=== PATIENT | male | born 1935 | race Caucasian/White ===

== ENCOUNTER 2018-03-15 16:53 | Outpatient (REF) | payer OTHER, SELFPAY ==
[2018-03-15 19:25] LABS: HCT 32.9 % (40.0-50.0); HGB 11.1 g/dL (13.5-17.5); Mean Corp. HGB Concentration 33.7 g/dL (32.0-36.0); Mean Corpuscular Hemoglobin 35.4 pg (27.0-33.0); Mean Corpuscular Volume 104.8 fL (80-95); Mean Platelet Volume 9.3 fL (8.0-11.0); Platelet Count 135 x1000/uL (130-400); RBC 3.14 m/cumm (4.50-6.00); RBC Distribution Width 14.8 % (11.8-14.1)
[2018-03-15 19:34] LABS: Anion Gap 7.3 mmol/L (3-11); BUN 27 mg/dL (7-18); CO2 28.7 mmol/L (21.0-32.0); CREATININE 1.35 mg/dL (0.70-1.30); Calcium 8.8 mg/dL (8.5-10.1); Chloride 108 mmol/L (98-107); Estimated GFR 50.72 (mL/min/1.73m2); Glucose 187 mg/dL (70-100); Potassium 4.7 mmol/L (3.5-5.1); Sodium 144 mmol/L (136-145)
[2018-03-15 20:10] LABS: White Blood Cell Count 1.13 k/cumm (4.4-10.8)
[2018-03-18 10:07] LABS: Absolute Lymphocyte Count 0.34 k/cumm (1.2-3.4); Absolute Monocyte Count 0.07 k/cumm (0.11-0.7); Absolute Neutrophil Count 0.68 k/cumm (1.2-6.7)
[2018-03-18 10:08] LABS: Absolute Eosinophil Count 0.05 k/cumm (0.0-0.7); Diff Comment Manual Differential; Microcytosis 1+
== END 2018-03-15 17:13 ==
LOC: NCHCN 16:53
PROVIDERS: PCP Family Medicine; Visit Provider Family Medicine
DX: D46.9 Myelodysplastic syndrome, unspecified (principal); N18.4 Chronic kidney disease, stage 4 (severe); E11.9 Type 2 diabetes mellitus without complications; D72.819 Decreased white blood cell count, unspecified; D64.9 Anemia, unspecified
CPT/HCPCS: 80048; 85027; 85007

== ENCOUNTER 2018-05-22 13:00 | Outpatient (CLI) | payer OTHER, SELFPAY ==
--- NOTE | 2018-05-22 14:00 | DI.RAD_ITS ---
SYMPTOMS/DIAGNOSIS: PRODUCTIVE COUGH, ? PNEUMONIA, CRACKLES LT BASE PA AND LATERAL CHEST: The heart is at the upper limits of normal in size. Note is again made of apparent aortic dilatation and tortuosity unchanged from 07/21/17 radiograph. There are calcific right hilar nodes and peripheral intraparenchymal calcifications on the right consistent with healed granulomatous disease. The lungs are otherwise generally clear except for a new focal area of patchy consolidation in the left lung base consistent with acute pneumonia. CONCLUSION: Suspect acute left basilar pneumonia. Appropriate follow up studies requested.
== END 2018-05-22 13:20 ==
PROVIDERS: PCP Family Medicine; Visit Provider Nurse Practitioner Family
DX: R05 Cough (principal); J18.9 Pneumonia, unspecified organism; R09.89 Other specified symptoms and signs involving the circulatory and respiratory systems
CPT/HCPCS: 71046

== ENCOUNTER 2018-07-28 00:20 | Emergency (ER) | payer OTHER, SELFPAY ==
[2018-07-28 00:38] VITALS: BP 146/80; PULSE 66; RESP 16; TEMP 36.6; O2SAT 94
--- NOTE | 2018-07-28 00:43 | W.ED.GENAD ---
Discharge Plan Disposition Patient Disposition: HOME Condition: Good Discharge Details Chief Complaint: RespSymp Clinical Impression: URI (upper respiratory infection) Primary Care Provider: Sandra Park V ED Provider: Hal Oro [place] Meds and New Rx's Prescriptions: Continued glipizide 10 MG tablet 10 mg PO DAILY RF: 0 simvastatin 40 MG tablet 20 mg PO HS RF: 0 pantoprazole 40 MG tablet,delayed release (DR/EC) 40 mg PO DIRECTED RF: 0 losartan 100 MG tablet 100 mg PO DAILY RF: 0 metoprolol tartrate 50 MG tablet 50 mg PO BID 90 Days Qty: 180 RF: 1 Eliquis 2.5 MG tablet 2.5 mg PO BID 90 Days Qty: 180 RF: 3 Januvia 50 MG tablet 50 mg PO DAILY 90 Days Qty: 90 RF: 3 pioglitazone [Actos] 45 MG tablet 45 mg PO DAILY RF: 0 Tresiba FlexTouch U-100 100 UNIT/ML insulin pen 10 unit SQ HS RF: 0 Discharge Instructions Instructions: Upper Respiratory Infection (ED) Additional Instructions: Your EKG looks fine. Your chest x-ray shows no evidence of pneumonia. Your troponin after having discomfort all afternoon and evening is negative. Suspect this is all related to viral URI. Rest and stay hydrated. Follow-up with primary care next week if not doing better. Return to ED if worsening pain, increasing difficulty breathing, mental status changes, Referrals: Sandra Park MD [Primary Care Provider] - Medical Decision Making Patient appears well. He is afebrile here. Saturations mid 90s. Lungs are clear. I think this is simply URI. He has had discomfort all afternoon and evening. Will get EKG and troponin x1. Will obtain chest x-ray. EKG is normal. Troponin is normal. Chest x-ray is negative for infiltrate. No change from previous with prominent aortic knob. I feel the patient is safe for discharge. There is no evidence of pneumonia. His chest discomfort does not appear to be cardiac related. Treat for URI with symptomatic management. Follow-up with primary care next week if not doing better. Return to emergency department for high fever, increasing difficulty breathing, new or worsening chest pain, other concerns. Lab Data Lab results reviewed: Yes I reviewed the patient's lab results. ECG Data Attestation: I personally reviewed and interpreted this ECG (s) as follows: Interpretation: Normal sinus rhythm. Normal intervals and axis. No ST changes noted. HPI General Mode of arrival: ambulatory. Date/Time Provider Initiated Documentation: 07/28/18 00:43. Limitations to Documentation: no limitations. Information obtained by: patient. HPI Narrative: Patient presents to ED for evaluation of cough and chest discomfort. Patient reports developing some congestion and cough over the last 1-2 days. He had no fever that he is aware of. He started to develop some chest discomfort this afternoon. Cough seems to be worse. He is not having difficulty breathing. He denies having chest pain. He has no back pain. He is concerned that he might have a recurrent pneumonia as he had this in the fall. He wanted to come in to be checked to be sure. Related Data Home Medications Medication Instructions Recorded Confirmed glipizide 10 mg PO DAILY 11/10/15 07/28/18 losartan 100 mg PO DAILY 11/10/15 07/28/18 pantoprazole 40 mg PO DIRECTED 11/10/15 07/28/18 simvastatin 20 mg PO HS 11/10/15 07/28/18 Eliquis 2.5 mg PO BID 90 Days #180 tab 07/22/17 07/28/18 Januvia 50 mg PO DAILY 90 Days #90 tablet 07/22/17 07/28/18 metoprolol tartrate 50 mg PO BID 90 Days #180 tab 07/22/17 07/28/18 Tresiba FlexTouch U-100 10 unit SQ HS 12/11/17 07/28/18 pioglitazone [Actos] 45 mg PO DAILY 12/11/17 07/28/18 Previous Rx's Medication Instructions Recorded Eliquis 2.5 mg PO BID 90 Days #180 tab 07/22/17 Januvia 50 mg PO DAILY 90 Days #90 tablet 07/22/17 metoprolol tartrate 50 mg PO BID 90 Days #180 tab 07/22/17 Allergies Allergy/AdvReac Type Severity Reaction Status Date / Time Sulfa (Sulfonamide Allergy Mild Unverified 07/28/18 01:24 Antibiotics) aspirin AdvReac Intermediate Bloody Unverified 07/28/18 01:24 nose, bruising metformin [From Glucophage] AdvReac Intermediate Unverified 07/28/18 01:24 General Stated Complaint: RespSymp NICHOL: 3 Review of Systems Constitutional Denies chills, Denies fatigue, Denies fever(s), Denies headache(s), Denies lethargy, Denies malaise, Denies poor appetite and Denies weakness ENT Denies otalgia, Denies facial pain, Denies headache(s), Reports nasal congestion, Denies neck pain and Denies sore throat Cardiovascular Reports chest pain (discomfort), Denies diaphoresis, Denies syncope, Denies edema, Denies palpitations and Reports dyspnea Respiratory Denies chest congestion, Reports cough and Reports dyspnea Gastrointestinal Denies abdominal pain, Denies nausea and Denies vomiting Musculoskeletal Denies back pain, Denies myalgias, Denies neck pain and Denies numbness Integumentary/Breasts Denies rash Neurologic Denies confusion, Denies syncope, Denies headache(s), Denies numbness and Denies weakness Psychiatric Denies confusion Endocrine Denies fatigue and Denies palpitations [facility] Medical History Atrial fibrillation (Chronic) CKD (chronic kidney disease) (Chronic) Diabetes mellitus (Chronic) GERD (gastroesophageal reflux disease) (Chronic) HTN (hypertension) (Chronic) Hypercholesterolemia (Chronic) Surgical History S/P hernia repair (Inactive) Social History Smoking/Tobacco Use Status: Never Exam Const General: cooperative, comfortable and no acute distress Orientation: alert and oriented x3 HENMT Head: normocephalic and atraumatic Ears: TM's normal bilaterally General nose exam: nasal discharge clear Face and sinus: normal facial exam Mouth: oropharynx normal and moist mucous membranes Throat: posterior oropharynx normal Neck Neck: normal visual inspection, trachea midline and supple Resp Effort & Inspection: normal respiratory effort Auscultation: clear to auscultation bilaterally Cardio Rate: regular rate Rhythm: regular rhythm Heart Sounds: S1 normal and S2 normal GI Palpation: soft, not firm and nontender Skin General skin exam: no rashes or lesions noted Neuro General: alert, oriented x3, moves all extremities, no focal motor deficits and CN's II-XI intact bilaterally Extrem General: no clubbing, cyanosis or edema Course Vital Signs Temperature 97.9 F 07/28/18 00:38 Pulse 66 07/28/18 00:38 Respiratory Rate 16 07/28/18 00:38 Blood Pressure 146/80 H 07/28/18 00:38 Pulse Oximetry 94 L 07/28/18 00:38 Temperature 97.9 F 07/28/18 00:38 Temperature Source Temporal Artery Scan 07/28/18 00:38 Pulse 66 07/28/18 00:38 Respiratory Rate 16 07/28/18 00:38 Blood Pressure 146/80 H 07/28/18 00:38 Blood Pressure Position Sitting 07/28/18 00:38 Pulse Oximetry 94 L 07/28/18 00:38 Oxygen Delivery Method Room Air 07/28/18 00:38 Oxygen Flow Rate 0 07/28/18 00:38 Pain Level 0 07/28/18 00:38
--- NOTE | 2018-07-28 00:54 | DI.RAD_ITS ---
SYMPTOM/DIAGNOSIS: COUGH, CHEST DISCOMFORT PA AND LATERAL CHEST: Comparison is made with 05/22/18. The heart is mildly enlarged. The aorta is quite tortuous. Calcified granulomas are again noted. No superimposed infiltrate, effusion or pulmonary edema is seen. There is no evidence of pneumothorax. IMPRESSION: No acute abnormality.
[2018-07-28 02:08] LABS: Troponin I < 0.02 ng/mL (0.00-0.06)
--- NOTE | 2018-07-28 03:14 | DI.VRAD_ITS ---
EXAM: XR Chest, 2 Views EXAM DATE/TIME: 07/28/2018 12:56 AM CLINICAL HISTORY: 83 years old, male; Signs and symptoms; Cough and other: Chest discomfort; Patient HX: Cough, chest discomfort TECHNIQUE: XR of the chest, 2 views. COMPARISON: CR XR CHEST 2V PA LATERAL 05/22/2018 2:28 PM FINDINGS: Lungs: No consolidation. Pleural space: Unremarkable. No pleural effusion. No pneumothorax. Heart/Mediastinum: Calcified granulomata, both indira. Vasculature: Aorta is moderately tortuous. Bones/joints: No acute bony findings. IMPRESSION: 1. No acute findings. 2. No change from the previous study. Dictated and Authenticated by: Yogesh Zhang MD. Ordering:JESSICA Hong MD
== END 2018-07-28 03:46 | disposition home or self-care (01) ==
PROVIDERS: Emergency Provider Emergency Medicine; PCP Family Medicine
DX: J06.9 Acute upper respiratory infection, unspecified (principal); I12.9 Hypertensive chronic kidney disease with stage 1 through stage 4 chronic kidney disease, or unspecified chronic kidney disease; N18.9 Chronic kidney disease, unspecified
CPT/HCPCS: 93005; 99285; 71046; 84484; 93010

== ENCOUNTER 2019-05-09 11:46 | Outpatient (REF) | payer OTHER, SELFPAY ==
[2019-05-09 19:34] LABS: Absolute Eosinophil Count 0.04 k/cumm (0.0-0.7); Absolute Monocyte Count 0.09 k/cumm (0.11-0.7); Absolute Neutrophil Count 1.01 k/cumm (1.2-6.7); Eosinophils % 2.6; HCT 26.1 % (40.0-50.0); HGB 7.9 g/dL (13.5-17.5); Mean Corp. HGB Concentration 30.3 g/dL (32.0-36.0); Mean Corpuscular Hemoglobin 30.3 pg (27.0-33.0); Monocytes % 5.8; Neutrophils % 65.6; Platelet Count 165 x1000/uL (130-400); RBC 2.61 m/cumm (4.50-6.00); RBC Distribution Width 16.1 % (11.8-14.1)
[2019-05-09 20:05] LABS: White Blood Cell Count 1.54 k/cumm (4.4-10.8)
[2019-05-09 20:12] LABS: ALT 24 U/L (16-63); AST 18 U/L (15-37); Albumin 3.4 g/dL (3.4-5.0); Alkaline Phosphatase 113 U/L (46-116); Anion Gap 8.1 mmol/L (3-11); BUN 30 mg/dL (7-18); Bilirubin, Total 0.4 mg/dL (0.2-1.0); CO2 26.9 mmol/L (21.0-32.0); CREATININE 1.55 mg/dL (0.70-1.30); Calcium 8.7 mg/dL (8.5-10.1); Chloride 106 mmol/L (98-107); Estimated GFR 43.14 (mL/min/1.73m2); Glucose 154 mg/dL (70-100); Sodium 141 mmol/L (136-145); TSH (W/Ref FT4) 0.94 uIU/mL (0.36-3.74); Total Protein 6.9 g/dL (6.4-8.2); Vitamin B12 549 pg/mL (193-986)
[2019-05-09 20:16] LABS: Diff Comment Diff Reviewed; Macrocytosis 1+
[2019-05-09 20:35] LABS: NT-proBNP 498 pg/mL
== END 2019-05-09 12:06 ==
LOC: NCHCN 11:46
PROVIDERS: PCP Family Medicine; Visit Provider Family Medicine
DX: E11.9 Type 2 diabetes mellitus without complications (principal); R60.0 Localized edema; D46.9 Myelodysplastic syndrome, unspecified; I48.91 Unspecified atrial fibrillation
CPT/HCPCS: 80053; 82607; 83880; 84443; 85025

== ENCOUNTER 2019-05-12 11:32 | Outpatient (REF) | payer OTHER, SELFPAY ==
[2019-05-12 21:54] LABS: HGB 7.5 g/dL (13.5-17.5)
== END 2019-05-12 11:52 ==
LOC: NCHCN 11:32
PROVIDERS: PCP Family Medicine; Visit Provider Family Medicine
DX: D64.9 Anemia, unspecified (principal)
CPT/HCPCS: 85018

== ENCOUNTER 2019-05-15 01:53 | Outpatient (RCR) | payer OTHER, SELFPAY ==
[2019-05-15] VITALS (14 sets, daily range): BP systolic 132–178; BP diastolic 64–85; PULSE 49–65; RESP 18–19; TEMP 36.6–36.8; O2SAT 95–100
[2019-05-15] MEDS: Acetaminophen 325 MG TAB 650 MG PO (09:05)
[2019-05-15] MEDS: diphenhydrAMINE 25 MG CAP PO (09:05)
[2019-05-15] MEDS: Normal Saline Flush 10 ML SYR IVP (09:34)
[2019-05-15] MEDS: Furosemide 20 MG/2 ML VIAL 10 MG IV (11:31)
== END 2019-05-31 23:59 | disposition home or self-care (01) ==
LOC: INF 01:53
PROVIDERS: PCP Family Medicine; Visit Provider Family Medicine
DX: D63.8 Anemia in other chronic diseases classified elsewhere (principal); D46.9 Myelodysplastic syndrome, unspecified
CPT/HCPCS: 36415; 36430; 86850; 86900; 86901; 86920; J1941; P9016

== ENCOUNTER 2019-07-10 08:48 | Outpatient (CLI) | payer OTHER, SELFPAY ==
[2019-07-10 09:16] LABS: Abs Immature Grans 0.01 k/cumm (0.0-0.09); Absolute Eosinophil Count 0.05 k/cumm (0.0-0.7); Absolute Lymphocyte Count 0.52 k/cumm (1.2-3.4); Absolute Monocyte Count 0.11 k/cumm (0.11-0.7); Absolute Neutrophil Count 0.74 k/cumm (1.2-6.7); Eosinophils % 3.5; HCT 31.6 % (40.0-50.0); HGB 9.7 g/dL (13.5-17.5); Immature Grans % 0.7 %; Lymphocytes % 36.4; Mean Corp. HGB Concentration 30.7 g/dL (32.0-36.0); Mean Corpuscular Hemoglobin 30.2 pg (27.0-33.0); Mean Corpuscular Volume 98.4 fL (80-95); Monocytes % 7.7; Neutrophils % 51.7; Platelet Count 142 x1000/uL (130-400); RBC 3.21 m/cumm (4.50-6.00); RBC Distribution Width 18.6 % (11.8-14.1)
[2019-07-10 09:27] LABS: ALT 16 U/L (16-63); AST 15 U/L (15-37); Albumin 3.1 g/dL (3.4-5.0); Alkaline Phosphatase 128 U/L (46-116); Anion Gap 6.4 mmol/L (3-11); BUN 26 mg/dL (7-18); Bilirubin, Total 0.3 mg/dL (0.2-1.0); CO2 28.6 mmol/L (21.0-32.0); CREATININE 1.34 mg/dL (0.70-1.30); Calcium 8.6 mg/dL (8.5-10.1); Chloride 109 mmol/L (98-107); Estimated GFR 51.03 (mL/min/1.73m2); Glucose 163 mg/dL (74-106); Potassium 4.7 mmol/L (3.5-5.1); Sodium 144 mmol/L (136-145); Total Protein 6.9 g/dL (6.4-8.2)
[2019-07-10 09:50] LABS: White Blood Cell Count 1.43 k/cumm (4.4-10.8)
[2019-07-10 09:51] LABS: Diff Comment Agrees w/ Instrument
[2019-07-10 09:52] LABS: Anisocytosis 2+; Polychromasia Present
[2019-07-10 09:53] LABS: Poikilocytes 1+
[2019-07-10 10:10] LABS: Iron 61 ug/dL (65-175); Total Iron Binding Capacity 342 ug/dL (250-450); Transferrin Sat 18 % (20-55)
[2019-07-10 10:23] LABS: Ferritin 28 ng/mL (26-388)
== END 2019-07-10 09:08 ==
PROVIDERS: PCP Family Medicine; Visit Provider Internal Medicine Hematology & Oncology
DX: D46.9 Myelodysplastic syndrome, unspecified (principal); D50.9 Iron deficiency anemia, unspecified
CPT/HCPCS: 36415; 80053; 82728; 83540; 83550; 85025

== ENCOUNTER 2019-07-17 08:24 | Outpatient (CLI) | payer OTHER, SELFPAY ==
[2019-07-17 08:54] LABS: Absolute Basophil Count 0.01 k/cumm (0.0-0.2); Absolute Eosinophil Count 0.06 k/cumm (0.0-0.7); Absolute Lymphocyte Count 0.55 k/cumm (1.2-3.4); Absolute Monocyte Count 0.11 k/cumm (0.11-0.7); Absolute Neutrophil Count 0.79 k/cumm (1.2-6.7); Basophils % 0.7; Eosinophils % 3.9; HCT 31.3 % (40.0-50.0); HGB 9.6 g/dL (13.5-17.5); Lymphocytes % 36.2; Mean Corp. HGB Concentration 30.7 g/dL (32.0-36.0); Mean Corpuscular Hemoglobin 30.7 pg (27.0-33.0); Mean Platelet Volume 9.2 fL (8.0-11.0); Monocytes % 7.2; Platelet Count 114 x1000/uL (130-400); RBC 3.13 m/cumm (4.50-6.00); RBC Distribution Width 19.5 % (11.8-14.1)
[2019-07-17 09:19] LABS: Anisocytosis 2+; Diff Comment Diff Reviewed; Hypochromasia 1+; Macrocytosis 2+; Ovalocytes 2+; Polychromasia Present
[2019-07-17 09:22] LABS: ALT 18 U/L (16-63); AST 14 U/L (15-37); Alkaline Phosphatase 127 U/L (46-116); BUN 20 mg/dL (7-18); Bilirubin, Total 0.4 mg/dL (0.2-1.0); Calcium 8.5 mg/dL (8.5-10.1); Chloride 106 mmol/L (98-107); Estimated GFR 48.52 (mL/min/1.73m2); Ferritin 102 ng/mL (26-388); Glucose 183 mg/dL (74-106); Potassium 4.7 mmol/L (3.5-5.1); Sodium 141 mmol/L (136-145); Total Protein 6.6 g/dL (6.4-8.2)
[2019-07-17 09:24] LABS: White Blood Cell Count 1.52 k/cumm (4.4-10.8)
[2019-07-17 09:45] LABS: Iron 54 ug/dL (65-175); Total Iron Binding Capacity 325 ug/dL (250-450); Transferrin Sat 17 % (20-55)
== END 2019-07-17 08:44 ==
PROVIDERS: PCP Family Medicine; Visit Provider Internal Medicine Hematology & Oncology
DX: D50.9 Iron deficiency anemia, unspecified (principal); D46.9 Myelodysplastic syndrome, unspecified
CPT/HCPCS: 36415; 80053; 86850; 86900; 86901; 82728; 83540; 83550; 85025

== ENCOUNTER 2019-07-24 10:23 | Outpatient (CLI) | payer OTHER, SELFPAY ==
[2019-07-24 11:26] LABS: ALT 18 U/L (16-63); AST 16 U/L (15-37); Albumin 3.1 g/dL (3.4-5.0); Alkaline Phosphatase 127 U/L (46-116); BUN 20 mg/dL (7-18); Bilirubin, Total 0.5 mg/dL (0.2-1.0); CREATININE 1.35 mg/dL (0.70-1.30); Chloride 109 mmol/L (98-107); Ferritin 128 ng/mL (26-388); Glucose 121 mg/dL (74-106); Iron 52 ug/dL (65-175); Potassium 4.7 mmol/L (3.5-5.1); Sodium 144 mmol/L (136-145); Total Iron Binding Capacity 301 ug/dL (250-450); Total Protein 6.5 g/dL (6.4-8.2); Transferrin Sat 17 % (20-55)
[2019-07-24 11:28] LABS: Abs Immature Grans 0.01 k/cumm (0.0-0.09); HCT 31.5 % (40.0-50.0); HGB 9.6 g/dL (13.5-17.5); Mean Corp. HGB Concentration 30.5 g/dL (32.0-36.0); Mean Corpuscular Hemoglobin 31.3 pg (27.0-33.0); Mean Corpuscular Volume 102.6 fL (80-95); Mean Platelet Volume 9.8 fL (8.0-11.0); Platelet Count 139 x1000/uL (130-400); RBC 3.07 m/cumm (4.50-6.00); RBC Distribution Width 20.7 % (11.8-14.1)
[2019-07-24 12:24] LABS: White Blood Cell Count 1.18 k/cumm (4.4-10.8)
[2019-07-24 12:25] LABS: Absolute Lymphocyte Count 0.54 k/cumm (1.2-3.4); Absolute Monocyte Count 0.07 k/cumm (0.11-0.7); Absolute Neutrophil Count 0.57 k/cumm (1.2-6.7)
[2019-07-24 12:26] LABS: Anisocytosis 2+; Diff Comment Manual Differential; Hypochromasia 1+; Polychromasia Present
== END 2019-07-24 10:43 ==
PROVIDERS: PCP Family Medicine; Visit Provider Internal Medicine Hematology & Oncology
DX: D46.9 Myelodysplastic syndrome, unspecified (principal); D50.9 Iron deficiency anemia, unspecified
CPT/HCPCS: 36415; 80053; 82728; 83540; 83550; 85025

== ENCOUNTER 2019-07-31 10:08 | Outpatient (CLI) | payer OTHER, SELFPAY ==
[2019-07-31 10:47] LABS: Absolute Eosinophil Count 0.05 k/cumm (0.0-0.7); Absolute Lymphocyte Count 0.51 k/cumm (1.2-3.4); Absolute Monocyte Count 0.09 k/cumm (0.11-0.7); Absolute Neutrophil Count 0.65 k/cumm (1.2-6.7); Eosinophils % 3.8; HCT 34.2 % (40.0-50.0); HGB 10.5 g/dL (13.5-17.5); Lymphocytes % 39.2; Mean Corp. HGB Concentration 30.7 g/dL (32.0-36.0); Mean Corpuscular Hemoglobin 31.3 pg (27.0-33.0); Mean Corpuscular Volume 101.8 fL (80-95); Mean Platelet Volume 9.1 fL (8.0-11.0); Monocytes % 6.9; Neutrophils % 50.1; RBC 3.36 m/cumm (4.50-6.00); RBC Distribution Width 20.6 % (11.8-14.1)
[2019-07-31 11:11] LABS: ALT 19 U/L (16-63); AST 17 U/L (15-37); Albumin 3.2 g/dL (3.4-5.0); Alkaline Phosphatase 132 U/L (46-116); Anion Gap 4.6 mmol/L (3-11); BUN 22 mg/dL (7-18); Bilirubin, Total 0.5 mg/dL (0.2-1.0); CO2 30.4 mmol/L (21.0-32.0); CREATININE 1.36 mg/dL (0.70-1.30); Calcium 8.6 mg/dL (8.5-10.1); Chloride 108 mmol/L (98-107); Estimated GFR 50.17 (mL/min/1.73m2); Ferritin 144 ng/mL (26-388); Glucose 125 mg/dL (74-106); Potassium 4.3 mmol/L (3.5-5.1); Sodium 143 mmol/L (136-145); Total Protein 6.9 g/dL (6.4-8.2)
[2019-07-31 11:14] LABS: Anisocytosis 3+; Diff Comment Diff Reviewed; Platelet Count 143 x1000/uL (130-400)
[2019-07-31 11:15] LABS: Hypochromasia 1+; Poikilocytes 2+; Polychromasia Present
[2019-07-31 12:19] LABS: Iron 60 ug/dL (65-175); Total Iron Binding Capacity 300 ug/dL (250-450); Transferrin Sat 20 % (20-55)
== END 2019-07-31 10:28 ==
PROVIDERS: PCP Family Medicine; Visit Provider Internal Medicine Hematology & Oncology
DX: D46.9 Myelodysplastic syndrome, unspecified (principal); D50.9 Iron deficiency anemia, unspecified
CPT/HCPCS: 36415; 80053; 82728; 83540; 83550; 85025

== ENCOUNTER 2019-08-07 09:26 | Outpatient (CLI) | payer OTHER, SELFPAY ==
[2019-08-07 10:28] LABS: Abs Immature Grans 0.01 k/cumm (0.0-0.09); Absolute Eosinophil Count 0.04 k/cumm (0.0-0.7); Absolute Lymphocyte Count 0.59 k/cumm (1.2-3.4); Absolute Monocyte Count 0.09 k/cumm (0.11-0.7); Absolute Neutrophil Count 0.87 k/cumm (1.2-6.7); Eosinophils % 2.5; HCT 35.1 % (40.0-50.0); HGB 10.8 g/dL (13.5-17.5); Immature Grans % 0.6 %; Lymphocytes % 36.9; Mean Corp. HGB Concentration 30.8 g/dL (32.0-36.0); Mean Corpuscular Hemoglobin 31.8 pg (27.0-33.0); Mean Corpuscular Volume 103.2 fL (80-95); Mean Platelet Volume 9.6 fL (8.0-11.0); Monocytes % 5.6; Neutrophils % 54.4; Platelet Count 146 x1000/uL (130-400); RBC Distribution Width 20.2 % (11.8-14.1)
[2019-08-07 10:47] LABS: Anisocytosis 2+; Diff Comment Diff Reviewed
[2019-08-07 10:48] LABS: Ovalocytes 2+; Polychromasia Present
== END 2019-08-07 09:46 ==
PROVIDERS: PCP Family Medicine; Visit Provider Internal Medicine Hematology & Oncology
DX: D46.9 Myelodysplastic syndrome, unspecified (principal)
CPT/HCPCS: 36415; 85025

== ENCOUNTER 2019-08-14 09:14 | Outpatient (CLI) | payer OTHER, SELFPAY ==
[2019-08-14 09:36] LABS: Absolute Basophil Count 0.01 k/cumm (0.0-0.2); Absolute Eosinophil Count 0.04 k/cumm (0.0-0.7); Absolute Lymphocyte Count 0.39 k/cumm (1.2-3.4); Absolute Monocyte Count 0.07 k/cumm (0.11-0.7); Basophils % 0.8; Eosinophils % 3.3; HCT 33.6 % (40.0-50.0); HGB 10.2 g/dL (13.5-17.5); Lymphocytes % 32.2; Mean Corp. HGB Concentration 30.4 g/dL (32.0-36.0); Mean Corpuscular Hemoglobin 31.5 pg (27.0-33.0); Mean Corpuscular Volume 103.7 fL (80-95); Mean Platelet Volume 8.8 fL (8.0-11.0); Monocytes % 5.8; Neutrophils % 57.9; RBC 3.24 m/cumm (4.50-6.00); RBC Distribution Width 19.7 % (11.8-14.1)
[2019-08-14 10:09] LABS: White Blood Cell Count 1.21 k/cumm (4.4-10.8)
[2019-08-14 10:10] LABS: Anisocytosis 2+; Basophilic Stippling Present; Diff Comment Diff Reviewed; Ovalocytes 2+; Poikilocytes 2+; Polychromasia Present
[2019-08-14 10:11] LABS: Platelet Count 129 x1000/uL (130-400)
[2019-08-14 10:28] LABS: Hemoglobin A1C 7.4 % (3.8-5.6)
[2019-08-14 10:32] LABS: Iron 40 ug/dL (65-175); Total Iron Binding Capacity 304 ug/dL (250-450); Transferrin Sat 13 % (20-55)
[2019-08-14 10:35] LABS: ALT 17 U/L (16-63); AST 14 U/L (15-37); Albumin 3.1 g/dL (3.4-5.0); Alkaline Phosphatase 124 U/L (46-116); Anion Gap 7.8 mmol/L (3-11); BUN 27 mg/dL (7-18); Bilirubin, Total 0.5 mg/dL (0.2-1.0); CO2 27.2 mmol/L (21.0-32.0); CREATININE 1.31 mg/dL (0.70-1.30); Calcium 8.5 mg/dL (8.5-10.1); Chloride 108 mmol/L (98-107); Estimated GFR 52.39 (mL/min/1.73m2); Ferritin 54 ng/mL (26-388); Glucose 208 mg/dL (74-106); Potassium 4.7 mmol/L (3.5-5.1); Sodium 143 mmol/L (136-145); Total Protein 6.3 g/dL (6.4-8.2)
== END 2019-08-14 09:34 ==
PROVIDERS: PCP Family Medicine; Visit Provider Internal Medicine Hematology & Oncology
DX: D50.9 Iron deficiency anemia, unspecified (principal); D46.9 Myelodysplastic syndrome, unspecified; E11.9 Type 2 diabetes mellitus without complications
CPT/HCPCS: 36415; 80053; 82728; 83036; 83540; 83550; 85025

== ENCOUNTER 2019-08-21 08:29 | Outpatient (CLI) | payer OTHER, SELFPAY ==
[2019-08-21 08:50] LABS: Abs Immature Grans 0.01 k/cumm (0.0-0.09); Absolute Eosinophil Count 0.06 k/cumm (0.0-0.7); Absolute Lymphocyte Count 0.55 k/cumm (1.2-3.4); Absolute Monocyte Count 0.11 k/cumm (0.11-0.7); Absolute Neutrophil Count 0.73 k/cumm (1.2-6.7); Eosinophils % 4.1; HGB 9.9 g/dL (13.5-17.5); Immature Grans % 0.7 %; Lymphocytes % 37.7; Mean Corpuscular Hemoglobin 31.3 pg (27.0-33.0); Mean Corpuscular Volume 104.4 fL (80-95); Mean Platelet Volume 9.5 fL (8.0-11.0); Monocytes % 7.5; Platelet Count 136 x1000/uL (130-400); RBC 3.16 m/cumm (4.50-6.00); RBC Distribution Width 18.9 % (11.8-14.1)
[2019-08-21 09:28] LABS: White Blood Cell Count 1.46 k/cumm (4.4-10.8)
[2019-08-21 09:29] LABS: Anisocytosis 1+; Diff Comment Agrees w/ Instrument; Hypochromasia 1+; Macrocytosis 1+; Polychromasia Present
[2019-08-21 09:30] LABS: Poikilocytes 1+
== END 2019-08-21 08:49 ==
PROVIDERS: PCP Family Medicine; Visit Provider Internal Medicine Hematology & Oncology
DX: D46.9 Myelodysplastic syndrome, unspecified (principal)
CPT/HCPCS: 36415; 85025

== ENCOUNTER 2019-08-28 09:12 | Outpatient (CLI) | payer OTHER, SELFPAY ==
[2019-08-28 09:43] LABS: Absolute Eosinophil Count 0.06 k/cumm (0.0-0.7); Absolute Monocyte Count 0.15 k/cumm (0.11-0.7); Absolute Neutrophil Count 0.86 k/cumm (1.2-6.7); Eosinophils % 3.6; HCT 33.8 % (40.0-50.0); HGB 10.3 g/dL (13.5-17.5); Lymphocytes % 35.9; Mean Corp. HGB Concentration 30.5 g/dL (32.0-36.0); Mean Corpuscular Hemoglobin 31.1 pg (27.0-33.0); Mean Corpuscular Volume 102.1 fL (80-95); Mean Platelet Volume 9.5 fL (8.0-11.0); Neutrophils % 51.5; Platelet Count 149 x1000/uL (130-400); RBC 3.31 m/cumm (4.50-6.00); RBC Distribution Width 17.8 % (11.8-14.1)
[2019-08-28 10:42] LABS: Anisocytosis 1+; Diff Comment Agrees w/ Instrument; White Blood Cell Count 1.67 k/cumm (4.4-10.8)
[2019-08-28 10:43] LABS: Poikilocytes 1+
== END 2019-08-28 09:32 ==
PROVIDERS: PCP Family Medicine; Visit Provider Internal Medicine Hematology & Oncology
DX: D46.9 Myelodysplastic syndrome, unspecified (principal)
CPT/HCPCS: 36415; 85025

== ENCOUNTER 2019-09-04 02:56 | Outpatient (CLI) | payer OTHER, SELFPAY ==
[2019-09-04 08:26] LABS: Absolute Eosinophil Count 0.05 k/cumm (0.0-0.7); Absolute Lymphocyte Count 0.58 k/cumm (1.2-3.4); Absolute Monocyte Count 0.11 k/cumm (0.11-0.7); Eosinophils % 2.7; HCT 34.1 % (40.0-50.0); HGB 10.5 g/dL (13.5-17.5); Lymphocytes % 31.5; Mean Corp. HGB Concentration 30.8 g/dL (32.0-36.0); Mean Corpuscular Hemoglobin 31.3 pg (27.0-33.0); Mean Corpuscular Volume 101.8 fL (80-95); Mean Platelet Volume 9.1 fL (8.0-11.0); Neutrophils % 59.8; Platelet Count 168 x1000/uL (130-400); RBC 3.35 m/cumm (4.50-6.00); RBC Distribution Width 17.5 % (11.8-14.1)
[2019-09-04 09:28] LABS: White Blood Cell Count 1.84 k/cumm (4.4-10.8)
[2019-09-04 11:28] LABS: Anisocytosis 2+; Diff Comment Diff Reviewed
[2019-09-04 11:30] LABS: Poikilocytes 1+; Polychromasia Present
== END 2019-09-04 03:16 ==
PROVIDERS: PCP Family Medicine; Visit Provider Internal Medicine Hematology & Oncology
DX: D46.9 Myelodysplastic syndrome, unspecified (principal)
CPT/HCPCS: 36415; 85025

== ENCOUNTER 2019-09-10 17:56 | Outpatient (REF) | payer OTHER, SELFPAY ==
[2019-09-10 20:19] LABS: Absolute Basophil Count 0.01 k/cumm (0.0-0.2); Absolute Eosinophil Count 0.04 k/cumm (0.0-0.7); Absolute Monocyte Count 0.19 k/cumm (0.11-0.7); Absolute Neutrophil Count 1.48 k/cumm (1.2-6.7); Basophils % 0.5; Eosinophils % 1.8; HCT 33.7 % (40.0-50.0); HGB 10.7 g/dL (13.5-17.5); Lymphocytes % 22.5; Mean Corp. HGB Concentration 31.8 g/dL (32.0-36.0); Mean Corpuscular Hemoglobin 31.7 pg (27.0-33.0); Mean Corpuscular Volume 99.7 fL (80-95); Mean Platelet Volume 10.3 fL (8.0-11.0); Monocytes % 8.6; Neutrophils % 66.6; Platelet Count 150 x1000/uL (130-400); RBC 3.38 m/cumm (4.50-6.00); RBC Distribution Width 16.8 % (11.8-14.1); White Blood Cell Count 2.22 k/cumm (4.4-10.8)
[2019-09-10 20:37] LABS: Anion Gap 6.5 mmol/L (3-11); BUN 23 mg/dL (7-18); CO2 28.5 mmol/L (21.0-32.0); CREATININE 1.56 mg/dL (0.70-1.30); Calcium 8.5 mg/dL (8.5-10.1); Chloride 107 mmol/L (98-107); Estimated GFR 42.82 (mL/min/1.73m2); Glucose 148 mg/dL (74-106); Potassium 4.9 mmol/L (3.5-5.1); Sodium 142 mmol/L (136-145)
== END 2019-09-10 18:16 ==
LOC: NCHCN 17:56
PROVIDERS: PCP Family Medicine; Visit Provider Physician Assistant Medical
DX: R50.9 Fever, unspecified (principal)
CPT/HCPCS: 80048; 85025

== ENCOUNTER 2019-09-11 09:05 | Outpatient (CLI) | payer OTHER, SELFPAY ==
--- NOTE | 2019-09-11 08:40 | DI.RAD_ITS ---
EXAM: XR CHEST 2V PA LATERAL CLINICAL HISTORY: FEVER, COUGH, R50.9, R05 TECHNIQUE: 2D digital imaging was performed. COMPARISON: No exams were available for comparison FINDINGS: The heart is enlarged. The aorta is tortuous, unchanged. There is now an infiltrate seen in the lef t lower lobe, above the diaphragm. The right lung appears clear. No effusions or pulmonary edema is seen. IMPRESSION: Left lower lobe pneumonia. DATA REPOSITORY: RADIATION DOSE DELIVERED:
== END 2019-09-11 09:25 ==
PROVIDERS: PCP Family Medicine; Visit Provider Physician Assistant Medical
DX: R05 Cough (principal); R50.9 Fever, unspecified; J18.9 Pneumonia, unspecified organism
CPT/HCPCS: 71046

== ENCOUNTER 2019-09-25 02:33 | Outpatient (CLI) | payer OTHER, SELFPAY ==
[2019-09-25 12:17] LABS: HCT 31.5 % (40.0-50.0); HGB 9.6 g/dL (13.5-17.5); Mean Corp. HGB Concentration 30.5 g/dL (32.0-36.0); Mean Corpuscular Hemoglobin 30.5 pg (27.0-33.0); Mean Platelet Volume 10.1 fL (8.0-11.0); Platelet Count 204 x1000/uL (130-400); RBC 3.15 m/cumm (4.50-6.00)
[2019-09-25 12:29] LABS: White Blood Cell Count 1.91 k/cumm (4.4-10.8)
[2019-09-25 12:30] LABS: Absolute Neutrophil Count 1.05 k/cumm (1.2-6.7)
[2019-09-25 12:31] LABS: Absolute Eosinophil Count 0.04 k/cumm (0.0-0.7); Absolute Lymphocyte Count 0.71 k/cumm (1.2-3.4); Absolute Monocyte Count 0.11 k/cumm (0.11-0.7); Anisocytosis 2+; Diff Comment Manual Differential; Polychromasia Present
[2019-09-25 12:32] LABS: Poikilocytes 1+
== END 2019-09-25 02:53 ==
PROVIDERS: PCP Family Medicine; Visit Provider Internal Medicine Hematology & Oncology
DX: D46.9 Myelodysplastic syndrome, unspecified (principal)
CPT/HCPCS: 36415; 85025

== ENCOUNTER 2019-10-23 01:30 | Outpatient (CLI) | payer OTHER, SELFPAY ==
[2019-10-23 08:36] LABS: Absolute Eosinophil Count 0.08 k/cumm (0.0-0.7); Absolute Lymphocyte Count 0.68 k/cumm (1.2-3.4); Absolute Monocyte Count 0.13 k/cumm (0.11-0.7); Absolute Neutrophil Count 0.89 k/cumm (1.2-6.7); Eosinophils % 4.5; HCT 26.4 % (40.0-50.0); HGB 7.6 g/dL (13.5-17.5); Lymphocytes % 38.2; Mean Corp. HGB Concentration 28.8 g/dL (32.0-36.0); Mean Platelet Volume 9.2 fL (8.0-11.0); Monocytes % 7.3; Platelet Count 172 x1000/uL (130-400); RBC 2.81 m/cumm (4.50-6.00); RBC Distribution Width 15.9 % (11.8-14.1)
[2019-10-23 08:57] LABS: White Blood Cell Count 1.78 k/cumm (4.4-10.8)
[2019-10-23 08:58] LABS: Diff Comment Agrees w/ Instrument; Hypochromasia 1+; Poikilocytes 1+
== END 2019-10-23 01:50 ==
PROVIDERS: PCP Family Medicine; Visit Provider Internal Medicine Hematology & Oncology
DX: D46.9 Myelodysplastic syndrome, unspecified (principal)
CPT/HCPCS: 36415; 85025

== ENCOUNTER 2019-11-04 13:17 | Outpatient (CLI) | payer OTHER, SELFPAY | END 2019-11-04 13:37 | PROVIDERS: PCP Family Medicine; Visit Provider Family Medicine | DX: D64.9 Anemia, unspecified (principal); D46.9 Myelodysplastic syndrome, unspecified | CPT/HCPCS: 36415; 80053; 86850; 86900; 86901; 86920; 82728; 85025 ==

== ENCOUNTER 2019-11-05 01:54 | Outpatient (RCR) | payer OTHER, SELFPAY ==
[2019-11-04 13:57] LABS: Absolute Monocyte Count 0.07 k/cumm (0.11-0.7); HCT 22.7 % (40.0-50.0); Mean Corp. HGB Concentration 28.6 g/dL (32.0-36.0); Mean Corpuscular Volume 90.8 fL (80-95); Mean Platelet Volume 9.1 fL (8.0-11.0); Platelet Count 131 x1000/uL (130-400); RBC Distribution Width 16.4 % (11.8-14.1)
[2019-11-04 14:02] LABS: White Blood Cell Count 1.18 k/cumm (4.4-10.8)
[2019-11-04 14:03] LABS: HGB 6.5 g/dL (13.5-17.5)
[2019-11-04 14:15] LABS: ALT 19 U/L (16-63); AST 12 U/L (15-37); Alkaline Phosphatase 98 U/L (46-116); Anion Gap 6.6 mmol/L (3-11); BUN 29 mg/dL (7-18); Bilirubin, Total 0.5 mg/dL (0.2-1.0); CO2 27.4 mmol/L (21.0-32.0); CREATININE 1.56 mg/dL (0.70-1.30); Calcium 8.2 mg/dL (8.5-10.1); Chloride 106 mmol/L (98-107); Estimated GFR 42.82 (mL/min/1.73m2); Ferritin 10 ng/mL (26-388); Glucose 177 mg/dL (74-106); Potassium 5.1 mmol/L (3.5-5.1); Sodium 140 mmol/L (136-145); Total Protein 6.5 g/dL (6.4-8.2)
[2019-11-04 14:19] LABS: Absolute Neutrophil Count 0.67 k/cumm (1.2-6.7)
[2019-11-04 14:20] LABS: Absolute Eosinophil Count 0.05 k/cumm (0.0-0.7); Absolute Lymphocyte Count 0.39 k/cumm (1.2-3.4); Diff Comment Manual Differential
[2019-11-04 14:21] LABS: Hypochromasia 2+; Polychromasia Present
[2019-11-04 14:22] LABS: Poikilocytes 2+
[2019-11-05] VITALS (14 sets, daily range): BP systolic 121–162; BP diastolic 56–83; PULSE 59–73; RESP 18–19; TEMP 36–36.6; O2SAT 96–99
[2019-11-05] MEDS: Acetaminophen 325 MG TAB (09:41)
[2019-11-05] MEDS: diphenhydrAMINE 25 MG CAP (09:42)
[2019-11-05] MEDS: Normal Saline Flush 10 ML SYR IVP (13:45)
== END 2019-11-30 23:59 | disposition home or self-care (01) ==
LOC: INF 01:54
PROVIDERS: PCP Family Medicine; Visit Provider Family Medicine
DX: D46.9 Myelodysplastic syndrome, unspecified (principal); D63.8 Anemia in other chronic diseases classified elsewhere
CPT/HCPCS: 36415; 36430; 80053; 86850; 86900; 86901; 86920; 82728; 85025; P9016

== ENCOUNTER 2019-11-06 02:53 | Outpatient (CLI) | payer OTHER, SELFPAY ==
[2019-11-06 08:38] LABS: Absolute Eosinophil Count 0.03 k/cumm (0.0-0.7); Absolute Lymphocyte Count 0.44 k/cumm (1.2-3.4); Absolute Monocyte Count 0.06 k/cumm (0.11-0.7); Absolute Neutrophil Count 0.71 k/cumm (1.2-6.7); Eosinophils % 2.4; HCT 26.3 % (40.0-50.0); HGB 7.8 g/dL (13.5-17.5); Lymphocytes % 35.5; Mean Corp. HGB Concentration 29.7 g/dL (32.0-36.0); Mean Corpuscular Hemoglobin 26.1 pg (27.0-33.0); Mean Platelet Volume 8.9 fL (8.0-11.0); Monocytes % 4.8; Neutrophils % 57.3; RBC 2.99 m/cumm (4.50-6.00); RBC Distribution Width 17.1 % (11.8-14.1)
[2019-11-06 08:51] LABS: Anisocytosis 2+; Diff Comment Diff Reviewed; Hypochromasia 2+; Platelet Count 112 x1000/uL (130-400); Polychromasia Present; White Blood Cell Count 1.24 k/cumm (4.4-10.8)
[2019-11-06 08:52] LABS: Poikilocytes 1+
[2019-11-06 09:02] LABS: ALT 18 U/L (16-63); AST 14 U/L (15-37); Alkaline Phosphatase 91 U/L (46-116); Anion Gap 5.2 mmol/L (3-11); BUN 29 mg/dL (7-18); Bilirubin, Total 0.5 mg/dL (0.2-1.0); CO2 26.8 mmol/L (21.0-32.0); CREATININE 1.65 mg/dL (0.70-1.30); Calcium 8.1 mg/dL (8.5-10.1); Chloride 106 mmol/L (98-107); Estimated GFR 40.14 (mL/min/1.73m2); Ferritin 15 ng/mL (26-388); Glucose 203 mg/dL (74-106); Potassium 4.8 mmol/L (3.5-5.1); Sodium 138 mmol/L (136-145); Total Protein 6.5 g/dL (6.4-8.2)
== END 2019-11-06 03:13 ==
PROVIDERS: PCP Family Medicine; Visit Provider Internal Medicine Hematology & Oncology
DX: D50.9 Iron deficiency anemia, unspecified (principal); D46.9 Myelodysplastic syndrome, unspecified
CPT/HCPCS: 36415; 80053; 82728; 85025

== ENCOUNTER 2019-11-07 14:04 | Outpatient (REF) | payer OTHER, SELFPAY ==
[2019-11-15 12:55] LABS: Fecal Immunochemical Test Positive (Negative)
== END 2019-11-07 14:24 ==
LOC: LBN 14:04
PROVIDERS: PCP Family Medicine; Visit Provider Internal Medicine Hematology & Oncology
DX: D50.9 Iron deficiency anemia, unspecified (principal)
CPT/HCPCS: 82274

== ENCOUNTER 2019-11-09 14:06 | Outpatient (REF) | payer OTHER, SELFPAY ==
[2019-11-15 12:55] LABS: Fecal Immunochemical Test Positive (Negative)
== END 2019-11-09 14:26 ==
LOC: LBN 14:06
PROVIDERS: PCP Family Medicine; Visit Provider Internal Medicine Hematology & Oncology
DX: D50.9 Iron deficiency anemia, unspecified (principal)
CPT/HCPCS: 82274

== ENCOUNTER 2019-11-11 14:07 | Outpatient (REF) | payer OTHER, SELFPAY ==
[2019-11-15 12:55] LABS: Fecal Immunochemical Test Positive (Negative)
== END 2019-11-11 14:27 ==
LOC: LBN 14:07
PROVIDERS: PCP Family Medicine; Visit Provider Internal Medicine Hematology & Oncology
DX: D50.9 Iron deficiency anemia, unspecified (principal)
CPT/HCPCS: 82274

== ENCOUNTER 2019-11-13 01:54 | Outpatient (CLI) | payer OTHER, SELFPAY ==
[2019-11-13 08:42] LABS: Absolute Basophil Count 0.01 k/cumm (0.0-0.2); Absolute Eosinophil Count 0.03 k/cumm (0.0-0.7); Absolute Lymphocyte Count 0.47 k/cumm (1.2-3.4); Absolute Monocyte Count 0.08 k/cumm (0.11-0.7); Basophils % 0.8; Eosinophils % 2.3; HCT 28.3 % (40.0-50.0); HGB 8.1 g/dL (13.5-17.5); Lymphocytes % 36.4; Mean Corp. HGB Concentration 28.6 g/dL (32.0-36.0); Mean Corpuscular Hemoglobin 26.3 pg (27.0-33.0); Mean Corpuscular Volume 91.9 fL (80-95); Mean Platelet Volume 8.8 fL (8.0-11.0); Monocytes % 6.2; Neutrophils % 54.3; Platelet Count 148 x1000/uL (130-400); RBC 3.08 m/cumm (4.50-6.00); RBC Distribution Width 19.3 % (11.8-14.1)
[2019-11-13 09:01] LABS: White Blood Cell Count 1.29 k/cumm (4.4-10.8)
[2019-11-13 09:02] LABS: Anisocytosis 2+; Diff Comment Diff Reviewed; Poikilocytes 1+; Polychromasia Present
[2019-11-13 09:05] LABS: Ferritin 92 ng/mL (26-388)
== END 2019-11-13 02:14 ==
PROVIDERS: PCP Family Medicine; Visit Provider Internal Medicine Hematology & Oncology
DX: D50.9 Iron deficiency anemia, unspecified (principal)
CPT/HCPCS: 36415; 86900; 86901; 82728; 85025

== ENCOUNTER 2019-11-20 04:14 | Outpatient (CLI) | payer OTHER, SELFPAY ==
[2019-11-20 08:14] LABS: Absolute Eosinophil Count 0.05 k/cumm (0.0-0.7); Absolute Lymphocyte Count 0.47 k/cumm (1.2-3.4); Absolute Neutrophil Count 0.82 k/cumm (1.2-6.7); Eosinophils % 3.5; HCT 28.2 % (40.0-50.0); HGB 7.9 g/dL (13.5-17.5); Lymphocytes % 32.6; Mean Corpuscular Hemoglobin 26.5 pg (27.0-33.0); Mean Corpuscular Volume 94.6 fL (80-95); Mean Platelet Volume 9.4 fL (8.0-11.0); Monocytes % 6.9; Platelet Count 209 x1000/uL (130-400); RBC 2.98 m/cumm (4.50-6.00)
[2019-11-20 08:44] LABS: White Blood Cell Count 1.44 k/cumm (4.4-10.8)
[2019-11-20 08:47] LABS: Anisocytosis 2+; Diff Comment Agrees w/ Instrument; Hypochromasia 1+; Macrocytosis 1+; Microcytosis 1+
[2019-11-20 08:48] LABS: Poikilocytes 1+; Polychromasia Present
== END 2019-11-20 04:34 ==
PROVIDERS: PCP Family Medicine; Visit Provider Internal Medicine Hematology & Oncology
DX: D46.9 Myelodysplastic syndrome, unspecified (principal)
CPT/HCPCS: 36415; 85025

== ENCOUNTER 2019-11-27 03:35 | Outpatient (CLI) | payer OTHER, SELFPAY ==
[2019-11-27 09:04] LABS: Abs Immature Grans 0.01 k/cumm (0.0-0.09); Absolute Basophil Count 0.01 k/cumm (0.0-0.2); Absolute Eosinophil Count 0.03 k/cumm (0.0-0.7); Absolute Lymphocyte Count 0.43 k/cumm (1.2-3.4); Absolute Monocyte Count 0.08 k/cumm (0.11-0.7); Absolute Neutrophil Count 0.67 k/cumm (1.2-6.7); Basophils % 0.8; Eosinophils % 2.4; HCT 27.2 % (40.0-50.0); HGB 7.9 g/dL (13.5-17.5); Immature Grans % 0.8 %; Mean Corpuscular Hemoglobin 28.1 pg (27.0-33.0); Mean Corpuscular Volume 96.8 fL (80-95); Mean Platelet Volume 9.5 fL (8.0-11.0); Monocytes % 6.5; Neutrophils % 54.5; Platelet Count 159 x1000/uL (130-400); RBC 2.81 m/cumm (4.50-6.00); RBC Distribution Width 23.3 % (11.8-14.1)
[2019-11-27 09:37] LABS: White Blood Cell Count 1.23 k/cumm (4.4-10.8)
[2019-11-27 09:38] LABS: Anisocytosis 1+; Diff Comment Agrees w/ Instrument; Macrocytosis 1+; Microcytosis 1+; Poikilocytes 1+; Polychromasia Present
[2019-11-27 09:48] LABS: Ferritin 105 ng/mL (26-388)
== END 2019-11-27 03:55 ==
PROVIDERS: PCP Family Medicine; Visit Provider Internal Medicine Hematology & Oncology
DX: D50.9 Iron deficiency anemia, unspecified (principal)
CPT/HCPCS: 36415; 86900; 86901; 82728; 85025

== ENCOUNTER 2019-12-04 03:17 | Outpatient (CLI) | payer OTHER, SELFPAY ==
[2019-12-04 09:32] LABS: Absolute Eosinophil Count 0.02 k/cumm (0.0-0.7); Absolute Lymphocyte Count 0.46 k/cumm (1.2-3.4); Absolute Monocyte Count 0.07 k/cumm (0.11-0.7); Absolute Neutrophil Count 0.74 k/cumm (1.2-6.7); Eosinophils % 1.6; HCT 27.6 % (40.0-50.0); HGB 8.1 g/dL (13.5-17.5); Lymphocytes % 35.7; Mean Corp. HGB Concentration 29.3 g/dL (32.0-36.0); Mean Corpuscular Hemoglobin 28.6 pg (27.0-33.0); Mean Corpuscular Volume 97.5 fL (80-95); Mean Platelet Volume 9.6 fL (8.0-11.0); Monocytes % 5.4; Neutrophils % 57.3; Platelet Count 126 x1000/uL (130-400); RBC 2.83 m/cumm (4.50-6.00); RBC Distribution Width 23.5 % (11.8-14.1)
[2019-12-04 09:57] LABS: Diff Comment Agrees w/ Instrument; White Blood Cell Count 1.29 k/cumm (4.4-10.8)
[2019-12-04 09:58] LABS: Anisocytosis 3+; Poikilocytes 2+; Polychromasia Present
== END 2019-12-04 03:37 ==
PROVIDERS: PCP Family Medicine; Visit Provider Internal Medicine Hematology & Oncology
DX: D50.9 Iron deficiency anemia, unspecified (principal)
CPT/HCPCS: 36415; 86900; 86901; 85025

== ENCOUNTER → 2019-12-11 02:15 | Outpatient (CLI) | payer OTHER, SELFPAY ==
[2019-12-11 09:31] LABS: Absolute Eosinophil Count 0.04 k/cumm (0.0-0.7); Absolute Lymphocyte Count 0.49 k/cumm (1.2-3.4); Absolute Monocyte Count 0.11 k/cumm (0.11-0.7); Absolute Neutrophil Count 0.81 k/cumm (1.2-6.7); Eosinophils % 2.8; HCT 28.1 % (40.0-50.0); HGB 8.1 g/dL (13.5-17.5); Lymphocytes % 33.8; Mean Corp. HGB Concentration 28.8 g/dL (32.0-36.0); Mean Corpuscular Hemoglobin 27.8 pg (27.0-33.0); Mean Corpuscular Volume 96.6 fL (80-95); Mean Platelet Volume 9.3 fL (8.0-11.0); Monocytes % 7.6; Neutrophils % 55.8; Platelet Count 153 x1000/uL (130-400); RBC 2.91 m/cumm (4.50-6.00); RBC Distribution Width 23.3 % (11.8-14.1)
[2019-12-11 09:35] LABS: White Blood Cell Count 1.45 k/cumm (4.4-10.8)
[2019-12-11 09:46] LABS: Anisocytosis 3+; Diff Comment Agrees w/ Instrument; Hypochromasia 1+
[2019-12-11 09:47] LABS: Poikilocytes 1+; Polychromasia Present
[2019-12-11 10:05] LABS: Ferritin 43 ng/mL (26-388)
== END ==
PROVIDERS: PCP Family Medicine; Visit Provider Internal Medicine Hematology & Oncology
DX: D50.9 Iron deficiency anemia, unspecified (principal)
CPT/HCPCS: 36415; 86900; 86901; 82728; 85025

== ENCOUNTER 2019-12-18 04:18 | Outpatient (CLI) | payer OTHER, SELFPAY ==
[2019-12-18 09:25] LABS: Absolute Eosinophil Count 0.02 k/cumm (0.0-0.7); Absolute Lymphocyte Count 0.43 k/cumm (1.2-3.4); Absolute Monocyte Count 0.07 k/cumm (0.11-0.7); Absolute Neutrophil Count 0.84 k/cumm (1.2-6.7); Eosinophils % 1.5; HCT 26.2 % (40.0-50.0); HGB 7.6 g/dL (13.5-17.5); Lymphocytes % 31.6; Mean Corpuscular Hemoglobin 27.8 pg (27.0-33.0); Mean Platelet Volume 9.4 fL (8.0-11.0); Monocytes % 5.1; Neutrophils % 61.8; Platelet Count 130 x1000/uL (130-400); RBC 2.73 m/cumm (4.50-6.00); RBC Distribution Width 21.8 % (11.8-14.1)
[2019-12-18 09:59] LABS: White Blood Cell Count 1.36 k/cumm (4.4-10.8)
[2019-12-18 10:00] LABS: Anisocytosis 2+; Diff Comment Agrees w/ Instrument
[2019-12-18 10:01] LABS: Hypochromasia 1+; Poikilocytes 2+
[2019-12-18 10:34] LABS: Ferritin 26 ng/mL (26-388)
== END 2019-12-18 04:38 ==
PROVIDERS: PCP Family Medicine; Visit Provider Internal Medicine Hematology & Oncology
DX: D46.9 Myelodysplastic syndrome, unspecified (principal); D50.9 Iron deficiency anemia, unspecified
CPT/HCPCS: 36415; 86900; 86901; 82728; 85025

== ENCOUNTER 2019-12-25 02:47 | Outpatient (CLI) | payer OTHER, SELFPAY ==
[2019-12-25 09:18] LABS: HCT 25.9 % (40.0-50.0); HGB 7.5 g/dL (13.5-17.5); Mean Corpuscular Hemoglobin 27.4 pg (27.0-33.0); Mean Corpuscular Volume 94.5 fL (80-95); Mean Platelet Volume 9.9 fL (8.0-11.0); Platelet Count 158 x1000/uL (130-400); RBC 2.74 m/cumm (4.50-6.00); RBC Distribution Width 20.9 % (11.8-14.1)
[2019-12-25 09:42] LABS: White Blood Cell Count 1.38 k/cumm (4.4-10.8)
[2019-12-25 09:43] LABS: Absolute Eosinophil Count 0.03 k/cumm (0.0-0.7); Absolute Lymphocyte Count 0.41 k/cumm (1.2-3.4); Absolute Monocyte Count 0.08 k/cumm (0.11-0.7); Absolute Neutrophil Count 0.86 k/cumm (1.2-6.7); Diff Comment Manual Differential; Ferritin 18 ng/mL (26-388)
[2019-12-25 09:44] LABS: Anisocytosis 2+; Polychromasia Present
[2019-12-25 09:45] LABS: Poikilocytes 2+
== END 2019-12-25 03:07 ==
PROVIDERS: PCP Family Medicine; Visit Provider Internal Medicine Hematology & Oncology
DX: D46.9 Myelodysplastic syndrome, unspecified (principal); D50.9 Iron deficiency anemia, unspecified
CPT/HCPCS: 36415; 86850; 86900; 86901; 82728; 85025

== ENCOUNTER 2020-01-01 02:01 | Outpatient (CLI) | payer OTHER, SELFPAY ==
[2020-01-01 08:30] LABS: Absolute Eosinophil Count 0.01 k/cumm (0.0-0.7); Absolute Lymphocyte Count 0.68 k/cumm (1.2-3.4); Absolute Monocyte Count 0.26 k/cumm (0.11-0.7); Absolute Neutrophil Count 1.96 k/cumm (1.2-6.7); Eosinophils % 0.3; HCT 24.6 % (40.0-50.0); HGB 7.2 g/dL (13.5-17.5); Lymphocytes % 23.4; Mean Corp. HGB Concentration 29.3 g/dL (32.0-36.0); Mean Corpuscular Volume 95.7 fL (80-95); Monocytes % 8.9; Neutrophils % 67.4; Platelet Count 137 x1000/uL (130-400); RBC 2.57 m/cumm (4.50-6.00); RBC Distribution Width 21.8 % (11.8-14.1); White Blood Cell Count 2.91 k/cumm (4.4-10.8)
[2020-01-01 08:49] LABS: Anisocytosis 2+; Diff Comment RBC Morph Reviewed; Hypochromasia 1+; Poikilocytes 1+; Polychromasia Present
[2020-01-01 08:51] LABS: ALT 18 U/L (16-63); AST 16 U/L (15-37); Albumin 3.1 g/dL (3.4-5.0); Alkaline Phosphatase 97 U/L (46-116); Anion Gap 7.9 mmol/L (3-11); BUN 38 mg/dL (7-18); Bilirubin, Total 0.7 mg/dL (0.2-1.0); CO2 26.1 mmol/L (21.0-32.0); Calcium 8.7 mg/dL (8.5-10.1); Chloride 105 mmol/L (98-107); Glucose 165 mg/dL (74-106); Sodium 139 mmol/L (136-145); TSH (W/Ref FT4) 0.33 uIU/mL (0.36-3.74); Total Protein 6.7 g/dL (6.4-8.2)
[2020-01-01 08:54] LABS: Ferritin 113 ng/mL (26-388)
== END 2020-01-01 02:21 ==
PROVIDERS: PCP Family Medicine; Visit Provider Internal Medicine Hematology & Oncology
DX: D46.9 Myelodysplastic syndrome, unspecified (principal); R25.1 Tremor, unspecified; D50.9 Iron deficiency anemia, unspecified
CPT/HCPCS: 36415; 80053; 86850; 86900; 86901; 82728; 83735; 84439; 84443; 85025

== ENCOUNTER 2020-01-08 01:18 | Outpatient (CLI) | payer OTHER, SELFPAY ==
[2020-01-08 10:18] LABS: Absolute Eosinophil Count 0.02 k/cumm (0.0-0.7); Absolute Monocyte Count 0.07 k/cumm (0.11-0.7); Absolute Neutrophil Count 0.61 k/cumm (1.2-6.7); Eosinophils % 1.8; HCT 25.7 % (40.0-50.0); Lymphocytes % 36.4; Mean Corp. HGB Concentration 29.2 g/dL (32.0-36.0); Mean Corpuscular Hemoglobin 28.4 pg (27.0-33.0); Mean Corpuscular Volume 97.3 fL (80-95); Mean Platelet Volume 9.4 fL (8.0-11.0); Monocytes % 6.4; Neutrophils % 55.4; Platelet Count 201 x1000/uL (130-400); RBC 2.64 m/cumm (4.50-6.00); RBC Distribution Width 22.4 % (11.8-14.1)
[2020-01-08 10:24] LABS: HGB 7.5 g/dL (13.5-17.5)
[2020-01-08 10:42] LABS: Anisocytosis 2+; Diff Comment Agrees w/ Instrument; Hypochromasia 1+; Polychromasia Present
[2020-01-08 10:43] LABS: Poikilocytes 2+
[2020-01-08 10:56] LABS: Ferritin 139 ng/mL (26-388)
[2020-01-08 11:54] LABS: ALT 16 U/L (16-63); AST 13 U/L (15-37); Albumin 3.1 g/dL (3.4-5.0); Alkaline Phosphatase 106 U/L (46-116); Anion Gap 9.6 mmol/L (3-11); BUN 32 mg/dL (7-18); Bilirubin, Total 0.3 mg/dL (0.2-1.0); CO2 24.4 mmol/L (21.0-32.0); CREATININE 1.79 mg/dL (0.70-1.30); Calcium 8.5 mg/dL (8.5-10.1); Chloride 107 mmol/L (98-107); Estimated GFR 36.54 (mL/min/1.73m2); Glucose 215 mg/dL (74-106); Magnesium 2.1 mg/dL (1.8-2.4); Potassium 5.3 mmol/L (3.5-5.1); Sodium 141 mmol/L (136-145); TSH (W/Ref FT4) 0.47 uIU/mL (0.36-3.74); Total Protein 6.5 g/dL (6.4-8.2)
== END 2020-01-08 01:38 ==
PROVIDERS: PCP Family Medicine; Visit Provider Internal Medicine Hematology & Oncology
DX: D46.9 Myelodysplastic syndrome, unspecified (principal); R25.1 Tremor, unspecified; I10 Essential (primary) hypertension; E11.9 Type 2 diabetes mellitus without complications; D50.9 Iron deficiency anemia, unspecified
CPT/HCPCS: 36415; 80053; 86850; 86900; 86901; 82728; 83735; 84443; 85025

== ENCOUNTER 2020-01-09 02:40 | Outpatient (CLI) | payer OTHER, SELFPAY ==
--- NOTE | 2020-01-09 10:20 | DI.CT_ITS ---
EXAM: CT ABDOMEN PELVIS WO CLINICAL HISTORY: RLQ PAIN, R10.31. TECHNIQUE: Imaging Protocol: Axial computed tomography images with coronal and sagittal reformatted images were created and reviewed. Oral: Yes COMPARISON: CT,NM MPI RESTING AND STRESS from 10/13/2013 CR XR CHEST 2V PA LATERAL from 09/11/2019 FINDINGS: ABDOMEN: Lung Bases: Four-chamber cardiac enlargement. Right lower lobe calcifications. Liver: Normal density. No measurable mass. Gallbladder and biliary tract: No radiodense calculus or dilation. Pancreas: Normal density, no abnormal calcifications or inflammatory process. Spleen: Normal. Kidneys: Normal size, contour and axis. No radiodense stones or obstructive uropathy. No masses seen. Multiple bilateral renal cysts. Adrenal glands: No masses seen. Lymph nodes: Within normal limits. Abdominal Aorta and iliac arteries: Calcification throughout. Mild distal dilatation of the aorta to 3.2 cm.. PELVIS: Bladder: Symmetric distention, no gross wall thickening. Bowel: Small hiatal hernia. Moderate quantity of stool. Mild sigmoid diverticulosis. Inflammatory changes at the cecum. The appendix is not visualized. No obstruction or bowel wall thickening. Peritoneal cavity: No ascites, or focal collection Reproductive organs: Within normal limits. Bones: Degenerative changes. Soft tissues: Bilateral fatty containing inguinal hernias, left greater than right. The right hernia contains some fluid. IMPRESSION: Inflammation around the base of the cecum. The appendix is not visualized. The findings could repr esent focal colitis or possibly diverticulitis. Fatty containing inguinal hernias, left greater than right.. RADIATION DOSE DELIVERED: 999.65mGy.cm Total DLP DATA REPOSITORY: All CT scans at this facility are submitted to the National Radiology Data Registry (NRDR) Dose Index Registry (DIR) with the [employer] (ACR). RADIATION OPTIMIZATION: All CT scans at this facility use at least one of these dose optimization te chniques: automated exposure control; mA and/or kV adjustment per patient size (includes targeted exa ms where dose is matched to clinical indication); or iterative reconstruction.
== END 2020-01-09 03:00 ==
PROVIDERS: PCP Family Medicine; Visit Provider Physician Assistant Medical
DX: R10.31 Right lower quadrant pain (principal); I51.7 Cardiomegaly; R91.8 Other nonspecific abnormal finding of lung field; N28.1 Cyst of kidney, acquired; K57.31 Diverticulosis of large intestine without perforation or abscess with bleeding; K40.20 Bilateral inguinal hernia, without obstruction or gangrene, not specified as recurrent
CPT/HCPCS: 74176

== ENCOUNTER 2020-01-15 02:40 | Outpatient (CLI) | payer OTHER, SELFPAY ==
[2020-01-15 09:04] LABS: Absolute Eosinophil Count 0.03 k/cumm (0.0-0.7); Absolute Lymphocyte Count 0.44 k/cumm (1.2-3.4); Absolute Monocyte Count 0.11 k/cumm (0.11-0.7); Absolute Neutrophil Count 0.81 k/cumm (1.2-6.7); Eosinophils % 2.2; HCT 27.9 % (40.0-50.0); HGB 8.1 g/dL (13.5-17.5); Lymphocytes % 31.7; Mean Corpuscular Hemoglobin 28.6 pg (27.0-33.0); Mean Corpuscular Volume 98.6 fL (80-95); Mean Platelet Volume 9.4 fL (8.0-11.0); Monocytes % 7.9; Neutrophils % 58.2; Platelet Count 186 x1000/uL (130-400); RBC 2.83 m/cumm (4.50-6.00); RBC Distribution Width 22.4 % (11.8-14.1)
[2020-01-15 09:22] LABS: Diff Comment Agrees w/ Instrument; White Blood Cell Count 1.39 k/cumm (4.4-10.8)
[2020-01-15 09:23] LABS: Anisocytosis 2+; Hypochromasia 1+; Polychromasia Present
[2020-01-15 09:24] LABS: Poikilocytes 2+
[2020-01-15 09:33] LABS: Ferritin 151 ng/mL (26-388)
== END 2020-01-15 03:00 ==
PROVIDERS: PCP Family Medicine; Visit Provider Internal Medicine Hematology & Oncology
DX: D46.9 Myelodysplastic syndrome, unspecified (principal); D50.9 Iron deficiency anemia, unspecified
CPT/HCPCS: 36415; 86900; 86901; 82728; 85025

== ENCOUNTER 2020-01-22 01:41 | Outpatient (CLI) | payer OTHER, SELFPAY ==
[2020-01-22 08:49] LABS: Abs Immature Grans 0.01 k/cumm (0.0-0.09); Absolute Eosinophil Count 0.03 k/cumm (0.0-0.7); Absolute Lymphocyte Count 0.37 k/cumm (1.2-3.4); Absolute Monocyte Count 0.08 k/cumm (0.11-0.7); Absolute Neutrophil Count 0.64 k/cumm (1.2-6.7); Eosinophils % 2.7; HCT 28.9 % (40.0-50.0); HGB 8.4 g/dL (13.5-17.5); Immature Grans % 0.9 %; Lymphocytes % 32.7; Mean Corp. HGB Concentration 29.1 g/dL (32.0-36.0); Mean Corpuscular Hemoglobin 29.2 pg (27.0-33.0); Mean Corpuscular Volume 100.3 fL (80-95); Mean Platelet Volume 9.4 fL (8.0-11.0); Monocytes % 7.1; Neutrophils % 56.6; Platelet Count 147 x1000/uL (130-400); RBC 2.88 m/cumm (4.50-6.00); RBC Distribution Width 22.3 % (11.8-14.1)
[2020-01-22 09:12] LABS: White Blood Cell Count 1.13 k/cumm (4.4-10.8)
[2020-01-22 09:13] LABS: Anisocytosis 2+; Diff Comment Agrees w/ Instrument; Hypochromasia 1+; Macrocytosis 1+; Microcytosis 1+; Polychromasia Present
[2020-01-22 09:14] LABS: Poikilocytes 1+
[2020-01-22 09:16] LABS: Ferritin 85 ng/mL (26-388)
== END 2020-01-22 02:01 ==
PROVIDERS: PCP Family Medicine; Visit Provider Internal Medicine Hematology & Oncology
DX: D50.9 Iron deficiency anemia, unspecified (principal)
CPT/HCPCS: 36415; 86900; 86901; 82728; 85025

== ENCOUNTER 2020-01-29 02:14 | Outpatient (CLI) | payer OTHER, SELFPAY ==
[2020-01-29 08:12] LABS: Abs Immature Grans 0.01 10^3/uL (0.0-0.06); HCT 30.2 % (40.0-50.0); HGB 8.9 g/dL (13.5-17.5); MCH 29.6 pg (27.0-33.0); MCHC 29.5 % (32.0-36.0); MCV 100.3 fL (80-95); Platelet Count 121 10^3/uL (130-400); RBC 3.01 10^6/uL (4.36-5.78); RDW 21.4 % (11.8-14.1); RDW-SD 79.3 fL
[2020-01-29 08:40] LABS: WBC 1.52 10^3/uL (4.4-10.8)
[2020-01-29 08:42] LABS: Absolute Basophil Count 0.03 10^3/uL (0.0-0.2); Absolute Eosinophil Count 0.08 10^3/uL (0.0-0.7); Absolute Lymphocyte Count 0.36 10^3/uL (1.2-3.4); Absolute Monocyte Count 0.06 10^3/uL (0.1-0.8); Absolute Neutrophil Count 0.99 10^3/uL (1.2-6.7); Atypical Lymphocytes % 1; Bands % 1; Diff Comment Manual Differential; Ferritin 60 ng/mL (26-388); Nucleated RBC 1 %
[2020-01-29 08:43] LABS: Anisocytosis 2+; Hypochromasia 1+; Macrocytosis 1+; Microcytosis 1+; Poikilocytes 1+
== END 2020-01-29 02:34 ==
PROVIDERS: PCP Family Medicine; Visit Provider Internal Medicine Hematology & Oncology
DX: D46.9 Myelodysplastic syndrome, unspecified (principal); D50.9 Iron deficiency anemia, unspecified
CPT/HCPCS: 36415; 86900; 86901; 82728; 85025

== ENCOUNTER 2020-02-05 01:44 | Outpatient (CLI) | payer OTHER, SELFPAY ==
[2020-02-05 08:44] LABS: Abs Immature Grans 0.01 10^3/uL (0.0-0.06); Absolute Eosinophil Count 0.04 10^3/uL (0.0-0.7); Absolute Lymphocyte Count 0.35 10^3/uL (1.2-3.4); Absolute Neutrophil Count 1.07 10^3/uL (1.2-6.7); Eosinophils % 2.5; HGB 9.7 g/dL (13.5-17.5); Immature Grans % 0.6; Lymphocytes % 22.3; MCH 29.3 pg (27.0-33.0); MCHC 29.4 % (32.0-36.0); MCV 99.7 fL (80-95); MPV 9.8 fL (8.0-11.0); Monocytes % 6.4; Neutrophils % 68.2; Nucleated RBC 0 %; Platelet Count 132 10^3/uL (130-400); RBC 3.31 10^6/uL (4.36-5.78); RDW 20.4 % (11.8-14.1); RDW-SD 75.7 fL
[2020-02-05 09:04] LABS: WBC 1.57 10^3/uL (4.4-10.8)
[2020-02-05 09:05] LABS: Anisocytosis 2+; Diff Comment Diff Reviewed; Poikilocytes 1+; Polychromasia Present
[2020-02-05 09:42] LABS: Ferritin 47 ng/mL (26-388)
== END 2020-02-05 02:04 ==
PROVIDERS: PCP Family Medicine; Visit Provider Internal Medicine Hematology & Oncology
DX: D50.9 Iron deficiency anemia, unspecified (principal); D46.9 Myelodysplastic syndrome, unspecified
CPT/HCPCS: 36415; 86900; 86901; 82728; 85025

== ENCOUNTER 2020-02-12 03:02 | Outpatient (CLI) | payer OTHER, SELFPAY ==
[2020-02-12 08:34] LABS: Abs Immature Grans 0.01 10^3/uL (0.0-0.06); HCT 32.5 % (40.0-50.0); HGB 9.6 g/dL (13.5-17.5); MCH 30.1 pg (27.0-33.0); MCHC 29.5 % (32.0-36.0); MCV 101.9 fL (80-95); MPV 10.2 fL (8.0-11.0); Nucleated RBC 0 %; Platelet Count 136 10^3/uL (130-400); RBC 3.19 10^6/uL (4.36-5.78); RDW 20.1 % (11.8-14.1); RDW-SD 75.1 fL
[2020-02-12 09:01] LABS: Ferritin 113 ng/mL (26-388)
[2020-02-12 09:49] LABS: WBC 1.63 10^3/uL (4.4-10.8)
[2020-02-12 09:50] LABS: Absolute Eosinophil Count 0.02 10^3/uL (0.0-0.7); Absolute Lymphocyte Count 0.82 10^3/uL (1.2-3.4); Absolute Monocyte Count 0.07 10^3/uL (0.1-0.8); Absolute Neutrophil Count 0.73 10^3/uL (1.2-6.7); Anisocytosis 1+; Atypical Lymphocytes % 5; Bands % 1; Diff Comment Manual Differential; Macrocytosis 1+; Microcytosis 1+
== END 2020-02-12 03:22 ==
PROVIDERS: PCP Family Medicine; Visit Provider Internal Medicine Hematology & Oncology
DX: D50.9 Iron deficiency anemia, unspecified (principal)
CPT/HCPCS: 36415; 82728; 85025

== ENCOUNTER 2020-02-19 01:36 | Outpatient (CLI) | payer OTHER, SELFPAY ==
[2020-02-19 08:45] LABS: Abs Immature Grans 0.01 10^3/uL (0.0-0.06); Absolute Basophil Count 0.01 10^3/uL (0.0-0.2); Absolute Eosinophil Count 0.05 10^3/uL (0.0-0.7); Absolute Monocyte Count 0.08 10^3/uL (0.1-0.8); Absolute Neutrophil Count 0.79 10^3/uL (1.2-6.7); Basophils % 0.7; Eosinophils % 3.7; HCT 31.8 % (40.0-50.0); HGB 9.4 g/dL (13.5-17.5); Immature Grans % 0.7; Lymphocytes % 29.9; MCH 29.9 pg (27.0-33.0); MCHC 29.6 % (32.0-36.0); MCV 101.3 fL (80-95); MPV 9.9 fL (8.0-11.0); Nucleated RBC 0 %; RBC 3.14 10^6/uL (4.36-5.78); RDW 19.5 % (11.8-14.1); RDW-SD 72.4 fL
[2020-02-19 09:08] LABS: Anisocytosis 2+; Diff Comment Agrees w/ Instrument; Macrocytosis 1+
[2020-02-19 09:09] LABS: Platelet Count 103 10^3/uL (130-400)
[2020-02-19 09:11] LABS: Ferritin 182 ng/mL (26-388)
[2020-02-19 09:14] LABS: WBC 1.34 10^3/uL (4.4-10.8)
== END 2020-02-19 01:56 ==
PROVIDERS: PCP Family Medicine; Visit Provider Internal Medicine Hematology & Oncology
DX: D50.9 Iron deficiency anemia, unspecified (principal)
CPT/HCPCS: 36415; 82728; 85025

== ENCOUNTER 2020-02-26 08:31 | Outpatient (CLI) | payer OTHER, SELFPAY ==
[2020-02-26 08:55] LABS: Abs Immature Grans 0.01 10^3/uL (0.0-0.06); Absolute Eosinophil Count 0.03 10^3/uL (0.0-0.7); Absolute Lymphocyte Count 0.47 10^3/uL (1.2-3.4); Absolute Monocyte Count 0.09 10^3/uL (0.1-0.8); Absolute Neutrophil Count 1.16 10^3/uL (1.2-6.7); Eosinophils % 1.7; HCT 32.3 % (40.0-50.0); HGB 9.8 g/dL (13.5-17.5); Immature Grans % 0.6; Lymphocytes % 26.7; MCH 30.5 pg (27.0-33.0); MCHC 30.3 % (32.0-36.0); MCV 100.6 fL (80-95); MPV 9.6 fL (8.0-11.0); Monocytes % 5.1; Neutrophils % 65.9; Nucleated RBC 0 %; Platelet Count 130 10^3/uL (130-400); RBC 3.21 10^6/uL (4.36-5.78); RDW 20.2 % (11.8-14.1); RDW-SD 73.7 fL
[2020-02-26 09:26] LABS: Ferritin 174 ng/mL (26-388)
[2020-02-26 09:34] LABS: WBC 1.76 10^3/uL (4.4-10.8)
[2020-02-26 09:35] LABS: Anisocytosis 1+; Diff Comment Agrees w/ Instrument; Poikilocytes 1+
== END 2020-02-26 08:51 ==
PROVIDERS: PCP Family Medicine; Visit Provider Internal Medicine Hematology & Oncology
DX: D50.9 Iron deficiency anemia, unspecified (principal)
CPT/HCPCS: 36415; 86900; 86901; 82728; 85025

== ENCOUNTER 2020-03-04 03:28 | Outpatient (CLI) | payer OTHER, SELFPAY ==
[2020-03-04 08:47] LABS: Abs Immature Grans 0.01 10^3/uL (0.0-0.06); Absolute Basophil Count 0.01 10^3/uL (0.0-0.2); Absolute Eosinophil Count 0.04 10^3/uL (0.0-0.7); Absolute Lymphocyte Count 0.44 10^3/uL (1.2-3.4); Absolute Monocyte Count 0.11 10^3/uL (0.1-0.8); Absolute Neutrophil Count 0.81 10^3/uL (1.2-6.7); Basophils % 0.7; Eosinophils % 2.8; HCT 34.5 % (40.0-50.0); HGB 10.3 g/dL (13.5-17.5); Immature Grans % 0.7; MCH 30.9 pg (27.0-33.0); MCHC 29.9 % (32.0-36.0); MCV 103.6 fL (80-95); MPV 9.7 fL (8.0-11.0); Monocytes % 7.7; Neutrophils % 57.1; Nucleated RBC 0 %; Platelet Count 134 10^3/uL (130-400); RBC 3.33 10^6/uL (4.36-5.78)
[2020-03-04 09:22] LABS: Ferritin 106 ng/mL (26-388)
[2020-03-04 09:27] LABS: Anisocytosis 2+; Diff Comment Diff Reviewed; Hypochromasia 1+; Macrocytosis 1+; WBC 1.42 10^3/uL (4.4-10.8)
[2020-03-04 09:28] LABS: Microcytosis 1+; Ovalocytes 2+; Poikilocytes 2+
== END 2020-03-04 03:48 ==
PROVIDERS: PCP Family Medicine; Visit Provider Internal Medicine Hematology & Oncology
DX: D50.9 Iron deficiency anemia, unspecified (principal)
CPT/HCPCS: 36415; 82728; 85025

== ENCOUNTER 2020-03-11 02:54 | Outpatient (CLI) | payer OTHER, SELFPAY ==
[2020-03-11 09:00] LABS: Absolute Basophil Count 0.01 10^3/uL (0.0-0.2); Absolute Eosinophil Count 0.04 10^3/uL (0.0-0.7); HCT 32.2 % (40.0-50.0); MCH 31.3 pg (27.0-33.0); MCHC 31.1 % (32.0-36.0); MCV 100.9 fL (80-95); MPV 9.8 fL (8.0-11.0); Nucleated RBC 0 %; Platelet Count 122 10^3/uL (130-400); RBC 3.19 10^6/uL (4.36-5.78); RDW 19.9 % (11.8-14.1); RDW-SD 73.1 fL
[2020-03-11 09:23] LABS: Ferritin 82 ng/mL (26-388)
[2020-03-11 09:31] LABS: WBC 1.35 10^3/uL (4.4-10.8)
[2020-03-11 09:34] LABS: Absolute Lymphocyte Count 0.32 10^3/uL (1.2-3.4); Absolute Monocyte Count 0.14 10^3/uL (0.1-0.8); Absolute Neutrophil Count 0.84 10^3/uL (1.2-6.7); Bands % 5; Diff Comment Manual Differential
[2020-03-11 09:35] LABS: Anisocytosis 1+; Ovalocytes 2+; Poikilocytes 2+; Polychromasia Present
== END 2020-03-11 03:14 ==
PROVIDERS: PCP Family Medicine; Visit Provider Internal Medicine Hematology & Oncology
DX: D50.9 Iron deficiency anemia, unspecified (principal)
CPT/HCPCS: 36415; 86900; 86901; 82728; 85025

== ENCOUNTER 2020-03-18 04:17 | Outpatient (CLI) | payer OTHER, SELFPAY ==
[2020-03-18 08:49] LABS: Abs Immature Grans 0.01 10^3/uL (0.0-0.06); Absolute Eosinophil Count 0.04 10^3/uL (0.0-0.7); Absolute Lymphocyte Count 0.52 10^3/uL (1.2-3.4); Absolute Monocyte Count 0.13 10^3/uL (0.1-0.8); Absolute Neutrophil Count 0.81 10^3/uL (1.2-6.7); Eosinophils % 2.6; HCT 35.3 % (40.0-50.0); HGB 10.7 g/dL (13.5-17.5); Immature Grans % 0.7; Lymphocytes % 34.4; MCH 31.5 pg (27.0-33.0); MCHC 30.3 % (32.0-36.0); MCV 103.8 fL (80-95); MPV 10.1 fL (8.0-11.0); Monocytes % 8.6; Neutrophils % 53.7; Nucleated RBC 0 %; Platelet Count 131 10^3/uL (130-400); RDW 19.8 % (11.8-14.1); RDW-SD 76.1 fL
[2020-03-18 09:12] LABS: Anisocytosis 2+; Diff Comment Agrees w/ Instrument; Macrocytosis 2+
[2020-03-18 09:14] LABS: Ferritin 61 ng/mL (26-388)
[2020-03-18 09:19] LABS: WBC 1.51 10^3/uL (4.4-10.8)
== END 2020-03-18 04:37 ==
PROVIDERS: PCP Family Medicine; Visit Provider Internal Medicine Hematology & Oncology
DX: D50.9 Iron deficiency anemia, unspecified (principal)
CPT/HCPCS: 36415; 86900; 86901; 82728; 85025

== ENCOUNTER 2020-03-22 00:32 | Outpatient (CLI) | payer OTHER, SELFPAY ==
--- NOTE | 2020-03-22 10:42 | DI.RAD_ITS ---
EXAM: XR TIB/FIB LT CLINICAL HISTORY: LT LEG PAIN, M79.605. TECHNIQUE: 2D digital imaging was performed COMPARISON: No exams were available for comparison FINDINGS: BONES: No acute fracture is present. No bony destructive lesion is seen. Visualized portion of knee a nd ankle joints are unremarkable. SOFT TISSUE: Vascular calcifications in the soft tissues. IMPRESSION: Unremarkable radiographs of the left tibia and fibula. DATA REPOSITORY: RADIATION DOSE DELIVERED:
== END 2020-03-22 00:52 ==
PROVIDERS: PCP Family Medicine; Visit Provider Physician Assistant Medical
DX: M79.605 Pain in left leg (principal)
CPT/HCPCS: 73590

== ENCOUNTER 2020-03-25 04:42 | Outpatient (CLI) | payer OTHER, SELFPAY ==
[2020-03-25 09:12] LABS: Abs Immature Grans 0.01 10^3/uL (0.0-0.06); Absolute Basophil Count 0.01 10^3/uL (0.0-0.2); Absolute Eosinophil Count 0.04 10^3/uL (0.0-0.7); Absolute Lymphocyte Count 0.47 10^3/uL (1.2-3.4); Absolute Neutrophil Count 0.62 10^3/uL (1.2-6.7); Basophils % 0.8; Eosinophils % 3.2; HCT 34.8 % (40.0-50.0); HGB 10.7 g/dL (13.5-17.5); Immature Grans % 0.8; Lymphocytes % 37.6; MCH 31.9 pg (27.0-33.0); MCHC 30.7 % (32.0-36.0); MCV 103.9 fL (80-95); MPV 10.2 fL (8.0-11.0); Neutrophils % 49.6; Nucleated RBC 0 %; Platelet Count 122 10^3/uL (130-400); RBC 3.35 10^6/uL (4.36-5.78); RDW 19.4 % (11.8-14.1); RDW-SD 74.4 fL
[2020-03-25 09:30] LABS: WBC 1.25 10^3/uL (4.4-10.8)
[2020-03-25 09:31] LABS: Anisocytosis 2+; Diff Comment RBC Morph Reviewed; Hypochromasia 1+; Macrocytosis 2+; Microcytosis 1+; Polychromasia Present
[2020-03-25 09:32] LABS: Poikilocytes 2+
[2020-03-25 10:12] LABS: ESR 29 mm/hr (1-20)
[2020-03-25 11:13] LABS: Anion Gap 4.4 mmol/L (3-11); BUN 29 mg/dL (7-18); C-Reactive Protein 0.49 mg/dL (0.0-0.3); CO2 29.6 mmol/L (21.0-32.0); CREATININE 1.61 mg/dL (0.70-1.30); Calcium 8.7 mg/dL (8.5-10.1); Chloride 106 mmol/L (98-107); Estimated GFR 41.19 (mL/min/1.73m2); Glucose 272 mg/dL (74-106); Potassium 5.1 mmol/L (3.5-5.1); Sodium 140 mmol/L (136-145)
[2020-03-25 11:22] LABS: Ferritin 56 ng/mL (26-388)
== END 2020-03-25 05:02 ==
PROVIDERS: Internal Medicine Hematology & Oncology; PCP Family Medicine; Visit Provider Family Medicine
DX: R60.9 Edema, unspecified (principal); M79.605 Pain in left leg; D50.9 Iron deficiency anemia, unspecified
CPT/HCPCS: 36415; 80048; 85652; 82728; 85025; 86140

== ENCOUNTER 2020-03-25 17:48 | Outpatient (REF) | payer OTHER, SELFPAY ==
--- NOTE | 2020-03-25 15:45 | SKI_PTH ---
PATIENT: Chaim Lester LOC: [facility] U#:[id number] AGE/SX: 85/M ROOM: RE03/25/[address]: Snadra Park V : 1935 BED: DIS: 03/25/2020 SPEC #: [id number] RECD: 03/25/20 18:31 STATUS: JOSÉ MIGUEL RELio #: [id number] BRIAN: 03/25/20 15:[address]: Sandra Park V DEPT: Surgical Specimen RECD BY: Nohemi Hopson Tissues: 1 - SKIN BIOPSY(SHAVE/PUNCH) Procedures: SKIN LEVEL 4 Comments: [id number]
== END 2020-03-25 18:08 ==
LOC: NCHCN 17:48
PROVIDERS: PCP Family Medicine; Visit Provider Family Medicine
DX: C44.612 Basal cell carcinoma of skin of right upper limb, including shoulder (principal); L82.1 Other seborrheic keratosis
CPT/HCPCS: 88305

== ENCOUNTER 2020-04-01 05:04 | Outpatient (CLI) | payer OTHER, SELFPAY ==
[2020-04-01 08:54] LABS: Abs Immature Grans 0.01 10^3/uL (0.0-0.06); Absolute Basophil Count 0.01 10^3/uL (0.0-0.2); Absolute Eosinophil Count 0.08 10^3/uL (0.0-0.7); Absolute Lymphocyte Count 0.54 10^3/uL (1.2-3.4); Absolute Monocyte Count 0.14 10^3/uL (0.1-0.8); Absolute Neutrophil Count 0.78 10^3/uL (1.2-6.7); Basophils % 0.6; Eosinophils % 5.1; HCT 35.2 % (40.0-50.0); HGB 10.9 g/dL (13.5-17.5); Immature Grans % 0.6; Lymphocytes % 34.6; MCH 31.6 pg (27.0-33.0); MPV 10.3 fL (8.0-11.0); Neutrophils % 50.1; Nucleated RBC 0 %; Platelet Count 117 10^3/uL (130-400); RBC 3.45 10^6/uL (4.36-5.78); RDW 18.8 % (11.8-14.1); RDW-SD 71.5 fL
[2020-04-01 09:14] LABS: Ferritin 52 ng/mL (26-388)
[2020-04-01 09:29] LABS: WBC 1.56 10^3/uL (4.4-10.8)
[2020-04-01 09:30] LABS: Anisocytosis 1+; Diff Comment Diff Reviewed; Macrocytosis 1+; Polychromasia Present
[2020-04-01 09:31] LABS: Poikilocytes 1+
== END 2020-04-01 05:24 ==
PROVIDERS: PCP Family Medicine; Visit Provider Internal Medicine Hematology & Oncology
DX: D50.9 Iron deficiency anemia, unspecified (principal)
CPT/HCPCS: 36415; 82728; 85025

== ENCOUNTER 2020-04-15 02:41 | Outpatient (CLI) | payer OTHER, SELFPAY ==
[2020-04-15 09:18] LABS: HGB 10.5 g/dL (13.5-17.5); MCH 32.3 pg (27.0-33.0); MCHC 30.9 % (32.0-36.0); MCV 104.6 fL (80-95); MPV 10.3 fL (8.0-11.0); Nucleated RBC 0 %; RBC 3.25 10^6/uL (4.36-5.78); RDW 17.8 % (11.8-14.1); RDW-SD 68.4 fL
[2020-04-15 09:29] LABS: Ferritin 53 ng/mL (26-388)
[2020-04-15 09:41] LABS: Absolute Basophil Count 0.02 10^3/uL (0.0-0.2); Absolute Eosinophil Count 0.03 10^3/uL (0.0-0.7); Absolute Lymphocyte Count 0.53 10^3/uL (1.2-3.4); Absolute Monocyte Count 0.08 10^3/uL (0.1-0.8); Bands % 1; Diff Comment Manual Differential; WBC 1.52 10^3/uL (4.4-10.8)
[2020-04-15 09:42] LABS: Anisocytosis 2+; Macrocytosis 2+; Microcytosis 2+; Platelet Count 132 10^3/uL (130-400); Poikilocytes 1+
[2020-04-15 09:43] LABS: Absolute Neutrophil Count 0.85 10^3/uL (1.2-6.7)
== END 2020-04-15 03:01 ==
PROVIDERS: PCP Family Medicine; Visit Provider Internal Medicine Hematology & Oncology
DX: D50.9 Iron deficiency anemia, unspecified (principal)
CPT/HCPCS: 36415; 82728; 85025

== ENCOUNTER 2020-04-22 04:07 | Outpatient (CLI) | payer OTHER, SELFPAY ==
[2020-04-22 08:43] LABS: Abs Immature Grans 0.01 10^3/uL (0.0-0.06); Absolute Eosinophil Count 0.03 10^3/uL (0.0-0.7); Absolute Lymphocyte Count 0.54 10^3/uL (1.2-3.4); Absolute Monocyte Count 0.11 10^3/uL (0.1-0.8); Absolute Neutrophil Count 0.67 10^3/uL (1.2-6.7); Eosinophils % 2.2; HCT 35.6 % (40.0-50.0); Immature Grans % 0.7; Lymphocytes % 39.7; MCHC 30.9 % (32.0-36.0); MCV 103.5 fL (80-95); Monocytes % 8.1; Neutrophils % 49.3; Nucleated RBC 0 %; Platelet Count 156 10^3/uL (130-400); RBC 3.44 10^6/uL (4.36-5.78); RDW 17.6 % (11.8-14.1); RDW-SD 66.4 fL
[2020-04-22 09:04] LABS: WBC 1.36 10^3/uL (4.4-10.8)
[2020-04-22 09:05] LABS: Anisocytosis 2+; Diff Comment Diff Reviewed; Macrocytosis 1+; Microcytosis 1+; Poikilocytes 1+; Polychromasia Present
[2020-04-22 09:14] LABS: Ferritin 36 ng/mL (26-388)
== END 2020-04-22 04:27 ==
PROVIDERS: PCP Family Medicine; Visit Provider Internal Medicine Hematology & Oncology
DX: D50.9 Iron deficiency anemia, unspecified (principal)
CPT/HCPCS: 36415; 82728; 85025

== ENCOUNTER 2020-04-29 08:32 | Outpatient (CLI) | payer OTHER, SELFPAY ==
[2020-04-29 08:42] LABS: Abs Immature Grans 0.01 10^3/uL (0.0-0.06); HCT 34.9 % (40.0-50.0); HGB 11.2 g/dL (13.5-17.5); MCH 32.6 pg (27.0-33.0); MCHC 32.1 % (32.0-36.0); MCV 101.5 fL (80-95); MPV 9.6 fL (8.0-11.0); Nucleated RBC 0 %; RBC 3.44 10^6/uL (4.36-5.78); RDW-SD 63.1 fL
[2020-04-29 09:09] LABS: Ferritin 44 ng/mL (26-388)
[2020-04-29 09:17] LABS: WBC 1.58 10^3/uL (4.4-10.8)
[2020-04-29 09:18] LABS: Absolute Neutrophil Count 1.03 10^3/uL (1.2-6.7); Bands % 5; Platelet Count 133 10^3/uL (130-400)
[2020-04-29 09:19] LABS: Absolute Eosinophil Count 0.05 10^3/uL (0.0-0.7); Absolute Lymphocyte Count 0.43 10^3/uL (1.2-3.4); Absolute Monocyte Count 0.08 10^3/uL (0.1-0.8); Anisocytosis 1+; Diff Comment Manual Differential; Polychromasia Present
[2020-04-29 09:20] LABS: Poikilocytes 1+
== END 2020-04-29 08:52 ==
PROVIDERS: PCP Family Medicine; Visit Provider Internal Medicine Hematology & Oncology
DX: D50.9 Iron deficiency anemia, unspecified (principal)
CPT/HCPCS: 36415; 82728; 85025

== ENCOUNTER 2020-05-06 00:50 | Outpatient (CLI) | payer OTHER, SELFPAY ==
[2020-05-06 07:53] LABS: Abs Immature Grans 0.02 10^3/uL (0.0-0.06); Absolute Basophil Count 0.01 10^3/uL (0.0-0.2); Absolute Eosinophil Count 0.05 10^3/uL (0.0-0.7); Absolute Lymphocyte Count 0.56 10^3/uL (1.2-3.4); Absolute Monocyte Count 0.12 10^3/uL (0.1-0.8); Absolute Neutrophil Count 0.77 10^3/uL (1.2-6.7); Basophils % 0.7; Eosinophils % 3.3; HCT 34.2 % (40.0-50.0); HGB 10.8 g/dL (13.5-17.5); Immature Grans % 1.3; Lymphocytes % 36.6; MCH 32.5 pg (27.0-33.0); MCHC 31.6 % (32.0-36.0); MPV 9.6 fL (8.0-11.0); Monocytes % 7.8; Neutrophils % 50.3; Nucleated RBC 0 %; Platelet Count 102 10^3/uL (130-400); RBC 3.32 10^6/uL (4.36-5.78); RDW 16.8 % (11.8-14.1); RDW-SD 63.2 fL
[2020-05-06 08:07] LABS: WBC 1.53 10^3/uL (4.4-10.8)
[2020-05-06 08:08] LABS: Anisocytosis 1+; Diff Comment Diff Reviewed; Macrocytosis 2+; Poikilocytes 2+; Polychromasia Present
[2020-05-06 08:27] LABS: Ferritin 194 ng/mL (26-388)
== END 2020-05-06 01:10 ==
PROVIDERS: PCP Family Medicine; Visit Provider Internal Medicine Hematology & Oncology
DX: D50.9 Iron deficiency anemia, unspecified (principal)
CPT/HCPCS: 36415; 82728; 85025

== ENCOUNTER 2020-05-13 01:54 | Outpatient (RCR) | payer OTHER, SELFPAY ==
[2020-05-13] MEDS: Normal Saline Flush 10 ML SYR IVP (10:05)
[2020-05-13 10:27] LABS: Abs Immature Grans 0.01 10^3/uL (0.0-0.06); Absolute Basophil Count 0.01 10^3/uL (0.0-0.2); Absolute Eosinophil Count 0.04 10^3/uL (0.0-0.7); Absolute Lymphocyte Count 0.62 10^3/uL (1.2-3.4); Absolute Monocyte Count 0.09 10^3/uL (0.1-0.8); Basophils % 0.6; Eosinophils % 2.5; HCT 33.9 % (40.0-50.0); HGB 10.7 g/dL (13.5-17.5); Immature Grans % 0.6; MCH 32.8 pg (27.0-33.0); MCHC 31.6 % (32.0-36.0); MPV 10.6 fL (8.0-11.0); Monocytes % 5.7; Neutrophils % 51.6; Nucleated RBC 0 %; Platelet Count 124 10^3/uL (130-400); RBC 3.26 10^6/uL (4.36-5.78); RDW 17.8 % (11.8-14.1); RDW-SD 66.1 fL
[2020-05-13 10:46] LABS: WBC 1.59 10^3/uL (4.4-10.8)
[2020-05-13 10:47] LABS: Absolute Neutrophil Count 0.82 10^3/uL (1.2-6.7); Diff Comment Diff Reviewed
[2020-05-13 10:48] LABS: Anisocytosis 2+; Macrocytosis 2+; Ovalocytes 2+; Polychromasia Present
[2020-05-13 10:50] LABS: Ferritin 198 ng/mL (26-388)
== END 2020-05-31 23:59 | disposition home or self-care (01) ==
LOC: INF 01:54
PROVIDERS: PCP Family Medicine; Visit Provider Internal Medicine Hematology & Oncology
DX: D50.9 Iron deficiency anemia, unspecified (principal)
CPT/HCPCS: 36415; 82728; 85025

== ENCOUNTER 2020-05-20 02:27 | Outpatient (CLI) | payer OTHER, SELFPAY ==
[2020-05-20 12:15] LABS: Abs Immature Grans 0.01 10^3/uL (0.0-0.06); Absolute Eosinophil Count 0.03 10^3/uL (0.0-0.7); Absolute Lymphocyte Count 0.88 10^3/uL (1.2-3.4); Eosinophils % 1.8; HGB 11.7 g/dL (13.5-17.5); Immature Grans % 0.6; Lymphocytes % 52.4; MCH 32.9 pg (27.0-33.0); MCHC 31.6 % (32.0-36.0); MCV 103.9 fL (80-95); MPV 9.7 fL (8.0-11.0); Neutrophils % 39.2; Nucleated RBC 0 %; Platelet Count 115 10^3/uL (130-400); RBC 3.56 10^6/uL (4.36-5.78); RDW 18.1 % (11.8-14.1)
[2020-05-20 12:33] LABS: WBC 1.68 10^3/uL (4.4-10.8)
[2020-05-20 12:34] LABS: Absolute Neutrophil Count 0.66 10^3/uL (1.2-6.7); Anisocytosis 2+; Diff Comment Agrees w/ Instrument; Polychromasia Present
[2020-05-20 12:35] LABS: Poikilocytes 2+
[2020-05-20 12:45] LABS: Ferritin 118 ng/mL (26-388)
== END 2020-05-20 02:47 ==
PROVIDERS: PCP Family Medicine; Visit Provider Internal Medicine Hematology & Oncology
DX: D50.9 Iron deficiency anemia, unspecified (principal)
CPT/HCPCS: 36415; 82728; 85025

== ENCOUNTER 2020-05-28 12:04 | Outpatient (CLI) | payer OTHER, SELFPAY ==
[2020-05-28 12:20] LABS: Absolute Basophil Count 0.01 10^3/uL (0.0-0.2); Absolute Eosinophil Count 0.02 10^3/uL (0.0-0.7); Absolute Lymphocyte Count 0.62 10^3/uL (1.2-3.4); Absolute Monocyte Count 0.08 10^3/uL (0.1-0.8); Absolute Neutrophil Count 0.51 10^3/uL (1.2-6.7); Basophils % 0.8; Eosinophils % 1.6; HCT 35.7 % (40.0-50.0); HGB 11.5 g/dL (13.5-17.5); MCH 33.4 pg (27.0-33.0); MCHC 32.2 % (32.0-36.0); MCV 103.8 fL (80-95); MPV 9.3 fL (8.0-11.0); Monocytes % 6.5; Neutrophils % 41.1; Nucleated RBC 0 %; Platelet Count 116 10^3/uL (130-400); RBC 3.44 10^6/uL (4.36-5.78); RDW 16.8 % (11.8-14.1); RDW-SD 64.8 fL
[2020-05-28 12:39] LABS: Ferritin 157 ng/mL (26-388)
[2020-05-28 12:50] LABS: Anisocytosis 1+; Diff Comment Diff Reviewed; WBC 1.24 10^3/uL (4.4-10.8)
[2020-05-28 12:51] LABS: Macrocytosis 1+; Poikilocytes 1+
== END 2020-05-28 12:24 ==
PROVIDERS: PCP Family Medicine; Visit Provider Internal Medicine Hematology & Oncology
DX: D50.9 Iron deficiency anemia, unspecified (principal)
CPT/HCPCS: 36415; 86900; 86901; 82728; 85025

== ENCOUNTER 2020-06-03 03:12 | Outpatient (CLI) | payer OTHER, SELFPAY ==
[2020-06-03 12:22] LABS: Abs Immature Grans 0.01 10^3/uL (0.0-0.06); Absolute Eosinophil Count 0.02 10^3/uL (0.0-0.7); Absolute Lymphocyte Count 0.62 10^3/uL (1.2-3.4); Absolute Monocyte Count 0.08 10^3/uL (0.1-0.8); Absolute Neutrophil Count 0.68 10^3/uL (1.2-6.7); Eosinophils % 1.4; HCT 35.4 % (40.0-50.0); HGB 11.5 g/dL (13.5-17.5); Immature Grans % 0.7; MCH 33.4 pg (27.0-33.0); MCHC 32.5 % (32.0-36.0); MCV 102.9 fL (80-95); MPV 9.8 fL (8.0-11.0); Monocytes % 5.7; Neutrophils % 48.2; Nucleated RBC 0 %; Platelet Count 118 10^3/uL (130-400); RBC 3.44 10^6/uL (4.36-5.78); RDW 16.3 % (11.8-14.1); RDW-SD 62.2 fL
[2020-06-03 12:46] LABS: WBC 1.41 10^3/uL (4.4-10.8)
[2020-06-03 12:47] LABS: Anisocytosis 1+; Diff Comment Diff Reviewed; Macrocytosis 1+; Poikilocytes 1+
[2020-06-03 12:51] LABS: Ferritin 141 ng/mL (26-388)
== END 2020-06-03 03:32 ==
PROVIDERS: PCP Family Medicine; Visit Provider Internal Medicine Hematology & Oncology
DX: D50.9 Iron deficiency anemia, unspecified (principal)
CPT/HCPCS: 36415; 82728; 85025

== ENCOUNTER 2020-06-17 01:46 | Outpatient (CLI) | payer OTHER, SELFPAY ==
[2020-06-17 13:45] LABS: Abs Immature Grans 0.02 10^3/uL (0.0-0.06); Absolute Eosinophil Count 0.03 10^3/uL (0.0-0.7); Absolute Lymphocyte Count 0.63 10^3/uL (1.2-3.4); HCT 34.3 % (40.0-50.0); HGB 11.5 g/dL (13.5-17.5); Immature Grans % 1.3; Lymphocytes % 41.4; MCH 33.6 pg (27.0-33.0); MCHC 33.5 % (32.0-36.0); MCV 100.3 fL (80-95); MPV 10.3 fL (8.0-11.0); Monocytes % 6.6; Neutrophils % 48.7; Nucleated RBC 0 %; RBC 3.42 10^6/uL (4.36-5.78); RDW 15.6 % (11.8-14.1); RDW-SD 58.3 fL
[2020-06-17 14:07] LABS: Ferritin 189 ng/mL (26-388)
[2020-06-17 14:09] LABS: Absolute Neutrophil Count 0.74 10^3/uL (1.2-6.7); Platelet Count 113 10^3/uL (130-400); WBC 1.52 10^3/uL (4.4-10.8)
[2020-06-17 14:10] LABS: Anisocytosis 1+; Diff Comment Agrees w/ Instrument; Macrocytosis 1+
== END 2020-06-17 02:06 ==
PROVIDERS: PCP Family Medicine; Visit Provider Internal Medicine Hematology & Oncology
DX: D50.9 Iron deficiency anemia, unspecified (principal)
CPT/HCPCS: 36415; 82728; 85025

== ENCOUNTER 2020-07-01 13:35 | Outpatient (CLI) | payer OTHER, SELFPAY ==
[2020-07-01 13:54] LABS: Abs Immature Grans 0.01 10^3/uL (0.0-0.06); Absolute Eosinophil Count 0.03 10^3/uL (0.0-0.7); Absolute Lymphocyte Count 0.67 10^3/uL (1.2-3.4); Absolute Monocyte Count 0.11 10^3/uL (0.1-0.8); Eosinophils % 1.8; HCT 33.2 % (40.0-50.0); HGB 10.9 g/dL (13.5-17.5); Immature Grans % 0.6; Lymphocytes % 40.1; MCH 33.5 pg (27.0-33.0); MCHC 32.8 % (32.0-36.0); MCV 102.2 fL (80-95); MPV 10.1 fL (8.0-11.0); Monocytes % 6.6; Neutrophils % 50.9; Nucleated RBC 0 %; Platelet Count 137 10^3/uL (130-400); RBC 3.25 10^6/uL (4.36-5.78); RDW 15.7 % (11.8-14.1)
[2020-07-01 14:12] LABS: Diff Comment Agrees w/ Instrument
[2020-07-01 14:13] LABS: Macrocytosis 2+; Polychromasia Present
[2020-07-01 14:14] LABS: Ferritin 222 ng/mL (26-388); WBC 1.67 10^3/uL (4.4-10.8)
[2020-07-01 14:15] LABS: Absolute Neutrophil Count 0.85 10^3/uL (1.2-6.7)
== END 2020-07-01 13:55 ==
PROVIDERS: PCP Family Medicine; Visit Provider Internal Medicine Hematology & Oncology
DX: D50.9 Iron deficiency anemia, unspecified (principal)
CPT/HCPCS: 36415; 82728; 85025

== ENCOUNTER 2020-07-15 14:02 | Outpatient (CLI) | payer OTHER, SELFPAY ==
[2020-07-15 14:25] LABS: Abs Immature Grans 0.01 10^3/uL (0.0-0.06); Absolute Basophil Count 0.01 10^3/uL (0.0-0.2); Absolute Eosinophil Count 0.03 10^3/uL (0.0-0.7); Absolute Lymphocyte Count 0.76 10^3/uL (1.2-3.4); Absolute Monocyte Count 0.07 10^3/uL (0.1-0.8); Absolute Neutrophil Count 0.62 10^3/uL (1.2-6.7); Basophils % 0.7; HCT 33.6 % (40.0-50.0); HGB 11.2 g/dL (13.5-17.5); Immature Grans % 0.7; Lymphocytes % 50.7; MCH 34.5 pg (27.0-33.0); MCHC 33.3 % (32.0-36.0); MCV 103.4 fL (80-95); MPV 10.4 fL (8.0-11.0); Monocytes % 4.7; Neutrophils % 41.2; Nucleated RBC 0 %; Platelet Count 112 10^3/uL (130-400); RBC 3.25 10^6/uL (4.36-5.78); RDW 16.3 % (11.8-14.1); RDW-SD 62.1 fL
[2020-07-15 14:48] LABS: ALT 22 U/L (16-63); AST 15 U/L (15-37); Albumin 3.2 g/dL (3.4-5.0); Alkaline Phosphatase 107 U/L (46-116); Anion Gap 8.2 mmol/L (3-11); BUN 27 mg/dL (7-18); Bilirubin, Total 0.6 mg/dL (0.2-1.0); CO2 26.8 mmol/L (21.0-32.0); Calcium 8.1 mg/dL (8.5-10.1); Chloride 104 mmol/L (98-107); Estimated GFR 36.21 (mL/min/1.73m2); Ferritin 178 ng/mL (26-388); Glucose 340 mg/dL (74-106); Potassium 4.4 mmol/L (3.5-5.1); Sodium 139 mmol/L (136-145); Total Protein 6.9 g/dL (6.4-8.2)
[2020-07-15 15:01] LABS: Anisocytosis 1+; Diff Comment Diff Reviewed; Macrocytosis 1+; Polychromasia Present
[2020-07-15 15:02] LABS: Poikilocytes 1+
== END 2020-07-15 14:22 ==
PROVIDERS: PCP Family Medicine; Visit Provider Internal Medicine Hematology & Oncology
DX: D50.9 Iron deficiency anemia, unspecified (principal); N18.9 Chronic kidney disease, unspecified; D63.1 Anemia in chronic kidney disease; D46.9 Myelodysplastic syndrome, unspecified; C18.2 Malignant neoplasm of ascending colon
CPT/HCPCS: 36415; 80053; 82728; 85025

== ENCOUNTER 2020-07-29 03:08 | Outpatient (CLI) | payer OTHER, SELFPAY ==
[2020-07-29 12:31] LABS: Abs Immature Grans 0.01 10^3/uL (0.0-0.06); HCT 32.2 % (40.0-50.0); HGB 10.7 g/dL (13.5-17.5); MCH 34.3 pg (27.0-33.0); MCHC 33.2 % (32.0-36.0); MCV 103.2 fL (80-95); MPV 9.7 fL (8.0-11.0); Nucleated RBC 0 %; Platelet Count 138 10^3/uL (130-400); RBC 3.12 10^6/uL (4.36-5.78); RDW 16.3 % (11.8-14.1); RDW-SD 62.4 fL
[2020-07-29 12:48] LABS: Bands % 2; WBC 1.91 10^3/uL (4.4-10.8)
[2020-07-29 12:49] LABS: Absolute Eosinophil Count 0.04 10^3/uL (0.0-0.7); Absolute Lymphocyte Count 0.82 10^3/uL (1.2-3.4); Absolute Monocyte Count 0.17 10^3/uL (0.1-0.8); Absolute Neutrophil Count 0.88 10^3/uL (1.2-6.7); Anisocytosis 1+; Atypical Lymphocytes % 7; Diff Comment Manual Differential
[2020-07-29 12:50] LABS: Poikilocytes 1+
[2020-07-29 12:57] LABS: ALT 21 U/L (16-63); AST 16 U/L (15-37); Albumin 3.5 g/dL (3.4-5.0); Alkaline Phosphatase 103 U/L (46-116); Anion Gap 4.3 mmol/L (3-11); BUN 38 mg/dL (7-18); Bilirubin, Total 0.7 mg/dL (0.2-1.0); CO2 27.7 mmol/L (21.0-32.0); Calcium 8.8 mg/dL (8.5-10.1); Chloride 106 mmol/L (98-107); Estimated GFR 32.07 (mL/min/1.73m2); Ferritin 192 ng/mL (26-388); Glucose 164 mg/dL (74-106); Sodium 138 mmol/L (136-145); Total Protein 7.2 g/dL (6.4-8.2)
== END 2020-07-29 03:28 ==
PROVIDERS: PCP Family Medicine; Visit Provider Internal Medicine Hematology & Oncology
DX: D50.9 Iron deficiency anemia, unspecified (principal); N18.9 Chronic kidney disease, unspecified; D63.1 Anemia in chronic kidney disease; D46.9 Myelodysplastic syndrome, unspecified; C18.2 Malignant neoplasm of ascending colon
CPT/HCPCS: 36415; 80053; 82728; 85025

== ENCOUNTER 2020-08-12 02:56 | Outpatient (CLI) | payer OTHER, SELFPAY ==
[2020-08-12 12:26] LABS: Abs Immature Grans 0.01 10^3/uL (0.0-0.06); HCT 34.1 % (40.0-50.0); HGB 11.1 g/dL (13.5-17.5); MCH 34.3 pg (27.0-33.0); MCHC 32.6 % (32.0-36.0); MCV 105.2 fL (80-95); MPV 9.3 fL (8.0-11.0); Nucleated RBC 0 %; Platelet Count 121 10^3/uL (130-400); RBC 3.24 10^6/uL (4.36-5.78); RDW 16.6 % (11.8-14.1); RDW-SD 65.1 fL
[2020-08-12 12:45] LABS: Absolute Basophil Count 0.02 10^3/uL (0.0-0.2); Absolute Eosinophil Count 0.02 10^3/uL (0.0-0.7); Absolute Lymphocyte Count 0.53 10^3/uL (1.2-3.4); Absolute Monocyte Count 0.17 10^3/uL (0.1-0.8); Absolute Neutrophil Count 0.97 10^3/uL (1.2-6.7); Atypical Lymphocytes % 2; Bands % 2
[2020-08-12 12:46] LABS: Diff Comment Manual Differential; Macrocytosis 2+
[2020-08-12 12:49] LABS: ALT 23 U/L (16-63); AST 15 U/L (15-37); Albumin 3.4 g/dL (3.4-5.0); Alkaline Phosphatase 107 U/L (46-116); BUN 41 mg/dL (7-18); Bilirubin, Total 0.7 mg/dL (0.2-1.0); CREATININE 1.9 mg/dL (0.70-1.30); Calcium 8.6 mg/dL (8.5-10.1); Chloride 106 mmol/L (98-107); Estimated GFR 34.02 (mL/min/1.73m2); Ferritin 181 ng/mL (26-388); Glucose 231 mg/dL (74-106); Potassium 5.2 mmol/L (3.5-5.1); Sodium 140 mmol/L (136-145); Total Protein 7.3 g/dL (6.4-8.2)
== END 2020-08-12 02:57 | disposition home or self-care (01) ==
LOC: LBO 02:56
PROVIDERS: PCP Family Medicine; Visit Provider Internal Medicine Hematology & Oncology
DX: D50.9 Iron deficiency anemia, unspecified (principal); N18.9 Chronic kidney disease, unspecified; D63.1 Anemia in chronic kidney disease; D46.9 Myelodysplastic syndrome, unspecified; C18.2 Malignant neoplasm of ascending colon
CPT/HCPCS: 36415; 80053; 82728; 85025

== ENCOUNTER 2020-08-26 12:33 | Outpatient (CLI) | payer OTHER, SELFPAY ==
[2020-08-26 13:06] LABS: Abs Immature Grans 0.01 10^3/uL (0.0-0.06); HCT 30.8 % (40.0-50.0); HGB 10.2 g/dL (13.5-17.5); MCH 34.6 pg (27.0-33.0); MCHC 33.1 % (32.0-36.0); MCV 104.4 fL (80-95); MPV 9.6 fL (8.0-11.0); Nucleated RBC 0 %; RBC 2.95 10^6/uL (4.36-5.78); RDW 15.7 % (11.8-14.1); RDW-SD 59.7 fL
[2020-08-26 13:18] LABS: ALT 18 U/L (16-63); AST 14 U/L (15-37); Albumin 3.1 g/dL (3.4-5.0); Alkaline Phosphatase 104 U/L (46-116); Anion Gap 7.2 mmol/L (3-11); BUN 32 mg/dL (7-18); Bilirubin, Total 0.6 mg/dL (0.2-1.0); CO2 24.8 mmol/L (21.0-32.0); CREATININE 1.6 mg/dL (0.70-1.30); Calcium 8.4 mg/dL (8.5-10.1); Chloride 108 mmol/L (98-107); Estimated GFR 41.49 (mL/min/1.73m2); Glucose 191 mg/dL (74-106); Potassium 4.7 mmol/L (3.5-5.1); Sodium 140 mmol/L (136-145)
[2020-08-26 13:31] LABS: Absolute Neutrophil Count 0.67 10^3/uL (1.2-6.7); Bands % 3; Platelet Count 116 10^3/uL (130-400)
[2020-08-26 13:32] LABS: Absolute Eosinophil Count 0.04 10^3/uL (0.0-0.7); Absolute Lymphocyte Count 0.48 10^3/uL (1.2-3.4); Absolute Monocyte Count 0.13 10^3/uL (0.1-0.8); Atypical Lymphocytes % 2; Diff Comment Manual Differential
[2020-08-26 13:33] LABS: RBC Morphology Normal
[2020-08-26 13:36] LABS: WBC 1.32 10^3/uL (4.4-10.8)
[2020-08-26 22:03] LABS: CEA 1.3 ng/mL (See Note)
== END 2020-08-26 12:34 | disposition home or self-care (01) ==
PROVIDERS: PCP Family Medicine; Visit Provider Internal Medicine Hematology & Oncology
DX: D50.9 Iron deficiency anemia, unspecified (principal); N18.9 Chronic kidney disease, unspecified; D63.1 Anemia in chronic kidney disease; D46.9 Myelodysplastic syndrome, unspecified; C18.2 Malignant neoplasm of ascending colon
CPT/HCPCS: 36415; 80053; 82378; 85025

== ENCOUNTER 2020-09-14 01:43 | Outpatient (CLI) | payer OTHER, SELFPAY ==
--- NOTE | 2020-09-14 08:00 | DI.CT_ITS ---
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 Oral contrast was also administered. COMPARISON: CT CT ABDOMEN PELVIS WO from 01/09/2020 FINDINGS: Lungs are clear except for a calcified right basilar nodule.. No pleural effusion. No pleural based mass. No mediastinal or hilar adenopathy. No axillary or supraclavicular adenopathy. Tracheobronchial naseem e appears intact. No evidence of pulmonary embolic disease. Unremarkable appearance of thoracic aorta and major branch vessels. The liver appears normal with no significant focal hepatic lesion identified. Spleen is unremarkable in appearance except for some small calcified granulomas.. Pancreas appears intact. Adrenals appear normal. There are multiple bilateral renal cysts. No evidence of hydronephrosis or nephrolithiasis. Abdominal aorta and major visceral branches appear intact. No focal bowel pathology. Appendix is nonvisualized.. No evidence of diverticulitis. No abdominal or pelvic adenopathy. No significant abdominal wall hernia. Tiny fat containing left inguinal hernia noted. No focal bony lesion identified on scanning of the chest, abdomen, and pelvis. IMPRESSION: Negative CT of the chest, abdomen, and pelvis with biphasic hepatic imaging. RADIATION DOSE DELIVERED: 1,957.94mGy.cm Total DLP 1,957.94mGy.cm Total DLP
[2020-09-14] MEDS: Breeza Beverage 473 ML BTL PO ×2 (08:30→08:31)
[2020-09-14] MEDS: Omnipaque 350 MG/ML 50 ML BTL IJ (08:31)
[2020-09-14 08:51] LABS: Abs Immature Grans 0.01 10^3/uL (0.0-0.06); Absolute Basophil Count 0.01 10^3/uL (0.0-0.2); Absolute Eosinophil Count 0.02 10^3/uL (0.0-0.7); Absolute Lymphocyte Count 0.67 10^3/uL (1.2-3.4); Absolute Monocyte Count 0.07 10^3/uL (0.1-0.8); Basophils % 0.9; Eosinophils % 1.7; HCT 29.9 % (40.0-50.0); HGB 9.8 g/dL (13.5-17.5); Immature Grans % 0.9; Lymphocytes % 57.8; MCH 34.9 pg (27.0-33.0); MCHC 32.8 % (32.0-36.0); MCV 106.4 fL (80-95); MPV 9.6 fL (8.0-11.0); Neutrophils % 32.7; Nucleated RBC 0 %; Platelet Count 126 10^3/uL (130-400); RBC 2.81 10^6/uL (4.36-5.78); RDW 15.9 % (11.8-14.1); RDW-SD 62.3 fL
[2020-09-14 09:10] LABS: ALT 21 U/L (16-63); AST 17 U/L (15-37); Albumin 3.2 g/dL (3.4-5.0); Alkaline Phosphatase 104 U/L (46-116); Anion Gap 7.1 mmol/L (3-11); BUN 30 mg/dL (7-18); Bilirubin, Total 0.7 mg/dL (0.2-1.0); CO2 27.9 mmol/L (21.0-32.0); CREATININE 1.7 mg/dL (0.70-1.30); Calcium 8.3 mg/dL (8.5-10.1); Chloride 107 mmol/L (98-107); Estimated GFR 38.68 (mL/min/1.73m2); Glucose 108 mg/dL (74-106); Potassium 4.2 mmol/L (3.5-5.1); Sodium 142 mmol/L (136-145)
[2020-09-14 09:10] LABS: Absolute Neutrophil Count 0.38 10^3/uL (1.2-6.7); WBC 1.16 10^3/uL (4.4-10.8)
[2020-09-14 09:11] LABS: Anisocytosis 1+; Diff Comment Agrees w/ Instrument; Macrocytosis 2+; Polychromasia Present
[2020-09-14] MEDS: Omnipaque 350 MG/ML 100 ML BTL IJ (09:44)
[2020-09-14] MEDS: Normal Saline - Diluent 50 ML VIAL IV (09:45)
[2020-09-14 19:58] LABS: CEA 0.8 ng/mL (See Note)
== END 2020-09-14 02:03 ==
PROVIDERS: PCP Family Medicine; Visit Provider Internal Medicine Hematology & Oncology
DX: C18.2 Malignant neoplasm of ascending colon (principal)
CPT/HCPCS: 74177; 80053; 71260; 82378; 85025; J3490; Q9967

== ENCOUNTER 2020-09-23 11:46 | Outpatient (CLI) | payer OTHER, SELFPAY ==
[2020-09-23 12:03] LABS: Abs Immature Grans 0.01 10^3/uL (0.0-0.06); Absolute Basophil Count 0.01 10^3/uL (0.0-0.2); Absolute Eosinophil Count 0.03 10^3/uL (0.0-0.7); Absolute Monocyte Count 0.09 10^3/uL (0.1-0.8); Absolute Neutrophil Count 0.71 10^3/uL (1.2-6.7); Basophils % 0.6; Eosinophils % 1.9; HCT 31.5 % (40.0-50.0); HGB 10.3 g/dL (13.5-17.5); Immature Grans % 0.6; Lymphocytes % 45.2; MCHC 32.7 % (32.0-36.0); MCV 107.1 fL (80-95); MPV 9.6 fL (8.0-11.0); Monocytes % 5.8; Neutrophils % 45.9; Nucleated RBC 0 %; Platelet Count 124 10^3/uL (130-400); RBC 2.94 10^6/uL (4.36-5.78); RDW 16.1 % (11.8-14.1); RDW-SD 63.2 fL
[2020-09-23 12:31] LABS: WBC 1.55 10^3/uL (4.4-10.8)
[2020-09-23 12:32] LABS: Diff Comment Agrees w/ Instrument; Macrocytosis 2+
[2020-09-23 12:39] LABS: ALT 23 U/L (16-63); AST 18 U/L (15-37); Albumin 3.2 g/dL (3.4-5.0); Alkaline Phosphatase 96 U/L (46-116); Anion Gap 7.2 mmol/L (3-11); BUN 33 mg/dL (7-18); Bilirubin, Total 0.6 mg/dL (0.2-1.0); CO2 26.8 mmol/L (21.0-32.0); CREATININE 1.8 mg/dL (0.70-1.30); Calcium 8.3 mg/dL (8.5-10.1); Chloride 109 mmol/L (98-107); Estimated GFR 36.21 (mL/min/1.73m2); Ferritin 180 ng/mL (26-388); Glucose 199 mg/dL (74-106); Potassium 4.9 mmol/L (3.5-5.1); Sodium 143 mmol/L (136-145); Total Protein 7.2 g/dL (6.4-8.2)
[2020-09-23 21:52] LABS: CEA 0.9 ng/mL (See Note)
== END 2020-09-23 11:47 | disposition home or self-care (01) ==
PROVIDERS: PCP Family Medicine; Visit Provider Internal Medicine Hematology & Oncology
DX: D50.9 Iron deficiency anemia, unspecified (principal); C18.2 Malignant neoplasm of ascending colon; N18.9 Chronic kidney disease, unspecified; D63.1 Anemia in chronic kidney disease; D46.9 Myelodysplastic syndrome, unspecified
CPT/HCPCS: 36415; 80053; 82378; 82728; 85025

== ENCOUNTER 2020-10-25 04:17 | Outpatient (CLI) | payer OTHER, SELFPAY ==
[2020-10-25 09:18] LABS: Absolute Basophil Count 0.01 10^3/uL (0.0-0.2); Absolute Eosinophil Count 0.03 10^3/uL (0.0-0.7); Absolute Lymphocyte Count 0.73 10^3/uL (1.2-3.4); Absolute Monocyte Count 0.13 10^3/uL (0.1-0.8); Absolute Neutrophil Count 0.82 10^3/uL (1.2-6.7); Basophils % 0.6; Eosinophils % 1.7; Lymphocytes % 42.4; MCH 34.6 pg (27.0-33.0); MCHC 32.4 % (32.0-36.0); MCV 106.9 fL (80-95); MPV 9.7 fL (8.0-11.0); Monocytes % 7.6; Neutrophils % 47.7; Nucleated RBC 0 %; Platelet Count 114 10^3/uL (130-400); RBC 3.18 10^6/uL (4.36-5.78); RDW 14.9 % (11.8-14.1)
[2020-10-25 09:51] LABS: WBC 1.72 10^3/uL (4.4-10.8)
[2020-10-25 09:52] LABS: ALT 25 U/L (16-63); AST 15 U/L (15-37); Albumin 3.6 g/dL (3.4-5.0); Alkaline Phosphatase 106 U/L (46-116); Anion Gap 6.2 mmol/L (3-11); BUN 49 mg/dL (7-18); Bilirubin, Total 0.8 mg/dL (0.2-1.0); CO2 26.8 mmol/L (21.0-32.0); CREATININE 2.1 mg/dL (0.70-1.30); Calcium 8.7 mg/dL (8.5-10.1); Chloride 111 mmol/L (98-107); Diff Comment Diff Reviewed; Estimated GFR 30.31 (mL/min/1.73m2); Ferritin 196 ng/mL (26-388); Glucose 179 mg/dL (74-106); Macrocytosis 2+; Poikilocytes 1+; Potassium 5.1 mmol/L (3.5-5.1); Sodium 144 mmol/L (136-145); Total Protein 7.5 g/dL (6.4-8.2)
== END 2020-10-25 04:18 | disposition home or self-care (01) ==
LOC: LBO 04:17
PROVIDERS: PCP Family Medicine; Visit Provider Internal Medicine Hematology & Oncology
DX: D50.9 Iron deficiency anemia, unspecified (principal); N18.9 Chronic kidney disease, unspecified; D63.1 Anemia in chronic kidney disease; D46.9 Myelodysplastic syndrome, unspecified; C18.2 Malignant neoplasm of ascending colon
CPT/HCPCS: 36415; 80053; 82728; 85025

== ENCOUNTER 2020-12-02 03:28 | Outpatient (CLI) | payer OTHER, SELFPAY ==
[2020-12-02 07:45] LABS: Ferritin 205 ng/mL (26-388)
[2020-12-02 08:38] LABS: Abs Immature Grans 0.01 10^3/uL (0.0-0.06); Absolute Basophil Count 0.01 10^3/uL (0.0-0.2); Absolute Eosinophil Count 0.02 10^3/uL (0.0-0.7); Absolute Lymphocyte Count 0.53 10^3/uL (1.2-3.4); Absolute Monocyte Count 0.11 10^3/uL (0.1-0.8); Absolute Neutrophil Count 0.68 10^3/uL (1.2-6.7); Basophils % 0.7; Eosinophils % 1.5; HCT 28.8 % (40.0-50.0); HGB 9.8 g/dL (13.5-17.5); Immature Grans % 0.7; MCH 35.9 pg (27.0-33.0); MCV 105.5 fL (80-95); MPV 10.1 fL (8.0-11.0); Monocytes % 8.1; Nucleated RBC 0 %; Platelet Count 115 10^3/uL (130-400); RBC 2.73 10^6/uL (4.36-5.78); RDW 16.1 % (11.8-14.1); RDW-SD 61.1 fL
[2020-12-02 08:46] LABS: WBC 1.36 10^3/uL (4.4-10.8)
[2020-12-02 09:05] LABS: Anisocytosis 2+; Diff Comment Agrees w/ Instrument
[2020-12-02 09:06] LABS: Macrocytosis 1+
== END 2020-12-02 03:29 | disposition home or self-care (01) ==
LOC: LBO 03:28
PROVIDERS: PCP Family Medicine; Visit Provider Internal Medicine Hematology & Oncology
DX: D50.9 Iron deficiency anemia, unspecified (principal); N18.9 Chronic kidney disease, unspecified; D63.1 Anemia in chronic kidney disease
CPT/HCPCS: 36415; 82728; 85025

== ENCOUNTER 2020-12-30 13:49 | Outpatient (CLI) | payer OTHER, SELFPAY ==
[2020-12-30 12:31] LABS: Abs Immature Grans 0.01 10^3/uL (0.0-0.06); HCT 30.7 % (40.0-50.0); HGB 9.9 g/dL (13.5-17.5); MCH 34.9 pg (27.0-33.0); MCHC 32.2 % (32.0-36.0); MCV 108.1 fL (80-95); MPV 9.4 fL (8.0-11.0); Nucleated RBC 0 %; Platelet Count 111 10^3/uL (130-400); RBC 2.84 10^6/uL (4.36-5.78); RDW 16.4 % (11.8-14.1); RDW-SD 64.9 fL
[2020-12-30 12:54] LABS: WBC 1.69 10^3/uL (4.4-10.8)
[2020-12-30 12:55] LABS: Absolute Basophil Count 0.02 10^3/uL (0.0-0.2); Absolute Eosinophil Count 0.05 10^3/uL (0.0-0.7); Absolute Lymphocyte Count 0.68 10^3/uL (1.2-3.4); Absolute Monocyte Count 0.12 10^3/uL (0.1-0.8); Absolute Neutrophil Count 0.83 10^3/uL (1.2-6.7); Bands % 4
[2020-12-30 12:56] LABS: Anisocytosis 1+; Diff Comment Manual Differential; Macrocytosis 2+; Polychromasia Present
[2020-12-30 13:03] LABS: Ferritin 227 ng/mL (26-388)
== END 2020-12-30 13:50 | disposition home or self-care (01) ==
LOC: LBO 13:53
PROVIDERS: PCP Family Medicine; Visit Provider Internal Medicine Hematology & Oncology
DX: D50.9 Iron deficiency anemia, unspecified (principal); D46.9 Myelodysplastic syndrome, unspecified; N18.9 Chronic kidney disease, unspecified; D63.1 Anemia in chronic kidney disease
CPT/HCPCS: 36415; 82728; 85025

== ENCOUNTER 2021-01-27 04:13 | Outpatient (CLI) | payer OTHER, SELFPAY ==
[2021-01-27 14:18] LABS: Abs Immature Grans 0.01 10^3/uL (0.0-0.06); Absolute Basophil Count 0.01 10^3/uL (0.0-0.2); Absolute Eosinophil Count 0.05 10^3/uL (0.0-0.7); Absolute Lymphocyte Count 0.79 10^3/uL (1.2-3.4); Absolute Monocyte Count 0.09 10^3/uL (0.1-0.8); Basophils % 0.7; Eosinophils % 3.4; HCT 30.9 % (40.0-50.0); Immature Grans % 0.7; Lymphocytes % 53.7; MCHC 32.4 % (32.0-36.0); MPV 10.5 fL (8.0-11.0); Monocytes % 6.1; Neutrophils % 35.4; Nucleated RBC 0 %; RBC 2.86 10^6/uL (4.36-5.78); RDW 15.7 % (11.8-14.1); RDW-SD 62.4 fL
[2021-01-27 14:34] LABS: WBC 1.47 10^3/uL (4.4-10.8)
[2021-01-27 14:35] LABS: Absolute Neutrophil Count 0.52 10^3/uL (1.2-6.7); Diff Comment Diff Reviewed; Macrocytosis 2+; Platelet Count 113 10^3/uL (130-400)
[2021-01-27 15:02] LABS: ALT 22 U/L (16-63); AST 15 U/L (15-37); Albumin 3.4 g/dL (3.4-5.0); Alkaline Phosphatase 97 U/L (46-116); Anion Gap 7.6 mmol/L (3-11); BUN 29 mg/dL (7-18); Bilirubin, Total 0.6 mg/dL (0.2-1.0); CO2 27.4 mmol/L (21.0-32.0); CREATININE 1.8 mg/dL (0.70-1.30); Calcium 8.1 mg/dL (8.5-10.1); Chloride 108 mmol/L (98-107); Estimated GFR 36.13 (mL/min/1.73m2); Glucose 224 mg/dL (74-106); Potassium 4.8 mmol/L (3.5-5.1); Sodium 143 mmol/L (136-145); Total Protein 6.7 g/dL (6.4-8.2)
== END 2021-01-27 04:14 | disposition home or self-care (01) ==
PROVIDERS: PCP Family Medicine; Visit Provider Internal Medicine Hematology & Oncology
DX: D46.9 Myelodysplastic syndrome, unspecified (principal); N18.9 Chronic kidney disease, unspecified; D63.1 Anemia in chronic kidney disease
CPT/HCPCS: 36415; 80053; 85025

== ENCOUNTER 2021-02-24 03:47 | Outpatient (CLI) | payer OTHER, SELFPAY ==
[2021-02-24 08:46] LABS: Abs Immature Grans 0.02 10^3/uL (0.0-0.06); HCT 30.4 % (40.0-50.0); HGB 9.9 g/dL (13.5-17.5); MCH 35.4 pg (27.0-33.0); MCHC 32.6 % (32.0-36.0); MCV 108.6 fL (80-95); MPV 9.8 fL (8.0-11.0); Nucleated RBC 0 %; RDW 15.1 % (11.8-14.1); RDW-SD 60.2 fL
[2021-02-24 08:56] LABS: ALT 19 U/L (16-63); AST 13 U/L (15-37); Albumin 3.3 g/dL (3.4-5.0); Alkaline Phosphatase 99 U/L (46-116); Anion Gap 7.4 mmol/L (3-11); BUN 29 mg/dL (7-18); Bilirubin, Total 0.6 mg/dL (0.2-1.0); CO2 24.6 mmol/L (21.0-32.0); CREATININE 2.1 mg/dL (0.70-1.30); Calcium 8.1 mg/dL (8.5-10.1); Chloride 111 mmol/L (98-107); Estimated GFR 30.24 (mL/min/1.73m2); Glucose 175 mg/dL (74-106); Potassium 4.8 mmol/L (3.5-5.1); Sodium 143 mmol/L (136-145); Total Protein 6.9 g/dL (6.4-8.2)
[2021-02-24 09:16] LABS: Absolute Basophil Count 0.05 10^3/uL (0.0-0.2); Absolute Eosinophil Count 0.08 10^3/uL (0.0-0.7); Absolute Lymphocyte Count 0.54 10^3/uL (1.2-3.4); Absolute Monocyte Count 0.14 10^3/uL (0.1-0.8); Absolute Neutrophil Count 0.77 10^3/uL (1.2-6.7); Bands % 4; Diff Comment Manual Differential; Hypochromasia 2+; Macrocytosis 2+; Platelet Count 139 10^3/uL (130-400)
[2021-02-24 09:17] LABS: Basophilic Stippling Present; Poikilocytes 1+
[2021-02-24 09:22] LABS: WBC 1.58 10^3/uL (4.4-10.8)
== END 2021-02-24 03:48 | disposition home or self-care (01) ==
LOC: LBO 03:48
PROVIDERS: PCP Family Medicine; Visit Provider Internal Medicine Hematology & Oncology
DX: D46.9 Myelodysplastic syndrome, unspecified (principal); D63.1 Anemia in chronic kidney disease; N18.9 Chronic kidney disease, unspecified
CPT/HCPCS: 36415; 80053; 85025

== ENCOUNTER 2021-03-02 02:05 | Outpatient (CLI) | payer OTHER, SELFPAY ==
--- NOTE | 2021-03-02 | DI.CT_ITS ---
Exam(s) CT CHEST/ABD/PEL W EXAM: CT CHEST/ABD/PEL W CLINICAL HISTORY: ANEMIA,CKD,COLON CA,C18.2,PANCYTOPENIA,D61.818, NO CHEMO TECHNIQUE: Imaging Protocol: Axial computed tomography images with coronal and sagittal reformatted images were created and reviewed CONTRAST MATERIAL: Intravenous: Omnipaque 350 Contrast volume:50 mL Oral: Yes COMPARISON: CT CT CHEST/ABD/PEL W from 09/14/2020 FINDINGS: CHEST: Tracheobronchial tree: Patent where visualized. Pulmonary parenchyma: No consolidation or dominant measurable mass. No architectural distortion. Mild dependent atelectasis. Visualized thyroid gland: There is a stable 2.6 x 2.7 cm hypodense left thyroid mass. Thyroid ultraso und may be obtained for further evaluation. Mediastinum and Nichol: No dominant adenopathy or fluid collection. Pleura: No effusion or pneumothorax. Heart: Cardiomegaly. Moderate coronary artery calcification. No pericardial effusion. Aorta: Thoracic aorta non-dilated. Atherosclerosis. Lymph nodes: Within normal limits. Soft tissues: Unremarkable. Bones:Old left rib fractures. No suspicious lytic or sclerotic lesions. ABDOMEN: Liver: Normal density. No measurable mass. There is a stable 2-3 mm round hypodensity in the right lo be of the liver. It likely reflects a small cyst. Portal, Superior Mesenteric, and Splenic Veins: Unremarkable. Gallbladder and Biliary Tract: Cholelithiasis. No biliary ductal dilatation. Pancreas: Normal density, no abnormal calcifications or inflammatory process. Spleen: Calcified granuloma are present. Adrenals: No masses seen. Kidneys: Normal size, contour and axis. No radiodense stones or obstructive uropathy. Stable bilatera l renal cysts. Abdominal Aorta: Stable 3.5 cm infrarenal abdominal aortic aneurysm. Atherosclerosis. Bowel: No obstruction or bowel wall thickening. No evidence of appendicitis. Sigmoid diverticulosis, but no evidence of acute diverticulitis. Peritoneal Cavity: No ascites, collection or mesenteric inflammatory response. No free air. Lymph Nodes: Stable mildly enlarged mesenteric lymph nodes. Bones: No evidence of osseous metastatic disease. Soft Tissues: Fat containing bilateral inguinal hernia, left greater than right. PELVIS: Bladder: Symmetric distention, no gross wall thickening. Reproductive Organs: Unremarkable as visualized. Lymph Nodes: Within normal limits. Bones: Within normal limits. IMPRESSION: 1. No evidence of abdominal or pelvic metastatic disease. 2. No evidence of thoracic metastatic disease. RADIATION DOSE DELIVERED: 1,866.09mGy.cm Total DLP DATA REPOSITORY: All CT scans at this facility are submitted to the National Radiology Data Registry (NRDR) Dose Index Registry (DIR) with the [employer] (ACR). RADIATION OPTIMIZATION: All CT scans at this facility use at least one of these dose optimization te chniques: automated exposure control; mA and/or kV adjustment per patient size (includes targeted exa ms where dose is matched to clinical indication); or iterative reconstruction.
[2021-03-02] MEDS: Omnipaque 350 MG/ML 100 ML BTL IJ (10:55)
[2021-03-02] MEDS: Normal Saline Flush 10 ML SYR IVP (10:58)
[2021-03-02] MEDS: Breeza Beverage 473 ML BTL PO ×2 (10:59→11:01)
[2021-03-02] MEDS: Omnipaque 350 MG/ML 50 ML BTL PO (11:00)
== END 2021-03-02 02:25 ==
PROVIDERS: PCP Family Medicine; Visit Provider Nurse Practitioner Family
DX: C18.2 Malignant neoplasm of ascending colon (principal); D61.818 Other pancytopenia; N18.9 Chronic kidney disease, unspecified; D63.1 Anemia in chronic kidney disease
CPT/HCPCS: 74177; 71260; J3490; Q9967

== ENCOUNTER 2021-03-24 01:41 | Outpatient (CLI) | payer OTHER, SELFPAY ==
[2021-03-24 09:11] LABS: HCT 27.6 % (40.0-50.0); HGB 8.8 g/dL (13.5-17.5); MCH 34.8 pg (27.0-33.0); MCHC 31.9 % (32.0-36.0); MCV 109.1 fL (80-95); MPV 10.2 fL (8.0-11.0); Nucleated RBC 0 %; RBC 2.53 10^6/uL (4.36-5.78); RDW 15.5 % (11.8-14.1); RDW-SD 63.1 fL
[2021-03-24 09:19] LABS: WBC 1.16 10^3/uL (4.4-10.8)
[2021-03-24 09:45] LABS: Bands % 3
[2021-03-24 09:46] LABS: Absolute Lymphocyte Count 0.52 10^3/uL (1.2-3.4); Absolute Monocyte Count 0.08 10^3/uL (0.1-0.8); Absolute Neutrophil Count 0.45 10^3/uL (1.2-6.7)
[2021-03-24 09:47] LABS: Diff Comment Manual Differential
[2021-03-24 09:48] LABS: Macrocytosis 1+; Polychromasia Present
[2021-03-24 09:50] LABS: Platelet Count 132 10^3/uL (130-400)
[2021-03-24 09:52] LABS: ALT 21 U/L (16-63); AST 15 U/L (15-37); Albumin 3.2 g/dL (3.4-5.0); Alkaline Phosphatase 101 U/L (46-116); Anion Gap 9.4 mmol/L (3-11); BUN 29 mg/dL (7-18); Bilirubin, Total 0.6 mg/dL (0.2-1.0); CO2 26.6 mmol/L (21.0-32.0); CREATININE 1.9 mg/dL (0.70-1.30); Calcium 8.3 mg/dL (8.5-10.1); Chloride 109 mmol/L (98-107); Estimated GFR 33.94 (mL/min/1.73m2); Ferritin 121 ng/mL (26-388); Glucose 162 mg/dL (74-106); Potassium 4.7 mmol/L (3.5-5.1); Sodium 145 mmol/L (136-145); Total Protein 6.6 g/dL (6.4-8.2)
[2021-03-24 17:44] LABS: CEA <2.0 ng/mL (See Note)
== END 2021-03-24 01:42 | disposition home or self-care (01) ==
LOC: LBO 01:41
PROVIDERS: Internal Medicine Hematology & Oncology; PCP Family Medicine; Visit Provider Internal Medicine Hematology & Oncology
DX: D46.9 Myelodysplastic syndrome, unspecified (principal); N18.30 Chronic kidney disease, stage 3 unspecified; D63.1 Anemia in chronic kidney disease; C18.2 Malignant neoplasm of ascending colon
CPT/HCPCS: 36415; 80053; 82378; 82728; 85025

== ENCOUNTER 2021-04-21 02:39 | Outpatient (CLI) | payer MEDICARE, SELFPAY ==
[2021-04-21 10:09] LABS: HCT 27.5 % (40.0-50.0); HGB 8.7 g/dL (13.5-17.5); MCH 34.8 pg (27.0-33.0); MCHC 31.6 % (32.0-36.0); MPV 9.8 fL (8.0-11.0); Nucleated RBC 0 %; Platelet Count 121 10^3/uL (130-400); RDW 16.8 % (11.8-14.1); RDW-SD 68.1 fL
[2021-04-21 10:26] LABS: WBC 1.34 10^3/uL (4.4-10.8)
[2021-04-21 10:34] LABS: Absolute Eosinophil Count 0.01 10^3/uL (0.0-0.7); Absolute Lymphocyte Count 0.71 10^3/uL (1.2-3.4); Absolute Monocyte Count 0.05 10^3/uL (0.1-0.8); Absolute Neutrophil Count 0.56 10^3/uL (1.2-6.7); Atypical Lymphocytes % 8; Bands % 3; Diff Comment Manual Differential; Macrocytosis 2+
[2021-04-21 11:04] LABS: ALT 15 U/L (16-63); AST 11 U/L (15-37); Albumin 3.2 g/dL (3.4-5.0); Alkaline Phosphatase 98 U/L (46-116); BUN 26 mg/dL (7-18); Bilirubin, Total 0.6 mg/dL (0.2-1.0); CREATININE 1.7 mg/dL (0.70-1.30); Calcium 8.4 mg/dL (8.5-10.1); Calculated LDL 60 mg/dL (<100); Chloride 107 mmol/L (98-107); Cholesterol 114 mg/dL (<200); Estimated GFR 38.59 (mL/min/1.73m2); Glucose 164 mg/dL (74-106); HDL Cholesterol 38 mg/dL (40-60); Potassium 4.8 mmol/L (3.5-5.1); Sodium 142 mmol/L (136-145); Total Protein 6.9 g/dL (6.4-8.2); Triglyceride 81 mg/dL (<150); Vitamin B12 1908 pg/mL (193-986)
[2021-04-21 11:18] LABS: Creatine Kinase 68 U/L (39-308)
== END 2021-04-21 02:40 | disposition home or self-care (01) ==
LOC: LBO 02:39
PROVIDERS: PCP Family Medicine; Visit Provider Internal Medicine Hematology & Oncology
DX: D46.9 Myelodysplastic syndrome, unspecified (principal); D63.1 Anemia in chronic kidney disease; N18.9 Chronic kidney disease, unspecified; E78.5 Hyperlipidemia, unspecified; E53.8 Deficiency of other specified B group vitamins
CPT/HCPCS: 36415; 80053; 80061; 82550; 82607; 85025

== ENCOUNTER 2021-05-05 02:59 | Outpatient (CLI) | payer MEDICARE, SELFPAY ==
[2021-05-05 14:38] LABS: HCT 28.9 % (40.0-50.0); HGB 9.1 g/dL (13.5-17.5); MCH 34.9 pg (27.0-33.0); MCHC 31.5 % (32.0-36.0); MCV 110.7 fL (80-95); MPV 9.8 fL (8.0-11.0); Nucleated RBC 0 %; Platelet Count 103 10^3/uL (130-400); RBC 2.61 10^6/uL (4.36-5.78); RDW 17.2 % (11.8-14.1); RDW-SD 70.6 fL
[2021-05-05 14:42] LABS: WBC 1.52 10^3/uL (4.4-10.8)
[2021-05-05 14:50] LABS: ALT 18 U/L (16-63); AST 13 U/L (15-37); Albumin 3.3 g/dL (3.4-5.0); Alkaline Phosphatase 98 U/L (46-116); Anion Gap 4.4 mmol/L (3-11); BUN 26 mg/dL (7-18); Bilirubin, Total 0.5 mg/dL (0.2-1.0); CO2 29.6 mmol/L (21.0-32.0); CREATININE 1.4 mg/dL (0.70-1.30); Calcium 8.7 mg/dL (8.5-10.1); Chloride 109 mmol/L (98-107); Estimated GFR 48.28 (mL/min/1.73m2); Glucose 147 mg/dL (74-106); Potassium 4.7 mmol/L (3.5-5.1); Sodium 143 mmol/L (136-145); Total Protein 6.7 g/dL (6.4-8.2)
[2021-05-05 14:57] LABS: Absolute Eosinophil Count 0.08 10^3/uL (0.0-0.7); Absolute Lymphocyte Count 0.74 10^3/uL (1.2-3.4); Absolute Monocyte Count 0.06 10^3/uL (0.1-0.8); Absolute Neutrophil Count 0.64 10^3/uL (1.2-6.7); Atypical Lymphocytes % 3; Bands % 1; Diff Comment Manual Differential; Macrocytosis 2+
== END 2021-05-05 03:00 | disposition home or self-care (01) ==
LOC: LBO 02:59
PROVIDERS: PCP Family Medicine; Visit Provider Internal Medicine Hematology & Oncology
DX: D64.9 Anemia, unspecified (principal); N18.9 Chronic kidney disease, unspecified; D63.1 Anemia in chronic kidney disease
CPT/HCPCS: 36415; 80053; 85025

== ENCOUNTER 2021-05-19 02:12 | Outpatient (CLI) | payer MEDICARE, SELFPAY ==
[2021-05-19 09:45] LABS: HCT 30.8 % (40.0-50.0); HGB 9.7 g/dL (13.5-17.5); MCH 35.3 pg (27.0-33.0); MCHC 31.5 % (32.0-36.0); MPV 9.8 fL (8.0-11.0); Nucleated RBC 0 %; Platelet Count 112 10^3/uL (130-400); RBC 2.75 10^6/uL (4.36-5.78); RDW 16.9 % (11.8-14.1); RDW-SD 69.8 fL
[2021-05-19 09:56] LABS: ALT 13 U/L (16-63); AST 14 U/L (15-37); Albumin 3.3 g/dL (3.4-5.0); Alkaline Phosphatase 111 U/L (46-116); Anion Gap 5.8 mmol/L (3-11); BUN 21 mg/dL (7-18); Bilirubin, Total 0.8 mg/dL (0.2-1.0); CO2 29.2 mmol/L (21.0-32.0); CREATININE 1.4 mg/dL (0.70-1.30); Calcium 8.6 mg/dL (8.5-10.1); Chloride 108 mmol/L (98-107); Estimated GFR 48.28 (mL/min/1.73m2); Glucose 167 mg/dL (74-106); Potassium 4.7 mmol/L (3.5-5.1); Sodium 143 mmol/L (136-145); Total Protein 7.1 g/dL (6.4-8.2)
[2021-05-19 09:59] LABS: Absolute Neutrophil Count 0.59 10^3/uL (1.2-6.7); Bands % 3
[2021-05-19 10:00] LABS: Absolute Eosinophil Count 0.06 10^3/uL (0.0-0.7); Absolute Lymphocyte Count 0.75 10^3/uL (1.2-3.4); Absolute Monocyte Count 0.07 10^3/uL (0.1-0.8); Atypical Lymphocytes % 1; Diff Comment Manual Differential; Hypochromasia 1+; Macrocytosis 2+
[2021-05-19 14:49] LABS: WBC 1.47 10^3/uL (4.4-10.8)
== END 2021-05-19 02:13 | disposition home or self-care (01) ==
LOC: LBO 02:13
PROVIDERS: PCP Family Medicine; Visit Provider Internal Medicine Hematology & Oncology
DX: D46.9 Myelodysplastic syndrome, unspecified (principal); N18.9 Chronic kidney disease, unspecified; D63.1 Anemia in chronic kidney disease
CPT/HCPCS: 36415; 80053; 85025

== ENCOUNTER 2021-06-02 13:24 | Outpatient (CLI) | payer MEDICARE, SELFPAY ==
[2021-06-02 13:46] LABS: Abs Immature Grans 0.01 10^3/uL (0.0-0.06); Absolute Basophil Count 0.01 10^3/uL (0.0-0.2); Absolute Eosinophil Count 0.02 10^3/uL (0.0-0.7); Absolute Lymphocyte Count 0.78 10^3/uL (1.2-3.4); Absolute Monocyte Count 0.14 10^3/uL (0.1-0.8); Absolute Neutrophil Count 0.89 10^3/uL (1.2-6.7); Basophils % 0.5; Eosinophils % 1.1; HCT 30.9 % (40.0-50.0); HGB 9.9 g/dL (13.5-17.5); Immature Grans % 0.5; Lymphocytes % 42.2; MCH 35.4 pg (27.0-33.0); MCV 110.4 fL (80-95); MPV 10.3 fL (8.0-11.0); Monocytes % 7.6; Neutrophils % 48.1; Nucleated RBC 0 %; Platelet Count 148 10^3/uL (130-400); RDW 16.4 % (11.8-14.1); RDW-SD 66.9 fL
[2021-06-02 13:51] LABS: WBC 1.85 10^3/uL (4.4-10.8)
[2021-06-02 14:01] LABS: Diff Comment Diff Reviewed
[2021-06-02 14:02] LABS: Anisocytosis 1+; Macrocytosis 2+; Poikilocytes 2+
[2021-06-02 14:05] LABS: ALT 15 U/L (16-63); AST 12 U/L (15-37); Albumin 3.4 g/dL (3.4-5.0); Alkaline Phosphatase 115 U/L (46-116); Anion Gap 4.1 mmol/L (3-11); BUN 31 mg/dL (7-18); Bilirubin, Total 0.7 mg/dL (0.2-1.0); CO2 28.9 mmol/L (21.0-32.0); CREATININE 1.6 mg/dL (0.70-1.30); Calcium 8.4 mg/dL (8.5-10.1); Chloride 106 mmol/L (98-107); Estimated GFR 41.39 (mL/min/1.73m2); Glucose 215 mg/dL (74-106); Potassium 4.9 mmol/L (3.5-5.1); Sodium 139 mmol/L (136-145); Total Protein 7.2 g/dL (6.4-8.2)
== END 2021-06-02 13:25 | disposition home or self-care (01) ==
PROVIDERS: PCP Family Medicine; Visit Provider Internal Medicine Hematology & Oncology
DX: N18.9 Chronic kidney disease, unspecified (principal); D46.9 Myelodysplastic syndrome, unspecified; D63.1 Anemia in chronic kidney disease
CPT/HCPCS: 36415; 80053; 85025

== ENCOUNTER 2021-06-16 10:01 | Outpatient (CLI) | payer MEDICARE, SELFPAY ==
[2021-06-16 08:54] LABS: HGB 9.8 g/dL (13.5-17.5); MCH 34.9 pg (27.0-33.0); MCHC 31.6 % (32.0-36.0); MCV 110.3 fL (80-95); Nucleated RBC 0 %; Platelet Count 134 10^3/uL (130-400); RBC 2.81 10^6/uL (4.36-5.78); RDW 15.9 % (11.8-14.1); RDW-SD 65.1 fL
[2021-06-16 09:15] LABS: ALT 13 U/L (16-63); AST 13 U/L (15-37); Albumin 3.3 g/dL (3.4-5.0); Alkaline Phosphatase 103 U/L (46-116); Anion Gap 3.7 mmol/L (3-11); BUN 25 mg/dL (7-18); Bilirubin, Total 0.7 mg/dL (0.2-1.0); CO2 30.3 mmol/L (21.0-32.0); CREATININE 1.5 mg/dL (0.70-1.30); Calcium 8.6 mg/dL (8.5-10.1); Chloride 107 mmol/L (98-107); Estimated GFR 44.59 (mL/min/1.73m2); Glucose 141 mg/dL (74-106); Potassium 4.9 mmol/L (3.5-5.1); Sodium 141 mmol/L (136-145); Total Protein 7.2 g/dL (6.4-8.2)
[2021-06-16 09:16] LABS: Absolute Eosinophil Count 0.06 10^3/uL (0.0-0.7); Absolute Lymphocyte Count 0.75 10^3/uL (1.2-3.4); Absolute Monocyte Count 0.06 10^3/uL (0.1-0.8); Atypical Lymphocytes % 15; Bands % 2; Diff Comment Manual Differential; Macrocytosis 2+; Metamyelocytes % 1
== END 2021-06-16 10:02 | disposition home or self-care (01) ==
LOC: LBO 10:03
PROVIDERS: PCP Family Medicine; Visit Provider Internal Medicine Hematology & Oncology
DX: D46.9 Myelodysplastic syndrome, unspecified (principal); N18.9 Chronic kidney disease, unspecified; D63.1 Anemia in chronic kidney disease
CPT/HCPCS: 36415; 80053; 85025

== ENCOUNTER 2021-06-30 10:50 | Outpatient (CLI) | payer MEDICARE, SELFPAY ==
[2021-06-30 09:54] LABS: Abs Immature Grans 0.01 10^3/uL (0.0-0.06); HCT 31.4 % (40.0-50.0); HGB 10.1 g/dL (13.5-17.5); MCH 35.2 pg (27.0-33.0); MCHC 32.2 % (32.0-36.0); MCV 109.4 fL (80-95); MPV 9.7 fL (8.0-11.0); Nucleated RBC 0 %; Platelet Count 108 10^3/uL (130-400); RBC 2.87 10^6/uL (4.36-5.78); RDW-SD 64.9 fL
[2021-06-30 10:02] LABS: WBC 1.47 10^3/uL (4.4-10.8)
[2021-06-30 10:16] LABS: ALT 15 U/L (16-63); AST 13 U/L (15-37); Albumin 3.2 g/dL (3.4-5.0); Alkaline Phosphatase 111 U/L (46-116); Anion Gap 5.9 mmol/L (3-11); BUN 27 mg/dL (7-18); Bilirubin, Total 0.6 mg/dL (0.2-1.0); CO2 29.1 mmol/L (21.0-32.0); CREATININE 1.7 mg/dL (0.70-1.30); Calcium 8.4 mg/dL (8.5-10.1); Chloride 106 mmol/L (98-107); Estimated GFR 38.59 (mL/min/1.73m2); Ferritin 150 ng/mL (26-388); Glucose 167 mg/dL (74-106); Potassium 4.7 mmol/L (3.5-5.1); Sodium 141 mmol/L (136-145); Total Protein 7.1 g/dL (6.4-8.2)
[2021-06-30 10:20] LABS: Absolute Lymphocyte Count 0.57 10^3/uL (1.2-3.4); Absolute Monocyte Count 0.09 10^3/uL (0.1-0.8); Absolute Neutrophil Count 0.74 10^3/uL (1.2-6.7); Bands % 0
[2021-06-30 10:21] LABS: Absolute Eosinophil Count 0.04 10^3/uL (0.0-0.7); Diff Comment Manual Differential; Macrocytosis 1+; Myelocytes % 2; Polychromasia Present
[2021-07-01 10:21] LABS: CEA 1.1 ng/mL (See Note)
== END 2021-06-30 10:51 | disposition home or self-care (01) ==
LOC: LBO 10:53
PROVIDERS: PCP Family Medicine; Visit Provider Internal Medicine Hematology & Oncology
DX: C18.7 Malignant neoplasm of sigmoid colon (principal); N18.30 Chronic kidney disease, stage 3 unspecified
CPT/HCPCS: 36415; 80053; 82378; 82728; 85025

== ENCOUNTER 2021-07-14 04:11 | Outpatient (CLI) | payer MEDICARE, SELFPAY ==
[2021-07-14 09:29] LABS: Abs Immature Grans 0.01 10^3/uL (0.0-0.06); Absolute Eosinophil Count 0.03 10^3/uL (0.0-0.7); Absolute Lymphocyte Count 0.58 10^3/uL (1.2-3.4); Absolute Monocyte Count 0.12 10^3/uL (0.1-0.8); Absolute Neutrophil Count 0.76 10^3/uL (1.2-6.7); HCT 32.3 % (40.0-50.0); HGB 10.3 g/dL (13.5-17.5); Immature Grans % 0.7; Lymphocytes % 38.7; MCH 35.3 pg (27.0-33.0); MCHC 31.9 % (32.0-36.0); MCV 110.6 fL (80-95); MPV 9.8 fL (8.0-11.0); Neutrophils % 50.6; Nucleated RBC 0 %; Platelet Count 124 10^3/uL (130-400); RBC 2.92 10^6/uL (4.36-5.78); RDW 16.2 % (11.8-14.1)
[2021-07-14 09:54] LABS: ALT 17 U/L (16-63); AST 15 U/L (15-37); Albumin 3.3 g/dL (3.4-5.0); Alkaline Phosphatase 108 U/L (46-116); Anion Gap 4.4 mmol/L (3-11); BUN 22 mg/dL (7-18); Bilirubin, Total 0.6 mg/dL (0.2-1.0); CO2 29.6 mmol/L (21.0-32.0); CREATININE 1.5 mg/dL (0.70-1.30); Calcium 8.6 mg/dL (8.5-10.1); Chloride 107 mmol/L (98-107); Estimated GFR 44.59 (mL/min/1.73m2); Ferritin 143 ng/mL (26-388); Glucose 157 mg/dL (74-106); Potassium 4.7 mmol/L (3.5-5.1); Sodium 141 mmol/L (136-145); Total Protein 7.3 g/dL (6.4-8.2)
[2021-07-14 09:57] LABS: Diff Comment Agrees w/ Instrument; Macrocytosis 2+; Poikilocytes 1+; Polychromasia Present
[2021-07-14 18:46] LABS: CEA 0.6 ng/mL (See Note)
== END 2021-07-14 04:12 | disposition home or self-care (01) ==
LOC: LBO 04:11
PROVIDERS: PCP Family Medicine; Visit Provider Internal Medicine Hematology & Oncology
DX: C18.7 Malignant neoplasm of sigmoid colon (principal); N18.30 Chronic kidney disease, stage 3 unspecified
CPT/HCPCS: 36415; 80053; 82378; 82728; 85025

== ENCOUNTER 2021-07-28 03:35 | Outpatient (CLI) | payer MEDICARE, SELFPAY ==
[2021-07-28 09:52] LABS: Abs Immature Grans 0.01 10^3/uL (0.0-0.06); HCT 31.9 % (40.0-50.0); MCH 34.6 pg (27.0-33.0); MCHC 31.3 % (32.0-36.0); MCV 110.4 fL (80-95); MPV 10.4 fL (8.0-11.0); Nucleated RBC 0 %; Platelet Count 123 10^3/uL (130-400); RBC 2.89 10^6/uL (4.36-5.78); RDW 16.3 % (11.8-14.1); RDW-SD 66.4 fL
[2021-07-28 09:58] LABS: WBC 1.42 10^3/uL (4.4-10.8)
[2021-07-28 10:15] LABS: ALT 18 U/L (16-63); AST 15 U/L (15-37); Albumin 3.4 g/dL (3.4-5.0); Alkaline Phosphatase 120 U/L (46-116); Anion Gap 4.3 mmol/L (3-11); BUN 26 mg/dL (7-18); Bilirubin, Total 0.8 mg/dL (0.2-1.0); CO2 30.7 mmol/L (21.0-32.0); CREATININE 1.6 mg/dL (0.70-1.30); Calcium 8.7 mg/dL (8.5-10.1); Chloride 107 mmol/L (98-107); Estimated GFR 41.39 (mL/min/1.73m2); Ferritin 151 ng/mL (26-388); Glucose 168 mg/dL (74-106); Potassium 4.7 mmol/L (3.5-5.1); Sodium 142 mmol/L (136-145); Total Protein 7.5 g/dL (6.4-8.2)
[2021-07-28 10:24] LABS: Absolute Lymphocyte Count 0.64 10^3/uL (1.2-3.4); Atypical Lymphocytes % 6; Bands % 0
[2021-07-28 10:25] LABS: Absolute Monocyte Count 0.07 10^3/uL (0.1-0.8); Diff Comment Manual Differential; Macrocytosis 2+; Myelocytes % 1; Polychromasia Present
[2021-07-28 10:26] LABS: Poikilocytes 1+
== END 2021-07-28 03:36 | disposition home or self-care (01) ==
LOC: LBO 03:35
PROVIDERS: PCP Family Medicine; Visit Provider Internal Medicine Hematology & Oncology
DX: C18.7 Malignant neoplasm of sigmoid colon (principal); N18.30 Chronic kidney disease, stage 3 unspecified
CPT/HCPCS: 36415; 80053; 82378; 82728; 85025

== ENCOUNTER 2021-08-11 02:48 | Outpatient (CLI) | payer MEDICARE, SELFPAY ==
[2021-08-11 09:52] LABS: Abs Immature Grans 0.01 10^3/uL (0.0-0.06); Absolute Basophil Count 0.01 10^3/uL (0.0-0.2); Absolute Eosinophil Count 0.03 10^3/uL (0.0-0.7); Absolute Lymphocyte Count 0.54 10^3/uL (1.2-3.4); Absolute Monocyte Count 0.09 10^3/uL (0.1-0.8); Absolute Neutrophil Count 0.84 10^3/uL (1.2-6.7); Basophils % 0.7; HCT 31.6 % (40.0-50.0); Immature Grans % 0.7; Lymphocytes % 35.5; MCH 34.2 pg (27.0-33.0); MCHC 31.6 % (32.0-36.0); MCV 108.2 fL (80-95); Monocytes % 5.9; Neutrophils % 55.2; Nucleated RBC 0 %; Platelet Count 119 10^3/uL (130-400); RBC 2.92 10^6/uL (4.36-5.78); RDW 16.5 % (11.8-14.1); RDW-SD 65.2 fL
[2021-08-11 10:01] LABS: WBC 1.52 10^3/uL (4.4-10.8)
[2021-08-11 10:17] LABS: Diff Comment Diff Reviewed
[2021-08-11 10:18] LABS: Macrocytosis 2+
[2021-08-11 10:22] LABS: ALT 19 U/L (16-63); AST 14 U/L (15-37); Albumin 3.3 g/dL (3.4-5.0); Alkaline Phosphatase 107 U/L (46-116); Anion Gap 3.9 mmol/L (3-11); BUN 31 mg/dL (7-18); Bilirubin, Total 0.7 mg/dL (0.2-1.0); CO2 28.1 mmol/L (21.0-32.0); CREATININE 1.7 mg/dL (0.70-1.30); Calcium 8.6 mg/dL (8.5-10.1); Chloride 107 mmol/L (98-107); Estimated GFR 38.59 (mL/min/1.73m2); Ferritin 150 ng/mL (26-388); Glucose 224 mg/dL (74-106); Potassium 5.1 mmol/L (3.5-5.1); Sodium 139 mmol/L (136-145); Total Protein 7.4 g/dL (6.4-8.2)
[2021-08-11 22:42] LABS: CEA 1.1 ng/mL (See Note)
== END 2021-08-11 02:49 | disposition home or self-care (01) ==
LOC: LBO 02:48
PROVIDERS: PCP Family Medicine; Visit Provider Internal Medicine Hematology & Oncology
DX: C18.7 Malignant neoplasm of sigmoid colon (principal); N18.30 Chronic kidney disease, stage 3 unspecified
CPT/HCPCS: 36415; 80053; 82378; 82728; 85025

== ENCOUNTER 2021-08-25 01:28 | Outpatient (CLI) | payer MEDICARE, SELFPAY ==
[2021-08-25 09:38] LABS: Abs Immature Grans 0.01 10^3/uL (0.0-0.06); HCT 33.2 % (40.0-50.0); HGB 10.3 g/dL (13.5-17.5); MCV 109.6 fL (80-95); MPV 10.1 fL (8.0-11.0); Nucleated RBC 0 %; Platelet Count 135 10^3/uL (130-400); RBC 3.03 10^6/uL (4.36-5.78); RDW 16.8 % (11.8-14.1); RDW-SD 67.8 fL
[2021-08-25 10:00] LABS: Absolute Eosinophil Count 0.07 10^3/uL (0.0-0.7); Absolute Lymphocyte Count 0.73 10^3/uL (1.2-3.4); Absolute Monocyte Count 0.05 10^3/uL (0.1-0.8); Absolute Neutrophil Count 0.81 10^3/uL (1.2-6.7); Anisocytosis 1+; Atypical Lymphocytes % 9; Bands % 5; Macrocytosis 2+
[2021-08-25 10:01] LABS: Diff Comment Manual Differential; Polychromasia Present
[2021-08-25 10:02] LABS: ALT 17 U/L (16-63); AST 14 U/L (15-37); Albumin 3.2 g/dL (3.4-5.0); Alkaline Phosphatase 115 U/L (46-116); Anion Gap 6.2 mmol/L (3-11); BUN 21 mg/dL (7-18); Bilirubin, Total 0.8 mg/dL (0.2-1.0); CO2 28.8 mmol/L (21.0-32.0); CREATININE 1.5 mg/dL (0.70-1.30); Calcium 8.4 mg/dL (8.5-10.1); Chloride 106 mmol/L (98-107); Estimated GFR 44.59 (mL/min/1.73m2); Ferritin 155 ng/mL (26-388); Glucose 196 mg/dL (74-106); Potassium 4.7 mmol/L (3.5-5.1); Sodium 141 mmol/L (136-145); Total Protein 7.5 g/dL (6.4-8.2)
[2021-08-25 10:08] LABS: WBC 1.65 10^3/uL (4.4-10.8)
[2021-08-25 22:53] LABS: CEA 1.2 ng/mL (See Note)
== END 2021-08-25 01:29 | disposition home or self-care (01) ==
LOC: LBO 01:28
PROVIDERS: PCP Family Medicine; Visit Provider Internal Medicine Hematology & Oncology
DX: C18.7 Malignant neoplasm of sigmoid colon (principal); N18.30 Chronic kidney disease, stage 3 unspecified
CPT/HCPCS: 36415; 80053; 82378; 82728; 85025

== ENCOUNTER 2021-08-31 01:08 | Outpatient (CLI) | payer MEDICARE, SELFPAY ==
--- NOTE | 2021-08-31 | DI.CT_ITS ---
Exam(s) CT CHEST/ABD/PEL W EXAM: CT CHEST/ABD/PEL W CLINICAL HISTORY: COLON CANCER C18.7 TECHNIQUE: CT examination of the chest, abdomen, and pelvis was performed utilizing intravenous inf usion of 100 cc of Omnipaque 350 with biphasic hepatic imaging. Oral contrast was also administered. COMPARISON: CT CT CHEST/ABD/PEL W from 03/02/2021 FINDINGS: Lungs are clear. No pleural effusion. No pleural based mass. No mediastinal or hilar adenopathy. No axillary or supraclavicular adenopathy. Tracheobronchial naseem e appears intact. No evidence of pulmonary embolic disease. Unremarkable appearance of thoracic aorta and major branch vessels. The liver appears normal with no focal hepatic lesion identified. Spleen is unremarkable in appearance. Pancreas appears intact. Adrenals appear normal. Kidneys contain multiple apparent cysts and are otherwise unremarkable in appearance with no renal ma ss, hydronephrosis, or nephrolithiasis. Abdominal aorta and major visceral branches appear intact except for a 3.2 cm in diameter abdominal a ortic aneurysm, stable from prior study.. Prior right colon resection noted. Unremarkable anastomosis period. Appendix is normal. No evidenc e of diverticulitis. No abdominal or pelvic adenopathy. Slight prominence mesenteric scattered nodes unchanged from prior examination. No significant abdominal wall hernia. No focal bony lesion identified on scanning of the chest, abdomen, and pelvis. IMPRESSION: No evidence of metastatic disease of the chest abdomen or pelvis.. RADIATION DOSE DELIVERED: 1,881.26mGy.cm Total DLP 1,881.26mGy.cm Total DLP !Error CTDIvol RADIATION OPTIMIZATION: All CT scans at this facility use at least one of these dose optimization te chniques: automated exposure control; mA and/or kV adjustment per patient size (includes targeted exa ms where dose is matched to clinical indication); or iterative reconstruction.
[2021-08-31] MEDS: Omnipaque 350 MG/ML 50 ML BTL PO (09:06)
[2021-08-31] MEDS: Breeza Beverage 473 ML BTL PO ×2 (09:06→09:07)
[2021-08-31 09:26] LABS: Absolute Basophil Count 0.01 10^3/uL (0.0-0.2); HCT 30.6 % (40.0-50.0); HGB 9.6 g/dL (13.5-17.5); MCH 34.5 pg (27.0-33.0); MCHC 31.4 % (32.0-36.0); MCV 110.1 fL (80-95); MPV 10.4 fL (8.0-11.0); Nucleated RBC 0 %; Platelet Count 128 10^3/uL (130-400); RBC 2.78 10^6/uL (4.36-5.78); RDW 16.8 % (11.8-14.1); RDW-SD 67.9 fL
[2021-08-31 09:38] LABS: Bands % 3
[2021-08-31 09:39] LABS: Absolute Eosinophil Count 0.03 10^3/uL (0.0-0.7); Absolute Lymphocyte Count 0.47 10^3/uL (1.2-3.4); Absolute Monocyte Count 0.04 10^3/uL (0.1-0.8); Absolute Neutrophil Count 0.53 10^3/uL (1.2-6.7); Atypical Lymphocytes % 7; Diff Comment Manual Differential; Macrocytosis 1+; Myelocytes % 1
[2021-08-31 09:48] LABS: ALT 14 U/L (16-63); AST 14 U/L (15-37); Albumin 3.1 g/dL (3.4-5.0); Alkaline Phosphatase 107 U/L (46-116); Anion Gap 5.7 mmol/L (3-11); BUN 22 mg/dL (7-18); Bilirubin, Total 0.8 mg/dL (0.2-1.0); CO2 30.3 mmol/L (21.0-32.0); CREATININE 1.5 mg/dL (0.70-1.30); Calcium 8.4 mg/dL (8.5-10.1); Chloride 106 mmol/L (98-107); Estimated GFR 44.59 (mL/min/1.73m2); Ferritin 148 ng/mL (26-388); Glucose 92 mg/dL (74-106); Potassium 4.7 mmol/L (3.5-5.1); Sodium 142 mmol/L (136-145); Total Protein 7.2 g/dL (6.4-8.2)
[2021-08-31] MEDS: Omnipaque 350 MG/ML 100 ML BTL IJ (10:06)
[2021-08-31] MEDS: Normal Saline Flush 10 ML SYR IVP (10:07)
[2021-08-31 22:32] LABS: CEA 0.8 ng/mL (See Note)
== END 2021-08-31 01:28 ==
PROVIDERS: PCP Family Medicine; Visit Provider Internal Medicine Hematology & Oncology
DX: C18.7 Malignant neoplasm of sigmoid colon (principal)
CPT/HCPCS: 74177; 80053; 71260; 82378; 82728; 85025; J3490; Q9967

== ENCOUNTER 2021-09-02 11:19 | Outpatient (REF) | payer MEDICARE, SELFPAY ==
--- NOTE | 2021-09-02 11:15 | SKI_PTH ---
PATIENT: Chaim Lester LOC: [facility] U#:[id number] AGE/SX: 86/M ROOM: RE09/02/[address]: Sandra Park V : 1935 BED: DIS: 09/02/2021 SPEC #: [id number] RECD: 09/02/21 12:35 STATUS: JOSÉ MIGUEL LOVE #: [id number] BRIAN: 09/02/21 11:[address]: Sandra Park V DEPT: Surgical Specimen RECD BY: Nohemi Hopson Tissues: 1 - SKIN BIOPSY(SHAVE/PUNCH) Procedures: SKIN LEVEL 4 Comments: [id number]
== END 2021-09-02 11:20 | disposition home or self-care (01) ==
LOC: NCHCN 11:19
PROVIDERS: PCP Family Medicine; Visit Provider Family Medicine
DX: C44.612 Basal cell carcinoma of skin of right upper limb, including shoulder (principal)
CPT/HCPCS: 88305

== ENCOUNTER 2021-09-08 02:37 | Outpatient (CLI) | payer MEDICARE, SELFPAY ==
[2021-09-08 09:51] LABS: Abs Immature Grans 0.01 10^3/uL (0.0-0.06); Absolute Basophil Count 0.01 10^3/uL (0.0-0.2); Absolute Eosinophil Count 0.03 10^3/uL (0.0-0.7); HCT 30.5 % (40.0-50.0); HGB 9.7 g/dL (13.5-17.5); MCH 34.4 pg (27.0-33.0); MCHC 31.8 % (32.0-36.0); MCV 108.2 fL (80-95); MPV 10.3 fL (8.0-11.0); Nucleated RBC 0 %; RBC 2.82 10^6/uL (4.36-5.78); RDW 16.4 % (11.8-14.1); RDW-SD 65.5 fL
[2021-09-08 10:02] LABS: WBC 1.31 10^3/uL (4.4-10.8)
[2021-09-08 10:08] LABS: ALT 15 U/L (16-63); AST 14 U/L (15-37); Albumin 3.2 g/dL (3.4-5.0); Alkaline Phosphatase 111 U/L (46-116); BUN 27 mg/dL (7-18); Bilirubin, Total 0.8 mg/dL (0.2-1.0); CREATININE 1.6 mg/dL (0.70-1.30); Calcium 8.6 mg/dL (8.5-10.1); Chloride 104 mmol/L (98-107); Estimated GFR 41.39 (mL/min/1.73m2); Ferritin 192 ng/mL (26-388); Glucose 184 mg/dL (74-106); Potassium 4.6 mmol/L (3.5-5.1); Sodium 139 mmol/L (136-145); Total Protein 7.4 g/dL (6.4-8.2)
[2021-09-08 10:20] LABS: Absolute Lymphocyte Count 0.51 10^3/uL (1.2-3.4); Absolute Monocyte Count 0.13 10^3/uL (0.1-0.8); Absolute Neutrophil Count 0.63 10^3/uL (1.2-6.7); Bands % 3; Diff Comment Manual Differential; Macrocytosis 2+; Platelet Count 130 10^3/uL (130-400)
[2021-09-08 19:53] LABS: CEA 0.9 ng/mL (See Note)
== END 2021-09-08 02:38 | disposition home or self-care (01) ==
LOC: LBO 02:37
PROVIDERS: PCP Family Medicine; Visit Provider Internal Medicine Hematology & Oncology
DX: C18.7 Malignant neoplasm of sigmoid colon (principal); N18.30 Chronic kidney disease, stage 3 unspecified
CPT/HCPCS: 36415; 80053; 82378; 82728; 85025

== ENCOUNTER 2021-09-14 11:16 | Outpatient (CLI) | payer MEDICARE, SELFPAY ==
--- NOTE | 2021-09-14 11:00 | DI.RAD_ITS ---
Exam(s) XR SHOULDER RT COMPLETE 2+V EXAM: XR SHOULDER RT COMPLETE 2+V CLINICAL HISTORY: right shoulder pain. TECHNIQUE: 2D digital imaging was performed. COMPARISON: No exams were available for comparison FINDINGS: Two views There is no evidence of fracture or dislocation nor abnormal soft tissue calcifications. No obvious degenerative changes in the glenohumeral joint. No joint space narrowing and no osteophytes. Mild d iminution of the subacromial space is noted. This may be associated with rotator cuff pathology. Minimal AC joint degenerative changes noted. No os acromiale. IMPRESSION: Mild diminution of the subacromial space height. This may be associated with an element of rotator c uff pathology. No other significant radiographic findings. DATA REPOSITORY: RADIATION DOSE DELIVERED:
== END 2021-09-14 11:17 | disposition home or self-care (01) ==
LOC: DIORS 11:16
PROVIDERS: PCP Family Medicine; Referring Provider Family Medicine; Visit Provider Student in an Organized Health Care Education/Training Program
DX: M25.511 Pain in right shoulder (principal); M25.811 Other specified joint disorders, right shoulder; M75.41 Impingement syndrome of right shoulder; M75.51 Bursitis of right shoulder; M19.011 Primary osteoarthritis, right shoulder
CPT/HCPCS: 20610; 99203; 73030; J1030

== ENCOUNTER 2021-09-21 08:14 | Outpatient (CLI) | payer MEDICARE, SELFPAY | END 2021-09-21 08:15 | disposition home or self-care (01) | LOC: LBO 08:15 | PROVIDERS: PCP Family Medicine; Visit Provider Internal Medicine Hematology & Oncology ==

== ENCOUNTER 2021-09-22 03:33 | Outpatient (CLI) | payer MEDICARE, SELFPAY ==
[2021-09-22 08:51] LABS: HCT 32.4 % (40.0-50.0); HGB 10.1 g/dL (13.5-17.5); MCH 34.5 pg (27.0-33.0); MCHC 31.2 % (32.0-36.0); MCV 110.6 fL (80-95); MPV 10.2 fL (8.0-11.0); Nucleated RBC 0 %; RBC 2.93 10^6/uL (4.36-5.78); RDW 17.2 % (11.8-14.1); RDW-SD 70.4 fL
[2021-09-22 09:07] LABS: Absolute Neutrophil Count 0.95 10^3/uL (1.2-6.7); Bands % 2; Platelet Count 136 10^3/uL (130-400)
[2021-09-22 09:08] LABS: Absolute Basophil Count 0.04 10^3/uL (0.0-0.2); Absolute Eosinophil Count 0.09 10^3/uL (0.0-0.7); Absolute Lymphocyte Count 0.53 10^3/uL (1.2-3.4); Absolute Monocyte Count 0.14 10^3/uL (0.1-0.8); Atypical Lymphocytes % 2; Diff Comment Manual Differential; Macrocytosis 2+; Metamyelocytes % 1
[2021-09-22 09:18] LABS: WBC 1.75 10^3/uL (4.4-10.8)
[2021-09-22 09:22] LABS: ALT 16 U/L (16-63); AST 11 U/L (15-37); Albumin 3.4 g/dL (3.4-5.0); Alkaline Phosphatase 110 U/L (46-116); Anion Gap 4.6 mmol/L (3-11); BUN 35 mg/dL (7-18); Bilirubin, Total 0.8 mg/dL (0.2-1.0); CO2 28.4 mmol/L (21.0-32.0); CREATININE 1.7 mg/dL (0.70-1.30); Calcium 8.6 mg/dL (8.5-10.1); Chloride 107 mmol/L (98-107); Estimated GFR 38.59 (mL/min/1.73m2); Ferritin 170 ng/mL (26-388); Glucose 242 mg/dL (74-106); Sodium 140 mmol/L (136-145); Total Protein 7.4 g/dL (6.4-8.2)
[2021-09-22 23:17] LABS: CEA 1.2 ng/mL (See Note)
== END 2021-09-22 03:34 | disposition home or self-care (01) ==
LOC: LBO 03:33
PROVIDERS: PCP Family Medicine; Visit Provider Internal Medicine Hematology & Oncology
DX: C18.7 Malignant neoplasm of sigmoid colon (principal); N18.30 Chronic kidney disease, stage 3 unspecified
CPT/HCPCS: 36415; 80053; 82378; 82728; 85025

== ENCOUNTER 2021-10-06 02:20 | Outpatient (CLI) | payer MEDICARE, SELFPAY | END 2021-10-06 02:21 | disposition home or self-care (01) | LOC: LBO 02:20 | PROVIDERS: PCP Family Medicine; Visit Provider Nurse Practitioner Family ==

== ENCOUNTER 2021-10-17 10:00 | Outpatient (CLI) | payer MEDICARE, SELFPAY ==
[2021-10-17 15:39] LABS: Absolute Eosinophil Count 0.02 10^3/uL (0.0-0.7); HGB 9.6 g/dL (13.5-17.5); Immature Grans % 0.6; MCH 35.2 pg (27.0-33.0); MCV 109.9 fL (80-95); MPV 10.4 fL (8.0-11.0); Platelet Count 103 10^3/uL (130-400); RBC 2.73 10^6/uL (4.36-5.78); RDW 17.2 % (11.8-14.1); RDW-SD 69.5 fL
[2021-10-17 15:56] LABS: ALT 19 U/L (16-63); AST 15 U/L (15-37); Albumin 3.3 g/dL (3.4-5.0); Alkaline Phosphatase 121 U/L (46-116); Anion Gap 7.5 mmol/L (3-11); BUN 36 mg/dL (7-18); Bilirubin, Total 0.6 mg/dL (0.2-1.0); CO2 26.5 mmol/L (21.0-32.0); CREATININE 1.7 mg/dL (0.70-1.30); Calcium 8.3 mg/dL (8.5-10.1); Chloride 108 mmol/L (98-107); Estimated GFR 38.59 (mL/min/1.73m2); Ferritin 170 ng/mL (26-388); Glucose 151 mg/dL (74-106); Potassium 4.7 mmol/L (3.5-5.1); Sodium 142 mmol/L (136-145); Total Protein 7.2 g/dL (6.4-8.2)
[2021-10-17 16:04] LABS: WBC 1.61 10^3/uL (4.4-10.8)
[2021-10-17 16:27] LABS: Absolute Lymphocyte Count 0.55 10^3/uL (1.2-3.4); Absolute Monocyte Count 0.19 10^3/uL (0.1-0.8); Absolute Neutrophil Count 0.85 10^3/uL (1.2-6.7); Anisocytosis 1+; Bands % 2; Diff Comment Manual Differential
[2021-10-17 16:28] LABS: Macrocytosis 1+; Ovalocytes 2+; Poikilocytes 1+
== END 2021-10-17 10:01 | disposition home or self-care (01) ==
LOC: LBO 10:01
PROVIDERS: PCP Family Medicine; Visit Provider Internal Medicine Hematology & Oncology
DX: C18.7 Malignant neoplasm of sigmoid colon (principal); N18.30 Chronic kidney disease, stage 3 unspecified
CPT/HCPCS: 36415; 80053; 82378; 82728; 85025

== ENCOUNTER 2021-10-20 02:37 | Outpatient (CLI) | payer MEDICARE, SELFPAY | END 2021-10-20 02:38 | disposition home or self-care (01) | LOC: LBO 02:37 | PROVIDERS: PCP Family Medicine; Visit Provider Internal Medicine Hematology & Oncology ==

== ENCOUNTER 2021-11-17 03:31 | Outpatient (CLI) | payer MEDICARE, SELFPAY ==
[2021-11-17 13:35] LABS: Abs Immature Grans 0.01 10^3/uL (0.0-0.06); Absolute Basophil Count 0.01 10^3/uL (0.0-0.2); Absolute Eosinophil Count 0.02 10^3/uL (0.0-0.7); Absolute Lymphocyte Count 0.66 10^3/uL (1.2-3.4); Absolute Monocyte Count 0.09 10^3/uL (0.1-0.8); Absolute Neutrophil Count 1.02 10^3/uL (1.2-6.7); Basophils % 0.6; Eosinophils % 1.1; HCT 31.7 % (40.0-50.0); Immature Grans % 0.6; Lymphocytes % 36.5; MCH 34.8 pg (27.0-33.0); MCHC 31.5 % (32.0-36.0); MCV 111 fL (80-95); MPV 10.4 fL (8.0-11.0); Neutrophils % 56.2; Platelet Count 117 10^3/uL (130-400); RBC 2.87 10^6/uL (4.36-5.78); RDW 16.8 % (11.8-14.1); RDW-SD 68.6 fL
[2021-11-17 13:57] LABS: ALT 17 U/L (16-63); AST 13 U/L (15-37); Albumin 3.5 g/dL (3.4-5.0); Alkaline Phosphatase 113 U/L (46-116); Anion Gap 9.6 mmol/L (3-11); BUN 36 mg/dL (7-18); Bilirubin, Total 0.5 mg/dL (0.2-1.0); CO2 27.4 mmol/L (21.0-32.0); CREATININE 1.6 mg/dL (0.70-1.30); Calcium 8.6 mg/dL (8.5-10.1); Chloride 106 mmol/L (98-107); Diff Comment Agrees w/ Instrument; Estimated GFR 41.39 (mL/min/1.73m2); Ferritin 182 ng/mL (26-388); Glucose 232 mg/dL (74-106); Macrocytosis 2+; Potassium 4.6 mmol/L (3.5-5.1); Sodium 143 mmol/L (136-145); Total Protein 7.9 g/dL (6.4-8.2); WBC 1.81 10^3/uL (4.4-10.8)
[2021-11-17 23:08] LABS: CEA 1.2 ng/mL (See Note)
== END 2021-11-17 03:32 | disposition home or self-care (01) ==
LOC: LBO 03:31
PROVIDERS: PCP Family Medicine; Visit Provider Internal Medicine Hematology & Oncology
DX: C18.7 Malignant neoplasm of sigmoid colon (principal); N18.30 Chronic kidney disease, stage 3 unspecified
CPT/HCPCS: 36415; 80053; 82378; 82728; 85025

== ENCOUNTER 2021-12-01 03:06 | Outpatient (CLI) | payer MEDICARE, SELFPAY ==
[2021-12-01 13:45] LABS: Abs Immature Grans 0.01 10^3/uL (0.0-0.06); Absolute Basophil Count 0.01 10^3/uL (0.0-0.2); Absolute Eosinophil Count 0.03 10^3/uL (0.0-0.7); Absolute Lymphocyte Count 0.77 10^3/uL (1.2-3.4); Basophils % 0.7; HCT 30.7 % (40.0-50.0); HGB 9.9 g/dL (13.5-17.5); Immature Grans % 0.7; Lymphocytes % 50.7; MCH 34.9 pg (27.0-33.0); MCHC 32.2 % (32.0-36.0); MCV 108 fL (80-95); MPV 10.3 fL (8.0-11.0); Monocytes % 6.6; Neutrophils % 39.3; Platelet Count 134 10^3/uL (130-400); RBC 2.84 10^6/uL (4.36-5.78); RDW 16.3 % (11.8-14.1); RDW-SD 64.7 fL
[2021-12-01 14:06] LABS: Diff Comment Agrees w/ Instrument; Macrocytosis 2+
[2021-12-01 14:12] LABS: WBC 1.52 10^3/uL (4.4-10.8)
[2021-12-01 14:14] LABS: ALT 15 U/L (16-63); AST 6 U/L (15-37); Albumin 3.3 g/dL (3.4-5.0); Alkaline Phosphatase 114 U/L (46-116); Anion Gap 8.6 mmol/L (3-11); BUN 34 mg/dL (7-18); Bilirubin, Total 0.5 mg/dL (0.2-1.0); CO2 26.4 mmol/L (21.0-32.0); CREATININE 1.7 mg/dL (0.70-1.30); Calcium 8.5 mg/dL (8.5-10.1); Chloride 105 mmol/L (98-107); Estimated GFR 38.59 (mL/min/1.73m2); Ferritin 180 ng/mL (26-388); Glucose 210 mg/dL (74-106); Potassium 5.1 mmol/L (3.5-5.1); Sodium 140 mmol/L (136-145); Total Protein 7.6 g/dL (6.4-8.2)
[2021-12-01 22:30] LABS: CEA 0.8 ng/mL (See Note)
[2021-12-02 16:40] LABS: FREE T4 0.86 ng/dL (0.76-1.46); TSH 0.86 uIU/mL (0.36-3.74)
== END 2021-12-01 03:07 | disposition home or self-care (01) ==
LOC: LBO 03:06
PROVIDERS: PCP Family Medicine; Visit Provider Internal Medicine Hematology & Oncology
DX: R53.83 Other fatigue (principal); C18.7 Malignant neoplasm of sigmoid colon; N18.30 Chronic kidney disease, stage 3 unspecified
CPT/HCPCS: 36415; 80053; 82378; 82728; 84439; 84443; 85025

== ENCOUNTER 2021-12-06 01:19 | Outpatient (CLI) | payer MEDICARE, SELFPAY ==
[2021-12-06 15:32] LABS: COVID-19 PCR Negative (Negative)
[2021-12-06 22:26] LABS: Source Nasal/Nares
== END 2021-12-06 01:20 | disposition home or self-care (01) ==
PROVIDERS: PCP Family Medicine; Visit Provider Speech-Language Pathologist
DX: Z20.822 Contact with and (suspected) exposure to COVID-19 (principal); Z01.818 Encounter for other preprocedural examination
CPT/HCPCS: 87635; U0005

== ENCOUNTER → 2021-12-07 02:57 | Outpatient (CLI) | payer MEDICARE, SELFPAY ==
--- NOTE | 2021-12-07 11:26 | ST.MBS ---
Date of Service Date of service: 12/07/21 Time of Service: 14:30 Modified Barium Swallow Study Findings: Videofluoroscopic Swallowing Evaluation (VFSE) / Modified Barium Swallow Study (MBSS) Speech Language Pathology Report HPI: Pt is an 86 year old male referred from [facility] for initial clinical swallow evaluation given suspected pharyngoesophageal dysphagia; patient recommended for VFSE/MBSS for imaging to further inform ACQUISITIONS LOGISTICS ANALYST treatment plan of care. SUBJECTIVE: Patient has previously reported the following: I think I have nasal drip that goes down, even down into my lungs. Sometimes after breakfast, or lunch, I cough a lot - the phlegm is clear or cream colored, sometimes I will be half done eating, and my throat will start bothering me, and I will try to upchuck it so my throat will open up again. Sometimes the coughing will last 4-5 hours. This is when sitting semi upright - I don't lie back when this happens. At that time, I lose my breath at some point. If I drink a quarter to half a cup of liquid, it will clear things to re-start my breathing - otherwise I tend to gag if food hasn't gone down. A few weeks ago, I had one of those coughing fits and a bit of food came up from my airway. It was something solid for sure. I have had a runny nose for several years. I had PNA 2 years and a month ago. Denies history of head/neck cancer despite this being listed in his medical history, reports he had refused treatments in the past, confirms hx of colon cancer. Reports coughing has been going on for past year or so, has gotten worse in past six months. Re GI symptoms: he reports he would drink Pepto Bismol nightly for a few years back in the . This date, patient reports continued symptoms as outlined above. IMPRESSIONS: Swallow safety is impaired; swallow efficiency is impaired. 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 Patient appears to be at moderate-high risk for potential aspiration PNA and/or pulmonary compromise and low for malnutrition, low risk for dehydration. Diet modification is indicated; non-oral nutrition is not indicated. Swallow prognosis is good-fair given motivation to participate in treatment (+), age (-), poor oral hygiene (-) and pending patient/caregiver training in risk management as outlined, including use of trialed compensatory strategies as outlined above. Patient appears to be a good candidate for behavioral swallow rehabilitation.? Specialist referrals:?GI Ancillary tests: May consider Upper GI series or Barium Esophagram? Diet texture recommendation:? IDDSI Level [x] 7-Regular Solids [x] 0-Thin Liquids Please see further details at?[email or web address] Diet texture modification is per patient's preference; please adjust diet textures at patient's discretion & collaboration with care team. Risk Management:? [x] Behavioral reflux precautions, including upright position during + 90 mins after meals. [x] Small bites, approx [id number] [x] Small sips, approx 10 mL [x] Alternate solids/liquids as able [x] Multiple swallows per bolus to encourage clearance of pharyngeal stasis/residue Control risk factors for aspiration pneumonia via (a) thorough oral hygiene & (b) maintaining physical mobility as tolerated PLAN: Therapy: Recommend subsequent outpatient session with ACQUISITIONS LOGISTICS ANALYST to review results of today's exam and develop treatment plan as appropriate. May consider the following: - Stacy - Shaker - Effortful Swallow - Liquid wash; alternate solid/liquids - BOT - CTAR Goal: TBD pending patient/caregiver interview Follow-up exam: N/A Thank you for allowing me to take part in this patient's care. Please feel free to contact me with any questions/concerns. Sarita Marie MA CCC-ACQUISITIONS LOGISTICS ANALYST Speech Language Pathologist [phone] ? PMHx: ?? ? Hypertension. ? Hypercholesterolemia. ? Kidney disease. ? PND. ? Rhinorrhea. ? Epistaxis . ? Preoperative examination. ? Colon Cancer. ? Arm pain, right . ? Partial colectomy . ? Cecal mass. ? Tremor . ? Alecia intertrigo . ?Pneumonia . ? Dyspnea on exertion. ? Psoriasis . ? Squamous cell carcinoma, head . ? Leg edema, bilateral . ? Skin lesion. ? Afib . ? Grief reaction, acute . ? Vitamin B12 Deficiency . ? Myelodysplastic syndrome lesions, low grade. ? Scrotal pain. ? Leukopenia. ? Fatigue. ? Anemia. ? Edema, chronic. ? Intermittent palpitations. ? Low back pain . ?Dyspepsia. ? Hx of colonic polyps, adenomatous . ? Actinic keratosis . ? Diverticulosis, colon . ? Hyperlipidemia . ? Current Medications TakingglipiZIDE ER 10 MG Tablet Extended Release 24 Hour 1 tablet with breakfast Orally Once a day ? Betamethasone Dipropionate 0.05 % Cream 1 application Externally Twice a day ? Clotrimazole 1 % Cream 1 application Externally Twice a day ? Shingrix 50 MCG/0.5ML Suspension Reconstituted as directed Intramuscular , Notes: has had 1/2 ? Cyanocobalamin 1000 MCG/ML Solution 1 ml Injection ? One Touch Ultra Mini lancets as directed Daily ? One Touch Ultra Blue test strips 1 strip TID ? Tresiba FlexTouch 100 UNIT/ML Solution Pen-injector 17 Units Subcutaneous QPM ? furosemide 20 mg tablet 1 tablet Orally QAM PRN ? Pepcid 20 MG Tablet 1 tablet Orally QAM ? Losartan Potassium 100 MG Tablet 1 tablet Orally Once a day ? Januvia 50 MG Tablet 1 tablet Orally Once a day ? Actos 30 MG Tablet 1 tablet Orally Once a day ? Metoprolol Tartrate 50 MG Tablet 1 tablet with food Orally Twice a day ? Simvastatin 20 MG Tablet 1 tablet in the evening Orally Once a day ? Not-TakingAugmentin 875-125 MG Tablet 1 tablet Orally every 12 hrs ? Norvasc 5 MG Tablet 1 tablet Orally Once a day ? Protonix 40 MG Tablet Delayed Release 1 tablet Orally Once a day ? Accu-chek active care kit 1 tab Oral ? Aspirin 81 MG Tablet Chewable 1 tablet Orally Once a day ? Glucotrol 10 MG Tablet 1 tablet Orally Once a day ? ? Surgical History tonsillectomy? hernia? Surgery for colon cancer? ? OBJECTIVE: Predisposing dysphagia risk factors:?Dyspepsia, Dyspnea on exertion Clinical signs of possible chronic dysphagia:??Pneumonia Precipitating dysphagia risk factors / triggering event: N/A RR: 18 / room air ? Cranial nerve exam / Oral Motor: Grossly WFL ? Dentition/Oral Structures/Hygiene: reports he wears full dentures oral hygiene appears adequate-reports consistent and appropriate oral care regimen, could modify to improve however (ie brushing tongue/gums, dentures vs only soaking dentures) ? Laryngeal function exam: Secretions: WFL Vocal quality: WFL Pitch range: WFL Cough: (volitional) perceptually weak PCF: 160 L/min (reduced) Standardized: EAT-10 10/20: 7 (abnormal) 8: 8 (abnormal) RSI - 22 (elevated) Videofluoroscopic Swallow Evaluation (VFSE/MBSS) was conducted in the lateral and [id number] projections by Speech-Language Pathologist, in collaboration with Radiologist, to evaluate oropharyngeal swallow function. Anatomic view under fluoroscopy: [x] WFL [x] Other - moderate kyphosis of neck PO Barium Contrast Trials Oral barium water-soluble contrast was administered as follows: IDDSI Level 0 Varibar thin liquid (40% w/v) IDDSI Level 2 Varibar nectar thick/mildly thick liquid (40% w/v) IDDSI Level 3 Varibar thin honey/liquidised/moderately-thick (40% w/v) IDDSI Level 4 Varibar pudding/pureed/extremely thick (40% w/v) IDDSI Level 7 Regular Solid: 1/2 glenda cracker coated in 3 mL Varibar pudding; 13 mm barium tablet PHYSIOLOGIC FINDINGS Pictured above: ^Aspiration of thin-honey liquid during swallow from vallecular residue of pudding consistency Pictured above: ^posterior hypertrophy of cervical esophagus at C6 level MBSImP Component Scores: COMPONENT Scale SCORE 1 Lip closure (0-4) 1 Resulted in interlabial escape, without progression to anterior lip 2 Hold Position (0-3) 2 Resulted in posterior escape of less than half of the bolus 3 Bolus Preparation (0-4) 1 Resulted in slow prolonged chewing/mashing with complete re-collection 4 Bolus Transport (0-4) 1 Demonstrated delayed initiation of tongue motion 5 Oral Residue (0-4) 2 Was a collection on oral structures 6 Swallow Initiation (0-4) 1 Occurred when the bolus head was in valleculae 7 Soft Palate Elevation (0-4) 0 Resulted in no bolus between soft palate and the pharyngeal wall 8 Laryngeal Elevation (0-3) 1 Was decreased with partial superior movement of thyroid cartilage/partial approximation of arytenoids to epiglottic petiole 9 Anterior Hyoid Motion (0-2) 0 Demonstrated complete anterior movement 10 Epiglottic Movement (0-2) 1 Resulted in partial inversion 11 Laryngeal Closure (0-2) 1 Was incomplete with narrow a column of air/contrast in laryngeal vestibule 12 Pharyngeal Stripping Wave (0-2) 1 Was present, but diminished 13 Pharyngeal Contraction (0-3) 1 Was incomplete, with presence of pseudodiverticulae 14 PES Opening (0-3) 1 Demonstrated partial distension/partial duration, with partial obstruction of flow 15 Tongue Base Retraction (0-4) 3 Allowed a wide column of contrast or air between the retracted tongue base and the posterior pharyngeal wall 16 Pharyngeal Residue (0-4) 3 Was the majority of contrast within or on pharyngeal structures 17 Esophageal Clearance (0-4) 1 Resulted in esophageal retention Results: COMPONENT Scale SCORE 1 Oral Score (0-18) 7 2 Pharyngeal Score (0-29) 12 3 Esophageal Score (0-4) 1 Penetration-Aspiration Scale: COMPONENT Scale SCORE 1 Thin liquid (1-8) 1 Contrast did not enter the airway 2 [place] thick (1-8) 1 Contrast did not enter the airway 3 Honey thick (1-8) 4 Contrast entered the airway, contacted the vocal folds, and was ejected from the airway. 4 Pudding thick (1-8) 8 Contrast entered the airway, passed below the vocal folds, and no effort was made to eject. *Suspect aspirated material was primarily vallecular residue (ie thin-honey consistency) Silent aspiration; required verbal cue for airway clearance 5 Cookie (1-8) 1 Contrast did not enter the airway Short Term Goals:? 1. Patient will tolerate regular solids / thin liquids (IDDSI levels 7/0) efficiently and without s/sx aspiration provided training in/use of swallow strategies and aspiration precautions, oropharyngeal / esophageal swallow HEP, and cues from carepartner(s) within 6 visits. ? 2. Patient will demonstrate understanding of education related to normal vs disordered swallowing, relationship between respiration and deglutition, and recommended strategies for minimizing risks of aspiration pna/airway occlusion, including precautions for use of RMST as appropriate, within 6 visits. Coding CPT Codes MOTION FLUOROSCOPY/SWALLOW - [id number] ([id number])
--- NOTE | 2021-12-07 15:00 | DI.RAD_ITS ---
Exam(s) RF MODIFIED SPEECH BA SWALLOW TECHNIQUE: Modified barium swallow was performed in conjunction with speech pathology. CONTRAST MATERIAL: Oral barium Oral water soluble contrast was administered. COMPARISON: No exams were available for comparison FINDINGS: Fluoroscopy was provided for modified barium swallow our department conjunction with the speech thera pist. Was some vallecular residue noted throughout this examination but no obvious aspiration. There appea r to be a hypertense upper esophageal sphincter. No obvious Zenker's diverticulum evident. IMPRESSION: As above. No obvious aspiration. RADIATION DOSE DELIVERED: makenzie Moses=15.6 mGy
[2021-12-07] MEDS: Barium Sulfate 81% w/w for Oral Suspension 148 GM BTL PO (15:13)
[2021-12-07] MEDS: Barium Sulfate 700 MG TAB PO (15:14)
[2021-12-07] MEDS: Barium Sulfate Oral Paste 40% W/V 230 ML TUBE 13 ML PO (15:15)
[2021-12-07] MEDS: Barium Sulfate 40% W/V 1500 CPS 250 ML BTL PO (15:16)
[2021-12-07] MEDS: Barium Sulfate 40% W/V 240 ML BTL 80 ML PO (15:18)
== END ==
PROVIDERS: PCP Family Medicine; Visit Provider Physician Assistant
DX: J31.0 Chronic rhinitis (principal); R09.82 Postnasal drip; R13.14 Dysphagia, pharyngoesophageal phase
CPT/HCPCS: 92526; 74221

== ENCOUNTER 2021-12-14 02:18 | Outpatient (CLI) | payer MEDICARE, SELFPAY | END 2021-12-14 02:19 | disposition home or self-care (01) | LOC: LBO 02:18 | PROVIDERS: PCP Family Medicine; Visit Provider Internal Medicine Hematology & Oncology ==

== ENCOUNTER 2021-12-15 14:42 | Outpatient (CLI) | payer MEDICARE, SELFPAY ==
[2021-12-15 12:51] LABS: HCT 29.7 % (40.0-50.0); HGB 9.6 g/dL (13.5-17.5); MCH 35.3 pg (27.0-33.0); MCHC 32.3 % (32.0-36.0); MCV 109 fL (80-95); MPV 10.1 fL (8.0-11.0); Platelet Count 112 10^3/uL (130-400); RBC 2.72 10^6/uL (4.36-5.78); RDW 16.4 % (11.8-14.1); RDW-SD 65.9 fL
[2021-12-15 13:27] LABS: Absolute Neutrophil Count 0.54 10^3/uL (1.2-6.7); Bands % 2
[2021-12-15 13:28] LABS: Absolute Basophil Count 0.03 10^3/uL (0.0-0.2); Absolute Lymphocyte Count 0.74 10^3/uL (1.2-3.4); Absolute Monocyte Count 0.04 10^3/uL (0.1-0.8); Atypical Lymphocytes % 7; Diff Comment Manual Differential; Macrocytosis 2+
[2021-12-15 13:31] LABS: WBC 1.35 10^3/uL (4.4-10.8)
[2021-12-15 13:38] LABS: ALT 22 U/L (16-63); AST 9 U/L (15-37); Albumin 3.3 g/dL (3.4-5.0); Alkaline Phosphatase 96 U/L (46-116); Anion Gap 5.5 mmol/L (3-11); BUN 37 mg/dL (7-18); Bilirubin, Total 0.4 mg/dL (0.2-1.0); CO2 28.5 mmol/L (21.0-32.0); CREATININE 1.9 mg/dL (0.70-1.30); Calcium 8.2 mg/dL (8.5-10.1); Chloride 106 mmol/L (98-107); Estimated GFR 33.94 (mL/min/1.73m2); Ferritin 153 ng/mL (26-388); Glucose 181 mg/dL (74-106); Potassium 5.1 mmol/L (3.5-5.1); Sodium 140 mmol/L (136-145); Total Protein 7.1 g/dL (6.4-8.2)
== END 2021-12-15 14:43 | disposition home or self-care (01) ==
LOC: LBO 14:42
PROVIDERS: PCP Family Medicine; Visit Provider Internal Medicine Hematology & Oncology
DX: C18.7 Malignant neoplasm of sigmoid colon (principal); N18.30 Chronic kidney disease, stage 3 unspecified
CPT/HCPCS: 36415; 80053; 82378; 82728; 85025

== ENCOUNTER 2021-12-29 02:28 | Outpatient (CLI) | payer MEDICARE, SELFPAY ==
[2021-12-29 13:42] LABS: HCT 31.9 % (40.0-50.0); HGB 10.3 g/dL (13.5-17.5); MCH 35.3 pg (27.0-33.0); MCHC 32.3 % (32.0-36.0); MCV 109 fL (80-95); MPV 10.4 fL (8.0-11.0); RBC 2.92 10^6/uL (4.36-5.78); RDW 16.6 % (11.8-14.1); RDW-SD 66.8 fL
[2021-12-29 14:00] LABS: ALT 19 U/L (16-63); AST 14 U/L (15-37); Albumin 3.4 g/dL (3.4-5.0); Alkaline Phosphatase 92 U/L (46-116); BUN 31 mg/dL (7-18); Bilirubin, Total 0.6 mg/dL (0.2-1.0); CREATININE 1.7 mg/dL (0.70-1.30); Calcium 8.8 mg/dL (8.5-10.1); Chloride 105 mmol/L (98-107); Estimated GFR 38.59 (mL/min/1.73m2); Glucose 233 mg/dL (74-106); Sodium 138 mmol/L (136-145); Total Protein 7.3 g/dL (6.4-8.2)
[2021-12-29 14:10] LABS: WBC 1.35 10^3/uL (4.4-10.8)
[2021-12-29 14:12] LABS: Absolute Eosinophil Count 0.05 10^3/uL (0.0-0.7); Absolute Lymphocyte Count 0.63 10^3/uL (1.2-3.4); Absolute Monocyte Count 0.03 10^3/uL (0.1-0.8); Absolute Neutrophil Count 0.61 10^3/uL (1.2-6.7); Bands % 2; Diff Comment Manual Differential; Metamyelocytes % 2; Platelet Count 99 10^3/uL (130-400)
[2021-12-29 14:13] LABS: Macrocytosis 2+
[2021-12-29 15:31] LABS: Ferritin 163 ng/mL (26-388)
[2021-12-29 22:26] LABS: CEA 1.1 ng/mL (See Note)
== END 2021-12-29 02:29 | disposition home or self-care (01) ==
LOC: LBO 02:28
PROVIDERS: PCP Family Medicine; Visit Provider Internal Medicine Hematology & Oncology
DX: N18.30 Chronic kidney disease, stage 3 unspecified (principal); C18.7 Malignant neoplasm of sigmoid colon
CPT/HCPCS: 36415; 80053; 82378; 82728; 85025

== ENCOUNTER 2022-01-12 12:58 | Outpatient (CLI) | payer MEDICARE, SELFPAY ==
[2022-01-12 13:33] LABS: Abs Immature Grans 0.01 10^3/uL (0.0-0.06); HCT 30.3 % (40.0-50.0); HGB 9.8 g/dL (13.5-17.5); MCH 35.6 pg (27.0-33.0); MCHC 32.3 % (32.0-36.0); MCV 110 fL (80-95); MPV 9.8 fL (8.0-11.0); Platelet Count 105 10^3/uL (130-400); RBC 2.75 10^6/uL (4.36-5.78); RDW 16.6 % (11.8-14.1); RDW-SD 67.9 fL
[2022-01-12 13:40] LABS: WBC 1.29 10^3/uL (4.4-10.8)
[2022-01-12 13:52] LABS: Bands % 2
[2022-01-12 13:53] LABS: Absolute Eosinophil Count 0.01 10^3/uL (0.0-0.7); Absolute Lymphocyte Count 0.81 10^3/uL (1.2-3.4); Absolute Monocyte Count 0.04 10^3/uL (0.1-0.8); Absolute Neutrophil Count 0.43 10^3/uL (1.2-6.7); Diff Comment Manual Differential; Macrocytosis 2+
[2022-01-12 14:00] LABS: ALT 19 U/L (16-63); AST 15 U/L (15-37); Albumin 3.2 g/dL (3.4-5.0); Alkaline Phosphatase 89 U/L (46-116); Anion Gap 6.5 mmol/L (3-11); BUN 32 mg/dL (7-18); Bilirubin, Total 0.5 mg/dL (0.2-1.0); CO2 28.5 mmol/L (21.0-32.0); CREATININE 1.7 mg/dL (0.70-1.30); Calcium 8.4 mg/dL (8.5-10.1); Chloride 107 mmol/L (98-107); Estimated GFR 38.59 (mL/min/1.73m2); Ferritin 140 ng/mL (26-388); Glucose 231 mg/dL (74-106); Potassium 4.5 mmol/L (3.5-5.1); Sodium 142 mmol/L (136-145)
== END 2022-01-12 12:59 | disposition home or self-care (01) ==
LOC: LBO 12:58
PROVIDERS: PCP Family Medicine; Visit Provider Internal Medicine Hematology & Oncology
DX: C18.7 Malignant neoplasm of sigmoid colon (principal); N18.30 Chronic kidney disease, stage 3 unspecified
CPT/HCPCS: 36415; 80053; 82378; 82728; 85025

== ENCOUNTER 2022-02-09 01:34 | Outpatient (CLI) | payer MEDICARE, SELFPAY ==
[2022-02-09 13:21] LABS: Abs Immature Grans 0.01 10^3/uL (0.0-0.06); Absolute Basophil Count 0.01 10^3/uL (0.0-0.2); Absolute Eosinophil Count 0.02 10^3/uL (0.0-0.7); Absolute Lymphocyte Count 0.55 10^3/uL (1.2-3.4); Absolute Monocyte Count 0.07 10^3/uL (0.1-0.8); Basophils % 0.9; Eosinophils % 1.8; HCT 28.8 % (40.0-50.0); HGB 9.3 g/dL (13.5-17.5); Immature Grans % 0.9; Lymphocytes % 50.5; MCH 35.1 pg (27.0-33.0); MCHC 32.3 % (32.0-36.0); MCV 109 fL (80-95); MPV 10.1 fL (8.0-11.0); Monocytes % 6.4; Neutrophils % 39.5; Platelet Count 117 10^3/uL (130-400); RBC 2.65 10^6/uL (4.36-5.78); RDW 16.6 % (11.8-14.1); RDW-SD 65.3 fL
[2022-02-09 13:45] LABS: ALT 12 U/L (16-63); AST 15 U/L (15-37); Albumin 3.2 g/dL (3.4-5.0); Alkaline Phosphatase 96 U/L (46-116); Anion Gap 5.1 mmol/L (3-11); BUN 33 mg/dL (7-18); Bilirubin, Total 0.5 mg/dL (0.2-1.0); CO2 27.9 mmol/L (21.0-32.0); CREATININE 1.5 mg/dL (0.70-1.30); Calcium 8.5 mg/dL (8.5-10.1); Chloride 107 mmol/L (98-107); Estimated GFR 44.48 (mL/min/1.73m2); Ferritin 165 ng/mL (26-388); Glucose 204 mg/dL (74-106); Potassium 4.9 mmol/L (3.5-5.1); Sodium 140 mmol/L (136-145); Total Protein 7.2 g/dL (6.4-8.2)
[2022-02-09 13:46] LABS: Absolute Neutrophil Count 0.43 10^3/uL (1.2-6.7)
[2022-02-09 13:47] LABS: Diff Comment Diff Reviewed; Macrocytosis 2+; WBC 1.09 10^3/uL (4.4-10.8)
== END 2022-02-09 01:35 | disposition home or self-care (01) ==
LOC: LBO 01:34
PROVIDERS: PCP Family Medicine; Visit Provider Internal Medicine Hematology & Oncology
DX: N18.30 Chronic kidney disease, stage 3 unspecified (principal); C18.7 Malignant neoplasm of sigmoid colon
CPT/HCPCS: 36415; 80053; 82378; 82728; 85025

== ENCOUNTER 2022-03-09 12:36 | Outpatient (CLI) | payer MEDICARE, SELFPAY ==
[2022-03-09 12:42] LABS: Absolute Basophil Count 0.01 10^3/uL (0.0-0.2); Absolute Eosinophil Count 0.03 10^3/uL (0.0-0.7); Absolute Lymphocyte Count 0.57 10^3/uL (1.2-3.4); Absolute Monocyte Count 0.09 10^3/uL (0.1-0.8); Basophils % 0.9; Eosinophils % 2.7; HGB 9.3 g/dL (13.5-17.5); Lymphocytes % 50.9; MCH 35.1 pg (27.0-33.0); MCHC 32.1 % (32.0-36.0); MCV 109 fL (80-95); MPV 10.3 fL (8.0-11.0); Neutrophils % 37.5; Platelet Count 108 10^3/uL (130-400); RBC 2.65 10^6/uL (4.36-5.78); RDW 16.8 % (11.8-14.1); RDW-SD 68.1 fL
[2022-03-09 12:46] LABS: WBC 1.12 10^3/uL (4.4-10.8)
[2022-03-09 12:47] LABS: Absolute Neutrophil Count 0.42 10^3/uL (1.2-6.7)
[2022-03-09 12:55] LABS: Diff Comment Diff Reviewed; Macrocytosis 2+
[2022-03-09 13:15] LABS: ALT 19 U/L (16-63); AST 15 U/L (15-37); Albumin 3.2 g/dL (3.4-5.0); Alkaline Phosphatase 88 U/L (46-116); BUN 36 mg/dL (7-18); Bilirubin, Total 0.6 mg/dL (0.2-1.0); CREATININE 1.7 mg/dL (0.70-1.30); Calcium 8.6 mg/dL (8.5-10.1); Chloride 107 mmol/L (98-107); Estimated GFR 39.02 (mL/min/1.73m2); Ferritin 179 ng/mL (26-388); Glucose 196 mg/dL (74-106); Potassium 5.2 mmol/L (3.5-5.1); Sodium 141 mmol/L (136-145); Total Protein 7.5 g/dL (6.4-8.2)
[2022-03-09 22:43] LABS: CEA 0.9 ng/mL (See Note)
== END 2022-03-09 12:37 | disposition home or self-care (01) ==
LOC: LBO 12:37
PROVIDERS: PCP Family Medicine; Visit Provider Internal Medicine Hematology & Oncology
DX: C18.7 Malignant neoplasm of sigmoid colon (principal); N18.30 Chronic kidney disease, stage 3 unspecified
CPT/HCPCS: 36415; 80053; 82378; 82728; 85025

== ENCOUNTER 2022-04-06 15:29 | Outpatient (CLI) | payer MEDICARE, SELFPAY ==
[2022-04-06 13:53] LABS: Abs Immature Grans 0.02 10^3/uL (0.0-0.06); HCT 27.7 % (40.0-50.0); HGB 8.9 g/dL (13.5-17.5); MCH 35.2 pg (27.0-33.0); MCHC 32.1 % (32.0-36.0); MCV 110 fL (80-95); MPV 9.8 fL (8.0-11.0); Platelet Count 105 10^3/uL (130-400); RBC 2.53 10^6/uL (4.36-5.78); RDW 16.6 % (11.8-14.1); RDW-SD 67.3 fL
[2022-04-06 14:09] LABS: ALT 19 U/L (16-63); AST 17 U/L (15-37); Albumin 3.3 g/dL (3.4-5.0); Alkaline Phosphatase 101 U/L (46-116); Anion Gap 6.3 mmol/L (3-11); BUN 35 mg/dL (7-18); Bilirubin, Total 0.5 mg/dL (0.2-1.0); CO2 26.7 mmol/L (21.0-32.0); CREATININE 1.5 mg/dL (0.70-1.30); Calcium 8.5 mg/dL (8.5-10.1); Chloride 107 mmol/L (98-107); Estimated GFR 45.34 (mL/min/1.73m2); Ferritin 195 ng/mL (26-388); Glucose 143 mg/dL (74-106); Potassium 4.7 mmol/L (3.5-5.1); Sodium 140 mmol/L (136-145); Total Protein 7.4 g/dL (6.4-8.2)
[2022-04-06 14:18] LABS: WBC 1.19 10^3/uL (4.4-10.8)
[2022-04-06 14:28] LABS: Absolute Lymphocyte Count 0.64 10^3/uL (1.2-3.4); Absolute Monocyte Count 0.05 10^3/uL (0.1-0.8)
[2022-04-06 14:30] LABS: Absolute Neutrophil Count 0.53 10^3/uL (1.2-6.7); Diff Comment Manual Differential; Macrocytosis 1+
== END 2022-04-06 15:30 | disposition home or self-care (01) ==
LOC: LBO 15:31
PROVIDERS: PCP Family Medicine; Visit Provider Internal Medicine Hematology & Oncology
DX: N18.30 Chronic kidney disease, stage 3 unspecified (principal); C18.7 Malignant neoplasm of sigmoid colon
CPT/HCPCS: 36415; 80053; 82378; 82728; 85025

== ENCOUNTER 2022-05-04 12:22 | Outpatient (CLI) | payer MEDICARE, SELFPAY ==
[2022-05-04 13:06] LABS: Absolute Eosinophil Count 0.04 10^3/uL (0.0-0.7); HGB 8.8 g/dL (13.5-17.5); MCH 34.8 pg (27.0-33.0); MCHC 31.4 % (32.0-36.0); MCV 111 fL (80-95); MPV 10.4 fL (8.0-11.0); Platelet Count 130 10^3/uL (130-400); RBC 2.53 10^6/uL (4.36-5.78); RDW 16.8 % (11.8-14.1); RDW-SD 68.5 fL
[2022-05-04 13:22] LABS: Absolute Lymphocyte Count 0.71 10^3/uL (1.2-3.4); Atypical Lymphocytes % 14; Bands % 2
[2022-05-04 13:23] LABS: Absolute Monocyte Count 0.04 10^3/uL (0.1-0.8); Diff Comment Manual Differential; Macrocytosis 2+
[2022-05-04 13:25] LABS: WBC 1.29 10^3/uL (4.4-10.8)
== END 2022-05-04 12:23 | disposition home or self-care (01) ==
LOC: LBO 12:22
PROVIDERS: PCP Family Medicine; Visit Provider Internal Medicine Hematology & Oncology
DX: N18.30 Chronic kidney disease, stage 3 unspecified (principal)
CPT/HCPCS: 36415; 85025

== ENCOUNTER 2022-06-01 15:35 | Outpatient (CLI) | payer MEDICARE, SELFPAY ==
[2022-06-01 12:15] LABS: HCT 28.5 % (40.0-50.0); HGB 8.8 g/dL (13.5-17.5); MCH 33.6 pg (27.0-33.0); MCHC 30.9 % (32.0-36.0); MCV 109 fL (80-95); MPV 10.2 fL (8.0-11.0); Platelet Count 102 10^3/uL (130-400); RBC 2.62 10^6/uL (4.36-5.78); RDW 17.2 % (11.8-14.1); RDW-SD 68.6 fL
[2022-06-01 12:35] LABS: WBC 1.29 10^3/uL (4.4-10.8)
[2022-06-01 12:36] LABS: Absolute Eosinophil Count 0.03 10^3/uL (0.0-0.7); Absolute Lymphocyte Count 0.57 10^3/uL (1.2-3.4); Absolute Monocyte Count 0.03 10^3/uL (0.1-0.8); Absolute Neutrophil Count 0.66 10^3/uL (1.2-6.7); Bands % 1; Diff Comment Manual Differential; Macrocytosis 2+; Metamyelocytes % 1
[2022-06-01 12:39] LABS: ALT 16 U/L (16-63); AST 13 U/L (15-37); Albumin 3.3 g/dL (3.4-5.0); Alkaline Phosphatase 110 U/L (46-116); Anion Gap 5.4 mmol/L (3-11); BUN 43 mg/dL (7-18); Bilirubin, Total 0.5 mg/dL (0.2-1.0); CO2 27.6 mmol/L (21.0-32.0); CREATININE 1.7 mg/dL (0.70-1.30); Calcium 8.9 mg/dL (8.5-10.1); Chloride 105 mmol/L (98-107); Estimated GFR 39.02 (mL/min/1.73m2); Ferritin 179 ng/mL (26-388); Glucose 214 mg/dL (74-106); Sodium 138 mmol/L (136-145); Total Protein 7.5 g/dL (6.4-8.2)
[2022-06-05 09:25] LABS: CEA 0.8 ng/mL (See Note)
== END 2022-06-01 15:36 | disposition home or self-care (01) ==
LOC: LBO 15:35
PROVIDERS: PCP Family Medicine; Visit Provider Internal Medicine Hematology & Oncology
DX: C18.7 Malignant neoplasm of sigmoid colon (principal); N18.30 Chronic kidney disease, stage 3 unspecified
CPT/HCPCS: 36415; 80053; 82378; 82728; 85025

== ENCOUNTER → 2022-06-07 02:57 | Outpatient (CLI) | payer MEDICARE, SELFPAY ==
--- NOTE | 2022-06-07 | DI.US_ITS ---
Exam(s) US EXTREMITY VENOUS BI EXAM: US EXTREMITY VENOUS BI CLINICAL HISTORY: BILAT LOWER LEG PAIN, M79.605,M79.604. TECHNIQUE: Ultrasound performed using standard protocol. COMPARISON: No exams were available for comparison FINDINGS: Duplex venous ultrasound was performed according to the usual protocol. The deep veins are freely com pressible throughout and there is normal flow augmentation with manual calf compression. 2D and Doppl er evaluation are unremarkable. IMPRESSION: No evidence of deep venous thrombosis of the right or left lower extremity. DATA REPOSITORY:
--- NOTE | 2022-06-07 09:33 | DI.RAD_ITS ---
Exam(s) XR FOOT LT COMPLETE EXAM: XR FOOT LT COMPLETE CLINICAL HISTORY: LT FOOT PAIN, M79.672, PAIN AFTER FALL /, TENDER ON EXAM TECHNIQUE: COMPARISON: No exams were available for comparison FINDINGS: Three views were obtained. The bones of the foot are demineralized. No gross fracture or dislocatio n identified. IMPRESSION: RADIATION DOSE DELIVERED: Total DLP
== END ==
PROVIDERS: PCP Family Medicine; Visit Provider Nurse Practitioner Family
DX: M79.672 Pain in left foot; M79.661 Pain in right lower leg; M79.662 Pain in left lower leg
CPT/HCPCS: 73630; 93970

== ENCOUNTER 2022-06-29 02:05 | Outpatient (CLI) | payer MEDICARE, SELFPAY ==
[2022-06-29 12:42] LABS: Abs Immature Grans 0.01 10^3/uL (0.0-0.06); Absolute Basophil Count 0.01 10^3/uL (0.0-0.2); Absolute Eosinophil Count 0.03 10^3/uL (0.0-0.7); HCT 28.3 % (40.0-50.0); HGB 8.9 g/dL (13.5-17.5); MCH 34.5 pg (27.0-33.0); MCHC 31.4 % (32.0-36.0); MCV 110 fL (80-95); MPV 10.3 fL (8.0-11.0); Platelet Count 119 10^3/uL (130-400); RBC 2.58 10^6/uL (4.36-5.78); RDW 17.6 % (11.8-14.1); RDW-SD 70.8 fL
[2022-06-29 12:58] LABS: ALT 16 U/L (16-63); AST 16 U/L (15-37); Albumin 3.4 g/dL (3.4-5.0); Alkaline Phosphatase 124 U/L (46-116); BUN 32 mg/dL (7-18); Bilirubin, Total 0.6 mg/dL (0.2-1.0); CREATININE 1.8 mg/dL (0.70-1.30); Calcium 8.5 mg/dL (8.5-10.1); Chloride 105 mmol/L (98-107); Estimated GFR 36.43 (mL/min/1.73m2); Glucose 247 mg/dL (74-106); Potassium 4.7 mmol/L (3.5-5.1); Sodium 138 mmol/L (136-145); Total Protein 7.8 g/dL (6.4-8.2)
[2022-06-29 13:16] LABS: Absolute Lymphocyte Count 0.68 10^3/uL (1.2-3.4); Atypical Lymphocytes % 12; Bands % 0
[2022-06-29 13:17] LABS: Absolute Monocyte Count 0.04 10^3/uL (0.1-0.8); Diff Comment Manual Differential; Macrocytosis 1+; Other Cells % 1
[2022-06-29 13:20] LABS: WBC 1.48 10^3/uL (4.4-10.8)
== END 2022-06-29 02:06 | disposition home or self-care (01) ==
LOC: LBO 02:05
PROVIDERS: PCP Family Medicine; Visit Provider Internal Medicine Hematology & Oncology
DX: D46.9 Myelodysplastic syndrome, unspecified (principal)
CPT/HCPCS: 36415; 80053; 85025

== ENCOUNTER 2022-07-27 12:00 | Outpatient (CLI) | payer MEDICARE, SELFPAY ==
[2022-07-27 12:24] LABS: Abs Immature Grans 0.01 10^3/uL (0.0-0.06); Absolute Basophil Count 0.01 10^3/uL (0.0-0.2); Absolute Eosinophil Count 0.02 10^3/uL (0.0-0.7); Absolute Lymphocyte Count 0.55 10^3/uL (1.2-3.4); Absolute Monocyte Count 0.12 10^3/uL (0.1-0.8); Basophils % 0.9; Eosinophils % 1.7; HCT 28.1 % (40.0-50.0); HGB 8.8 g/dL (13.5-17.5); Immature Grans % 0.9; MCH 34.4 pg (27.0-33.0); MCHC 31.3 % (32.0-36.0); MCV 110 fL (80-95); Monocytes % 10.3; Neutrophils % 39.2; RBC 2.56 10^6/uL (4.36-5.78); RDW 17.6 % (11.8-14.1); RDW-SD 72.2 fL
[2022-07-27 12:45] LABS: Diff Comment Diff Reviewed; Platelet Count 94 10^3/uL (130-400)
[2022-07-27 12:46] LABS: Macrocytosis 2+
[2022-07-27 12:50] LABS: Absolute Neutrophil Count 0.46 10^3/uL (1.2-6.7); WBC 1.17 10^3/uL (4.4-10.8)
[2022-07-27 12:53] LABS: ALT 14 U/L (16-63); AST 17 U/L (15-37); Albumin 3.2 g/dL (3.4-5.0); Alkaline Phosphatase 98 U/L (46-116); Anion Gap 3.4 mmol/L (3-11); BUN 28 mg/dL (7-18); Bilirubin, Total 0.6 mg/dL (0.2-1.0); CO2 28.6 mmol/L (21.0-32.0); CREATININE 1.6 mg/dL (0.70-1.30); Calcium 8.5 mg/dL (8.5-10.1); Chloride 109 mmol/L (98-107); Estimated GFR 41.96 (mL/min/1.73m2); Glucose 192 mg/dL (74-106); Sodium 141 mmol/L (136-145); Total Protein 7.1 g/dL (6.4-8.2)
== END 2022-07-27 12:01 | disposition home or self-care (01) ==
LOC: LBO 12:00
PROVIDERS: PCP Family Medicine; Visit Provider Internal Medicine Hematology & Oncology
DX: D46.9 Myelodysplastic syndrome, unspecified (principal)
CPT/HCPCS: 36415; 80053; 85025

== ENCOUNTER 2022-08-24 02:49 | Outpatient (CLI) | payer MEDICARE, SELFPAY ==
[2022-08-24 13:23] LABS: Abs Immature Grans 0.01 10^3/uL (0.0-0.06); Absolute Basophil Count 0.01 10^3/uL (0.0-0.2); Absolute Eosinophil Count 0.01 10^3/uL (0.0-0.7); Absolute Monocyte Count 0.14 10^3/uL (0.1-0.8); Absolute Neutrophil Count 0.53 10^3/uL (1.2-6.7); Basophils % 0.8; Eosinophils % 0.8; HCT 29.9 % (40.0-50.0); HGB 9.4 g/dL (13.5-17.5); Immature Grans % 0.8; Lymphocytes % 46.2; MCH 34.2 pg (27.0-33.0); MCHC 31.4 % (32.0-36.0); MCV 109 fL (80-95); MPV 9.4 fL (8.0-11.0); Monocytes % 10.8; Neutrophils % 40.6; Platelet Count 100 10^3/uL (130-400); RBC 2.75 10^6/uL (4.36-5.78); RDW-SD 68.1 fL
[2022-08-24 13:48] LABS: Diff Comment Diff Reviewed; RBC Morphology Normal
[2022-08-24 13:49] LABS: ALT 10 U/L (16-63); AST 14 U/L (15-37); Albumin 3.3 g/dL (3.4-5.0); Alkaline Phosphatase 105 U/L (46-116); Anion Gap 3.2 mmol/L (3-11); BUN 24 mg/dL (7-18); Bilirubin, Total 0.7 mg/dL (0.2-1.0); CO2 30.8 mmol/L (21.0-32.0); CREATININE 1.6 mg/dL (0.70-1.30); Calcium 8.7 mg/dL (8.5-10.1); Chloride 107 mmol/L (98-107); Estimated GFR 41.96 (mL/min/1.73m2); Glucose 172 mg/dL (74-106); Sodium 141 mmol/L (136-145); Total Protein 7.2 g/dL (6.4-8.2)
== END 2022-08-24 02:50 | disposition home or self-care (01) ==
LOC: LBO 02:49
PROVIDERS: PCP Family Medicine; Visit Provider Internal Medicine Hematology & Oncology
DX: D46.9 Myelodysplastic syndrome, unspecified (principal)
CPT/HCPCS: 36415; 80053; 85025

== ENCOUNTER 2022-09-21 04:20 | Outpatient (CLI) | payer MEDICARE, SELFPAY ==
[2022-09-21 13:15] LABS: Abs Immature Grans 0.01 10^3/uL (0.0-0.06); Absolute Basophil Count 0.01 10^3/uL (0.0-0.2); Absolute Eosinophil Count 0.02 10^3/uL (0.0-0.7); Absolute Lymphocyte Count 0.61 10^3/uL (1.2-3.4); Absolute Monocyte Count 0.12 10^3/uL (0.1-0.8); Basophils % 0.8; Eosinophils % 1.6; HCT 29.5 % (40.0-50.0); HGB 9.4 g/dL (13.5-17.5); Immature Grans % 0.8; Lymphocytes % 49.2; MCH 34.7 pg (27.0-33.0); MCHC 31.9 % (32.0-36.0); MCV 109 fL (80-95); MPV 10.5 fL (8.0-11.0); Monocytes % 9.7; Neutrophils % 37.9; Platelet Count 112 10^3/uL (130-400); RBC 2.71 10^6/uL (4.36-5.78); RDW 17.2 % (11.8-14.1); RDW-SD 68.2 fL
[2022-09-21 13:25] LABS: Absolute Neutrophil Count 0.47 10^3/uL (1.2-6.7); WBC 1.24 10^3/uL (4.4-10.8)
[2022-09-21 13:57] LABS: ALT 16 U/L (16-63); AST 14 U/L (15-37); Albumin 3.4 g/dL (3.4-5.0); Alkaline Phosphatase 117 U/L (46-116); Anion Gap 6.3 mmol/L (3-11); BUN 33 mg/dL (7-18); Bilirubin, Total 0.6 mg/dL (0.2-1.0); CO2 26.7 mmol/L (21.0-32.0); CREATININE 1.7 mg/dL (0.70-1.30); Calcium 8.7 mg/dL (8.5-10.1); Chloride 108 mmol/L (98-107); Estimated GFR 39.02 (mL/min/1.73m2); Glucose 218 mg/dL (74-106); Potassium 5.2 mmol/L (3.5-5.1); Sodium 141 mmol/L (136-145); Total Protein 7.5 g/dL (6.4-8.2)
[2022-09-21 14:06] LABS: Anisocytosis 1+; Diff Comment Diff Reviewed; Macrocytosis 1+
== END 2022-09-21 04:21 | disposition home or self-care (01) ==
LOC: LBO 04:20
PROVIDERS: PCP Family Medicine; Visit Provider Internal Medicine Hematology & Oncology
DX: D46.9 Myelodysplastic syndrome, unspecified (principal)
CPT/HCPCS: 36415; 80053; 85025

== ENCOUNTER 2022-09-28 01:33 | Outpatient (CLI) | payer MEDICARE, SELFPAY ==
--- NOTE | 2022-09-28 11:00 | DI.CT_ITS ---
Exam(s) CT CHEST/ABD/PEL WO EXAM: CT CHEST/ABD/PEL WO CLINICAL HISTORY: COLON CANCER C18.9 MONITOR. TECHNIQUE: Imaging Protocol: Axial computed tomography images with coronal and sagittal reformatted images were created and reviewed CONTRAST MATERIAL: Intravenous: No IV contrast. Oral: yes COMPARISON: CT CT CHEST/ABD/PEL W from 08/31/2021 FINDINGS: CHEST: Thyroid: Stable low-density thyroid nodule in the left lobe.. Tracheobronchial tree: Patent where visualized. Pulmonary parenchyma: Expiratory changes. No consolidation or dominant measurable mass. Pleura: No effusion or pneumothorax. Lymph nodes: Within normal limits. Aorta: Thoracic portion non-dilated. Atherosclerotic changes. Heart: Enlarged. Coronary artery calcifications. No pericardial effusion. Bones: Unremarkable for age. No lytic or blastic lesions.No compression fractures. ABDOMEN: Liver: Normal density. No measurable mass. Gallbladder and biliary tract: Cholelithiasis. No gallbladder wall thickening or biliary dilatation. Pancreas: Normal density, no abnormal calcifications or inflammatory process. Spleen: Normal. Kidneys: Normal size, contour and axis. No radiodense stones or obstructive uropathy. Bilateral cyst s again noted. No suspicious masses seen. Adrenal glands: No masses seen. Aorta: Atherosclerotic changes. Distal dilatation of 3.2 cm, stable from prior. Lymph nodes: Within normal limits. Soft tissues: Bilateral fatty containing inguinal hernias, left greater than right. PELVIS: Bladder: Symmetric distention, no gross wall thickening. Bowel: Right colectomy. Anastomosis unremarkable. Increased stool noted throughout colon. No gaye s are visible. No obstruction or bowel wall thickening. Scattered sigmoid diverticula. Peritoneal cavity: No ascites, collection or mesenteric inflammatory response. Bones: Degenerative changes. No compression fracture, lytic or blastic lesion. Reproductive organs: Within normal limits. IMPRESSION: No evidence of metastatic disease or other acute abnormality in the chest, abdomen or pelvis.. RADIATION DOSE DELIVERED: 1,192.7mGy.cm Total DLP DATA REPOSITORY: All CT scans at this facility are submitted to the National Radiology Data Registry (NRDR) Dose Index Registry (DIR) with the [employer] (ACR). RADIATION OPTIMIZATION: All CT scans at this facility use at least one of these dose optimization te chniques: automated exposure control; mA and/or kV adjustment per patient size (includes targeted exa ms where dose is matched to clinical indication); or iterative reconstruction.
[2022-09-28] MEDS: Barium Sulfate 2% W/V-Berry Smoothie 450 ML BTL PO (11:03)
== END 2022-09-28 01:53 ==
LOC: DI 01:34
PROVIDERS: PCP Family Medicine; Visit Provider Internal Medicine Hematology & Oncology
DX: C18.7 Malignant neoplasm of sigmoid colon (principal); E04.1 Nontoxic single thyroid nodule; K80.20 Calculus of gallbladder without cholecystitis without obstruction; N28.1 Cyst of kidney, acquired; Z98.0 Intestinal bypass and anastomosis status
CPT/HCPCS: 71250; 74176

== ENCOUNTER 2022-10-19 03:29 | Outpatient (CLI) | payer MEDICARE, SELFPAY ==
[2022-10-19 13:37] LABS: Abs Immature Grans 0.01 10^3/uL (0.0-0.06); HCT 27.8 % (40.0-50.0); HGB 8.7 g/dL (13.5-17.5); MCH 34.4 pg (27.0-33.0); MCHC 31.3 % (32.0-36.0); MCV 110 fL (80-95); MPV 10.2 fL (8.0-11.0); Platelet Count 120 10^3/uL (130-400); RBC 2.53 10^6/uL (4.36-5.78); RDW 17.3 % (11.8-14.1); RDW-SD 70.7 fL
[2022-10-19 13:51] LABS: ALT 18 U/L (16-63); AST 14 U/L (15-37); Albumin 3.2 g/dL (3.4-5.0); Alkaline Phosphatase 110 U/L (46-116); Anion Gap 5.7 mmol/L (3-11); BUN 29 mg/dL (7-18); Bilirubin, Total 0.5 mg/dL (0.2-1.0); CO2 27.3 mmol/L (21.0-32.0); CREATININE 1.8 mg/dL (0.70-1.30); Calcium 8.2 mg/dL (8.5-10.1); Chloride 106 mmol/L (98-107); Estimated GFR 36.43 (mL/min/1.73m2); Glucose 213 mg/dL (74-106); Potassium 5.1 mmol/L (3.5-5.1); Sodium 139 mmol/L (136-145); Total Protein 7.4 g/dL (6.4-8.2)
[2022-10-19 13:57] LABS: Absolute Eosinophil Count 0.01 10^3/uL (0.0-0.7); Absolute Lymphocyte Count 0.61 10^3/uL (1.2-3.4); Absolute Monocyte Count 0.05 10^3/uL (0.1-0.8); Bands % 2
[2022-10-19 13:58] LABS: Anisocytosis 2+; Macrocytosis 2+
[2022-10-19 14:00] LABS: Diff Comment Manual Differential
[2022-10-19 14:05] LABS: Absolute Neutrophil Count 0.49 10^3/uL (1.2-6.7); WBC 1.16 10^3/uL (4.4-10.8)
== END 2022-10-19 03:30 | disposition home or self-care (01) ==
PROVIDERS: PCP Family Medicine; Visit Provider Internal Medicine Hematology & Oncology
DX: D46.9 Myelodysplastic syndrome, unspecified (principal)
CPT/HCPCS: 36415; 80053; 85025

== ENCOUNTER 2022-11-16 09:51 | Outpatient (CLI) | payer MEDICARE, SELFPAY ==
[2022-11-16 09:13] LABS: Abs Immature Grans 0.01 10^3/uL (0.0-0.06); Absolute Basophil Count 0.01 10^3/uL (0.0-0.2); HCT 27.9 % (40.0-50.0); HGB 8.7 g/dL (13.5-17.5); MCH 34.4 pg (27.0-33.0); MCHC 31.2 % (32.0-36.0); MCV 110 fL (80-95); MPV 10.3 fL (8.0-11.0); Platelet Count 111 10^3/uL (130-400); RBC 2.53 10^6/uL (4.36-5.78); RDW 17.7 % (11.8-14.1); RDW-SD 72.6 fL
[2022-11-16 09:34] LABS: ALT 17 U/L (16-63); AST 12 U/L (15-37); Albumin 3.2 g/dL (3.4-5.0); Alkaline Phosphatase 107 U/L (46-116); Anion Gap 5.6 mmol/L (3-11); BUN 29 mg/dL (7-18); Bilirubin, Total 0.6 mg/dL (0.2-1.0); CO2 29.4 mmol/L (21.0-32.0); CREATININE 1.6 mg/dL (0.70-1.30); Calcium 8.6 mg/dL (8.5-10.1); Chloride 108 mmol/L (98-107); Estimated GFR 41.96 (mL/min/1.73m2); Glucose 151 mg/dL (74-106); Potassium 4.9 mmol/L (3.5-5.1); Sodium 143 mmol/L (136-145); Total Protein 7.4 g/dL (6.4-8.2)
[2022-11-16 09:38] LABS: Absolute Lymphocyte Count 0.56 10^3/uL (1.2-3.4); Absolute Neutrophil Count 0.62 10^3/uL (1.2-6.7); Atypical Lymphocytes % 0; Bands % 0
[2022-11-16 09:39] LABS: Absolute Eosinophil Count 0.05 10^3/uL (0.0-0.7); Absolute Monocyte Count 0.04 10^3/uL (0.1-0.8); Diff Comment Manual Differential; Myelocytes % 1
[2022-11-16 09:40] LABS: Macrocytosis 1+
== END 2022-11-16 09:52 | disposition home or self-care (01) ==
LOC: LBO 09:51
PROVIDERS: PCP Family Medicine; Visit Provider Internal Medicine Hematology & Oncology
DX: D46.9 Myelodysplastic syndrome, unspecified (principal)
CPT/HCPCS: 36415; 80053; 85025

== ENCOUNTER 2022-11-23 12:38 | Outpatient (CLI) | payer MEDICARE, SELFPAY ==
[2022-11-23 12:40] LABS: Abs Immature Grans 0.01 10^3/uL (0.0-0.06); Absolute Basophil Count 0.01 10^3/uL (0.0-0.2); HGB 8.8 g/dL (13.5-17.5); MCH 34.9 pg (27.0-33.0); MCHC 31.4 % (32.0-36.0); MCV 111 fL (80-95); MPV 10.8 fL (8.0-11.0); RBC 2.52 10^6/uL (4.36-5.78); RDW 18.2 % (11.8-14.1); RDW-SD 72.2 fL
[2022-11-23 13:09] LABS: ALT 19 U/L (16-63); AST 13 U/L (15-37); Albumin 3.2 g/dL (3.4-5.0); Alkaline Phosphatase 100 U/L (46-116); Anion Gap 6.7 mmol/L (3-11); BUN 30 mg/dL (7-18); Bilirubin, Total 0.5 mg/dL (0.2-1.0); CO2 26.3 mmol/L (21.0-32.0); CREATININE 1.7 mg/dL (0.70-1.30); Calcium 8.6 mg/dL (8.5-10.1); Chloride 108 mmol/L (98-107); Estimated GFR 39.02 (mL/min/1.73m2); Glucose 222 mg/dL (74-106); Potassium 4.9 mmol/L (3.5-5.1); Sodium 141 mmol/L (136-145); Total Protein 7.3 g/dL (6.4-8.2)
[2022-11-23 13:11] LABS: Anisocytosis 2+; Diff Comment Manual Differential; Macrocytosis 2+; Platelet Count 105 10^3/uL (130-400); Poikilocytes 2+; Polychromasia Present
[2022-11-23 13:12] LABS: Absolute Eosinophil Count 0.01 10^3/uL (0.0-0.7); Absolute Lymphocyte Count 0.59 10^3/uL (1.2-3.4); Absolute Monocyte Count 0.06 10^3/uL (0.1-0.8); Metamyelocytes % 1
[2022-11-23 13:16] LABS: WBC 1.13 10^3/uL (4.4-10.8)
[2022-11-23 13:17] LABS: Absolute Neutrophil Count 0.45 10^3/uL (1.2-6.7)
== END 2022-11-23 12:39 | disposition home or self-care (01) ==
LOC: LBO 12:38
PROVIDERS: PCP Family Medicine; Visit Provider Internal Medicine Hematology & Oncology
DX: D46.9 Myelodysplastic syndrome, unspecified (principal)
CPT/HCPCS: 36415; 80053; 85025

== ENCOUNTER 2022-12-07 03:01 | Outpatient (CLI) | payer MEDICARE, SELFPAY ==
[2022-12-07 09:09] LABS: Abs Immature Grans 0.01 10^3/uL (0.0-0.06); Absolute Eosinophil Count 0.02 10^3/uL (0.0-0.7); Absolute Lymphocyte Count 0.47 10^3/uL (1.2-3.4); Absolute Monocyte Count 0.12 10^3/uL (0.1-0.8); Eosinophils % 1.8; HCT 30.6 % (40.0-50.0); HGB 9.4 g/dL (13.5-17.5); Immature Grans % 0.9; Lymphocytes % 43.1; MCH 34.4 pg (27.0-33.0); MCHC 30.7 % (32.0-36.0); MCV 112 fL (80-95); MPV 10.1 fL (8.0-11.0); Neutrophils % 43.2; RBC 2.73 10^6/uL (4.36-5.78); RDW 18.7 % (11.8-14.1); RDW-SD 76.1 fL
[2022-12-07 09:22] LABS: ALT 15 U/L (16-63); AST 15 U/L (15-37); Albumin 3.2 g/dL (3.4-5.0); Alkaline Phosphatase 105 U/L (46-116); Anion Gap 3.1 mmol/L (3-11); BUN 26 mg/dL (7-18); Bilirubin, Total 0.8 mg/dL (0.2-1.0); CO2 28.9 mmol/L (21.0-32.0); CREATININE 1.6 mg/dL (0.70-1.30); Calcium 8.5 mg/dL (8.5-10.1); Chloride 106 mmol/L (98-107); Estimated GFR 41.96 (mL/min/1.73m2); Glucose 158 mg/dL (74-106); Potassium 4.8 mmol/L (3.5-5.1); Sodium 138 mmol/L (136-145); Total Protein 7.5 g/dL (6.4-8.2)
[2022-12-07 10:09] LABS: WBC 1.09 10^3/uL (4.4-10.8)
[2022-12-07 10:10] LABS: Absolute Neutrophil Count 0.47 10^3/uL (1.2-6.7); Platelet Count 89 10^3/uL (130-400)
[2022-12-07 10:11] LABS: Diff Comment Agrees w/ Instrument; Macrocytosis 2+
== END 2022-12-07 03:02 | disposition home or self-care (01) ==
LOC: LBO 03:01
PROVIDERS: PCP Family Medicine; Visit Provider Internal Medicine Hematology & Oncology
DX: D46.9 Myelodysplastic syndrome, unspecified (principal)
CPT/HCPCS: 36415; 80053; 85025

== ENCOUNTER 2022-12-21 02:17 | Outpatient (CLI) | payer MEDICARE, SELFPAY ==
[2022-12-21 12:20] LABS: Abs Immature Grans 0.01 10^3/uL (0.0-0.06); HCT 29.2 % (40.0-50.0); HGB 9.4 g/dL (13.5-17.5); MCH 35.1 pg (27.0-33.0); MCHC 32.2 % (32.0-36.0); MCV 109 fL (80-95); MPV 10.2 fL (8.0-11.0); RBC 2.68 10^6/uL (4.36-5.78); RDW 18.5 % (11.8-14.1); RDW-SD 72.5 fL
[2022-12-21 12:43] LABS: ALT 16 U/L (16-63); AST 15 U/L (15-37); Albumin 3.1 g/dL (3.4-5.0); Alkaline Phosphatase 93 U/L (46-116); Anion Gap 9.1 mmol/L (3-11); BUN 35 mg/dL (7-18); Bilirubin, Total 0.7 mg/dL (0.2-1.0); CO2 25.9 mmol/L (21.0-32.0); CREATININE 1.9 mg/dL (0.70-1.30); Calcium 8.5 mg/dL (8.5-10.1); Chloride 108 mmol/L (98-107); Estimated GFR 34.14 (mL/min/1.73m2); Glucose 153 mg/dL (74-106); Potassium 4.8 mmol/L (3.5-5.1); Sodium 143 mmol/L (136-145); Total Protein 7.1 g/dL (6.4-8.2)
[2022-12-21 12:54] LABS: Absolute Basophil Count 0.01 10^3/uL (0.0-0.2); Absolute Lymphocyte Count 0.55 10^3/uL (1.2-3.4); Absolute Monocyte Count 0.17 10^3/uL (0.1-0.8); Absolute Neutrophil Count 0.65 10^3/uL (1.2-6.7); Bands % 2
[2022-12-21 12:55] LABS: Platelet Count 96 10^3/uL (130-400)
[2022-12-21 12:56] LABS: Metamyelocytes % 1; Myelocytes % 1
[2022-12-21 12:57] LABS: Diff Comment Manual Differential; Hypochromasia 2+; Polychromasia Present
[2022-12-21 12:58] LABS: WBC 1.41 10^3/uL (4.4-10.8)
== END 2022-12-21 02:18 | disposition home or self-care (01) ==
LOC: LBO 02:17
PROVIDERS: PCP Family Medicine; Visit Provider Internal Medicine Hematology & Oncology
DX: D46.9 Myelodysplastic syndrome, unspecified (principal)
CPT/HCPCS: 36415; 80053; 85025

== ENCOUNTER 2023-01-04 03:05 | Outpatient (CLI) | payer MEDICARE, SELFPAY ==
[2023-01-04 12:52] LABS: Abs Immature Grans 0.01 10^3/uL (0.0-0.06); Absolute Basophil Count 0.01 10^3/uL (0.0-0.2); Absolute Eosinophil Count 0.02 10^3/uL (0.0-0.7); Absolute Lymphocyte Count 0.59 10^3/uL (1.2-3.4); Absolute Monocyte Count 0.07 10^3/uL (0.1-0.8); Eosinophils % 1.9; HCT 31.2 % (40.0-50.0); Lymphocytes % 56.7; MCHC 32.1 % (32.0-36.0); MCV 109 fL (80-95); MPV 11.3 fL (8.0-11.0); Monocytes % 6.7; Neutrophils % 32.7; Platelet Count 98 10^3/uL (130-400); RBC 2.86 10^6/uL (4.36-5.78); RDW 17.9 % (11.8-14.1); RDW-SD 72.4 fL
[2023-01-04 13:05] LABS: Diff Comment Diff Reviewed; RBC Morphology Normal
[2023-01-04 13:07] LABS: Absolute Neutrophil Count 0.34 10^3/uL (1.2-6.7); WBC 1.04 10^3/uL (4.4-10.8)
[2023-01-04 13:38] LABS: ALT 15 U/L (16-63); AST 17 U/L (15-37); Albumin 3.2 g/dL (3.4-5.0); Alkaline Phosphatase 88 U/L (46-116); Anion Gap 7.1 mmol/L (3-11); BUN 42 mg/dL (7-18); Bilirubin, Total 0.5 mg/dL (0.2-1.0); CO2 26.9 mmol/L (21.0-32.0); CREATININE 1.9 mg/dL (0.70-1.30); Calcium 8.6 mg/dL (8.5-10.1); Chloride 108 mmol/L (98-107); Estimated GFR 34.14 (mL/min/1.73m2); Ferritin 81 ng/mL (26-388); Folate 14.1 ng/mL (8.6-20.0); Glucose 171 mg/dL (74-106); Potassium 4.9 mmol/L (3.5-5.1); Sodium 142 mmol/L (136-145); Total Protein 7.2 g/dL (6.4-8.2); Vitamin B12 730 pg/mL (193-986)
== END 2023-01-04 03:06 | disposition home or self-care (01) ==
PROVIDERS: PCP Family Medicine; Visit Provider Internal Medicine Hematology & Oncology
DX: N18.9 Chronic kidney disease, unspecified (principal); D63.1 Anemia in chronic kidney disease; D46.9 Myelodysplastic syndrome, unspecified; E53.8 Deficiency of other specified B group vitamins
CPT/HCPCS: 36415; 80053; 82607; 82728; 82746; 85025

== ENCOUNTER 2023-01-18 02:33 | Outpatient (CLI) | payer MEDICARE, SELFPAY ==
[2023-01-18 13:41] LABS: Abs Immature Grans 0.02 10^3/uL (0.0-0.06); Absolute Monocyte Count 0.11 10^3/uL (0.1-0.8); HCT 33.3 % (40.0-50.0); HGB 10.7 g/dL (13.5-17.5); MCH 34.9 pg (27.0-33.0); MCHC 32.1 % (32.0-36.0); MCV 109 fL (80-95); MPV 11.6 fL (8.0-11.0); RBC 3.07 10^6/uL (4.36-5.78); RDW 17.5 % (11.8-14.1); RDW-SD 69.2 fL
[2023-01-18 13:53] LABS: ALT 14 U/L (16-63); AST 16 U/L (15-37); Albumin 3.2 g/dL (3.4-5.0); Alkaline Phosphatase 101 U/L (46-116); BUN 28 mg/dL (7-18); Bilirubin, Total 0.7 mg/dL (0.2-1.0); CREATININE 1.6 mg/dL (0.70-1.30); Calcium 8.3 mg/dL (8.5-10.1); Chloride 107 mmol/L (98-107); Estimated GFR 41.96 (mL/min/1.73m2); Glucose 247 mg/dL (74-106); Potassium 4.9 mmol/L (3.5-5.1); Sodium 140 mmol/L (136-145); Total Protein 6.9 g/dL (6.4-8.2)
[2023-01-18 14:02] LABS: Platelet Count 86 10^3/uL (130-400)
[2023-01-18 14:03] LABS: Absolute Eosinophil Count 0.02 10^3/uL (0.0-0.7); Absolute Lymphocyte Count 0.63 10^3/uL (1.2-3.4); Bands % 1; Diff Comment Manual Differential; Metamyelocytes % 1; Myelocytes % 1
[2023-01-18 14:05] LABS: Anisocytosis 1+; Macrocytosis 1+; Poikilocytes 1+; Polychromasia Present
[2023-01-18 14:09] LABS: Absolute Neutrophil Count 0.34 10^3/uL (1.2-6.7); WBC 1.13 10^3/uL (4.4-10.8)
== END 2023-01-18 02:34 | disposition home or self-care (01) ==
PROVIDERS: Internal Medicine Hematology & Oncology; PCP Family Medicine; Visit Provider Internal Medicine Hematology & Oncology
DX: D46.9 Myelodysplastic syndrome, unspecified (principal)
CPT/HCPCS: 36415; 80053; 85025

== ENCOUNTER 2023-02-01 03:56 | Outpatient (CLI) | payer MEDICARE, SELFPAY ==
[2023-02-01 14:36] LABS: HCT 33.6 % (40.0-50.0); HGB 10.6 g/dL (13.5-17.5); MCH 34.5 pg (27.0-33.0); MCHC 31.5 % (32.0-36.0); MCV 109 fL (80-95); MPV 11.9 fL (8.0-11.0); Platelet Count 97 10^3/uL (130-400); RBC 3.07 10^6/uL (4.36-5.78); RDW-SD 67.9 fL
[2023-02-01 14:53] LABS: ALT 14 U/L (16-63); AST 14 U/L (15-37); Albumin 3.2 g/dL (3.4-5.0); Alkaline Phosphatase 93 U/L (46-116); Anion Gap 5.3 mmol/L (3-11); BUN 32 mg/dL (7-18); Bilirubin, Total 0.6 mg/dL (0.2-1.0); CO2 27.7 mmol/L (21.0-32.0); CREATININE 1.8 mg/dL (0.70-1.30); Calcium 8.7 mg/dL (8.5-10.1); Chloride 107 mmol/L (98-107); Estimated GFR 36.21 (mL/min/1.73m2); Glucose 203 mg/dL (74-106); Potassium 5.1 mmol/L (3.5-5.1); Sodium 140 mmol/L (136-145)
[2023-02-01 15:12] LABS: WBC 1.26 10^3/uL (4.4-10.8)
[2023-02-01 15:40] LABS: Absolute Lymphocyte Count 0.58 10^3/uL (1.2-3.4); Absolute Monocyte Count 0.03 10^3/uL (0.1-0.8); Absolute Neutrophil Count 0.63 10^3/uL (1.2-6.7); Atypical Lymphocytes % 2
[2023-02-01 15:41] LABS: Absolute Eosinophil Count 0.03 10^3/uL (0.0-0.7); Anisocytosis 1+; Diff Comment Diff Reviewed; Macrocytosis 1+
[2023-02-01 15:42] LABS: Polychromasia Present; Schistocytes 1+
[2023-02-02 12:53] LABS: NT-proBNP 1338 pg/mL (<300)
== END 2023-02-01 03:57 | disposition home or self-care (01) ==
PROVIDERS: PCP Family Medicine; Visit Provider Internal Medicine Hematology & Oncology
DX: D46.9 Myelodysplastic syndrome, unspecified (principal); I48.91 Unspecified atrial fibrillation
CPT/HCPCS: 36415; 80053; 83880; 85025

== ENCOUNTER 2023-02-15 05:25 | Outpatient (CLI) | payer MEDICARE, SELFPAY ==
[2023-02-15 13:06] LABS: HCT 33.3 % (40.0-50.0); HGB 10.8 g/dL (13.5-17.5); MCH 35.2 pg (27.0-33.0); MCHC 32.4 % (32.0-36.0); MPV 10.6 fL (8.0-11.0); RBC 3.07 10^6/uL (4.36-5.78); RDW 17.3 % (11.8-14.1)
[2023-02-15 13:28] LABS: ALT 13 U/L (16-63); AST 15 U/L (15-37); Albumin 3.4 g/dL (3.4-5.0); Alkaline Phosphatase 101 U/L (46-116); Anion Gap 7.2 mmol/L (3-11); BUN 33 mg/dL (7-18); Bilirubin, Total 0.7 mg/dL (0.2-1.0); CO2 26.8 mmol/L (21.0-32.0); CREATININE 1.7 mg/dL (0.70-1.30); Chloride 108 mmol/L (98-107); Estimated GFR 38.78 (mL/min/1.73m2); Glucose 252 mg/dL (74-106); MCV 109 fL (80-95); Platelet Count 87 10^3/uL (130-400); Potassium 4.9 mmol/L (3.5-5.1); Sodium 142 mmol/L (136-145); Total Protein 7.1 g/dL (6.4-8.2)
[2023-02-15 13:29] LABS: Absolute Eosinophil Count 0.06 10^3/uL (0.0-0.7); Absolute Lymphocyte Count 0.52 10^3/uL (1.2-3.4); Absolute Monocyte Count 0.06 10^3/uL (0.1-0.8); Anisocytosis 1+; Diff Comment Manual Differential; Macrocytosis 2+; Poikilocytes 1+; Polychromasia Present
[2023-02-15 13:33] LABS: Absolute Neutrophil Count 0.48 10^3/uL (1.2-6.7); WBC 1.11 10^3/uL (4.4-10.8)
== END 2023-02-15 05:26 | disposition home or self-care (01) ==
PROVIDERS: Internal Medicine Hematology & Oncology; PCP Family Medicine; Visit Provider Internal Medicine Hematology & Oncology
DX: D46.9 Myelodysplastic syndrome, unspecified (principal)
CPT/HCPCS: 36415; 80053; 85025

== ENCOUNTER 2023-03-01 02:20 | Outpatient (CLI) | payer MEDICARE, SELFPAY ==
[2023-03-01 13:12] LABS: Abs Immature Grans 0.01 10^3/uL (0.0-0.06); Absolute Basophil Count 0.01 10^3/uL (0.0-0.2); HCT 33.5 % (40.0-50.0); HGB 10.6 g/dL (13.5-17.5); MCH 34.3 pg (27.0-33.0); MCHC 31.6 % (32.0-36.0); MCV 108 fL (80-95); MPV 10.8 fL (8.0-11.0); RBC 3.09 10^6/uL (4.36-5.78); RDW 17.8 % (11.8-14.1)
[2023-03-01 13:23] LABS: ALT 14 U/L (16-63); AST 15 U/L (15-37); Albumin 3.3 g/dL (3.4-5.0); Alkaline Phosphatase 96 U/L (46-116); Anion Gap 10.2 mmol/L (3-11); BUN 32 mg/dL (7-18); Bilirubin, Total 0.5 mg/dL (0.2-1.0); CO2 25.8 mmol/L (21.0-32.0); CREATININE 1.9 mg/dL (0.70-1.30); Calcium 8.8 mg/dL (8.5-10.1); Chloride 106 mmol/L (98-107); Estimated GFR 33.93 (mL/min/1.73m2); Glucose 225 mg/dL (74-106); Potassium 4.6 mmol/L (3.5-5.1); Sodium 142 mmol/L (136-145)
[2023-03-01 13:31] LABS: WBC 1.11 10^3/uL (4.4-10.8)
[2023-03-01 13:33] LABS: Absolute Eosinophil Count 0.01 10^3/uL (0.0-0.7); Absolute Lymphocyte Count 0.61 10^3/uL (1.2-3.4); Absolute Monocyte Count 0.06 10^3/uL (0.1-0.8)
[2023-03-01 13:34] LABS: Absolute Neutrophil Count 0.42 10^3/uL (1.2-6.7); Diff Comment Manual Differential; Macrocytosis 2+; Poikilocytes 1+
[2023-03-01 13:35] LABS: Platelet Count 90 10^3/uL (130-400)
== END 2023-03-01 02:21 | disposition home or self-care (01) ==
LOC: LBO 02:20
PROVIDERS: PCP Family Medicine; Visit Provider Internal Medicine Hematology & Oncology
DX: D46.9 Myelodysplastic syndrome, unspecified (principal)
CPT/HCPCS: 36415; 80053; 85025

== ENCOUNTER 2023-03-15 10:07 | Outpatient (CLI) | payer MEDICARE, SELFPAY ==
[2023-03-15 12:01] LABS: ALT 19 U/L (16-63); AST 12 U/L (15-37); Albumin 3.5 g/dL (3.4-5.0); Alkaline Phosphatase 101 U/L (46-116); Anion Gap 5.2 mmol/L (3-11); BUN 30 mg/dL (7-18); Bilirubin, Total 0.8 mg/dL (0.2-1.0); CO2 28.8 mmol/L (21.0-32.0); CREATININE 1.6 mg/dL (0.70-1.30); Chloride 106 mmol/L (98-107); Glucose 100 mg/dL (74-106); Potassium 4.4 mmol/L (3.5-5.1); Sodium 140 mmol/L (136-145); Total Protein 7.6 g/dL (6.4-8.2)
[2023-03-15 12:49] LABS: Abs Immature Grans 0.01 10^3/uL (0.0-0.06); Absolute Basophil Count 0.01 10^3/uL (0.0-0.2); HCT 35.6 % (40.0-50.0); HGB 11.6 g/dL (13.5-17.5); Immature Grans % 0.9; MCHC 32.6 % (32.0-36.0); MCV 108 fL (80-95); MPV 12.1 fL (8.0-11.0); RBC 3.31 10^6/uL (4.36-5.78); RDW 18.1 % (11.8-14.1); RDW-SD 71.6 fL
[2023-03-15 13:07] LABS: Platelet Count 99 10^3/uL (130-400)
[2023-03-15 13:08] LABS: Absolute Eosinophil Count 0.04 10^3/uL (0.0-0.7); Absolute Monocyte Count 0.11 10^3/uL (0.1-0.8); Absolute Neutrophil Count 0.32 10^3/uL (1.2-6.7); Atypical Lymphocytes % 2
[2023-03-15 13:09] LABS: WBC 1.17 10^3/uL (4.4-10.8)
[2023-03-15 13:10] LABS: Diff Comment Manual Differential
[2023-03-15 13:11] LABS: Macrocytosis 2+
== END 2023-03-15 10:08 | disposition home or self-care (01) ==
PROVIDERS: PCP Family Medicine; Visit Provider Internal Medicine Hematology & Oncology
DX: D46.9 Myelodysplastic syndrome, unspecified (principal); N18.4 Chronic kidney disease, stage 4 (severe); D63.1 Anemia in chronic kidney disease
CPT/HCPCS: 36415; 80053; 85025

== ENCOUNTER 2023-03-29 09:16 | Outpatient (CLI) | payer MEDICARE, SELFPAY ==
[2023-03-29 07:43] LABS: Absolute Basophil Count 0.01 10^3/uL (0.0-0.2); HCT 34.3 % (40.0-50.0); HGB 10.8 g/dL (13.5-17.5); MCH 34.5 pg (27.0-33.0); MCHC 31.5 % (32.0-36.0); MCV 110 fL (80-95); MPV 10.6 fL (8.0-11.0); RBC 3.13 10^6/uL (4.36-5.78); RDW 18.7 % (11.8-14.1); RDW-SD 75.2 fL
[2023-03-29 08:00] LABS: ALT 19 U/L (16-63); AST 19 U/L (15-37); Albumin 3.2 g/dL (3.4-5.0); Alkaline Phosphatase 92 U/L (46-116); BUN 24 mg/dL (7-18); Bilirubin, Total 0.7 mg/dL (0.2-1.0); CREATININE 1.6 mg/dL (0.70-1.30); Calcium 9.2 mg/dL (8.5-10.1); Chloride 106 mmol/L (98-107); Glucose 188 mg/dL (74-106); Potassium 4.6 mmol/L (3.5-5.1); Sodium 141 mmol/L (136-145); Total Protein 7.2 g/dL (6.4-8.2)
[2023-03-29 08:11] LABS: Absolute Eosinophil Count 0.06 10^3/uL (0.0-0.7); Absolute Lymphocyte Count 0.72 10^3/uL (1.2-3.4); Absolute Monocyte Count 0.09 10^3/uL (0.1-0.8); Absolute Neutrophil Count 0.54 10^3/uL (1.2-6.7); Platelet Count 72 10^3/uL (130-400)
[2023-03-29 08:12] LABS: Anisocytosis 2+; Diff Comment Manual Differential; Macrocytosis 2+; Poikilocytes 1+; Polychromasia Present
[2023-03-29 08:16] LABS: WBC 1.42 10^3/uL (4.4-10.8)
== END 2023-03-29 09:17 | disposition home or self-care (01) ==
LOC: LBO 09:16
PROVIDERS: PCP Family Medicine; Visit Provider Internal Medicine Hematology & Oncology
DX: D63.1 Anemia in chronic kidney disease
CPT/HCPCS: 36415; 80053; 85025

== ENCOUNTER 2023-04-12 01:09 | Outpatient (CLI) | payer MEDICARE, SELFPAY ==
[2023-04-12 10:17] LABS: Abs Immature Grans 0.01 10^3/uL (0.0-0.06); Absolute Basophil Count 0.01 10^3/uL (0.0-0.2); Absolute Monocyte Count 0.09 10^3/uL (0.1-0.8); Basophils % 0.8; HCT 35.2 % (40.0-50.0); HGB 11.1 g/dL (13.5-17.5); Immature Grans % 0.8; MCH 34.5 pg (27.0-33.0); MCHC 31.5 % (32.0-36.0); MCV 109 fL (80-95); MPV 11.6 fL (8.0-11.0); Platelet Count 100 10^3/uL (130-400); RBC 3.22 10^6/uL (4.36-5.78); RDW 18.8 % (11.8-14.1); RDW-SD 75.6 fL
[2023-04-12 10:18] LABS: WBC 1.25 10^3/uL (4.4-10.8)
[2023-04-12 10:20] LABS: Absolute Neutrophil Count 0.49 10^3/uL (1.2-6.7); Lymphocytes % 50.4; Neutrophils % 39.2
[2023-04-12 10:21] LABS: Absolute Eosinophil Count 0.02 10^3/uL (0.0-0.7); Absolute Lymphocyte Count 0.63 10^3/uL (1.2-3.4); Atypical Lymphocytes % 0; Eosinophils % 1.6; Monocytes % 7.2
[2023-04-12 10:23] LABS: Diff Comment Agrees w/ Instrument
[2023-04-12 10:25] LABS: Macrocytosis 2+
[2023-04-12 10:26] LABS: Poikilocytes 1+; Polychromasia Present
[2023-04-12 10:28] LABS: Albumin 3.3 g/dL (3.4-5.0); Alkaline Phosphatase 101 U/L (46-116); BUN 26 mg/dL (7-18); Bilirubin, Total 0.8 mg/dL (0.2-1.0); CREATININE 1.7 mg/dL (0.70-1.30); Chloride 107 mmol/L (98-107); Estimated GFR 38.78 (mL/min/1.73m2); Glucose 159 mg/dL (74-106); Potassium 4.7 mmol/L (3.5-5.1); Sodium 140 mmol/L (136-145); Total Protein 7.4 g/dL (6.4-8.2)
[2023-04-12 10:29] LABS: ALT 14 U/L (16-63); AST 14 U/L (15-37)
== END 2023-04-12 01:10 | disposition home or self-care (01) ==
LOC: LBO 01:09
PROVIDERS: PCP Family Medicine; Visit Provider Internal Medicine Hematology & Oncology
DX: N18.9 Chronic kidney disease, unspecified (principal); D63.1 Anemia in chronic kidney disease; D46.9 Myelodysplastic syndrome, unspecified
CPT/HCPCS: 80053; 85025

== ENCOUNTER 2023-04-26 03:57 | Outpatient (CLI) | payer MEDICARE, SELFPAY ==
[2023-04-26 07:49] LABS: Abs Immature Grans 0.01 10^3/uL (0.0-0.06); Absolute Basophil Count 0.01 10^3/uL (0.0-0.2); Absolute Eosinophil Count 0.03 10^3/uL (0.0-0.7); Absolute Lymphocyte Count 0.69 10^3/uL (1.2-3.4); Absolute Monocyte Count 0.11 10^3/uL (0.1-0.8); Absolute Neutrophil Count 0.63 10^3/uL (1.2-6.7); Basophils % 0.7; HGB 10.2 g/dL (13.5-17.5); Immature Grans % 0.7; Lymphocytes % 46.6; MCH 34.7 pg (27.0-33.0); MCHC 31.9 % (32.0-36.0); MCV 109 fL (80-95); MPV 11.6 fL (8.0-11.0); Monocytes % 7.4; Neutrophils % 42.6; RBC 2.94 10^6/uL (4.36-5.78); RDW 18.5 % (11.8-14.1); RDW-SD 74.3 fL
[2023-04-26 08:05] LABS: WBC 1.48 10^3/uL (4.4-10.8)
[2023-04-26 08:06] LABS: Diff Comment Diff Reviewed; Macrocytosis 2+; Platelet Count 83 10^3/uL (130-400)
[2023-04-26 08:07] LABS: ALT 18 U/L (16-63); AST 15 U/L (15-37); Albumin 3.4 g/dL (3.4-5.0); Alkaline Phosphatase 104 U/L (46-116); Anion Gap 9.5 mmol/L (3-11); BUN 30 mg/dL (7-18); Bilirubin, Total 0.8 mg/dL (0.2-1.0); CO2 25.5 mmol/L (21.0-32.0); CREATININE 1.7 mg/dL (0.70-1.30); Chloride 108 mmol/L (98-107); Estimated GFR 38.78 (mL/min/1.73m2); Glucose 189 mg/dL (74-106); Potassium 4.5 mmol/L (3.5-5.1); Sodium 143 mmol/L (136-145); Total Protein 7.2 g/dL (6.4-8.2)
== END 2023-04-26 03:58 | disposition home or self-care (01) ==
LOC: LBO 03:57
PROVIDERS: PCP Family Medicine; Visit Provider Internal Medicine Hematology & Oncology
DX: N18.9 Chronic kidney disease, unspecified (principal); D63.1 Anemia in chronic kidney disease; D46.9 Myelodysplastic syndrome, unspecified
CPT/HCPCS: 36415; 80053; 85025

== ENCOUNTER 2023-05-10 12:47 | Outpatient (CLI) | payer MEDICARE, SELFPAY ==
[2023-05-10 11:12] LABS: Albumin 3.4 g/dL (3.4-5.0); Alkaline Phosphatase 110 U/L (46-116); Anion Gap 8.3 mmol/L (3-11); BUN 28 mg/dL (7-18); CO2 26.7 mmol/L (21.0-32.0); CREATININE 1.7 mg/dL (0.70-1.30); Calcium 9.2 mg/dL (8.5-10.1); Chloride 106 mmol/L (98-107); Estimated GFR 38.78 (mL/min/1.73m2); Glucose 217 mg/dL (74-106); Sodium 141 mmol/L (136-145); Total Protein 7.6 g/dL (6.4-8.2)
[2023-05-10 11:13] LABS: ALT 17 U/L (16-63); AST 17 U/L (15-37)
[2023-05-10 11:57] LABS: Absolute Basophil Count 0.01 10^3/uL (0.0-0.2); Absolute Eosinophil Count 0.02 10^3/uL (0.0-0.7); Absolute Lymphocyte Count 0.55 10^3/uL (1.2-3.4); Absolute Monocyte Count 0.12 10^3/uL (0.1-0.8); Basophils % 0.8; Eosinophils % 1.5; HCT 33.2 % (40.0-50.0); HGB 10.6 g/dL (13.5-17.5); MCH 34.5 pg (27.0-33.0); MCHC 31.9 % (32.0-36.0); MCV 108 fL (80-95); MPV 11.5 fL (8.0-11.0); Monocytes % 9.2; Neutrophils % 45.7; Platelet Count 103 10^3/uL (130-400); RBC 3.07 10^6/uL (4.36-5.78); RDW 18.1 % (11.8-14.1); RDW-SD 71.7 fL; WBC 1.31 10^3/uL (4.4-10.8)
[2023-05-10 11:58] LABS: Abs Immature Grans 0.01 10^3/uL (0.0-0.06); Diff Comment Diff Reviewed; Immature Grans % 0.8; Macrocytosis 2+
== END 2023-05-10 12:48 | disposition home or self-care (01) ==
LOC: LBO 12:47
PROVIDERS: PCP Family Medicine; Visit Provider Internal Medicine Hematology & Oncology
DX: N18.9 Chronic kidney disease, unspecified (principal); D63.1 Anemia in chronic kidney disease; D46.9 Myelodysplastic syndrome, unspecified
CPT/HCPCS: 36415; 80053; 85025

== ENCOUNTER 2023-05-14 20:07 | Emergency (ER) | payer MEDICARE, SELFPAY ==
[2023-05-14 20:10] VITALS: BP 212/99; PULSE 61; RESP 14; TEMP 36.8; O2SAT 94
[2023-05-14 20:34] VITALS: BP 188/93; PULSE 64; RESP 14; O2SAT 96
--- NOTE | 2023-05-14 20:43 | ED.GENADUL_ITS ---
Discharge Plan Disposition Patient Disposition: Home Discharge Details Clinical Impression: Kidney calculi Primary Care Provider: Sandra Park V ED Provider: Leonel Salazar Home Meds and New Rx's Prescriptions: New oxycodone 5 mg tablet 5 mg PO Q4H PRN (Reason: pain) Qty: 9 0RF polyethylene glycol 3350 [Miralax] 17 gram/dose powder 17 g PO DAILY PRN (Reason: consitpation) 7 Days Qty: 850 0RF No Action Retacrit 40,000 unit/mL solution 60,000 unit subcut .[id number] cetirizine [All Day Allergy (cetirizine)] 1 mg/mL solution 10 mg PO DAILY docusate sodium [Colace] 100 mg capsule 100 mg PO BID Rx Instructions: hold for loose stool polyethylene glycol 3350 [Miralax] 17 gram/dose powder 17 g PO DAILY PRN betamethasone dipropionate 0.05 % cream 1 applic topical BID PRN clotrimazole 1 % cream 1 applic topical BID cyanocobalamin (vitamin B-12) 1,000 mcg/mL solution 1,000 mcg IM QMONTH insulin degludec [Tresiba FlexTouch U-100] 100 unit/mL (3 mL) insulin pen 17 unit subcut HS metoprolol tartrate [Lopressor] 50 mg tablet 50 mg PO BID furosemide 20 mg tablet 20 mg PO DAILY pioglitazone [Actos] 30 mg tablet 30 mg PO DAILY famotidine 20 mg tablet 20 mg PO DAILY glipizide 10 MG tablet 10 mg PO DAILY simvastatin 40 MG tablet 20 mg PO HS losartan 100 MG tablet 100 mg PO DAILY Januvia 50 MG tablet 50 mg PO DAILY 90 Days Qty: 90 3RF Discharge Instructions Instructions: Kidney Stones (ED) Additional Instructions: You were seen in the emergency department for follow-up from your CAT scan today. You have some left-sided kidney stones causing you some obstruction on your left kidney. The stones may pass on their own with time. Take 1000 mg of Tylenol every 6 hours for any discomfort. Take 600 mg of ibuprofen/Motrin every 6 hours for any discomfort. Do not exceed this dosing. I have given you some oxycodone for breakthrough pain additionally. If you develop any high fevers or chills or intractable pain return straight back to the emergency department. You should also return if you are developing pain with urination. Follow-up with urologist I have referred you to especially if your symptoms do not fully resolve. Follow-up with your primary care doctor additionally. Referrals: Sandra Park MD [Primary Care Provider] - 2 weeks Freddie Ny MD [ [facility] STAFF PHYSICIAN] - 1 week Medical Decision Making 88-year-old male presents with left lower quadrant abdominal pain. Already had an outpatient CT scan of the abdomen and pelvis. This is showing some small left-sided kidney stones leading to hydroureteronephrosis. Renal function is at baseline from the outpatient labs as well. We will send a urine test to look for signs of infection though not endorsing any urinary symptoms or any fevers or chills or systemic symptoms. He does not have tenderness on examination which is consistent with a kidney stone additionally. Based off the description it looks like these are small stones in his renal function is at baseline and if there is no signs of infection certainly can be treated outpatient. I offered him pain medications but he is saying he does not have any significant pain right now. Tolerating p.o. without difficulty. Will await urine test to look for signs of infection and repeat labs and reevaluate. 926pm Urine without evidence of infection. Urine culture sent regardless. Pain-free presently. Would like to leave. We will send some pain medications in case his pain returns. We will give him referral to urology. Will discharge with return precautions. Medical Records Medical records reviewed: Yes I reviewed the patient's medical records. Imaging Data Radiologic Study: Imaging: CT Scan (abd and pelvis) Radiologist's impression: Left-sided hydroureteronephrosis with small kidney stones. Lab Data Lab results reviewed: Yes I reviewed the patient's lab results. Labs: Renal function at baseline. Chronic neutropenia and unchanged. Chronic anemia and unchanged. Other labs are unremarkable. Urine is without signs of infection and only some blood. HPI General Date/Time Provider Initiated Documentation: 05/14/23 20:23 . Limitations to Documentation: no limitations . Information obtained by: patient . HPI Narrative: 88-year-old male presents with left lower quadrant abdominal pain. Says he has had this over the last few days. Radiating into his groin. No testicular pain. No urinary symptoms such as painful urination. No fevers or chills. Says he is little constipated but still pooping and farting. No nausea or vomiting. Denies any other symptoms. Apparently went to urgent care and they sent him for a CT scan. His CT scan was showing some small left-sided kidney stones leading to some obstruction. There is a delay in them being able to contact him and they sent him here for a urine test to make sure it was not infected. As above, the patient is not endorsing any urinary symptoms or any fevers or chills. Related Data Home Medications Medication Instructions Recorded Confirmed glipizide 10 mg tablet 10 mg PO DAILY 11/10/15 05/14/23 losartan 100 mg tablet 100 mg PO DAILY 11/10/15 05/14/23 simvastatin 40 mg tablet 20 mg PO HS 11/10/15 05/14/23 sitagliptin phosphate 50 mg tablet 50 mg PO DAILY 90 days #90 tabs 07/22/17 05/14/23 (Januvia) cyanocobalamin (vitamin B-12) 1,000 mcg IM QMONTH 08/09/21 05/14/23 1,000 mcg/mL injection solution famotidine 20 mg tablet 20 mg PO DAILY 08/09/21 05/14/23 furosemide 20 mg tablet 20 mg PO DAILY 08/09/21 05/14/23 insulin degludec 100 unit/mL (3 17 unit subcut HS 08/09/21 05/14/23 mL) subcutaneous pen (Tresiba FlexTouch U-100 insulin) metoprolol tartrate 50 mg tablet 50 mg PO BID 08/09/21 05/14/23 (Lopressor) pioglitazone 30 mg tablet (Actos) 30 mg PO DAILY 08/09/21 05/14/23 betamethasone dipropionate 0.05 % 1 applic topical BID PRN 09/14/21 05/14/23 topical cream clotrimazole 1 % topical cream 1 applic topical BID 09/14/21 05/14/23 cetirizine 1 mg/mL oral solution 10 mg PO DAILY 09/15/22 05/14/23 (All Day Allergy (cetirizine)) docusate sodium 100 mg capsule 100 mg PO BID 09/15/22 05/14/23 (Colace) epoetin sajan-epbx 40,000 unit/mL 60,000 unit subcut .[id number] 09/15/22 05/14/23 injection solution (Retacrit) polyethylene glycol 3350 17 17 g PO DAILY PRN 09/15/22 05/14/23 gram/dose oral powder (Miralax) oxycodone 5 mg tablet 5 mg PO Q4H PRN pain #9 tabs 05/14/23 polyethylene glycol 3350 17 17 g PO DAILY PRN consitpation 7 05/14/23 gram/dose oral powder (Miralax) days #850 grams Previous Rx's Medication Instructions Recorded sitagliptin phosphate 50 mg tablet 50 mg PO DAILY 90 days #90 tabs 07/22/17 (Januvia) oxycodone 5 mg tablet 5 mg PO Q4H PRN pain #9 tabs 05/14/23 polyethylene glycol 3350 17 17 g PO DAILY PRN consitpation 7 05/14/23 gram/dose oral powder (Miralax) days #850 grams Allergies Allergy/AdvReac Type Severity Reaction Status Date / Time gabapentin Allergy Mild Verified 05/14/23 20:21 Sulfa (Sulfonamide Allergy Mild Unverified 05/14/23 20:21 Antibiotics) tramadol Allergy Mild Verified 05/14/23 20:21 aspirin AdvReac Intermediate Bloody Unverified 05/14/23 20:21 nose, bruising metformin [From Glucophage] AdvReac Intermediate Unverified 05/14/23 20:21 General Stated Complaint: Abd Prob NICHOL: 4 Review of Systems Constitutional Constitutional: Denies chills, Denies fever(s) and Denies headache(s) Eyes Eyes: Denies change in vision ENT Ears, Nose, Mouth, and Throat: Denies headache(s) and Denies odynophagia Cardiovascular Cardiovascular: Denies chest pain and Denies dyspnea Respiratory Respiratory: Denies dyspnea Gastrointestinal Gastrointestinal: Reports abdominal pain, Reports constipation, Denies diarrhea, Denies nausea, Denies odynophagia and Denies vomiting Genitourinary Genitourinary: Denies dysuria Musculoskeletal Musculoskeletal: Denies myalgias Integumentary/Breasts Skin/Breast: Denies changing lesions Neurologic Neurologic: Denies behavioral changes and Denies headache(s) Psychiatric Psychiatric: Denies behavioral changes Endocrine Endocrine: Denies heat intolerance Hematologic/Lymphatic Hematologic/Lymphatic: Denies lymphadenopathy PFSH All Active Problems (Updated 05/14/23 @ 21:28 by Leonel Salazar MD) Kidney calculi (Chronic) Nail dystrophy (Acute) Edema (Acute) GERD (gastroesophageal reflux disease) (Chronic) B12 deficiency (Acute) Hypercholesterolemia (Acute) HTN (hypertension) (Chronic) CKD (chronic kidney disease) (Chronic) STAGE IV Diabetes mellitus (Chronic) 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 Pharyngoesophageal dysphagia (Acute) Chronic rhinitis (Acute) Atrial fibrillation (Chronic) NO anti-coagulant given patient's thrombocytopenia status. 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, partial colectomy Surgical History S/P hernia repair Social History Smoking/Tobacco Use Status: Never Smoking risk assessment performed?: Yes Alcohol Intake: never Drug use: Never Current gender identity: male Do you feel safe in your relationship?: Yes Exam Const General: cooperative Nutritional Appearance: average body habitus Orientation: alert, awake and oriented x3 HENMT Head: normal to inspection Ears: external ears normal Mouth: moist mucous membranes Eyes Pupils: PERRL EOM: EOM intact bilaterally and No nystagmus Neck Neck: full ROM and no tracheal deviation Chest Chest: normal inspection of the chest Resp Auscultation: clear to auscultation bilaterally Cardio Rate: regular rate Rhythm: regular rhythm GI Inspection: normal to inspection Palpation: soft, no guarding, not rigid and nontender Back/Spine/Pelvis Back: No no CVA tenderness Thoracic/Lumbar Spine: thoracic and lumbar spine normal to inspection Skin General skin exam: no rashes or lesions noted Neuro General: patient alert, patient awake and patient oriented x3 Cranial Nerves: CN's II-XI intact bilaterally, PERRL and no nystagmus Cognition: normal cognition Motor: muscle tone normal throughout and strength 5/5 throughout Sensory Exam: no sensory deficits noted Extrem General: normal to inspection Course Vital Signs Vital signs: Vital Signs Temperature 36.8 C 05/14/23 20:10 Pulse 61 05/14/23 20:10 Respiratory Rate 14 05/14/23 20:10 Blood Pressure 212/99 H 05/14/23 20:10 Pulse Oximetry 94 05/14/23 20:10 Temperature 36.8 C 05/14/23 20:10 Temperature Source Oral 05/14/23 20:10 Pulse 64 05/14/23 20:34 Respiratory Rate 14 05/14/23 20:34 Respiratory Effort Normal, Non-Labored 05/14/23 20:34 Blood Pressure 188/93 H 05/14/23 20:34 Blood Pressure Position Sitting 05/14/23 20:34 Pulse Oximetry 96 05/14/23 20:34 Oxygen Delivery Method Room Air 05/14/23 20:34 Oxygen Flow Rate 0 05/14/23 20:10 Pain Level 1 05/14/23 20:34
[2023-05-14 21:00] LABS: Bilirubin Negative (Negative); Blood Large (Negative); Clarity Cloudy (Clear); Glucose 100 mg/dL (Negative); HCT 33.8 % (40.0-50.0); HGB 11.2 g/dL (13.5-17.5); Ketones Negative (Negative); Leukocyte Esterase Negative (Negative); MCH 34.3 pg (27.0-33.0); MCHC 33.1 % (32.0-36.0); MCV 103 fL (80-95); MPV 12.4 fL (8.0-11.0); Nitrite Negative (Negative); RBC 3.27 10^6/uL (4.36-5.78); RDW 17.8 % (11.8-14.1); RDW-SD 67.8 fL; Specific Gravity 1.025 (1.005-1.025); Urobilinogen 0.2 mg/dL (Up to 0.2)
[2023-05-14 21:07] LABS: WBC 1.66 10^3/uL (4.4-10.8)
[2023-05-14 21:14] LABS: ALT 16 U/L (16-63); AST 15 U/L (15-37); Albumin 3.6 g/dL (3.4-5.0); Alkaline Phosphatase 112 U/L (46-116); Anion Gap 7.9 mmol/L (3-11); BUN 34 mg/dL (7-18); Bilirubin, Total 1.5 mg/dL (0.2-1.0); CO2 27.1 mmol/L (21.0-32.0); CREATININE 1.9 mg/dL (0.70-1.30); Chloride 100 mmol/L (98-107); Estimated GFR 33.93 (mL/min/1.73m2); Glucose 234 mg/dL (74-106); Potassium 4.4 mmol/L (3.5-5.1); Sodium 135 mmol/L (136-145); Total Protein 7.8 g/dL (6.4-8.2)
[2023-05-14 21:20] LABS: Absolute Eosinophil Count 0.02 10^3/uL (0.0-0.7); Absolute Lymphocyte Count 0.46 10^3/uL (1.2-3.4); Absolute Monocyte Count 0.15 10^3/uL (0.1-0.8); Absolute Neutrophil Count 1.03 10^3/uL (1.2-6.7); Anisocytosis 1+; Atypical Lymphocytes % 1; Bands % 1; Diff Comment Manual Differential
[2023-05-14 21:21] LABS: Macrocytosis 1+; Poikilocytes 1+; Polychromasia Present
[2023-05-14] MEDS: Lactated Ringers 1,000 ML 1000 ML IV (21:21)
[2023-05-14 21:22] LABS: Platelet Count 100 10^3/uL (130-400)
[2023-05-14 21:26] LABS: Bacteria Few HPF (Negative); Crystals Negative HPF (Negative); Epithelial Cells Negative HPF (Negative); Mucus Trace (Negative)
[2023-05-14 21:27] LABS: C & S Indicated? C&S Done As Ordered; Casts 0-2 Fine Granular LPF (Negative)
[2023-05-14 21:47] VITALS: BP 148/75; PULSE 66; RESP 14; TEMP 36.6; O2SAT 94
== END 2023-05-14 21:52 | disposition home or self-care (01) ==
PROVIDERS: Emergency Provider Student in an Organized Health Care Education/Training Program; PCP Family Medicine
DX: N20.0 Calculus of kidney (principal)
CPT/HCPCS: 36415; 80053; 96360; 99284; 81003; 81015; 83735; 85025; 87086

== ENCOUNTER → 2023-05-14 21:05 | Outpatient (CLI) | payer MEDICARE, SELFPAY ==
--- NOTE | 2023-05-14 | DI.CT_ITS ---
Exam(s) CT ABDOMEN PELVIS WO EXAM: CT ABDOMEN PELVIS WO CLINICAL HISTORY: LLQ ABD PAIN R10.32. TECHNIQUE: Imaging Protocol: Axial computed tomography images with coronal and sagittal reformatted images were created and reviewed CONTRAST MATERIAL: Intravenous: none (significantly decreased renal function blood work) Oral: Yes COMPARISON: CT CT CHEST/ABD/PEL WO from 09/28/2022 FINDINGS: VISUALIZED LUNG BASES: Benign calcified granuloma again noted in the right lung base. No pleural eff usions.. ABDOMEN: There is no ascites. Partial right colectomy noted. No evidence of bowel obstruction. LIVER: There are no obvious focal hepatic lesions evident of this noninfused study. GALLBLADDER/BILIARY: Cholelithiasis again noted without evidence of acute cholecystitis. CBD is not dilated. PANCREAS: No evidence of pancreatic mass nor dilatation of the pancreatic duct. SPLEEN: Spleen size upper normal. Splenic granulomas noted ADRENALS: There are no new significant adrenal masses. KIDNEYS:Right kidney again exhibits a uniformly hyperdense hemorrhagic cyst off the lateral cortex me asuring 2.6 by 2.4 cm, this in addition to the other more simple appearing benign cysts, 1 of which c ontains some peripheral calcification but nevertheless with benign appearance. No hydronephrosis nor obstructing calculi on the right side. Right ureter is not dilated. Left kidney is now abnormal in appearance. Previously described cysts are again noted but there is n ow perinephric streaking is well streaking around the dilated left ureter. There is a new calcific d ensity noted within the left ureter consistent with probable calculus. On the coronal images there a re actually appear to be 3 adjacent tiny calculi in the ureter at this level. The ureter below the l evel of these intraureteral calculi is dilated for short distance and thereafter normal caliber. The re is abundant streaking around the affected left ureter. There are no calculi evident at the ureter ovesical junctions nor within the nondistended urinary bladder. 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 There is also an element of arterial megaly of the bilateral calcifie d common iliac arteries. LYMPH NODES: There is no retroperitoneal nor paraaortic adenopathy. ABDOMINAL WALL: No evidence of significant anterior abdominal wall nor inguinal hernia. GI: There is no evidence of bowel obstruction, free air, nor abscess. PELVIS: LYMPH NODES: There is no intrapelvic nor inguinal adenopathy. GI: Appendix is surgically absent in this patient has had prior right partial hemicolectomy.There is sigmoid diverticuli without evidence of acute diverticulitis. URINARY BLADDER: No calculi nor obvious masses evident REPRODUCTIVE: Prostate size normal. Seminal vesicles unremarkable. OSSEOUS: No significant osseous lesions. No acute fractures. IMPRESSION: 1. Compared to the prior CT scan of 09/28/2022 there are again noted bilateral benign cysts and hemor rhagic cysts in the kidneys. However, there is now perinephric streaking on the left side and left-s ided hydronephrosis-hydroureter and Susana ureteral streaking. There are 3 small calculi evident in th e mid-lower left ureter approximately L5 level. There is also susana nephric streaking and some dilata tion of the left ureter for few cm below the level of these calculi which may indicate prior passage of other calculi although there none seen in the urinary bladder. The lower most few cm of the urete r exhibits normal diameter and no Susana ureteral streaking. Both UVJ junctions appear unremarkable an d there are no radiopaque calculi in the bladder. The bladder is not distended. There are no obviou s masses in the bladder. Urology consultation recommended 2. Evidence of prior right partial hemicolectomy. No bowel obstruction. 3. Cholelithiasis without evidence of acute cholecystitis. Wet read performed RADIATION DOSE DELIVERED: Total DLP DATA REPOSITORY: All CT scans at this facility are submitted to the National Radiology Data Registry (NRDR) Dose Index Registry (DIR) with the [employer] (ACR). RADIATION OPTIMIZATION: All CT scans at this facility use at least one of these dose optimization te chniques: automated exposure control; mA and/or kV adjustment per patient size (includes targeted exa ms where dose is matched to clinical indication); or iterative reconstruction.
[2023-05-14 14:01] LABS: CREATININE 1.9 mg/dL (0.70-1.30); Estimated GFR 33.93 (mL/min/1.73m2)
== END ==
PROVIDERS: PCP Family Medicine; Visit Provider Nurse Practitioner Family
DX: Z90.49 Acquired absence of other specified parts of digestive tract; K80.70 Calculus of gallbladder and bile duct without cholecystitis without obstruction; N28.1 Cyst of kidney, acquired
CPT/HCPCS: 74176; 82565

== ENCOUNTER 2023-05-25 13:15 | Outpatient (CLI) | payer MEDICARE, SELFPAY ==
[2023-05-25 13:15] LABS: Absolute Basophil Count 0.01 10^3/uL (0.0-0.2); Absolute Monocyte Count 0.08 10^3/uL (0.1-0.8); HCT 31.5 % (40.0-50.0); HGB 10.2 g/dL (13.5-17.5); MCH 34.9 pg (27.0-33.0); MCHC 32.4 % (32.0-36.0); MCV 108 fL (80-95); MPV 9.7 fL (8.0-11.0); Platelet Count 100 10^3/uL (130-400); RBC 2.92 10^6/uL (4.36-5.78); RDW 17.4 % (11.8-14.1); RDW-SD 68.9 fL
[2023-05-25 13:27] LABS: Bands % 1
[2023-05-25 13:28] LABS: Absolute Eosinophil Count 0.03 10^3/uL (0.0-0.7); Atypical Lymphocytes % 8; Diff Comment Manual Differential; RBC Morphology Normal
[2023-05-25 13:29] LABS: Absolute Neutrophil Count 0.37 10^3/uL (1.2-6.7)
[2023-05-25 13:30] LABS: WBC 1.29 10^3/uL (4.4-10.8)
[2023-05-25 13:40] LABS: ALT 16 U/L (16-63); AST 14 U/L (15-37); Albumin 3.2 g/dL (3.4-5.0); Alkaline Phosphatase 101 U/L (46-116); Anion Gap 5.5 mmol/L (3-11); BUN 32 mg/dL (7-18); Bilirubin, Total 0.5 mg/dL (0.2-1.0); CO2 27.5 mmol/L (21.0-32.0); CREATININE 1.9 mg/dL (0.70-1.30); Calcium 8.6 mg/dL (8.5-10.1); Chloride 105 mmol/L (98-107); Estimated GFR 33.93 (mL/min/1.73m2); Ferritin 146 ng/mL (26-388); Glucose 197 mg/dL (74-106); Sodium 138 mmol/L (136-145); Total Protein 7.1 g/dL (6.4-8.2)
[2023-05-28 09:26] LABS: CEA 0.8 ng/mL (See Note)
== END 2023-05-25 13:16 | disposition home or self-care (01) ==
LOC: LBO 13:15
PROVIDERS: PCP Family Medicine; Visit Provider Internal Medicine Hematology & Oncology
DX: N18.30 Chronic kidney disease, stage 3 unspecified (principal)
CPT/HCPCS: 36415; 80053; 82378; 82728; 85025

== ENCOUNTER 2023-06-07 04:41 | Outpatient (CLI) | payer MEDICARE, SELFPAY ==
[2023-06-07 11:14] LABS: Abs Immature Grans 0.01 10^3/uL (0.0-0.06); Absolute Basophil Count 0.01 10^3/uL (0.0-0.2); Absolute Eosinophil Count 0.01 10^3/uL (0.0-0.7); Absolute Lymphocyte Count 0.61 10^3/uL (1.2-3.4); Absolute Neutrophil Count 0.59 10^3/uL (1.2-6.7); Basophils % 0.8; Eosinophils % 0.8; HCT 32.5 % (40.0-50.0); HGB 10.4 g/dL (13.5-17.5); Immature Grans % 0.8; Lymphocytes % 45.9; MCH 34.8 pg (27.0-33.0); MCV 109 fL (80-95); MPV 11.6 fL (8.0-11.0); Monocytes % 7.5; Neutrophils % 44.2; RBC 2.99 10^6/uL (4.36-5.78); RDW 17.6 % (11.8-14.1); RDW-SD 70.4 fL
[2023-06-07 11:28] LABS: Platelet Count 82 10^3/uL (130-400)
[2023-06-07 11:29] LABS: Diff Comment Agrees w/ Instrument; Macrocytosis 1+
[2023-06-07 11:31] LABS: WBC 1.33 10^3/uL (4.4-10.8)
[2023-06-07 11:46] LABS: ALT 17 U/L (16-63); AST 13 U/L (15-37); Albumin 3.2 g/dL (3.4-5.0); Alkaline Phosphatase 103 U/L (46-116); Anion Gap 8.1 mmol/L (3-11); BUN 24 mg/dL (7-18); Bilirubin, Total 0.8 mg/dL (0.2-1.0); CO2 28.9 mmol/L (21.0-32.0); CREATININE 1.5 mg/dL (0.70-1.30); Calcium 8.9 mg/dL (8.5-10.1); Chloride 107 mmol/L (98-107); Estimated GFR 45.06 (mL/min/1.73m2); Ferritin 118 ng/mL (26-388); Glucose 187 mg/dL (74-106); Sodium 144 mmol/L (136-145); Total Protein 7.1 g/dL (6.4-8.2)
[2023-06-07 19:27] LABS: CEA 0.8 ng/mL (See Note)
== END 2023-06-07 04:42 | disposition home or self-care (01) ==
LOC: LBO 04:41
PROVIDERS: PCP Family Medicine; Visit Provider Internal Medicine Hematology & Oncology
DX: N18.9 Chronic kidney disease, unspecified (principal); D63.1 Anemia in chronic kidney disease
CPT/HCPCS: 36415; 80053; 82378; 82728; 85025

== ENCOUNTER 2023-06-21 03:03 | Outpatient (CLI) | payer MEDICARE, SELFPAY ==
[2023-06-21 07:53] LABS: Abs Immature Grans 0.01 10^3/uL (0.0-0.06); HCT 32.3 % (40.0-50.0); HGB 10.4 g/dL (13.5-17.5); MCHC 32.2 % (32.0-36.0); MCV 109 fL (80-95); MPV 11.7 fL (8.0-11.0); RBC 2.97 10^6/uL (4.36-5.78); RDW 17.5 % (11.8-14.1)
[2023-06-21 08:08] LABS: WBC 1.36 10^3/uL (4.4-10.8)
[2023-06-21 08:09] LABS: Absolute Lymphocyte Count 0.46 10^3/uL (1.2-3.4); Absolute Monocyte Count 0.19 10^3/uL (0.1-0.8); Absolute Neutrophil Count 0.68 10^3/uL (1.2-6.7); Bands % 2; Diff Comment Manual Differential; Macrocytosis 1+; Metamyelocytes % 2; Poikilocytes 1+; Polychromasia Present
[2023-06-21 08:13] LABS: ALT 18 U/L (16-63); AST 15 U/L (15-37); Albumin 3.3 g/dL (3.4-5.0); Alkaline Phosphatase 103 U/L (46-116); Anion Gap 6.6 mmol/L (3-11); BUN 24 mg/dL (7-18); CO2 28.4 mmol/L (21.0-32.0); CREATININE 1.7 mg/dL (0.70-1.30); Calcium 8.6 mg/dL (8.5-10.1); Chloride 107 mmol/L (98-107); Estimated GFR 38.78 (mL/min/1.73m2); Glucose 202 mg/dL (74-106); Potassium 4.7 mmol/L (3.5-5.1); Sodium 142 mmol/L (136-145); Total Protein 7.1 g/dL (6.4-8.2)
[2023-06-21 08:20] LABS: Platelet Count 89 10^3/uL (130-400)
== END 2023-06-21 03:04 | disposition home or self-care (01) ==
LOC: LBO 03:03
PROVIDERS: PCP Family Medicine; Visit Provider Internal Medicine Hematology & Oncology
DX: D63.1 Anemia in chronic kidney disease
CPT/HCPCS: 36415; 80053; 85025

== ENCOUNTER 2023-07-05 03:05 | Outpatient (CLI) | payer MEDICARE, SELFPAY ==
[2023-07-05 08:02] LABS: Absolute Eosinophil Count 0.03 10^3/uL (0.0-0.7); HCT 34.3 % (40.0-50.0); HGB 10.9 g/dL (13.5-17.5); MCH 34.5 pg (27.0-33.0); MCHC 31.8 % (32.0-36.0); MCV 109 fL (80-95); MPV 11.9 fL (8.0-11.0); RBC 3.16 10^6/uL (4.36-5.78); RDW 17.3 % (11.8-14.1)
[2023-07-05 08:28] LABS: ALT 18 U/L (16-63); AST 14 U/L (15-37); Albumin 3.2 g/dL (3.4-5.0); Alkaline Phosphatase 101 U/L (46-116); BUN 34 mg/dL (7-18); Bilirubin, Total 0.9 mg/dL (0.2-1.0); Calcium 8.5 mg/dL (8.5-10.1); Chloride 106 mmol/L (98-107); Ferritin 104 ng/mL (26-388); Glucose 208 mg/dL (74-106); Potassium 4.4 mmol/L (3.5-5.1); Sodium 141 mmol/L (136-145); Total Protein 7.1 g/dL (6.4-8.2)
[2023-07-05 08:32] LABS: Absolute Lymphocyte Count 0.56 10^3/uL (1.2-3.4); Absolute Monocyte Count 0.11 10^3/uL (0.1-0.8); Absolute Neutrophil Count 0.71 10^3/uL (1.2-6.7); Anisocytosis 1+; Bands % 4; Diff Comment Manual Differential; Macrocytosis 1+; Platelet Count 98 10^3/uL (130-400); Polychromasia Present
[2023-07-05 08:33] LABS: Poikilocytes 1+
[2023-07-05 08:35] LABS: WBC 1.41 10^3/uL (4.4-10.8)
[2023-07-05 15:24] LABS: TSH (W/Ref FT4) 1.22 uIU/mL (0.36-3.74)
[2023-07-05 17:30] LABS: Hemoglobin A1C 7.1 % (<5.7)
[2023-07-05 17:38] LABS: NT-proBNP 4669 pg/mL (<300)
[2023-07-05 21:23] LABS: CEA 0.9 ng/mL (See Note)
== END 2023-07-05 03:06 | disposition home or self-care (01) ==
LOC: LBO 03:06
PROVIDERS: PCP Family Medicine; Visit Provider Internal Medicine Hematology & Oncology
DX: N18.30 Chronic kidney disease, stage 3 unspecified (principal); C18.9 Malignant neoplasm of colon, unspecified; I48.91 Unspecified atrial fibrillation; E11.9 Type 2 diabetes mellitus without complications; R06.00 Dyspnea, unspecified
CPT/HCPCS: 36415; 80053; 82378; 82728; 83036; 83880; 84443; 85025

== ENCOUNTER 2023-07-19 07:38 | Outpatient (CLI) | payer MEDICARE, SELFPAY ==
[2023-07-19 07:51] LABS: HCT 32.3 % (40.0-50.0); HGB 10.3 g/dL (13.5-17.5); MCH 34.2 pg (27.0-33.0); MCHC 31.9 % (32.0-36.0); MCV 107 fL (80-95); MPV 11.1 fL (8.0-11.0); RBC 3.01 10^6/uL (4.36-5.78); RDW 17.2 % (11.8-14.1); RDW-SD 67.3 fL
[2023-07-19 08:04] LABS: WBC 1.29 10^3/uL (4.4-10.8)
[2023-07-19 08:07] LABS: Platelet Count 86 10^3/uL (130-400)
[2023-07-19 08:08] LABS: Absolute Eosinophil Count 0.04 10^3/uL (0.0-0.7); Absolute Lymphocyte Count 0.45 10^3/uL (1.2-3.4); Absolute Monocyte Count 0.05 10^3/uL (0.1-0.8); Absolute Neutrophil Count 0.74 10^3/uL (1.2-6.7); Atypical Lymphocytes % 10; Bands % 4; Diff Comment Manual Differential; Macrocytosis 2+; Other Cells % 1
[2023-07-19 08:16] LABS: ALT 21 U/L (16-63); AST 16 U/L (15-37); Albumin 3.2 g/dL (3.4-5.0); Alkaline Phosphatase 106 U/L (46-116); Anion Gap 1.8 mmol/L (3-11); BUN 26 mg/dL (7-18); CO2 29.2 mmol/L (21.0-32.0); CREATININE 1.7 mg/dL (0.70-1.30); Calcium 8.6 mg/dL (8.5-10.1); Chloride 106 mmol/L (98-107); Estimated GFR 38.78 (mL/min/1.73m2); Ferritin 127 ng/mL (26-388); Glucose 245 mg/dL (74-106); Potassium 4.4 mmol/L (3.5-5.1); Sodium 137 mmol/L (136-145)
[2023-07-19 18:29] LABS: CEA 0.9 ng/mL (See Note)
== END 2023-07-19 07:39 | disposition home or self-care (01) ==
LOC: LBO 07:38
PROVIDERS: PCP Family Medicine; Visit Provider Internal Medicine Hematology & Oncology
DX: N18.9 Chronic kidney disease, unspecified (principal); C18.9 Malignant neoplasm of colon, unspecified
CPT/HCPCS: 36415; 80053; 82378; 82728; 85025

== ENCOUNTER 2023-08-02 10:43 | Outpatient (CLI) | payer MEDICARE, SELFPAY ==
[2023-08-02 07:47] LABS: Abs Immature Grans 0.02 10^3/uL (0.0-0.06); Absolute Basophil Count 0.01 10^3/uL (0.0-0.2); Absolute Eosinophil Count 0.03 10^3/uL (0.0-0.7); Absolute Lymphocyte Count 0.45 10^3/uL (1.2-3.4); Absolute Monocyte Count 0.12 10^3/uL (0.1-0.8); Absolute Neutrophil Count 0.71 10^3/uL (1.2-6.7); Basophils % 0.7; Eosinophils % 2.2; HCT 31.9 % (40.0-50.0); HGB 10.3 g/dL (13.5-17.5); Immature Grans % 1.5; Lymphocytes % 33.6; MCHC 32.3 % (32.0-36.0); MCV 105 fL (80-95); MPV 10.2 fL (8.0-11.0); RBC 3.03 10^6/uL (4.36-5.78)
[2023-08-02 08:13] LABS: ALT 21 U/L (16-63); AST 15 U/L (15-37); Albumin 3.2 g/dL (3.4-5.0); Alkaline Phosphatase 102 U/L (46-116); Anion Gap 3.5 mmol/L (3-11); BUN 26 mg/dL (7-18); Bilirubin, Total 1.1 mg/dL (0.2-1.0); CO2 31.5 mmol/L (21.0-32.0); CREATININE 1.7 mg/dL (0.70-1.30); Calcium 8.6 mg/dL (8.5-10.1); Chloride 106 mmol/L (98-107); Estimated GFR 38.78 (mL/min/1.73m2); Ferritin 116 ng/mL (26-388); Glucose 225 mg/dL (74-106); Potassium 4.6 mmol/L (3.5-5.1); Sodium 141 mmol/L (136-145); Total Protein 7.1 g/dL (6.4-8.2)
[2023-08-02 08:20] LABS: Diff Comment Diff Reviewed; Macrocytosis 2+; Platelet Count 93 10^3/uL (130-400)
[2023-08-02 08:25] LABS: WBC 1.34 10^3/uL (4.4-10.8)
[2023-08-02 18:16] LABS: CEA 0.8 ng/mL (See Note)
== END 2023-08-02 10:44 | disposition home or self-care (01) ==
LOC: LBO 10:43
PROVIDERS: PCP Family Medicine; Visit Provider Internal Medicine Hematology & Oncology
DX: N18.9 Chronic kidney disease, unspecified (principal); D83.1 Common variable immunodeficiency with predominant immunoregulatory T-cell disorders
CPT/HCPCS: 36415; 80053; 82378; 82728; 85025

== ENCOUNTER → 2023-08-13 02:20 | Outpatient (CLI) | payer MEDICARE, SELFPAY ==
--- NOTE | 2023-08-13 08:30 | DI.US_ITS ---
APPROVED REPORT EXAM: Comprehensive 2D, Doppler, and color-flow Echocardiogram Patient Location: Out-Patient [employer] Groover: Zia Ryan RDCS (AE) Indications: Atrial fibrillation, progressive dyspnea Conclusion Normal left ventricular wall thickness and chamber size. Ejection fraction is 60-65%. Wall motion i s normal Normal right ventricular size and systolic function Both atria are normal in size Trileaflet aortic valve with trace regurgitation Normal mitral valve with trace regurgitation Normal tricuspid valve with mild regurgitation. Estimated right ventricular systolic pressure is 50 mmHg Wall motion Left Ventricle The left ventricle is normal size. The left ventricular systolic function is normal. The left ventric ular ejection fraction is within the normal range. There is normal left ventricular wall thickness. T here is normal LV segmental wall motion. There is no ventricular septal defect visualized. LVEF is 60 -65% Right Ventricle The right ventricle is normal size. Right ventricular systolic function is grossly normal. Atria The left atrium size is normal. The right atrium size is normal. The interatrial septum is intact wit h no evidence for an atrial septal defect. Aortic Valve The aortic valve is normal in structure. Aortic valve is trileaflet. There is no aortic valvular sten osis. Trace aortic regurgitation. Mitral Valve The mitral valve is normal in structure. No evidence of mitral valve stenosis. Trace mitral regurgita tion. Tricuspid Valve The tricuspid valve is normal in structure. There is no tricuspid valve stenosis. Mild tricuspid regu rgitation. The RVSP is 49.6 mmHg. Pulmonic Valve The pulmonary valve is normal in structure. There is no pulmonic valvular stenosis. Mild pulmonic reg urgitation. Great Vessels The aortic root is normal in size. The ascending aorta is mildly dilated. Aortic arch is not well vis ualized. IVC is normal in size and collapses >50% with inspiration. Pericardium There is no pericardial effusion. 2D Dimensions IVSD d PLAX 1.19 cm M: 0.6-1.2 Ao Root d 3.62 cm M: 3.1 - 3.7 LVPW d PLAX 1.15 cm M: 0.6 - 1.2 Ao Asc Diam d 3.74 cm M: 2.6 - 3.4 LVID d PLAX 4.05 cm M: 4.2 - 5.8 LVDs 2.69 cm M: 2.5 - 4.0 LV EF Teichholz 63.1 % FS 33.75 % LV EDV (Teich) 72.2 mL LV ESV (Teich) 26.7 mL Stroke Vol Index (Teich) 21.40 Auto EF LV EDV A4C 119.5 mL LV EDV A2C 75.9 mL LV EDV BP 96.7 mL LV ESV A4C 47.5 mL LV ESV A2C 31.1 mL LV ESV BP 40.0 mL LVEF(%) A4C 60.2 % LVEF(%) A2C 59.1 % LVEF(%) BP 58.6 % LV SV A4C 72.0 ml LV SV A2C 44.9 ml LV SV BP 56.7 ml LV CO A4C 4.7 L/min LV CO A2C 2.9 L/min LV CO BP 3.8 L/min HR A4C 65.11 BPM HR A2C 64.96 BPM LV EDV Index (BP) LA Volume LA Length A4C 5.9 cm LA Length A2C 5.8 cm LA Area A4C s 18.62 cm2 LA Area A2C s 18.94 cm2 LA Vol A4C A-L 49.71 mL LA Vol A2C A-L 52.83 mL LA Vol Biplane A-L 51.9 mL LA Vol/BSA A4C A-L LA Vol/BSA A2C A-L LA Vol/BSA BP A-L 24.4 mL/m2 LA Vol A4C MOD 45.3 mL LA Vol A2C MOD 51.2 mL LA Vol BP MOD 48.7 mL RA Volume RA Area A4C 12.4 cm2 RA ESV A4C (A-L) 25.0mL RA Vol/BSA A4C A-L RA Length A4C 5.2 cm RA ESV A4C (MOD) 24.3mL LV Diastology MV E' medial 0.067 (>0.07 m/s) MV E Vmax 0.55 (0.4-1.3 m/s) MV E/E' MED 8.26 (<14) MV A Vmax 0.90 (0.4-1.3 m/s) MV E' lateral 0.074 (>0.1 m/s) E/A Ratio 0.6 MV E/E' LAT 7.41 (<14) MV E' Average 0.070 m/s MV E/E'(average) 7.81 Aortic Valve AoV Vmax 1.19 m/s LVOT Vmax 1.08 m/s AoV Peak Grad 5.7 mmHg LVOT Peak Grad 4.7 mmHg AoV Area (Vmax) 4.05 cm2 LVOT VTI 0.242 m AoV VTI 0.266 m LVOT Mean Grad 2.3 mmHg AoV Mean Hermes. 0.82 m/s LVOT SV 107.81 mL AoV Mean Grad 3.1 mmHg LVOT Diam s 2.35 cm AoV Area (VTI) 4.05 cm2 Velocity Ratio 0.91 Mitral Valve MV DT 347 (160-240 msec) Pulmonary Valve PV Vmax 0.94 (0.5-1.5 m/s) RVOT Vmax 0.74 m/s PV Peak Grad 3.5 mmHg RVOT Peak Gr. 2.2 mmHg PV Mean Hermes 0.63 m/s RVOT VTI 0.178 m PV Mean Grad 1.9 mmHg RVOT Mean Gr. 1.1 mmHg Tricuspid Valve RA Pressure 3.00 mmHg TR Vmax 3.41 m/s TR Peak Grad 46.6 mmHg RVSP (TR) 49.6 mmHg
== END ==
PROVIDERS: PCP Family Medicine; Visit Provider Family Medicine
DX: I48.91 Unspecified atrial fibrillation (principal)
CPT/HCPCS: 36415; 93306

== ENCOUNTER 2023-08-23 01:40 | Outpatient (CLI) | payer MEDICARE, SELFPAY ==
[2023-08-23 07:41] LABS: Absolute Basophil Count 0.01 10^3/uL (0.0-0.2); Absolute Eosinophil Count 0.01 10^3/uL (0.0-0.7); Absolute Lymphocyte Count 0.51 10^3/uL (1.2-3.4); Absolute Monocyte Count 0.13 10^3/uL (0.1-0.8); Absolute Neutrophil Count 0.85 10^3/uL (1.2-6.7); Basophils % 0.7; Eosinophils % 0.7; HCT 31.4 % (40.0-50.0); HGB 10.1 g/dL (13.5-17.5); Lymphocytes % 33.8; MCHC 32.2 % (32.0-36.0); MCV 106 fL (80-95); MPV 11.9 fL (8.0-11.0); Monocytes % 8.6; Neutrophils % 56.2; RBC 2.97 10^6/uL (4.36-5.78); RDW 17.1 % (11.8-14.1); RDW-SD 65.9 fL
[2023-08-23 08:10] LABS: ALT 17 U/L (16-63); AST 13 U/L (15-37); Albumin 3.3 g/dL (3.4-5.0); Alkaline Phosphatase 106 U/L (46-116); Anion Gap 8.9 mmol/L (3-11); BUN 28 mg/dL (7-18); Bilirubin, Total 0.9 mg/dL (0.2-1.0); CO2 29.1 mmol/L (21.0-32.0); CREATININE 1.6 mg/dL (0.70-1.30); Calcium 8.9 mg/dL (8.5-10.1); Chloride 107 mmol/L (98-107); Ferritin 130 ng/mL (26-388); Glucose 196 mg/dL (74-106); Potassium 4.6 mmol/L (3.5-5.1); Sodium 145 mmol/L (136-145); Total Protein 7.1 g/dL (6.4-8.2)
[2023-08-23 08:13] LABS: Diff Comment Agrees w/ Instrument; Platelet Count 97 10^3/uL (130-400)
[2023-08-23 08:14] LABS: Macrocytosis 2+; Poikilocytes 1+
[2023-08-23 08:15] LABS: WBC 1.51 10^3/uL (4.4-10.8)
[2023-08-23 18:57] LABS: CEA 0.7 ng/mL (See Note)
== END 2023-08-23 01:41 | disposition home or self-care (01) ==
LOC: LBO 01:40
PROVIDERS: PCP Family Medicine; Visit Provider Internal Medicine Hematology & Oncology
DX: N18.9 Chronic kidney disease, unspecified (principal); C18.9 Malignant neoplasm of colon, unspecified
CPT/HCPCS: 36415; 80053; 82378; 82728; 85025

== ENCOUNTER 2023-09-06 03:28 | Outpatient (CLI) | payer MEDICARE, SELFPAY ==
[2023-09-06 07:20] LABS: HCT 31.3 % (40.0-50.0); HGB 10.2 g/dL (13.5-17.5); MCH 34.2 pg (27.0-33.0); MCHC 32.6 % (32.0-36.0); MCV 105 fL (80-95); MPV 11.9 fL (8.0-11.0); RBC 2.98 10^6/uL (4.36-5.78); RDW 17.3 % (11.8-14.1); RDW-SD 66.6 fL
[2023-09-06 07:57] LABS: ALT 15 U/L (16-63); AST 14 U/L (15-37); Albumin 3.2 g/dL (3.4-5.0); Alkaline Phosphatase 101 U/L (46-116); Anion Gap 5.3 mmol/L (3-11); BUN 28 mg/dL (7-18); CO2 29.7 mmol/L (21.0-32.0); CREATININE 1.7 mg/dL (0.70-1.30); Calcium 8.7 mg/dL (8.5-10.1); Chloride 107 mmol/L (98-107); Estimated GFR 38.78 (mL/min/1.73m2); Ferritin 112 ng/mL (26-388); Glucose 229 mg/dL (74-106); Potassium 4.8 mmol/L (3.5-5.1); Sodium 142 mmol/L (136-145); Total Protein 6.7 g/dL (6.4-8.2)
[2023-09-06 07:58] LABS: Absolute Lymphocyte Count 0.43 10^3/uL (1.2-3.4); Absolute Neutrophil Count 0.57 10^3/uL (1.2-6.7); Atypical Lymphocytes % 3; Bands % 2; Platelet Count 86 10^3/uL (130-400)
[2023-09-06 07:59] LABS: Absolute Basophil Count 0.02 10^3/uL (0.0-0.2); Absolute Eosinophil Count 0.01 10^3/uL (0.0-0.7); Diff Comment Manual Differential; RBC Morphology Normal
[2023-09-06 08:03] LABS: WBC 1.13 10^3/uL (4.4-10.8)
[2023-09-06 19:20] LABS: CEA 0.9 ng/mL (See Note)
== END 2023-09-06 03:29 | disposition home or self-care (01) ==
LOC: LBO 03:28
PROVIDERS: PCP Family Medicine; Visit Provider Internal Medicine Hematology & Oncology
DX: N18.30 Chronic kidney disease, stage 3 unspecified (principal); C18.9 Malignant neoplasm of colon, unspecified
CPT/HCPCS: 36415; 80053; 82378; 82728; 85025

== ENCOUNTER 2023-09-20 05:44 | Outpatient (CLI) | payer MEDICARE, SELFPAY ==
[2023-09-20 07:37] LABS: Abs Immature Grans 0.01 10^3/uL (0.0-0.06); Absolute Basophil Count 0.02 10^3/uL (0.0-0.2); HCT 32.9 % (40.0-50.0); HGB 10.7 g/dL (13.5-17.5); MCH 34.9 pg (27.0-33.0); MCHC 32.5 % (32.0-36.0); MCV 107 fL (80-95); MPV 10.5 fL (8.0-11.0); RBC 3.07 10^6/uL (4.36-5.78); RDW 17.2 % (11.8-14.1); RDW-SD 67.6 fL
[2023-09-20 07:54] LABS: Hemoglobin A1C 8.2 % (<5.7)
[2023-09-20 07:56] LABS: Platelet Count 90 10^3/uL (130-400)
[2023-09-20 07:57] LABS: Absolute Eosinophil Count 0.02 10^3/uL (0.0-0.7); Absolute Lymphocyte Count 0.57 10^3/uL (1.2-3.4); Absolute Monocyte Count 0.12 10^3/uL (0.1-0.8); Atypical Lymphocytes % 3; Bands % 2
[2023-09-20 07:58] LABS: Diff Comment Manual Differential; Macrocytosis 2+; Poikilocytes 2+; Polychromasia Present
[2023-09-20 08:07] LABS: ALT 14 U/L (16-63); AST 12 U/L (15-37); Albumin 3.5 g/dL (3.4-5.0); Alkaline Phosphatase 107 U/L (46-116); Anion Gap 8.5 mmol/L (3-11); BUN 28 mg/dL (7-18); CO2 28.5 mmol/L (21.0-32.0); CREATININE 1.7 mg/dL (0.70-1.30); Calcium 8.6 mg/dL (8.5-10.1); Chloride 107 mmol/L (98-107); Estimated GFR 38.78 (mL/min/1.73m2); Ferritin 146 ng/mL (26-388); Glucose 199 mg/dL (74-106); Potassium 4.2 mmol/L (3.5-5.1); Sodium 144 mmol/L (136-145); Total Protein 7.3 g/dL (6.4-8.2)
[2023-09-20 08:09] LABS: Absolute Neutrophil Count 0.49 10^3/uL (1.2-6.7); WBC 1.23 10^3/uL (4.4-10.8)
== END 2023-09-20 05:45 | disposition home or self-care (01) ==
LOC: LBO 05:44
PROVIDERS: PCP Family Medicine; Visit Provider Internal Medicine Hematology & Oncology
DX: E11.9 Type 2 diabetes mellitus without complications (principal); N18.30 Chronic kidney disease, stage 3 unspecified; C18.7 Malignant neoplasm of sigmoid colon
CPT/HCPCS: 36415; 80053; 82378; 82728; 83036; 85025

== ENCOUNTER 2023-10-04 05:01 | Outpatient (CLI) | payer MEDICARE, SELFPAY ==
[2023-10-04 09:24] LABS: HCT 32.5 % (40.0-50.0); HGB 10.5 g/dL (13.5-17.5); MCH 34.8 pg (27.0-33.0); MCHC 32.3 % (32.0-36.0); MCV 108 fL (80-95); MPV 10.8 fL (8.0-11.0); RBC 3.02 10^6/uL (4.36-5.78); RDW 17.8 % (11.8-14.1); RDW-SD 70.4 fL
[2023-10-04 09:54] LABS: Absolute Lymphocyte Count 0.46 10^3/uL (1.2-3.4); Absolute Neutrophil Count 0.79 10^3/uL (1.2-6.7); Atypical Lymphocytes % 2; Bands % 2
[2023-10-04 09:55] LABS: Diff Comment Manual Differential; Macrocytosis 2+; Metamyelocytes % 1; Platelet Count 90 10^3/uL (130-400)
[2023-10-04 10:02] LABS: WBC 1.36 10^3/uL (4.4-10.8)
== END 2023-10-04 05:02 | disposition home or self-care (01) ==
LOC: LBO 05:01
PROVIDERS: PCP Family Medicine; Visit Provider Internal Medicine Hematology & Oncology
DX: N18.30 Chronic kidney disease, stage 3 unspecified (principal)
CPT/HCPCS: 36415; 85025

== ENCOUNTER 2023-10-18 04:47 | Outpatient (CLI) | payer MEDICARE, SELFPAY ==
[2023-10-18 07:55] LABS: Absolute Basophil Count 0.01 10^3/uL (0.0-0.2); Basophils % 0.9; HCT 30.5 % (40.0-50.0); MCH 35.1 pg (27.0-33.0); MCHC 32.8 % (32.0-36.0); MCV 107 fL (80-95); RBC 2.85 10^6/uL (4.36-5.78); RDW 17.8 % (11.8-14.1); RDW-SD 70.1 fL
[2023-10-18 08:20] LABS: ALT 23 U/L (16-63); AST 14 U/L (15-37); Albumin 3.6 g/dL (3.4-5.0); Alkaline Phosphatase 115 U/L (46-116); Anion Gap 7.4 mmol/L (3-11); BUN 32 mg/dL (7-18); Bilirubin, Total 1.2 mg/dL (0.2-1.0); CO2 28.6 mmol/L (21.0-32.0); CREATININE 1.8 mg/dL (0.70-1.30); Calcium 8.9 mg/dL (8.5-10.1); Chloride 107 mmol/L (98-107); Estimated GFR 36.21 (mL/min/1.73m2); Ferritin 170 ng/mL (26-388); Glucose 180 mg/dL (74-106); Potassium 4.5 mmol/L (3.5-5.1); Sodium 143 mmol/L (136-145); Total Protein 7.2 g/dL (6.4-8.2)
[2023-10-18 08:47] LABS: Platelet Count 86 10^3/uL (130-400)
[2023-10-18 08:48] LABS: Absolute Eosinophil Count 0.08 10^3/uL (0.0-0.7); Absolute Lymphocyte Count 0.68 10^3/uL (1.2-3.4); Absolute Monocyte Count 0.05 10^3/uL (0.1-0.8); Atypical Lymphocytes % 3; Bands % 2
[2023-10-18 08:49] LABS: Diff Comment Manual Differential
[2023-10-18 08:50] LABS: Macrocytosis 1+
[2023-10-18 08:57] LABS: Absolute Neutrophil Count 0.33 10^3/uL (1.2-6.7); WBC 1.14 10^3/uL (4.4-10.8)
[2023-10-18 19:10] LABS: CEA 0.8 ng/mL (See Note)
== END 2023-10-18 04:48 | disposition home or self-care (01) ==
LOC: LBO 04:47
PROVIDERS: PCP Family Medicine; Visit Provider Internal Medicine Hematology & Oncology
DX: N18.9 Chronic kidney disease, unspecified (principal); C18.7 Malignant neoplasm of sigmoid colon
CPT/HCPCS: 36415; 80053; 82378; 82728; 85025

== ENCOUNTER 2023-10-29 05:38 | Outpatient (CLI) | payer MEDICARE, SELFPAY ==
[2023-10-29 08:05] LABS: HCT 29.9 % (40.0-50.0); HGB 9.6 g/dL (13.5-17.5); MCH 35.3 pg (27.0-33.0); MCHC 32.1 % (32.0-36.0); MCV 110 fL (80-95); MPV 12.4 fL (8.0-11.0); RBC 2.72 10^6/uL (4.36-5.78); RDW 18.4 % (11.8-14.1); RDW-SD 73.2 fL
[2023-10-29 08:50] LABS: Bands % 3
[2023-10-29 08:51] LABS: Absolute Lymphocyte Count 0.38 10^3/uL (1.2-3.4); Absolute Monocyte Count 0.03 10^3/uL (0.1-0.8); Atypical Lymphocytes % 4; Metamyelocytes % 2; Myelocytes % 1
[2023-10-29 08:52] LABS: Diff Comment Manual Differential; Macrocytosis 2+; Platelet Count 89 10^3/uL (130-400)
[2023-10-29 08:58] LABS: WBC 1.14 10^3/uL (4.4-10.8)
== END 2023-10-29 05:39 | disposition home or self-care (01) ==
LOC: LBO 05:38
PROVIDERS: PCP Family Medicine; Visit Provider Internal Medicine Hematology & Oncology
DX: N18.30 Chronic kidney disease, stage 3 unspecified (principal)
CPT/HCPCS: 36415; 85025

== ENCOUNTER 2023-11-15 09:38 | Outpatient (CLI) | payer MEDICARE, SELFPAY ==
[2023-11-15 08:04] LABS: Abs Immature Grans 0.02 10^3/uL (0.0-0.06); Absolute Eosinophil Count 0.01 10^3/uL (0.0-0.7); Absolute Monocyte Count 0.12 10^3/uL (0.1-0.8); HCT 30.9 % (40.0-50.0); HGB 9.8 g/dL (13.5-17.5); MCH 34.9 pg (27.0-33.0); MCHC 31.7 % (32.0-36.0); MCV 110 fL (80-95); MPV 12.5 fL (8.0-11.0); RBC 2.81 10^6/uL (4.36-5.78); RDW 17.9 % (11.8-14.1); RDW-SD 72.4 fL
[2023-11-15 08:31] LABS: Absolute Basophil Count 0.03 10^3/uL (0.0-0.2); Absolute Lymphocyte Count 0.52 10^3/uL (1.2-3.4); Absolute Neutrophil Count 0.63 10^3/uL (1.2-6.7); Atypical Lymphocytes % 2 %; Bands % 6 %; Diff Comment Manual Differential; Metamyelocytes % 2; Myelocytes % 2; Platelet Count 85 10^3/uL (130-400)
[2023-11-15 08:32] LABS: Macrocytosis 2+; Polychromasia Present
[2023-11-15 08:34] LABS: WBC 1.36 10^3/uL (4.4-10.8)
== END 2023-11-15 09:39 | disposition home or self-care (01) ==
LOC: LBO 09:39
PROVIDERS: PCP Family Medicine; Visit Provider Internal Medicine Hematology & Oncology
DX: N18.30 Chronic kidney disease, stage 3 unspecified (principal)
CPT/HCPCS: 36415; 85025

== ENCOUNTER 2023-11-29 10:48 | Outpatient (CLI) | payer MEDICARE, SELFPAY ==
[2023-11-29 07:36] LABS: Absolute Eosinophil Count 0.02 10^3/uL (0.0-0.7); HCT 30.7 % (40.0-50.0); HGB 9.8 g/dL (13.5-17.5); MCH 35.3 pg (27.0-33.0); MCHC 31.9 % (32.0-36.0); MCV 110 fL (80-95); MPV 10.9 fL (8.0-11.0); RBC 2.78 10^6/uL (4.36-5.78); RDW-SD 73.1 fL
[2023-11-29 08:08] LABS: Bands % 3 %; Platelet Count 84 10^3/uL (130-400)
[2023-11-29 08:09] LABS: Absolute Monocyte Count 0.01 10^3/uL (0.1-0.8); Atypical Lymphocytes % 1 %
[2023-11-29 08:10] LABS: Metamyelocytes % 4
[2023-11-29 08:11] LABS: Diff Comment Manual Differential; Other Cells % 3
[2023-11-29 08:12] LABS: Macrocytosis 1+
[2023-11-29 08:13] LABS: Poikilocytes 1+
[2023-11-29 08:25] LABS: WBC 1.22 10^3/uL (4.4-10.8)
== END 2023-11-29 10:49 | disposition home or self-care (01) ==
LOC: LBO 10:48
PROVIDERS: PCP Family Medicine; Visit Provider Internal Medicine Hematology & Oncology
DX: N18.30 Chronic kidney disease, stage 3 unspecified (principal)
CPT/HCPCS: 36415; 85025

== ENCOUNTER 2023-12-13 01:05 | Outpatient (CLI) | payer MEDICARE, SELFPAY ==
[2023-12-13 13:23] LABS: HCT 29.2 % (40.0-50.0); HGB 9.6 g/dL (13.5-17.5); MCH 35.3 pg (27.0-33.0); MCHC 32.9 % (32.0-36.0); MCV 107 fL (80-95); RBC 2.72 10^6/uL (4.36-5.78); RDW 17.9 % (11.8-14.1); RDW-SD 70.3 fL
[2023-12-13 13:24] LABS: Bands % 2 %; MPV 11.5 fL (8.0-11.0); Platelet Count 94 10^3/uL (130-400)
[2023-12-13 13:25] LABS: Absolute Basophil Count 0.01 10^3/uL (0.0-0.2); Absolute Eosinophil Count 0.04 10^3/uL (0.0-0.7); Absolute Lymphocyte Count 0.59 10^3/uL (1.2-3.4); Absolute Monocyte Count 0.12 10^3/uL (0.1-0.8); Absolute Neutrophil Count 0.55 10^3/uL (1.2-6.7); Diff Comment Manual Differential
[2023-12-13 13:26] LABS: Macrocytosis 2+
== END 2023-12-13 01:06 | disposition home or self-care (01) ==
LOC: LBO 01:06
PROVIDERS: PCP Family Medicine; Visit Provider Internal Medicine Hematology & Oncology
DX: N18.30 Chronic kidney disease, stage 3 unspecified (principal)
CPT/HCPCS: 36415; 85025

== ENCOUNTER 2023-12-27 01:19 | Outpatient (CLI) | payer MEDICARE, SELFPAY ==
[2023-12-27 07:12] LABS: HCT 28.7 % (40.0-50.0); HGB 9.2 g/dL (13.5-17.5); MCH 34.3 pg (27.0-33.0); MCHC 32.1 % (32.0-36.0); MCV 107 fL (80-95); RBC 2.68 10^6/uL (4.36-5.78); RDW 17.6 % (11.8-14.1); RDW-SD 68.5 fL
[2023-12-27 07:45] LABS: Absolute Basophil Count 0.03 10^3/uL (0.0-0.2); Absolute Eosinophil Count 0.03 10^3/uL (0.0-0.7); Absolute Lymphocyte Count 0.53 10^3/uL (1.2-3.4); Absolute Monocyte Count 0.08 10^3/uL (0.1-0.8); Atypical Lymphocytes % 2 %; Diff Comment Manual Differential; Macrocytosis 2+; Platelet Count 91 10^3/uL (130-400)
[2023-12-27 07:46] LABS: Poikilocytes 2+; Polychromasia Present
[2023-12-27 07:47] LABS: Bands % 2 %
[2023-12-27 08:05] LABS: WBC 1.25 10^3/uL (4.4-10.8)
== END 2023-12-27 01:20 | disposition home or self-care (01) ==
LOC: LBO 01:20
PROVIDERS: PCP Family Medicine; Visit Provider Internal Medicine Hematology & Oncology
DX: N18.30 Chronic kidney disease, stage 3 unspecified (principal)
CPT/HCPCS: 36415; 85025

== ENCOUNTER 2024-01-10 00:53 | Outpatient (CLI) | payer MEDICARE, SELFPAY ==
[2024-01-10 08:01] LABS: HCT 29.1 % (40.0-50.0); HGB 9.4 g/dL (13.5-17.5); MCH 35.1 pg (27.0-33.0); MCHC 32.3 % (32.0-36.0); MCV 109 fL (80-95); MPV 10.6 fL (8.0-11.0); RBC 2.68 10^6/uL (4.36-5.78); RDW 18.1 % (11.8-14.1); RDW-SD 71.8 fL
[2024-01-10 08:15] LABS: Absolute Neutrophil Count 0.66 10^3/uL (1.2-6.7)
[2024-01-10 08:16] LABS: Absolute Basophil Count 0.03 10^3/uL (0.0-0.2); Absolute Lymphocyte Count 0.55 10^3/uL (1.2-3.4); Absolute Monocyte Count 0.01 10^3/uL (0.1-0.8); Diff Comment Manual Differential; Metamyelocytes % 2; Platelet Count 91 10^3/uL (130-400); RBC Morphology Normal
[2024-01-10 08:20] LABS: WBC 1.27 10^3/uL (4.4-10.8)
== END 2024-01-10 00:54 | disposition home or self-care (01) ==
LOC: LBO 00:54
PROVIDERS: PCP Family Medicine; Visit Provider Internal Medicine Hematology & Oncology
DX: N18.30 Chronic kidney disease, stage 3 unspecified (principal)
CPT/HCPCS: 36415; 85025

== ENCOUNTER 2024-01-24 02:22 | Outpatient (CLI) | payer MEDICARE, SELFPAY ==
[2024-01-24 07:21] LABS: Abs Immature Grans 0.02 10^3/uL (0.0-0.06); Absolute Basophil Count 0.01 10^3/uL (0.0-0.2); Absolute Eosinophil Count 0.02 10^3/uL (0.0-0.7); Absolute Lymphocyte Count 0.58 10^3/uL (1.2-3.4); Absolute Monocyte Count 0.18 10^3/uL (0.1-0.8); Absolute Neutrophil Count 0.71 10^3/uL (1.2-6.7); Basophils % 0.7 %; Eosinophils % 1.3 %; HCT 27.1 % (40.0-50.0); HGB 8.8 g/dL (13.5-17.5); Immature Grans % 1.3 %; Lymphocytes % 38.2 %; MCH 35.5 pg (27.0-33.0); MCHC 32.5 % (32.0-36.0); MCV 109 fL (80-95); MPV 11.9 fL (8.0-11.0); Monocytes % 11.8 %; Neutrophils % 46.7 %; Platelet Count 89 10^3/uL (130-400); RBC 2.48 10^6/uL (4.36-5.78); RDW 18.2 % (11.8-14.1); RDW-SD 71.3 fL
[2024-01-24 07:48] LABS: Diff Comment Agrees w/ Instrument; Hypochromasia 2+
[2024-01-24 08:04] LABS: WBC 1.52 10^3/uL (4.4-10.8)
== END 2024-01-24 02:23 | disposition home or self-care (01) ==
LOC: LBO 02:22
PROVIDERS: PCP Family Medicine; Visit Provider Internal Medicine Hematology & Oncology
DX: N18.30 Chronic kidney disease, stage 3 unspecified (principal)
CPT/HCPCS: 36415; 85025

== ENCOUNTER 2024-01-31 13:16 | Outpatient (CLI) | payer MEDICARE, SELFPAY ==
[2024-01-31 09:05] LABS: Abs Immature Grans 0.02 10^3/uL (0.0-0.06); Absolute Basophil Count 0.01 10^3/uL (0.0-0.2); Absolute Eosinophil Count 0.01 10^3/uL (0.0-0.7); Absolute Lymphocyte Count 0.51 10^3/uL (1.2-3.4); Absolute Monocyte Count 0.17 10^3/uL (0.1-0.8); Absolute Neutrophil Count 0.76 10^3/uL (1.2-6.7); Basophils % 0.7 %; Eosinophils % 0.7 %; HCT 27.5 % (40.0-50.0); Immature Grans % 1.4 %; Lymphocytes % 34.5 %; MCH 35.7 pg (27.0-33.0); MCHC 32.7 % (32.0-36.0); MCV 109 fL (80-95); MPV 12.8 fL (8.0-11.0); Monocytes % 11.5 %; Neutrophils % 51.2 %; RBC 2.52 10^6/uL (4.36-5.78); RDW-SD 71.8 fL
[2024-01-31 09:22] LABS: Diff Comment Agrees w/ Instrument; Macrocytosis 2+; Platelet Count 102 10^3/uL (130-400)
[2024-01-31 09:27] LABS: WBC 1.48 10^3/uL (4.4-10.8)
== END 2024-01-31 13:17 | disposition home or self-care (01) ==
LOC: LBO 13:16
PROVIDERS: PCP Family Medicine; Visit Provider Internal Medicine Hematology & Oncology
DX: N18.30 Chronic kidney disease, stage 3 unspecified (principal)
CPT/HCPCS: 36415; 85025

== ENCOUNTER 2024-02-21 03:36 | Outpatient (CLI) | payer MEDICARE, SELFPAY ==
[2024-02-21 07:22] LABS: Abs Immature Grans 0.08 10^3/uL (0.0-0.06); Absolute Basophil Count 0.03 10^3/uL (0.0-0.2); Absolute Eosinophil Count 0.02 10^3/uL (0.0-0.7); Absolute Lymphocyte Count 0.79 10^3/uL (1.2-3.4); Absolute Monocyte Count 0.15 10^3/uL (0.1-0.8); Absolute Neutrophil Count 0.86 10^3/uL (1.2-6.7); Basophils % 1.6 %; HCT 27.7 % (40.0-50.0); Immature Grans % 4.1 %; Lymphocytes % 40.9 %; MCHC 32.5 % (32.0-36.0); MCV 108 fL (80-95); MPV 12.6 fL (8.0-11.0); Monocytes % 7.8 %; Neutrophils % 44.6 %; Platelet Count 105 10^3/uL (130-400); RBC 2.57 10^6/uL (4.36-5.78); RDW 17.2 % (11.8-14.1); RDW-SD 66.6 fL
[2024-02-21 08:30] LABS: Macrocytosis 2+; WBC 1.93 10^3/uL (4.4-10.8)
[2024-02-21 08:31] LABS: Diff Comment Agrees w/ Instrument
== END 2024-02-21 03:37 | disposition home or self-care (01) ==
LOC: LBO 03:36
PROVIDERS: PCP Family Medicine; Visit Provider Internal Medicine Hematology & Oncology
DX: N18.30 Chronic kidney disease, stage 3 unspecified (principal)
CPT/HCPCS: 36415; 85025

== ENCOUNTER 2024-03-13 03:29 | Outpatient (CLI) | payer MEDICARE, SELFPAY ==
[2024-03-13 12:09] LABS: Abs Immature Grans 0.02 10^3/uL (0.0-0.06); Absolute Basophil Count 0.02 10^3/uL (0.0-0.2); Absolute Eosinophil Count 0.01 10^3/uL (0.0-0.7); Absolute Lymphocyte Count 0.53 10^3/uL (1.2-3.4); Absolute Neutrophil Count 0.64 10^3/uL (1.2-6.7); Basophils % 1.5 %; Eosinophils % 0.8 %; HCT 24.5 % (40.0-50.0); HGB 8.1 g/dL (13.5-17.5); Immature Grans % 1.5 %; Lymphocytes % 40.2 %; MCH 35.5 pg (27.0-33.0); MCHC 33.1 % (32.0-36.0); MCV 108 fL (80-95); Monocytes % 7.6 %; Neutrophils % 48.4 %; RBC 2.28 10^6/uL (4.36-5.78); RDW 18.1 % (11.8-14.1); RDW-SD 71.1 fL
[2024-03-13 12:10] LABS: WBC 1.32 10^3/uL (4.4-10.8)
[2024-03-13 12:14] LABS: Platelet Count 71 10^3/uL (130-400)
[2024-03-13 12:15] LABS: Diff Comment Diff Reviewed; Macrocytosis 2+
[2024-03-13 12:16] LABS: Poikilocytes 2+
== END 2024-03-13 03:30 | disposition home or self-care (01) ==
LOC: LBO 03:29
PROVIDERS: PCP Family Medicine; Visit Provider Internal Medicine Hematology & Oncology
DX: N18.30 Chronic kidney disease, stage 3 unspecified (principal)
CPT/HCPCS: 36415; 85025

== ENCOUNTER 2024-03-20 15:52 | Emergency (ER) | payer MEDICARE, SELFPAY ==
[2024-03-20] VITALS (51 sets, daily range): BP systolic 140–194; BP diastolic 71–109; PULSE 65–80; RESP 6–31; TEMP 36.1–37.5; O2SAT 87–100
--- NOTE | 2024-03-20 16:45 | RT.EKG_ITS ---
APPROVED REPORT Exam: Resting ECG Reason for Exam: sob Patient Location: E HR:67 bpm ECG Measurements Heart Rate 67 AXIS PA 189 P 24 QRSd 80 QRS -30 QT 415 T 36 QTc 438 Conclusion Sinus rhythm. 67 no stemi
[2024-03-20 16:55] LABS: Abs Immature Grans 0.07 10^3/uL (0.0-0.06); HCT 23.1 % (40.0-50.0); HGB 7.5 g/dL (13.5-17.5); MCH 35.5 pg (27.0-33.0); MCHC 32.5 % (32.0-36.0); MCV 110 fL (80-95); RBC 2.11 10^6/uL (4.36-5.78); RDW 18.7 % (11.8-14.1); RDW-SD 71.1 fL
[2024-03-20] MEDS: Albuterol 2.5 MG/3 ML INH SOLN VIAL UPD (17:02)
[2024-03-20 17:14] LABS: ALT 19 U/L (16-63); AST 15 U/L (15-37); Albumin 3.2 g/dL (3.4-5.0); Alkaline Phosphatase 106 U/L (46-116); Anion Gap 8.8 mmol/L (3-11); BUN 40 mg/dL (7-18); Bilirubin, Total 0.78 mg/dL (0.2-1.0); CO2 26.2 mmol/L (21.0-32.0); Calcium 8.8 mg/dL (8.5-10.1); Chloride 105 mmol/L (98-107); Estimated GFR 31.71 (mL/min/1.73m2); Glucose 252 mg/dL (74-106); Magnesium 2.2 mg/dL (1.8-2.4); NT-proBNP 865 pg/mL (<300); Potassium 4.7 mmol/L (3.5-5.1); Sodium 140 mmol/L (136-145)
[2024-03-20 17:19] LABS: Platelet Count 92 10^3/uL (130-400)
[2024-03-20 17:20] LABS: Absolute Eosinophil Count 0.02 10^3/uL (0.0-0.7); Absolute Lymphocyte Count 0.71 10^3/uL (1.2-3.4); Absolute Monocyte Count 0.02 10^3/uL (0.1-0.8); Atypical Lymphocytes % 3 %
[2024-03-20 17:24] LABS: Absolute Neutrophil Count 0.33 10^3/uL (1.2-6.7); Diff Comment Manual Differential; WBC 1.14 10^3/uL (4.4-10.8)
[2024-03-20 17:25] LABS: Anisocytosis 3+; Macrocytosis 2+
[2024-03-20 17:26] LABS: Hypochromasia 1+
[2024-03-20 17:27] LABS: Poikilocytes 2+
--- NOTE | 2024-03-20 17:53 | DI.RAD_ITS ---
Exam(s) XR CHEST 2V PA LATERAL EXAM: XR CHEST 2V PA LATERAL CLINICAL HISTORY: shortness TECHNIQUE: 2D digital imaging was performed. Two views. COMPARISON: CT CT CHEST/ABD/PEL WO from 09/28/2022 FINDINGS: HEART: Normal size. Aorta: Tortuous and calcified PULMONARY VASCULATURE: Normal. MEDIASTINUM: Unremarkable. LUNGS: Clear. PLEURAL SPACE: No pleural effusion or pneumothorax. BONE:Unremarkable for age. SOFT TISSUES: Unremarkable. IMPRESSION: No acute abnormality. DATA REPOSITORY: RADIATION DOSE DELIVERED:
[2024-03-20 18:38] LABS: Bilirubin Negative (Negative); Blood Trace-lysed (Negative); Clarity Clear (Clear); Glucose Negative (Negative); Ketones Negative (Negative); Leukocyte Esterase Negative (Negative); Nitrite Negative (Negative); Specific Gravity 1.015 (1.005-1.025); Urobilinogen 0.2 mg/dL (Up to 0.2)
[2024-03-20 18:42] LABS: Bacteria Rare HPF (Negative); C & S Indicated? No; Casts Negative LPF (Negative); Crystals Negative HPF (Negative); Epithelial Cells Negative HPF (Negative); Mucus Negative (Negative); WBC Negative HPF (0-5)
--- NOTE | 2024-03-20 20:32 | ED.GENADUL_ITS ---
Discharge Plan Disposition Patient Disposition: Home Condition: Stable Discharge Details Clinical Impression: Anemia, Low grade myelodysplastic syndrome lesions, Chronic leukopenia, Neutropenia Primary Care Provider: Sandra Park V ED Provider: Nohemi Knight Home Meds and New Rx's Prescriptions: Continued Retacrit 40,000 unit/mL solution 60,000 unit subcut .[id number] cetirizine [All Day Allergy (cetirizine)] 1 mg/mL solution 10 mg PO DAILY docusate sodium [Colace] 100 mg capsule 100 mg PO BID Rx Instructions: hold for loose stool polyethylene glycol 3350 [Miralax] 17 gram/dose powder 17 g PO DAILY PRN betamethasone dipropionate 0.05 % cream 1 applic topical BID PRN clotrimazole 1 % cream 1 applic topical BID cyanocobalamin (vitamin B-12) 1,000 mcg/mL solution 1,000 mcg IM QMONTH insulin degludec [Tresiba FlexTouch U-100] 100 unit/mL (3 mL) insulin pen 17 unit subcut HS metoprolol tartrate [Lopressor] 50 mg tablet 50 mg PO BID furosemide 20 mg tablet 20 mg PO DAILY pioglitazone [Actos] 30 mg tablet 30 mg PO DAILY famotidine 20 mg tablet 20 mg PO DAILY glipizide 10 MG tablet 10 mg PO DAILY simvastatin 40 MG tablet 20 mg PO HS losartan 100 MG tablet 100 mg PO DAILY Januvia 50 MG tablet 50 mg PO DAILY 90 Days Qty: 90 3RF oxycodone 5 mg tablet 5 mg PO Q4H PRN (Reason: pain) Qty: 9 0RF Discharge Instructions Instructions: Myelodysplastic Syndromes (MDS) (DC) Additional Instructions: Please follow-up with your oncologist tomorrow Continue on your prescribed medications Please return should you have new or worsening complaints You received 1 unit of packed red blood cells today secondary to anemia which is likely contributing to some of your symptoms. Referrals: Sandra Park MD [Primary Care Provider] - 2 days Discharge Data Discharge Date/Time-TO BE ENTERED AT DEPARTURE: 03/20/24 21:11 HPI General Date/Time Provider Initiated Documentation: 03/20/24 16:45 . HPI Narrative: This 89-year-old male with history of GERD, hypercholesterolemia, hypertension, chronic kidney disease, diabetes, MDS syndrome, anemia, atrial fibrillation presents with report of fatigue over the course of the past week. Patient denies any chest pain but has had some mild shortness of breath. Denies any fever or chills. He denies any urinary symptoms. He is not undergoing any treatment for his MDS aside from erythropoietin injections. He refuses chemotherapy. Denies any falls or injuries. Denies any weight gain or new peripheral edema. Last erythropoietin injection was on 13 March per p atient. Denies blood in stool denies any nausea or vomiting. Denies any abdominal pain. Related Data Home Medications ?Medication ?Instructions ?Recorded ?Confirmed glipizide 10 mg tablet 10 mg PO DAILY 11/10/15 03/20/24 losartan 100 mg tablet 100 mg PO DAILY 11/10/15 03/20/24 simvastatin 40 mg tablet 20 mg PO HS 11/10/15 03/20/24 sitagliptin phosphate 50 mg tablet 50 mg PO DAILY 90 days #90 tabs 07/22/17 03/20/24 (Januvia) cyanocobalamin (vitamin B-12) 1,000 mcg IM QMONTH 08/09/21 03/20/24 1,000 mcg/mL injection solution famotidine 20 mg tablet 20 mg PO DAILY 08/09/21 03/20/24 furosemide 20 mg tablet 20 mg PO DAILY 08/09/21 03/20/24 insulin degludec 100 unit/mL (3 17 unit subcut HS 08/09/21 03/20/24 mL) subcutaneous pen (Tresiba FlexTouch U-100 insulin) metoprolol tartrate 50 mg tablet 50 mg PO BID 08/09/21 03/20/24 (Lopressor) pioglitazone 30 mg tablet (Actos) 30 mg PO DAILY 08/09/21 03/20/24 betamethasone dipropionate 0.05 % 1 applic topical BID PRN 09/14/21 03/20/24 topical cream clotrimazole 1 % topical cream 1 applic topical BID 09/14/21 03/20/24 cetirizine 1 mg/mL oral solution 10 mg PO DAILY 09/15/22 03/20/24 (All Day Allergy (cetirizine)) docusate sodium 100 mg capsule 100 mg PO BID 09/15/22 03/20/24 (Colace) epoetin sajan-epbx 40,000 unit/mL 60,000 unit subcut .[id number] 09/15/22 03/20/24 injection solution (Retacrit) polyethylene glycol 3350 17 17 g PO DAILY PRN 09/15/22 03/20/24 gram/dose oral powder (Miralax) oxycodone 5 mg tablet 5 mg PO Q4H PRN pain #9 tabs 05/14/23 03/20/24 Previous Rx's ?Medication ?Instructions ?Recorded sitagliptin phosphate 50 mg tablet 50 mg PO DAILY 90 days #90 tabs 07/22/17 (Januvia) oxycodone 5 mg tablet 5 mg PO Q4H PRN pain #9 tabs 05/14/23 Allergies Allergy/AdvReac Type Severity Reaction Status Date / Time gabapentin Allergy Mild Unknown Verified 03/20/24 16:02 Sulfa (Sulfonamide Allergy Mild Unknown Verified 03/20/24 16:02 Antibiotics) tramadol Allergy Mild Unknown Verified 03/20/24 16:02 aspirin AdvReac Intermediate Bloody Verified 03/20/24 16:02 nose, bruising metformin (From Glucophage) AdvReac Intermediate Unknown Verified 03/20/24 16:02 General Stated Complaint: GenMedical NICHOL: 3 Exam Narrative Exam Narrative: 89-year-old male with history of MDS is alert and oriented, he is pale in complexion, lungs are clear to auscultation, cardiac rate rhythm regular, no abdominal tenderness, pallor, alert and oriented x 4, 2+ edema to bilateral lower extremities without tenderness, distal pulses intact Course Vital Signs Vital signs: Vital Signs Temperature 36.1 C L 03/20/24 15:57 Pulse 80 03/20/24 15:57 Respiratory Rate 16 03/20/24 15:57 Blood Pressure 142/77 H 03/20/24 15:57 Pulse Oximetry 93 03/20/24 15:57 Temperature 37.5 C 03/20/24 20:05 Pulse 68 03/20/24 20:05 Pulse 66 03/20/24 19:22 Respiratory Rate 18 03/20/24 20:05 Respiratory Effort Normal 03/20/24 16:21 Respiratory Depth Normal 03/20/24 16:21 Respiratory Pattern Normal 03/20/24 16:21 Blood Pressure 157/86 H 03/20/24 20:05 Blood Pressure Mean 112 03/20/24 19:22 Blood Pressure Position Supine 03/20/24 16:21 Pulse Oximetry 92 03/20/24 20:05 Oxygen Delivery Method Room Air 03/20/24 20:05 Oxygen Flow Rate 0 03/20/24 20:05 Pain Level 0 03/20/24 16:21 Lab/Test Results Lab/Test Results: Laboratory Tests Range/Units 03/20/24 03/20/24 16:15 17:42 WBC (4.4-10.8) 10^3/uL 1.14 L* RBC (4.36-5.78) 10^6/uL 2.11 L Hgb (13.5-17.5) g/dL 7.5 L Hct (40.0-50.0) % 23.1 L MCV (80-95) fL 110 H MCH (27.0-33.0) pg 35.5 H MCHC (32.0-36.0) % 32.5 RDW (11.8-14.1) % 18.7 H Plt Count (130-400) 10^3/uL 92 L MPV (8.0-11.0) fL Immature Gran % See Differential Neutrophils % % 29.0 Lymphocytes % % 59.0 Atypical Lymphs % % 3 Monocytes % % 2.0 Eosinophils % % 2.0 Basophils % % 0.0 Nucleated RBC % (0.0-0.3) % 2.0 H Absolute Neutrophils (1.2-6.7) 10^3/uL 0.33 L* Absolute Lymphocytes (1.2-3.4) 10^3/uL 0.71 L Absolute Monocytes (0.1-0.8) 10^3/uL 0.02 L Absolute Eosinophils (0.0-0.7) 10^3/uL 0.02 Absolute Basophils (0.0-0.2) 10^3/uL 0.00 RBC Morphology See Below Hypochromasia 1+ Poikilocytosis 2+ Anisocytosis 3+ Macrocytosis 2+ Sodium (136-145) mmol/L 140 Potassium (3.5-5.1) mmol/L 4.7 Chloride (98-107) mmol/L 105 Carbon Dioxide (21.0-32.0) mmol/L 26.2 Anion Gap (3-11) mmol/L 8.8 BUN (7-18) mg/dL 40 H Creatinine (0.70-1.30) mg/dL 2.0 H Est GFR (CKD-EPI 2020) (mL/min/1.73m2) 31.71 Glucose (74-106) mg/dL 252 H Calcium (8.5-10.1) mg/dL 8.8 Magnesium (1.8-2.4) mg/dL 2.2 Total Bilirubin (0.2-1.0) mg/dL 0.78 AST (15-37) U/L 15 ALT (16-63) U/L 19 Alkaline Phosphatase (46-116) U/L 106 NT-Pro-B Natriuret Pep (<300) pg/mL 865 H Total Protein (6.4-8.2) g/dL 7.0 Albumin (3.4-5.0) g/dL 3.2 L Urine Color (Yellow) Yellow Urine Clarity (Clear) Clear Urine pH (5-8) 5.0 Ur Specific [place] (1.005-1.025) 1.015 Urine Protein (Neg-Trace) mg/dL Negative Urine Ketones (Negative) mg/dL Negative Urine Blood (Negative) Trace-lysed H Urine Nitrite (Negative) Negative Urine Bilirubin (Negative) Negative Urine Urobilinogen (Up to 0.2) mg/dL 0.2 Ur Leukocyte Esterase (Negative) Negative Urine RBC (0-2) HPF 3-5 H Urine WBC (0-5) HPF Negative Ur Epithelial Cells (Negative) HPF Negative Urine Crystals (Negative) HPF Negative Urine Bacteria (Negative) HPF Rare Urine Casts (Negative) LPF Negative Urine Mucus (Negative) Negative Ur Culture Indicated? No Urine Glucose (Negative) mg/dL Negative ABO/Rh A Positive Antibody Screen NEGATIVE Crossmatch See Detail Medical Decision Making This 89-year-old male presents with report of weakness dyspnea and feeling generally unwell. Patient is alert and oriented, vitals are stable. Hemoglobin of 7.5, gradually decreasing despite erythropoietin infusions. As patient is symptomatic anemia will give 1 unit of packed red blood cells. Will give 1 unit of packed red blood cells. Consent obtained. Patient has received blood transfusions in the past. Patient is leukopenic and neutropenic, consistent with his prior history, it sounds like he is refused any intervention from a chemotherapy standpoint although he is aware that he is chronically immunosuppressed. Chest x-ray does not show evidence of acute infectious etiology of complaints. No hypotension, ambulatory steady gait, will receive 1 unit of packed red blood cells and likely discharge home with follow-up with cancer center tomorrow. Urinalysis not show evidence of infection creatinine of 2.0 consistent with patient's prior. At time of reassessment, patient is ambulatory with steady gait and feels improvement in symptoms oxygen is 93% on room air patient is afebrile and nontoxic in appearance. He will need recheck tomorrow With a oncologist or PCP. Quality:SDOH Health Related Social Needs: No Data to Display PFSH All Active Problems (Updated 03/20/24 @ 20:45 by DORINA Zuñiga) Neutropenia (Acute) Chronic leukopenia (Acute) Nail dystrophy (Acute) Edema (Acute) GERD (gastroesophageal reflux disease) (Chronic) B12 deficiency (Acute) Hypercholesterolemia (Acute) HTN (hypertension) (Chronic) CKD (chronic kidney disease) (Chronic) STAGE IV Diabetes mellitus (Chronic) Low grade myelodysplastic syndrome lesions (Acute) followed by oncology Anemia (Chronic) managed with erythropoietin [id number]. Pharyngoesophageal dysphagia (Acute) Chronic rhinitis (Acute) Atrial fibrillation (Chronic) NO anti-coagulant given patient's thrombocytopenia status. 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
== END 2024-03-20 21:11 | disposition home or self-care (01) ==
PROVIDERS: Emergency Provider Physician Assistant; PCP Family Medicine
DX: D46.20 Refractory anemia with excess of blasts, unspecified; D70.9 Neutropenia, unspecified; R53.83 Other fatigue
CPT/HCPCS: 36430; 80053; 86850; 86900; 86901; 86920; 87637; 93005; 94640; 99285; 71046; 81003; 81015; 83735; 83880; 85025; 93010; 99284; J7613; P9016

== ENCOUNTER 2024-03-27 18:23 | Outpatient (REF) | payer MEDICARE, SELFPAY ==
[2024-03-27 19:29] LABS: Abs Immature Grans 0.02 10^3/uL (0.0-0.06); Absolute Basophil Count 0.01 10^3/uL (0.0-0.2); Absolute Eosinophil Count 0.01 10^3/uL (0.0-0.7); Absolute Lymphocyte Count 0.61 10^3/uL (1.2-3.4); Absolute Monocyte Count 0.06 10^3/uL (0.1-0.8); Basophils % 0.9 %; Eosinophils % 0.9 %; HCT 26.6 % (40.0-50.0); HGB 8.8 g/dL (13.5-17.5); Immature Grans % 1.8 %; Lymphocytes % 55.5 %; MCH 35.2 pg (27.0-33.0); MCHC 33.1 % (32.0-36.0); MCV 106 fL (80-95); MPV 12.4 fL (8.0-11.0); Monocytes % 5.5 %; Neutrophils % 35.4 %; Platelet Count 115 10^3/uL (130-400); RDW 20.6 % (11.8-14.1); RDW-SD 79.6 fL
[2024-03-27 19:48] LABS: Diff Comment RBC Morph Reviewed
[2024-03-27 19:49] LABS: Anisocytosis 2+; Macrocytosis 2+
[2024-03-27 19:50] LABS: Poikilocytes 1+
[2024-03-27 19:57] LABS: Absolute Neutrophil Count 0.39 10^3/uL (1.2-6.7)
[2024-03-27 19:58] LABS: Anion Gap 7.4 mmol/L (3-11); BUN 43 mg/dL (7-18); CO2 23.6 mmol/L (21.0-32.0); CREATININE 2.1 mg/dL (0.70-1.30); Calcium 8.8 mg/dL (8.5-10.1); Chloride 106 mmol/L (98-107); Glucose 333 mg/dL (74-106); Sodium 137 mmol/L (136-145)
[2024-03-28 17:49] LABS: TSH (W/Ref FT4) 0.56 uIU/mL (0.36-3.74)
== END 2024-03-27 18:24 | disposition home or self-care (01) ==
LOC: NCHCN 18:23
PROVIDERS: PCP Family Medicine; Visit Provider Family Medicine
DX: D64.9 Anemia, unspecified (principal); R53.83 Other fatigue
CPT/HCPCS: 80048; 84443; 85025

== ENCOUNTER 2024-04-03 02:01 | Outpatient (CLI) | payer MEDICARE, SELFPAY ==
[2024-04-03 07:14] LABS: Absolute Eosinophil Count 0.01 10^3/uL (0.0-0.7); HCT 28.8 % (40.0-50.0); HGB 9.2 g/dL (13.5-17.5); MCH 34.2 pg (27.0-33.0); MCHC 31.9 % (32.0-36.0); MCV 107 fL (80-95); MPV 11.7 fL (8.0-11.0); Platelet Count 108 10^3/uL (130-400); RBC 2.69 10^6/uL (4.36-5.78); RDW 20.8 % (11.8-14.1); RDW-SD 80.6 fL
[2024-04-03 07:33] LABS: Absolute Basophil Count 0.01 10^3/uL (0.0-0.2); Absolute Lymphocyte Count 0.86 10^3/uL (1.2-3.4); Absolute Monocyte Count 0.04 10^3/uL (0.1-0.8); Anisocytosis 2+; Atypical Lymphocytes % 2 %; Bands % 1 %; Diff Comment Manual Differential; Macrocytosis 2+; Metamyelocytes % 4
[2024-04-03 07:34] LABS: Poikilocytes 2+
[2024-04-03 08:11] LABS: WBC 1.23 10^3/uL (4.4-10.8)
[2024-04-03 08:12] LABS: Absolute Neutrophil Count 0.26 10^3/uL (1.2-6.7)
== END 2024-04-03 02:02 | disposition home or self-care (01) ==
LOC: LBO 02:01
PROVIDERS: PCP Family Medicine; Visit Provider Internal Medicine Hematology & Oncology
DX: N18.30 Chronic kidney disease, stage 3 unspecified (principal)
CPT/HCPCS: 36415; 85025

== ENCOUNTER 2024-04-24 08:12 | Outpatient (CLI) | payer MEDICARE, SELFPAY ==
[2024-04-24 07:16] LABS: Absolute Eosinophil Count 0.01 10^3/uL (0.0-0.7); HGB 8.4 g/dL (13.5-17.5); MCH 35.1 pg (27.0-33.0); MCHC 32.3 % (32.0-36.0); MCV 109 fL (80-95); MPV 11.3 fL (8.0-11.0); Platelet Count 76 10^3/uL (130-400); RBC 2.39 10^6/uL (4.36-5.78); RDW 20.1 % (11.8-14.1)
[2024-04-24 07:50] LABS: Absolute Lymphocyte Count 0.64 10^3/uL (1.2-3.4); Absolute Monocyte Count 0.03 10^3/uL (0.1-0.8); Absolute Neutrophil Count 0.75 10^3/uL (1.2-6.7); Anisocytosis 2+; Atypical Lymphocytes % 3 %; Bands % 5 %; Diff Comment Manual Differential; Macrocytosis 2+; Metamyelocytes % 1
[2024-04-24 08:03] LABS: WBC 1.45 10^3/uL (4.4-10.8)
== END 2024-04-24 08:13 | disposition home or self-care (01) ==
LOC: LBO 08:12
PROVIDERS: PCP Family Medicine; Visit Provider Internal Medicine Hematology & Oncology
DX: N18.30 Chronic kidney disease, stage 3 unspecified (principal)
CPT/HCPCS: 36415; 85025

== ENCOUNTER 2024-05-15 01:58 | Outpatient (CLI) | payer MEDICARE, SELFPAY ==
[2024-05-15 11:01] LABS: Abs Immature Grans 0.03 10^3/uL (0.0-0.06); HCT 30.6 % (40.0-50.0); HGB 10.1 g/dL (13.5-17.5); MCH 35.9 pg (27.0-33.0); MCV 109 fL (80-95); MPV 11.6 fL (8.0-11.0); Platelet Count 102 10^3/uL (130-400); RBC 2.81 10^6/uL (4.36-5.78); RDW 19.1 % (11.8-14.1)
[2024-05-15 11:23] LABS: WBC 1.75 10^3/uL (4.4-10.8)
[2024-05-15 11:24] LABS: Absolute Basophil Count 0.04 10^3/uL (0.0-0.2); Absolute Eosinophil Count 0.07 10^3/uL (0.0-0.7); Absolute Lymphocyte Count 1.02 10^3/uL (1.2-3.4); Absolute Monocyte Count 0.11 10^3/uL (0.1-0.8); Absolute Neutrophil Count 0.53 10^3/uL (1.2-6.7); Anisocytosis 2+; Atypical Lymphocytes % 4 %; Bands % 2 %; Diff Comment Manual Differential
[2024-05-15 11:25] LABS: Macrocytosis 2+; Poikilocytes 2+; Polychromasia Present; Spherocytes 2+
== END 2024-05-15 01:59 | disposition home or self-care (01) ==
LOC: LBO 01:58
PROVIDERS: PCP Family Medicine; Visit Provider Internal Medicine Hematology & Oncology
DX: N18.30 Chronic kidney disease, stage 3 unspecified (principal)
CPT/HCPCS: 85025

== ENCOUNTER 2024-06-04 12:39 | Outpatient (CLI) | payer MEDICARE, SELFPAY ==
[2024-06-04 12:36] LABS: Abs Immature Grans 0.05 10^3/uL (0.0-0.06); HCT 28.5 % (40.0-50.0); HGB 9.2 g/dL (13.5-17.5); MCH 35.4 pg (27.0-33.0); MCHC 32.3 % (32.0-36.0); MCV 110 fL (80-95); RDW 18.3 % (11.8-14.1); RDW-SD 73.7 fL
[2024-06-04 12:55] LABS: Absolute Basophil Count 0.03 10^3/uL (0.0-0.2); Absolute Lymphocyte Count 0.89 10^3/uL (1.2-3.4); Absolute Monocyte Count 0.08 10^3/uL (0.1-0.8); Absolute Neutrophil Count 0.51 10^3/uL (1.2-6.7); Atypical Lymphocytes % 3 %; Bands % 2 %; Metamyelocytes % 3
[2024-06-04 12:56] LABS: Diff Comment Manual Differential; Macrocytosis 2+; Platelet Count 86 10^3/uL (130-400)
[2024-06-04 12:57] LABS: WBC 1.56 10^3/uL (4.4-10.8)
[2024-06-04 13:19] LABS: C-Reactive Protein < 0.50 mg/dL (<or=0.5)
== END 2024-06-04 12:40 | disposition home or self-care (01) ==
LOC: LBO 12:40
PROVIDERS: PCP Family Medicine; Visit Provider Internal Medicine Hematology & Oncology
DX: N18.30 Chronic kidney disease, stage 3 unspecified (principal); R63.4 Abnormal weight loss
CPT/HCPCS: 36415; 82550; 85025; 86140

== ENCOUNTER 2024-06-26 12:31 | Outpatient (CLI) | payer MEDICARE, SELFPAY ==
[2024-06-26 08:58] LABS: Abs Immature Grans 0.09 10^3/uL (0.0-0.06); HCT 28.2 % (40.0-50.0); HGB 9.1 g/dL (13.5-17.5); MCH 35.7 pg (27.0-33.0); MCHC 32.3 % (32.0-36.0); MCV 111 fL (80-95); MPV 12.4 fL (8.0-11.0); RBC 2.55 10^6/uL (4.36-5.78); RDW 18.4 % (11.8-14.1); RDW-SD 73.6 fL; WBC 2.16 10^3/uL (4.4-10.8)
[2024-06-26 10:00] LABS: Absolute Eosinophil Count 0.04 10^3/uL (0.0-0.7); Absolute Lymphocyte Count 0.67 10^3/uL (1.2-3.4); Absolute Monocyte Count 0.09 10^3/uL (0.1-0.8); Absolute Neutrophil Count 1.23 10^3/uL (1.2-6.7); Atypical Lymphocytes % 6 %; Bands % 11 %; Metamyelocytes % 3; Myelocytes % 3; Platelet Count 82 10^3/uL (130-400)
[2024-06-26 10:01] LABS: Anisocytosis 2+; Diff Comment Manual Differential; Polychromasia Present
== END 2024-06-26 12:32 | disposition home or self-care (01) ==
LOC: LBO 12:32
PROVIDERS: PCP Family Medicine; Visit Provider Nurse Practitioner Family
DX: D46.9 Myelodysplastic syndrome, unspecified (principal)
CPT/HCPCS: 36415; 85025

== ENCOUNTER 2024-07-16 07:37 | Outpatient (CLI) | payer MEDICARE, SELFPAY ==
[2024-07-16 07:43] LABS: HCT 27.1 % (40.0-50.0); HGB 8.7 g/dL (13.5-17.5); MCH 34.9 pg (27.0-33.0); MCHC 32.1 % (32.0-36.0); MCV 109 fL (80-95); MPV 12.8 fL (8.0-11.0); Platelet Count 104 10^3/uL (130-400); RBC 2.49 10^6/uL (4.36-5.78); RDW 17.7 % (11.8-14.1); RDW-SD 70.6 fL; WBC 2.21 10^3/uL (4.4-10.8)
[2024-07-16 08:00] LABS: Absolute Eosinophil Count 0.02 10^3/uL (0.0-0.7); Absolute Lymphocyte Count 0.69 10^3/uL (1.2-3.4); Absolute Monocyte Count 0.29 10^3/uL (0.1-0.8); Absolute Neutrophil Count 1.15 10^3/uL (1.2-6.7); Anisocytosis 2+; Atypical Lymphocytes % 2 %; Bands % 6 %; Diff Comment Manual Differential; Metamyelocytes % 3; Myelocytes % 0; Other Cells % 0; Promyelocytes % 0
[2024-07-16 08:01] LABS: Poikilocytes 1+; Polychromasia Present
== END 2024-07-16 07:38 | disposition home or self-care (01) ==
LOC: LBO 07:43
PROVIDERS: PCP Family Medicine; Visit Provider Nurse Practitioner Family
DX: D46.9 Myelodysplastic syndrome, unspecified (principal)
CPT/HCPCS: 36415; 86850; 86900; 86901; 86920; 85025

== ENCOUNTER 2024-07-17 00:38 | Outpatient (RCR) | payer MEDICARE, SELFPAY ==
[2024-07-17 12:17] VITALS: BP 168/80; PULSE 64; RESP 16; TEMP 36.5; O2SAT 96
[2024-07-17 12:32] VITALS: BP 170/72; PULSE 61; RESP 16; TEMP 36.2; O2SAT 96
[2024-07-17 12:56] VITALS: BP 182/82; PULSE 65; RESP 17; TEMP 36.6; O2SAT 96
[2024-07-17 13:26] VITALS: BP 185/84; PULSE 65; RESP 17; TEMP 36.2; O2SAT 96
[2024-07-17] MEDS: Normal Saline Flush 10 ML SYR IVP (13:35)
[2024-07-17 14:28] VITALS: BP 200/92; PULSE 64; RESP 17; TEMP 36.1; O2SAT 94
== END 2024-08-01 23:59 | disposition home or self-care (01) ==
LOC: INF 00:38
PROVIDERS: PCP Family Medicine; Visit Provider Internal Medicine Hematology & Oncology
DX: D46.9 Myelodysplastic syndrome, unspecified (principal); N18.9 Chronic kidney disease, unspecified; D63.1 Anemia in chronic kidney disease; E11.9 Type 2 diabetes mellitus without complications; C18.9 Malignant neoplasm of colon, unspecified; N18.30 Chronic kidney disease, stage 3 unspecified
CPT/HCPCS: 36415; 36430; 86850; 86900; 86901; 86920; P9016

== ENCOUNTER 2024-07-18 14:23 | Outpatient (REF) | payer MEDICARE, SELFPAY ==
[2024-07-18 17:02] LABS: ALT 13 U/L (16-63); AST 13 U/L (15-37); Albumin 3.5 g/dL (3.4-5.0); Alkaline Phosphatase 122 U/L (46-116); Anion Gap 11.6 mmol/L (3-11); Bilirubin, Total 1.28 mg/dL (0.2-1.0); CO2 22.4 mmol/L (21.0-32.0); Calcium 8.7 mg/dL (8.5-10.1); Chloride 107 mmol/L (98-107); Estimated GFR 10.82 (mL/min/1.73m2); Glucose 265 mg/dL (74-106); Potassium 5.6 mmol/L (3.5-5.1); Sodium 141 mmol/L (136-145)
[2024-07-18 17:13] LABS: BUN 85 mg/dL (7-18); CREATININE 4.9 mg/dL (0.70-1.30)
[2024-07-21 09:47] LABS: CEA 0.8 ng/mL (See Note)
== END 2024-07-18 14:24 | disposition home or self-care (01) ==
LOC: NCHCN 14:23
PROVIDERS: PCP Family Medicine; Visit Provider Family Medicine
DX: E11.9 Type 2 diabetes mellitus without complications (principal); C18.8 Malignant neoplasm of overlapping sites of colon
CPT/HCPCS: 80053; 82378

== ENCOUNTER 2024-07-18 18:04 | Inpatient (IN) | payer MEDICARE, SELFPAY ==
[2024-07-18] VITALS (13 sets, daily range): BP systolic 169–205; BP diastolic 72–93; PULSE 57–68; RESP 13–18; TEMP 36.3; O2SAT 91–99
[2024-07-18 18:56] LABS: BE (Venous) -5 mmol/L (-2-3); HCO3 (Venous) 21 mmol/L (23-28); O2 Sat (Venous) 56 %; TCO2 (Venous) 21 mmol/L (24-29); pCO2 (Venous) 43 mmHg (41-51); pH (Venous) 7.31 (7.31-7.41); pO2 (Venous) 34 mmHg
[2024-07-18 19:01] LABS: HCT 28.9 % (40.0-50.0); HGB 9.3 g/dL (13.5-17.5); MCH 34.2 pg (27.0-33.0); MCHC 32.2 % (32.0-36.0); MCV 106 fL (80-95); MPV 13.1 fL (8.0-11.0); RBC 2.72 10^6/uL (4.36-5.78); RDW 17.7 % (11.8-14.1); RDW-SD 68.5 fL
--- NOTE | 2024-07-18 19:02 | DI.CT_ITS ---
Exam(s) CT ABDOMEN PELVIS WO EXAM: CT ABDOMEN PELVIS WO CLINICAL HISTORY: elevated creatinine, dysuria. TECHNIQUE: Imaging Protocol: Axial computed tomography images with coronal and sagittal reformatted images were created and reviewed. Oral: / no COMPARISON: CT CT ABDOMEN PELVIS WO from 05/14/2023 FINDINGS: Lung Bases: No acute findings. Emphysematous changes. Mild atelectasis. Right middle lobe granulom a. Liver: Normal density. No suspicious mass. Gallbladder and biliary tract: Contracted. Gallstones again noted. No gallbladder wall thickening or inflammatory changes. No biliary dilatation. Pancreas: Normal density. No abnormal calcifications or inflammatory process. Spleen: Normal. Kidneys: Left kidney somewhat atrophic.. Tiny stone lower pole right kidney. The right ureter is di lated down to level of the ureteropelvic junction. No stone is identified. There is some stranding around the right ureter as well as right paracolic gutter. This could be secondary to a recently pas sed stone. Stable multiple renal cysts. No suspicious masses seen. Adrenal glands: No masses seen. Lymph nodes: Within normal limits. Vasculature: Abdominal aorta measures maximally 3.5 cm. Severe atherosclerotic calcification. Soft tissues: Fat containing bilateral inguinal hernias. Bladder: No wall thickening. No mass or calculi. Bowel: Partial right colectomy. Anastomosis is unremarkable. No obstruction or bowel wall thickenin g. Mild sigmoid diverticulosis. No evidence of diverticulitis. Moderate quantity of stool. Peritoneal cavity: No ascites. No focal collection. No mesenteric inflammatory response. Reproductive organs: Unremarkable. Bones: Unremarkable for age. IMPRESSION: Mild right hydronephrosis without visible obstructing stone. Findings could be secondary to a recent ly passed stone. RADIATION DOSE DELIVERED: Total DLP DATA REPOSITORY: All CT scans at this facility are submitted to the National Radiology Data Registry (NRDR) Dose Index Registry (DIR) with the [employer] (A[employer]). RADIATION OPTIMIZATION: All CT scans at this facility use at least one of these dose optimization te chniques: automated exposure control; mA and/or kV adjustment per patient size (includes targeted exa ms where dose is matched to clinical indication); or iterative reconstruction.
[2024-07-18 19:19] LABS: Absolute Lymphocyte Count 0.44 10^3/uL (1.2-3.4); Absolute Monocyte Count 0.16 10^3/uL (0.1-0.8); Absolute Neutrophil Count 0.65 10^3/uL (1.2-6.7); Bands % 8 %; Myelocytes % 2; Platelet Count 70 10^3/uL (130-400)
[2024-07-18 19:20] LABS: ALT 12 U/L (16-63); AST 9 U/L (15-37); Albumin 3.3 g/dL (3.4-5.0); Alkaline Phosphatase 116 U/L (46-116); Anion Gap 7.9 mmol/L (3-11); Anisocytosis 1+; BUN 76 mg/dL (7-18); CO2 24.1 mmol/L (21.0-32.0); Calcium 8.6 mg/dL (8.5-10.1); Chloride 107 mmol/L (98-107); Diff Comment Manual Differential; Estimated GFR 12.65 (mL/min/1.73m2); Glucose 386 mg/dL (74-106); Macrocytosis 1+; Poikilocytes 1+; Polychromasia Present; Potassium 5.4 mmol/L (3.5-5.1); Sodium 139 mmol/L (136-145); Total Protein 6.9 g/dL (6.4-8.2)
[2024-07-18 19:21] LABS: CREATININE 4.3 mg/dL (0.70-1.30)
[2024-07-18] MEDS: Normal Saline 500 ML IV (19:53)
--- NOTE | 2024-07-18 20:29 | DI.VRAD_ITS ---
PROCEDURE INFORMATION: Exam: CT Abdomen And Pelvis Without Contrast Exam date and time: 07/18/2024 6:54 PM Age: 89 years old Clinical indication: Other: Elevated creatinine, dysuria TECHNIQUE: Imaging protocol: Computed tomography of the abdomen and pelvis without contrast. COMPARISON: CT ABDOMEN PELVIS WO 05/14/2023 3:17 PM FINDINGS: Lungs: Linear bibasilar opacities most consistent with subsegmental atelectasis. Right middle lobe granuloma. Moderate emphysema. Liver: The liver is unremarkable. Gallbladder and biliary ducts: Multiple gallstones are present. No pericholecystic inflammatory changes to suggest cholecystitis. Pancreas: The pancreas is unremarkable. Spleen: Multiple calcified granulomas noted in the spleen. No splenomegaly. Adrenal glands: The adrenal glands are unremarkable. Kidneys and ureters: Stable renal cysts. Mild right hydroureteronephrosis without obstructing stone . There is mild distal right periureteral edema. Stomach and bowel: Moderate stool throughout the colon and rectum. Postsurgical changes in the right colon. Colonic diverticulosis without evidence of diverticulitis. Appendix: The appendix is not visualized. Intraperitoneal space: Unremarkable. No free air. No significant fluid collection. Vasculature: 3.3 cm abdominal aortic aneurysm. There is severe diffuse atherosclerotic disease of the abdominal aorta. Lymph nodes: No mesentery adenopathy. No edema. Urinary bladder: No focal wall thickening of the urinary bladder. Reproductive: Unremarkable as visualized. Bones/joints: No acute osseous abnormality. Soft tissues: Bilateral fat containing inguinal hernias. Soft tissues are unremarkable as visualized. IMPRESSION: Mild right hydroureteronephrosis without obstructing stone . There is mild distal right periureteral edema. Appendix is not seen but there is no pericecal inflammatory change. Dictated and Authenticated by: Joselyn Malhotra MD. Ordering:ANEL Song MD
[2024-07-18] MEDS: Lidocaine 2% Jelly 6 ML SYR (21:28)
[2024-07-18 21:42] LABS: Bilirubin Negative (Negative); Blood Large (Negative); Clarity Clear (Clear); Glucose 500 mg/dL (Negative); Ketones Negative (Negative); Leukocyte Esterase Negative (Negative); Nitrite Negative (Negative); Urobilinogen 0.2 mg/dL (Up to 0.2); pH 5.5 (5-8)
[2024-07-18 21:52] LABS: Bacteria Negative HPF (Negative); C & S Indicated? No; Crystals Negative HPF (Negative); Epithelial Cells Rare HPF (Negative); Mucus Negative (Negative); RBC 20-50 HPF (0-2); WBC 0-2 HPF (0-5)
[2024-07-18 22:34] LABS: Anion Gap 4.6 mmol/L (3-11); BUN 70 mg/dL (7-18); CO2 26.4 mmol/L (21.0-32.0); Calcium 7.6 mg/dL (8.5-10.1); Chloride 110 mmol/L (98-107); Estimated GFR 14.68 (mL/min/1.73m2); Glucose 298 mg/dL (74-106); Potassium 5.1 mmol/L (3.5-5.1); Sodium 141 mmol/L (136-145)
[2024-07-18 22:39] LABS: CREATININE 3.8 mg/dL (0.70-1.30)
--- NOTE | 2024-07-18 22:56 | ED.GENADUL_ITS ---
Discharge Plan Disposition Patient Disposition: Home Condition: Stable Discharge Details Clinical Impression: Acute on chronic renal failure, Acute urinary retention Primary Care Provider: Sandra Park V ED Provider: Nohemi Knight Discharge Data Discharge Date/Time-TO BE ENTERED AT DEPARTURE: 07/19/24 01:37 HPI General Date/Time Provider Initiated Documentation: 07/18/24 18:28 . HPI Narrative: This 89-year-old male with history of atrial fibrillation, insulin-dependent diabetes, hypertension, myelodysplastic syndrome stage IV chronic kidney disease presents with urinary frequency and retention. He received a blood transfusion yesterday secondary to anemia myelodysplastic syndrome. Patient denies any back pain, chest pain, shortness of breath. Patient denies any weakness or dizziness. Related Data Home Medications ?Medication ?Instructions ?Recorded ?Confirmed glipizide 10 mg tablet 10 mg PO DAILY 11/10/15 03/20/24 losartan 100 mg tablet 100 mg PO DAILY 11/10/15 03/20/24 sitagliptin phosphate 50 mg tablet 50 mg PO DAILY 90 days #90 tabs 07/22/17 03/20/24 (Januvia) cyanocobalamin (vitamin B-12) 1,000 mcg IM QMONTH 08/09/21 03/20/24 1,000 mcg/mL injection solution famotidine 20 mg tablet 20 mg PO DAILY 08/09/21 03/20/24 furosemide 20 mg tablet 20 mg PO DAILY 08/09/21 03/20/24 insulin degludec 100 unit/mL (3 17 unit subcut HS 08/09/21 03/20/24 mL) subcutaneous pen (Tresiba FlexTouch U-100 insulin) pioglitazone 30 mg tablet (Actos) 30 mg PO DAILY 08/09/21 03/20/24 betamethasone dipropionate 0.05 % 1 applic topical BID PRN 09/14/21 03/20/24 topical cream clotrimazole 1 % topical cream 1 applic topical BID 09/14/21 03/20/24 cetirizine 1 mg/mL oral solution 10 mg PO DAILY 09/15/22 03/20/24 (All Day Allergy (cetirizine)) docusate sodium 100 mg capsule 100 mg PO BID 09/15/22 03/20/24 (Colace) epoetin sajan-epbx 40,000 unit/mL 60,000 unit subcut .[id number] 09/15/22 03/20/24 injection solution (Retacrit) polyethylene glycol 3350 17 17 g PO DAILY PRN 09/15/22 03/20/24 gram/dose oral powder (Miralax) oxycodone 5 mg tablet 5 mg PO Q4H PRN pain #9 tabs 05/14/23 03/20/24 metoprolol succinate 50 mg 50 mg PO DAILY 07/19/24 07/19/24 tablet,extended release 24 hr simvastatin 20 mg tablet 20 mg PO HS 07/19/24 07/19/24 tamsulosin 0.4 mg capsule (Flomax) 0.4 mg PO DAILY #90 caps 07/20/24 Previous Rx's ?Medication ?Instructions ?Recorded sitagliptin phosphate 50 mg tablet 50 mg PO DAILY 90 days #90 tabs 07/22/17 (Januvia) oxycodone 5 mg tablet 5 mg PO Q4H PRN pain #9 tabs 05/14/23 tamsulosin 0.4 mg capsule (Flomax) 0.4 mg PO DAILY #90 caps 07/20/24 Allergies Allergy/AdvReac Type Severity Reaction Status Date / Time gabapentin Allergy Mild Unknown Verified 07/18/24 18:20 Sulfa (Sulfonamide Allergy Mild Unknown Verified 07/18/24 18:20 Antibiotics) tramadol Allergy Mild Unknown Verified 07/18/24 18:20 aspirin AdvReac Intermediate Bloody Verified 07/18/24 18:20 nose, bruising metformin (From Glucophage) AdvReac Intermediate Unknown Verified 07/18/24 18:20 General Stated Complaint: Urinary NICHOL: 3 Exam Narrative Exam Narrative: 89-year-old male presenting alert and oriented, no acute distress, lungs clear to auscultation, cardiac rate rhythm regular, suprapubic tenderness, no CVA tenderness, pallor, alert and oriented x 4, no rashes or lesions to penis Course Vital Signs Vital signs: Vital Signs Temperature 36.3 C L 07/18/24 18:14 Pulse 67 07/18/24 18:14 Respiratory Rate 16 07/18/24 18:14 Blood Pressure 181/93 H 07/18/24 18:14 Pulse Oximetry 96 07/18/24 18:14 Temperature 36.3 C L 07/18/24 18:14 Temperature Source Oral 07/18/24 18:14 Pulse 68 07/18/24 20:32 Pulse 61 07/18/24 19:50 Respiratory Rate 16 07/18/24 20:32 Blood Pressure 185/87 H 07/18/24 20:32 Blood Pressure Mean 125 07/18/24 20:31 Blood Pressure Position Sitting 07/18/24 18:14 Pulse Oximetry 94 07/18/24 20:32 Oxygen Delivery Method Room Air 07/18/24 18:14 Oxygen Flow Rate 0 07/18/24 18:14 Pain Level 0 07/18/24 18:14 Lab/Test Results Lab/Test Results: Laboratory Tests Range/Units 07/18/24 07/18/24 07/18/24 18:50 21:10 22:15 WBC (4.4-10.8) 10^3/uL 1.30 L* RBC (4.36-5.78) 10^6/uL 2.72 L Hgb (13.5-17.5) g/dL 9.3 L Hct (40.0-50.0) % 28.9 L MCV (80-95) fL 106 H MCH (27.0-33.0) pg 34.2 H MCHC (32.0-36.0) % 32.2 RDW (11.8-14.1) % 17.7 H Plt Count (130-400) 10^3/uL 70 L MPV (8.0-11.0) fL 13.1 H Immature Gran % See Differential Neutrophils % % 42.0 Band Neutrophils % % 8 Lymphocytes % % 34.0 Monocytes % % 12.0 Eosinophils % % 0.0 Basophils % % 0.0 Myelocytes % 2 Nucleated RBC % (0.0-0.3) % 0.0 Absolute Neutrophils (1.2-6.7) 10^3/uL 0.65 L Absolute Lymphocytes (1.2-3.4) 10^3/uL 0.44 L Absolute Monocytes (0.1-0.8) 10^3/uL 0.16 Absolute Eosinophils (0.0-0.7) 10^3/uL 0.00 Absolute Basophils (0.0-0.2) 10^3/uL 0.00 RBC Morphology See Below Polychromasia Present Poikilocytosis 1+ Anisocytosis 1+ Macrocytosis 1+ VBG pH (7.31-7.41) 7.31 VBG pCO2 (41-51) mmHg 43 VBG pO2 mmHg 34 VBG HCO3 (23-28) mmol/L 21 L VBG Total CO2 (24-29) mmol/L 21 L VBG O2 Saturation % 56 VBG Base Excess (-2-3) mmol/L -5 L Sodium (136-145) mmol/L 139 141 Potassium (3.5-5.1) mmol/L 5.4 H 5.1 Chloride (98-107) mmol/L 107 110 H Carbon Dioxide (21.0-32.0) mmol/L 24.1 26.4 Anion Gap (3-11) mmol/L 7.9 4.6 BUN (7-18) mg/dL 76 H 70 H Creatinine (0.70-1.30) mg/dL 4.3 H* 3.8 H* Est GFR (CKD-EPI 2020) (mL/min/1.73m2) 12.65 14.68 Glucose (74-106) mg/dL 386 H 298 H Calcium (8.5-10.1) mg/dL 8.6 7.6 L Total Bilirubin (0.2-1.0) mg/dL 1.00 AST (15-37) U/L 9 L ALT (16-63) U/L 12 L Alkaline Phosphatase (46-116) U/L 116 Total Protein (6.4-8.2) g/dL 6.9 Albumin (3.4-5.0) g/dL 3.3 L Urine Color (Yellow) Yellow Urine Clarity (Clear) Clear Urine pH (5-8) 5.5 Ur Specific [place] (1.005-1.025) 1.020 Urine Protein (Neg-Trace) mg/dL 100 H Urine Ketones (Negative) mg/dL Negative Urine Blood (Negative) Large H Urine Nitrite (Negative) Negative Urine Bilirubin (Negative) Negative Urine Urobilinogen (Up to 0.2) mg/dL 0.2 Ur Leukocyte Esterase (Negative) Negative Urine RBC (0-2) HPF 20-50 H Urine WBC (0-5) HPF 0-2 Ur Epithelial Cells (Negative) HPF Rare Urine Crystals (Negative) HPF Negative Urine Bacteria (Negative) HPF Negative Urine Mucus (Negative) Negative Ur Culture Indicated? No Urine Glucose (Negative) mg/dL 500 H Medical Decision Making This is a 89-year-old male presents with urinary frequency and symptoms of retention. Patient states because of this his doctor ordered some blood work. He was told that his creatinine was elevated and told to present to the ED. Initial bladder scan was found to be 75, I repeated this 2 hours later and it was found to the 5 75-600. A Linton catheter was then placed. Creatinine was found to be 4.3 decreased from 4.9 on initial presentation. BUN of 89, improved to 70 after fluids and Linton catheter placement. There is been approximately 750 cc of urinary output. 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 Patient received 500 cc of normal saline over the course of 2 hours. He does have significant peripheral edema but I suspect that patient can tolerate some fluid through her IV secondary to an excellent ejection fraction less than a year ago of 65% on echocardiogram. At this time patient will need admission for acute exacerbation of CKD. Quality:[facility] Health Related Social Needs: Health related social needs housing instability, house d, with risk of homelessness (Z59.811) Critical Care Time Critical Care Time Attestation: 35 minutes of critical care time secondary to acute renal failure in the presence of pre and post renal syndrome, requiring Linton catheter placement, IV fluid resuscitation, telemetry monitoring and admission to the hospital [facility] All Active Problems (Updated 07/20/24 @ 16:42 by DORINA Zuñiga) Acute urinary retention (Acute) DVT prophylaxis (Acute) Urinary outflow obstruction (Acute) Acute on chronic renal failure (Acute) Nail dystrophy (Acute) Edema (Acute) GERD (gastroesophageal reflux disease) (Chronic) B12 deficiency (Acute) Hypercholesterolemia (Acute) HTN (hypertension) (Chronic) CKD (chronic kidney disease) (Chronic) STAGE IV Diabetes mellitus (Chronic) Low grade myelodysplastic syndrome lesions (Acute) followed by oncology Anemia (Chronic) managed with erythropoietin [id number]. Pharyngoesophageal dysphagia (Acute) Chronic rhinitis (Acute) Atrial fibrillation (Chronic) NO anti-coagulant given patient's thrombocytopenia status. 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
[2024-07-19] VITALS (10 sets, daily range): BP systolic 150–243; BP diastolic 67–96; PULSE 52–96; RESP 12–18; TEMP 36.1–37.3; O2SAT 92–99
--- NOTE | 2024-07-19 00:14 | HPE_ITS ---
Date of service: 07/19/24 Time of Service: 00:14 Assessment and Plan Assessment and plan (1) Acute on chronic renal failure: Status: Acute Assessment and plan: Likely obstructive. 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 He may also have a prerenal component with elevated BUN, but this is less clear. He is improving already after godwin placed and making urine so I think reasonable to observe here even though I'm not sure we will have urology available over the weekend. He also has mild unilateral hydronephrosis, but the clinically relavent obstruction appears to be a the level of the bladder outlet, see below. (2) Urinary outflow obstruction: Status: Acute Assessment and plan: As above. He may need to go home with godwin. Start tamsulosin. Prostate not large on CT so unlikely to benefit from finasteride or similar. (3) Atrial fibrillation: Status: Chronic Assessment and plan: Not anticoagulated chronically because of chronically low platelets and anemia. (4) HTN (hypertension): Status: Chronic Assessment and plan: Mildly elevated, holding ARB for now and monitor. (5) Diabetes mellitus: Status: Chronic Assessment and plan: a/w poor diet. Continue basal insulin, add bolus prn and hold glipizide. Last A1c was 8.2 over 9 months ago, repeat in AM. (6) Low grade myelodysplastic syndrome lesions: Status: Acute Assessment and plan: With chronic neutropenia, anemia, thrombocytopenia. He just had transfusion yesterday as an outpatient. Monitor. Precautions if ANC drops below 500. (7) GERD (gastroesophageal reflux disease): Status: Chronic Assessment and plan: continue famotidine (8) DVT prophylaxis: Status: Acute Assessment and plan: hasn't done well with anticoagulation per outpatient notes, will use SCDs History of Present Illness History of Present Illness Chief Complaint: difficulty urinating Narrative: 89 yo M with history of myelodysplastic syndrome, CKD 3b, type 2 DM, chronic pain on opioids, and atrial fibrillation not on anticoagulation with urinary frequency and difficulty emptying his bladder presented to the emergency room after abnormal kidney function was noted on labs ordered by his primary care. He does say that for a few days prior to this he has had some pain and fullness in the right lower abdomen above his groin that was more notable after eating or drinking. This went away after placing the godwin. He also noted he hasn't been able to urinate a lot at a time in the past few days, and needs to go frequently. No blood in the urine, no fever/chills. No GI symptoms. Per ED report, an initial bladder scan showed only 75ml, but another scan 2 hours later showed about 600ml, suggesting the initial result was spurious. At that point, godwin catheter was placed and he has continued to have urine output and a downtrending creatinine. Review of Systems All systems reviewed & are unremarkable except as noted in HPI and below PFSH All Active Problems DVT prophylaxis (Acute) Urinary outflow obstruction (Acute) Acute on chronic renal failure (Acute) Nail dystrophy (Acute) Edema (Acute) Low grade myelodysplastic syndrome lesions (Acute) followed by oncology Anemia (Chronic) managed with erythropoietin N0hctch. Pharyngoesophageal dysphagia (Acute) Chronic rhinitis (Acute) B12 deficiency (Acute) CKD (chronic kidney disease) (Chronic) STAGE IV Diabetes mellitus (Chronic) GERD (gastroesophageal reflux disease) (Chronic) HTN (hypertension) (Chronic) Hypercholesterolemia (Acute) Atrial fibrillation (Chronic) NO anti-coagulant given patient's thrombocytopenia status. 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, partial colectomy Surgical History S/P hernia repair Social History (Updated 07/19/24 @ 00:56 by Lamberto Suero) Smoking/Tobacco Use Status: Never Smoking risk assessment performed?: Yes Alcohol Intake: never Drug use: Never Current gender identity: male Do you feel safe in your relationship?: Yes Additional Social history: lives alone in his own home in [place] Allergies and Home Medications Allergies Allergy/AdvReac Type Severity Reaction Status Date / Time gabapentin Allergy Mild Unknown Verified 07/18/24 18:20 Sulfa (Sulfonamide Allergy Mild Unknown Verified 07/18/24 18:20 Antibiotics) tramadol Allergy Mild Unknown Verified 07/18/24 18:20 aspirin AdvReac Intermediate Bloody Verified 07/18/24 18:20 nose, bruising metformin (From Glucophage) AdvReac Intermediate Unknown Verified 07/18/24 18:20 Home Medications ?Medication ?Instructions ?Recorded ?Confirmed ?Type glipizide 10 mg tablet 10 mg PO DAILY 11/10/15 03/20/24 History losartan 100 mg tablet 100 mg PO DAILY 11/10/15 03/20/24 History simvastatin 40 mg tablet 20 mg PO HS 11/10/15 03/20/24 History sitagliptin phosphate 50 mg tablet 50 mg PO DAILY 90 days #90 tabs 07/22/17 03/20/24 Rx (Januvia) cyanocobalamin (vitamin B-12) 1,000 mcg IM QMONTH 08/09/21 03/20/24 History 1,000 mcg/mL injection solution famotidine 20 mg tablet 20 mg PO DAILY 08/09/21 03/20/24 History furosemide 20 mg tablet 20 mg PO DAILY 08/09/21 03/20/24 History insulin degludec 100 unit/mL (3 17 unit subcut HS 08/09/21 03/20/24 History mL) subcutaneous pen (Tresiba FlexTouch U-100 insulin) metoprolol tartrate 50 mg tablet 50 mg PO BID 08/09/21 03/20/24 History (Lopressor) pioglitazone 30 mg tablet (Actos) 30 mg PO DAILY 08/09/21 03/20/24 History betamethasone dipropionate 0.05 % 1 applic topical BID PRN 09/14/21 03/20/24 History topical cream clotrimazole 1 % topical cream 1 applic topical BID 09/14/21 03/20/24 History cetirizine 1 mg/mL oral solution 10 mg PO DAILY 09/15/22 03/20/24 History (All Day Allergy (cetirizine)) docusate sodium 100 mg capsule 100 mg PO BID 09/15/22 03/20/24 History (Colace) epoetin sajan-epbx 40,000 unit/mL 60,000 unit subcut .[id number] 09/15/22 03/20/24 History injection solution (Retacrit) polyethylene glycol 3350 17 17 g PO DAILY PRN 09/15/22 03/20/24 History gram/dose oral powder (Miralax) oxycodone 5 mg tablet 5 mg PO Q4H PRN pain #9 tabs 05/14/23 03/20/24 Rx Exam Narrative Exam Narrative: GEN: Alert and oriented x 4, pleasant and cooperative, gives linear though not detailed history. No acute distress at rest. HEENT: Head atraumatic. Conjunctiva clear, no icterus. PEERL, EOMI. no rhinorrhea. MMM, OP benign. Neck is supple with no masses or lymphadenopathy, trachea midline LUNGS: CTAB with normal effort CV: RRR with no murmurs, gallops, or rubs. ABD: active bowel sounds, soft, nontender and nondistended. No masses. : no penile lesions, godwin in place, leaking on bed EXT: no cyanosis, clubbing. 2+ pitting edema to shins maryjane (states hasn't changed) MSK: No joint redness or swelling NEURO: CN 2-12 grossly intact. Normal movement of 4 extremities. Normal speech and coordination. No tremor SKIN: No rashes or open wounds. PSYCH: normal mood and affect Results Imaging CT scan - pelvis: report reviewed (Mild right hydroureteronephrosis without obstructing stone . There is mild distal right periureteral edema. Appendix is not seen but there is no pericecal inflammatory change. ) Labs 07/18/24 18:50 07/18/24 22:15 Labs: Laboratory Results - last 24 hr 07/18/24 07/18/24 07/18/24 18:50 21:10 22:15 WBC 1.30 L* RBC 2.72 L Hgb 9.3 L Hct 28.9 L MCV 106 H MCH 34.2 H MCHC 32.2 RDW 17.7 H Plt Count 70 L MPV 13.1 H Immature Gran % See Differential Neutrophils % 42.0 Band Neutrophils % 8 Lymphocytes % 34.0 Monocytes % 12.0 Eosinophils % 0.0 Basophils % 0.0 Myelocytes % 2 Nucleated RBC % 0.0 Absolute Neutrophils 0.65 L Absolute Lymphocytes 0.44 L Absolute Monocytes 0.16 Absolute Eosinophils 0.00 Absolute Basophils 0.00 RBC Morphology See Below Polychromasia Present Poikilocytosis 1+ Anisocytosis 1+ Macrocytosis 1+ VBG pH 7.31 VBG pCO2 43 VBG pO2 34 VBG HCO3 21 L VBG Total CO2 21 L VBG O2 Saturation 56 VBG Base Excess -5 L Sodium 139 141 Potassium 5.4 H 5.1 Chloride 107 110 H Carbon Dioxide 24.1 26.4 Anion Gap 7.9 4.6 BUN 76 H 70 H Creatinine 4.3 H* 3.8 H* Est GFR (CKD-EPI 2020) 12.65 14.68 Glucose 386 H 298 H Calcium 8.6 7.6 L Total Bilirubin 1.00 AST 9 L ALT 12 L Alkaline Phosphatase 116 Total Protein 6.9 Albumin 3.3 L Urine Color Yellow Urine Clarity Clear Urine pH 5.5 Ur Specific [place] 1.020 Urine Protein 100 H Urine Ketones Negative Urine Blood Large H Urine Nitrite Negative Urine Bilirubin Negative Urine Urobilinogen 0.2 Ur Leukocyte Esterase Negative Urine RBC 20-50 H Urine WBC 0-2 Ur Epithelial Cells Rare Urine Crystals Negative Urine Bacteria Negative Urine Mucus Negative Ur Culture Indicated? No Urine Glucose 500 H Last Vital Signs Temp 36.3 C L 07/18/24 18:14 Pulse 68 07/18/24 20:32 Resp 16 07/18/24 20:32 BP 185/87 H 07/18/24 20:32 Pulse Ox 94 07/18/24 20:32 Time Spent Time spent with Patient: 55-74 minutes Time was spent: preparing to see the patient(eg.review tests), obtaining and/or reviewing separately otained hiistory, ordering medications,tests, procedures, referring, communicating with other health professional healthcare representative, indepentently interpreting results, counseling the patient and care coordination
--- NOTE | 2024-07-19 01:43 | W.PC.ACHO ---
Registration Status: Primary Language: Preferred Language: ED Information & Data Chief Complaint Urinary 07/18/24 23:00 Triage Note frequent urination with 07/18/24 18:14 small amounts. blood transfusion yesterday. some recent medication changes. received a phone call from pcp that something was wrong with my urine. denies hematuria or fever. pain in right groin after eating or drinking. 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 Colon cancer (Last Reviewed 07/19/24 @ 00:55 by Lamberto Suero) S/P hernia repair Most Recent Vital Signs Temperature 36.3 C L 07/19/24 01:04 Temperature Source Tympanic 07/19/24 01:04 Pulse 54 L 07/19/24 01:04 Pulse 61 07/18/24 19:50 Respiratory Rate 18 07/19/24 01:04 Blood Pressure 213/96 H 07/19/24 01:04 Blood Pressure Mean 136 07/19/24 01:02 Blood Pressure Position Sitting 07/18/24 18:14 Pulse Oximetry 99 07/19/24 01:10 Oxygen Delivery Method Room Air 07/19/24 01:04 Oxygen Flow Rate 0 07/19/24 01:04 Pain Level 0 07/18/24 18:14 Allergies gabapentin Allergy (Mild, Verified 07/18/24 18:20) Unknown Sulfa (Sulfonamide Antibiotics) Allergy (Mild, Verified 07/18/24 18:20) Unknown tramadol Allergy (Mild, Verified 07/18/24 18:20) Unknown aspirin Adverse Reaction (Intermediate, Verified 07/18/24 18:20) Bloody nose, bruising metformin (From Glucophage) Adverse Reaction (Intermediate, Verified 07/18/24 18:20) Unknown Precautions Isolation Standard precaution 07/18/24 18:53 IV IV Catheter Type [Left Peripheral IV Antecubital] IV Catheter Gauge [Left 20 Antecubital] Diet Orders Category Date Time Status Diabetes Consistent CHO [DIET] Nutrition 07/19/24 Breakfast Active Diagnostics 07/19/24 07/18/24 07/18/24 Range/Units 05:35 22:15 21:10 WBC Pending (4.4-10.8) 10^3/uL RBC Pending (4.36-5.78) 10^6/uL Hgb Pending (13.5-17.5) g/dL Hct Pending (40.0-50.0) % MCV Pending (80-95) fL MCH Pending (27.0-33.0) pg MCHC Pending (32.0-36.0) % RDW Pending (11.8-14.1) % Plt Count Pending (130-400) 10^3/uL MPV Pending (8.0-11.0) fL Immature Gran % Pending Neutrophils % Pending % Band Neutrophils % % Lymphocytes % Pending % Monocytes % Pending % Eosinophils % Pending % Basophils % Pending % Myelocytes % Nucleated RBC % (0.0-0.3) % Absolute Neutrophils Pending (1.2-6.7) 10^3/uL Absolute Lymphocytes Pending (1.2-3.4) 10^3/uL Absolute Monocytes Pending (0.1-0.8) 10^3/uL Absolute Eosinophils Pending (0.0-0.7) 10^3/uL Absolute Basophils Pending (0.0-0.2) 10^3/uL RBC Morphology Polychromasia Poikilocytosis Anisocytosis Macrocytosis VBG pH (7.31-7.41) VBG pCO2 (41-51) mmHg VBG pO2 mmHg VBG HCO3 (23-28) mmol/L VBG Total CO2 (24-29) mmol/L VBG O2 Saturation % VBG Base Excess (-2-3) mmol/L Sodium Pending 141 (136-145) mmol/L Potassium Pending 5.1 (3.5-5.1) mmol/L Chloride Pending 110 H (98-107) mmol/L Carbon Dioxide Pending 26.4 (21.0-32.0) mmol/L Anion Gap Pending 4.6 (3-11) mmol/L BUN Pending 70 H (7-18) mg/dL Creatinine Pending 3.8 H* (0.70-1.30) mg/dL Est GFR (CKD-EPI 2020) Pending 14.68 (mL/min/1.73m2) Glucose Pending 298 H (74-106) mg/dL Hemoglobin A1c Pending Calcium Pending 7.6 L (8.5-10.1) mg/dL Total Bilirubin (0.2-1.0) mg/dL AST (15-37) U/L ALT (16-63) U/L Alkaline Phosphatase (46-116) U/L Total Protein (6.4-8.2) g/dL Albumin (3.4-5.0) g/dL Urine Color Yellow (Yellow) Urine Clarity Clear (Clear) Urine pH 5.5 (5-8) Ur Specific [place] 1.020 (1.005-1.025) Urine Protein 100 H (Neg-Trace) mg/dL Urine Ketones Negative (Negative) mg/dL Urine Blood Large H (Negative) Urine Nitrite Negative (Negative) Urine Bilirubin Negative (Negative) Urine Urobilinogen 0.2 (Up to 0.2) mg/dL Ur Leukocyte Esterase Negative (Negative) Urine RBC 20-50 H (0-2) HPF Urine WBC 0-2 (0-5) HPF Ur Epithelial Cells Rare (Negative) HPF Urine Crystals Negative (Negative) HPF Urine Bacteria Negative (Negative) HPF Urine Mucus Negative (Negative) Ur Culture Indicated? No Urine Glucose 500 H (Negative) mg/dL 07/18/24 Range/Units 18:50 WBC 1.30 L* (4.4-10.8) 10^3/uL RBC 2.72 L (4.36-5.78) 10^6/uL Hgb 9.3 L (13.5-17.5) g/dL Hct 28.9 L (40.0-50.0) % MCV 106 H (80-95) fL MCH 34.2 H (27.0-33.0) pg MCHC 32.2 (32.0-36.0) % RDW 17.7 H (11.8-14.1) % Plt Count 70 L (130-400) 10^3/uL MPV 13.1 H (8.0-11.0) fL Immature Gran % See Differential Neutrophils % 42.0 % Band Neutrophils % 8 % Lymphocytes % 34.0 % Monocytes % 12.0 % Eosinophils % 0.0 % Basophils % 0.0 % Myelocytes % 2 Nucleated RBC % 0.0 (0.0-0.3) % Absolute Neutrophils 0.65 L (1.2-6.7) 10^3/uL Absolute Lymphocytes 0.44 L (1.2-3.4) 10^3/uL Absolute Monocytes 0.16 (0.1-0.8) 10^3/uL Absolute Eosinophils 0.00 (0.0-0.7) 10^3/uL Absolute Basophils 0.00 (0.0-0.2) 10^3/uL RBC Morphology See Below Polychromasia Present Poikilocytosis 1+ Anisocytosis 1+ Macrocytosis 1+ VBG pH 7.31 (7.31-7.41) VBG pCO2 43 (41-51) mmHg VBG pO2 34 mmHg VBG HCO3 21 L (23-28) mmol/L VBG Total CO2 21 L (24-29) mmol/L VBG O2 Saturation 56 % VBG Base Excess -5 L (-2-3) mmol/L Sodium 139 (136-145) mmol/L Potassium 5.4 H (3.5-5.1) mmol/L Chloride 107 (98-107) mmol/L Carbon Dioxide 24.1 (21.0-32.0) mmol/L Anion Gap 7.9 (3-11) mmol/L BUN 76 H (7-18) mg/dL Creatinine 4.3 H* (0.70-1.30) mg/dL Est GFR (CKD-EPI 2020) 12.65 (mL/min/1.73m2) Glucose 386 H (74-106) mg/dL Hemoglobin A1c Calcium 8.6 (8.5-10.1) mg/dL Total Bilirubin 1.00 (0.2-1.0) mg/dL AST 9 L (15-37) U/L ALT 12 L (16-63) U/L Alkaline Phosphatase 116 (46-116) U/L Total Protein 6.9 (6.4-8.2) g/dL Albumin 3.3 L (3.4-5.0) g/dL Urine Color (Yellow) Urine Clarity (Clear) Urine pH (5-8) Ur Specific [place] (1.005-1.025) Urine Protein (Neg-Trace) mg/dL Urine Ketones (Negative) mg/dL Urine Blood (Negative) Urine Nitrite (Negative) Urine Bilirubin (Negative) Urine Urobilinogen (Up to 0.2) mg/dL Ur Leukocyte Esterase (Negative) Urine RBC (0-2) HPF Urine WBC (0-5) HPF Ur Epithelial Cells (Negative) HPF Urine Crystals (Negative) HPF Urine Bacteria (Negative) HPF Urine Mucus (Negative) Ur Culture Indicated? Urine Glucose (Negative) mg/dL Intake and Output - 24 Hour Total 07/18/24 18:04 thru 07/19/24 00:18 Intake Total 500 Output Total 1450 Balance -950 Weight 86.183 kg Intake: IV 500 Output: Urine 1450 Other: Urine Color Yellow Urine Appearance Clear Urinary Catheter Urinary Catheter Date of 07/18/24 Insertion [Coude] Time of insertion [Coude] 21:27 Falls Risk Assessment History of Falls No History 07/18/24 18:53 Contributing Factors Impairments,Incontinence 07/18/24 18:53 Ambulatory Aids Uses ambulatory device 07/18/24 18:53 Tubes/Lines None 07/18/24 18:53 Gait Evaluation W/no contributing factors 07/18/24 18:53 Fall Total Score 31 07/18/24 18:53 Level of Risk Moderate Risk 07/18/24 18:53 Problems (Last Reviewed 07/19/24 @ 00:55 by Lamberto Suero) DVT prophylaxis (Acute) Urinary outflow obstruction (Acute) Acute on chronic renal failure (Acute) GERD (gastroesophageal reflux disease) (Chronic) HTN (hypertension) (Chronic) Diabetes mellitus (Chronic) Low grade myelodysplastic syndrome lesions (Acute) Atrial fibrillation (Chronic) v v v v v v v v v Sending and/or Receiving Nurses: Please use comment section below to note any information pertinent to the patient hand-off not included above. Information / Comments:Pt admit to med/surg via ER this evening with frequency and hematauria. 16 f coude folley placed and is leaking upon report. Pt on RA with clear lung sounds. On tele with hx of Afib. Pt ambulates w/ cane. Unknown LBM att. No skin b/d issues. Report received from:Tona JUDD, ED @ 2522
[2024-07-19] MEDS: Insulin Glargine 300 UNITS/3 ML PEN 17 UNITS SC (03:00)
[2024-07-19] MEDS: Lidocaine 2% Jelly 11 ML SYR UR (04:54)
[2024-07-19 06:44] LABS: Abs Immature Grans 0.05 10^3/uL (0.0-0.06); Absolute Basophil Count 0.02 10^3/uL (0.0-0.2); Absolute Eosinophil Count 0.01 10^3/uL (0.0-0.7); Absolute Lymphocyte Count 0.51 10^3/uL (1.2-3.4); Absolute Monocyte Count 0.13 10^3/uL (0.1-0.8); Absolute Neutrophil Count 0.64 10^3/uL (1.2-6.7); Basophils % 1.5 %; Eosinophils % 0.7 %; HCT 27.2 % (40.0-50.0); HGB 8.7 g/dL (13.5-17.5); Immature Grans % 3.7 %; Lymphocytes % 37.5 %; MCH 34.1 pg (27.0-33.0); MCV 107 fL (80-95); MPV 12.2 fL (8.0-11.0); Monocytes % 9.6 %; RBC 2.55 10^6/uL (4.36-5.78); RDW 17.5 % (11.8-14.1); RDW-SD 68.4 fL
[2024-07-19 06:58] LABS: Platelet Count 62 10^3/uL (130-400)
[2024-07-19 07:00] LABS: WBC 1.36 10^3/uL (4.4-10.8)
[2024-07-19 07:09] LABS: Anion Gap 8.9 mmol/L (3-11); BUN 60 mg/dL (7-18); CO2 24.1 mmol/L (21.0-32.0); CREATININE 3.1 mg/dL (0.70-1.30); Calcium 8.6 mg/dL (8.5-10.1); Chloride 111 mmol/L (98-107); Estimated GFR 18.74 (mL/min/1.73m2); Glucose 145 mg/dL (74-106); Potassium 4.6 mmol/L (3.5-5.1); Sodium 144 mmol/L (136-145)
[2024-07-19 07:16] LABS: Hemoglobin A1C 8.3 % (<5.7)
[2024-07-19] MEDS: Clotrimazole 1% 15 GM TUBE TP ×2 (09:02→22:04)
[2024-07-19] MEDS: Docusate Sodium 100 MG CAP PO ×2 (09:03→21:43)
[2024-07-19] MEDS: Famotidine 20 MG TAB 10 MG PO (09:03)
[2024-07-19] MEDS: Furosemide 20 MG TAB PO (09:04)
[2024-07-19] MEDS: Tamsulosin 0.4 MG CAPCR PO (09:04)
[2024-07-19] MEDS: Metoprolol 50 MG TAB PO ×2 (09:04→21:44)
[2024-07-19] MEDS: Losartan 50 MG TAB 100 MG PO (09:04)
[2024-07-19] MEDS: Cetirizine 10 MG TAB 5 MG PO (09:04)
--- NOTE | 2024-07-19 12:22 | PHA.REVIEW2 ---
Pharmacy Admission Review Admission Clinical Review Admission Pharmacy Review: DVT prophylaxis (Acute) Urinary outflow obstruction (Acute) Acute on chronic renal failure (Acute) Low grade myelodysplastic syndrome lesions (Acute) gabapentin Allergy (Mild, Verified 07/18/24 18:20) Unknown Sulfa (Sulfonamide Antibiotics) Allergy (Mild, Verified 07/18/24 18:20) Unknown tramadol Allergy (Mild, Verified 07/18/24 18:20) Unknown aspirin Adverse Reaction (Intermediate, Verified 07/18/24 18:20) Bloody nose, bruising metformin (From Glucophage) Adverse Reaction (Intermediate, Verified 07/18/24 18:20) Unknown Resuscitation Status DNR/DNI Height 5 ft 11 in Weight 79.9 kg Pharmacy Admission Review Renal Dosing Renal Dosing: BUN 60 mg/dL (7-18) H 07/19/24 06:30 Creatinine 3.1 mg/dL (0.70-1.30) H 07/19/24 06:30 Medications needing adjustments: Intervened (CrCl 18 mL/min, SCr decreased from 3.8 and BUN decreased from 70) List of meds needing interventions: Decreased famotidine from 20mg daily to 10mg q48h, decreased Januvia from 50mg daily to 25mg daily, decreased cetirizine from 10mg daily to 5mg daily and changed oxycodone from q4h PRN to q8h PRN. Provider is aware of changes. Anticoagulation Anticoagulation: Hgb 8.7 g/dL (13.5-17.5) L 07/19/24 06:30 Hct 27.2 % (40.0-50.0) L 07/19/24 06:30 Plt Count 62 10^3/uL (130-400) L 07/19/24 06:30 Creatinine 3.1 mg/dL (0.70-1.30) H 07/19/24 06:30 DVT Prophylaxis: Reviewed (SCDs, Hgb decreased from 9.3) Opiate Usage Evaluate Pain Scale/Pains Meds: Reviewed (oxycodone q8h PRN - no doses given so far) Scheduled Bowel Reg ordered if on Opiates?: Yes (Miralax/docusate) Relevant Labs Relevant Labs: Sodium 144 mmol/L (136-145) 07/19/24 06:30 Potassium 4.6 mmol/L (3.5-5.1) 07/19/24 06:30 Chloride 111 mmol/L (98-107) H 07/19/24 06:30 Electrolytes, C-Reactive P, ESR: Reviewed (repeat labs pending) DM Control DM Control: Glucose 145 mg/dL (74-106) H 07/19/24 06:30 Hemoglobin A1c 8.3 % (<5.7) H 07/19/24 06:30 Finger Stick Blood Glucose 233 1224 Finger Stick Blood Glucose 233 1208 Finger Stick Blood Glucose 118 0741 Finger Stick Blood Glucose 118 0741 DM Control: Intervened (Order was put in for Tresiba which is non-formulary. Recommended to provider to change to Lantus with a 20% reduction which would be about 14 units daily. Provider was okay with that and asked that order be put in.) Insulin Dosing, Diabetic Medication: Has order for SS insulin, glargine 14 units at bedtime, pioglitazone 30mg daily and Januvia 25mg daily. Cardiac Review Cardiac Review: Blood Pressure 194/87 0752 Blood Pressure 219/90 0153 Blood Pressure 213/96 0104 Blood Pressure 213/96 0102 Blood Pressure 243/93 0100 BP, HR, EF%: Reviewed (HR 96) List meds needing interventions: Has order for furosemide 20mg daily, losartan 100mg daily and metoprolol 50mg BID QTc Review QTc: Reviewed (438 from 03/20/24 - most recent EKG on file) IV to PO Switch IV Medications: Reviewed Home Meds Home Med List reviewed: Intervened Relevent Home Meds Not ordered & why?: glipizide (on hold per H+P), vitamin B12 injection (monthly) and Retacrit (q2w injection) Changed metoprolol from tartrate to succinate based on most recent fill history. Provider aware of change. Order currently is for metoprolol tartrate. Changed Tresiba to Lantus, see DM Control section Current Meds Current Medication Order Review: Reviewed
[2024-07-19] MEDS: Insulin Aspart 300 UNITS/3 ML PEN SC ×2 (12:24→16:57)
[2024-07-19 12:27] LABS: Anion Gap 4.3 mmol/L (3-11); BUN 56 mg/dL (7-18); CO2 23.7 mmol/L (21.0-32.0); CREATININE 2.7 mg/dL (0.70-1.30); Calcium 8.4 mg/dL (8.5-10.1); Chloride 109 mmol/L (98-107); Estimated GFR 22.12 (mL/min/1.73m2); Glucose 242 mg/dL (74-106); Potassium 4.7 mmol/L (3.5-5.1); Sodium 137 mmol/L (136-145)
--- NOTE | 2024-07-19 17:03 | PDOC.CMIN ---
Date of service: 07/19/24 Time of Service: 16:00 Care Management Initial Assmt Initial Assessment Reason for Hospitalization: urinary retention/ obstruction Functional Status/Living Situation Patient Presentation: Chaim presented to the ER yesterday evening with c/o urinary frequency, voiding only small amounts, and urinary retention. 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 In the ER, Chaim had a godwin catheter placed that drained 750cc. He was admitted for acute exacerbation of CKD. His BUN and cr did decrease after fluids and godwin placement. Chaim was sitting up in the bed when CM met with him. He had been sleeping most of the day. Chaim was feeling physically much better, but is really concerned about going home with a godwin catheter. He just really does not want to have to deal with it. CM discussed that it would likely be for a short time, he would see the urologist for void trial. This was explained, and Chaim felt a bit better about it being only for a short time. Chaim would be interested in to help him adjust to the care of the godwin Chaim is independent at baseline. He does most of his own cooking, he still drives. He lives alone, but it is in a large farmhouse where his son and DIL law live in a separate apartment. Town of Residence: [place] Resides with: Alone (Son Marty and his live in an apartment in the same house.) Significant Other/Family: Local (also has a daughter Nena. 3 grand kids, 1 will be building on the family land in [place]. Chaim's sister will also be building on the family land. 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 Worked at many jobs. Is college educated.) Activities/Hobbies/SocialSupport: Enjoys his work with the [employer], and working on his computer Medications Medication Management: No Issues/Barriers identified Physical Functioning/Mobility Assistive Device: uses a cane. Still drives Advance Directives Advance Directives: Do you have an Advance Directive: Y 09/28/21 14:27 AD On File at [facility]: Y 09/28/21 14:27 Date Asked 07/18/24 07/18/24 14:25 AD Date Reviewed 07/18/24 07/18/24 18:12 COLST On File at [facility] No 07/18/24 18:12 COLST Date Scanned Code Status Resuscitation Status DNR/DNI Insurance Coverage/Financial Issues Insurance: BC/BS medicare advantage Care Team Visit Care Team Role Provider Type Sandra Park MD Primary Care Provider [facility] STAFF PHYSICIAN Rekha Xavier, MORGAN, CDCES Other Providers INSURANCE CLAIMS CLERK Kaylee Almodovar Other Providers INSURANCE CLAIMS CLERK Galo Zhao RDN Other Providers INSURANCE CLAIMS CLERK DORINA Zuñiga Emergency Provider PHYSICIANS BAILING MACHINE OPERATOR Lamberto Suero Admit Provider [facility] STAFF PHYSICIAN Attending Provider Discharge Potential Discharge Needs: PCP F/U Appt and Other (urology f/u) Anticipated Barriers to Discharge: None Identified Patient/Family Education Needs: Review discharge instructions, discuss Ask Me Three Transportation: Private vehicle (Chaim drove himself to the ER) Plan: Anticipate that Chaim will discharge home in the next day or 2. He will have the godwin catheter in place, and will receive HH services for a very short time as he adjusts to catheter care. Chaim will f/u with his PCP and the urologist, and continue per his plan of care. He will transport himself home. CM will continue to follow. Social Determinants of Health Screening Social Determinants of Health last assessed: 07/19/24 Will the Patient Participate in the Screening?: Yes Do you worry about having a steady place to live?: no Problems where you live: no known problems In the past 12 months, have you had to go without electric, gas, oil or water in your home?: no Have you or anyone in your house had to go without enough food to eat?: no Has lack of transportation kept you from medical appointments or from doing things needed for daily living?: no Has anyone in your life made you feel unsafe or unsupported?: no How hard is it for you to pay for the very basics like food, housing, medical care, and heating? Would you say it is:: Not hard at all Do you want help finding or keeping work or a job?: I do not need or want help If for any reason you need help with day-to-day activities such as bathing, preparing meals, shopping, managing finances, etc., do you get the help you need?: I don?t need any help How often do you feel lonely or isolated from those around you?: Never Do you speak a language other than Armenian at home?: No Does the patient want assistance with any of the above?: No PFSH All Active Problems DVT prophylaxis (Acute) Urinary outflow obstruction (Acute) Acute on chronic renal failure (Acute) Nail dystrophy (Acute) Edema (Acute) GERD (gastroesophageal reflux disease) (Chronic) B12 deficiency (Acute) Hypercholesterolemia (Acute) HTN (hypertension) (Chronic) 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 Pharyngoesophageal dysphagia (Acute) Chronic rhinitis (Acute) Atrial fibrillation (Chronic) NO anti-coagulant given patient's thrombocytopenia status. 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 Following Provider:
[2024-07-19] MEDS: Simvastatin 40 MG TAB 20 MG PO (21:43)
[2024-07-19] MEDS: Acetaminophen 325 MG TAB PO (21:44)
[2024-07-19] MEDS: Insulin Glargine 300 UNITS/3 ML PEN 14 UNITS SC (21:45)
[2024-07-20 07:34] VITALS: BP 153/71; PULSE 59; RESP 17; TEMP 36.5; O2SAT 94
[2024-07-20 08:59] VITALS: PULSE 64
[2024-07-20] MEDS: Docusate Sodium 100 MG CAP PO (09:01)
[2024-07-20] MEDS: Metoprolol 50 MG TAB PO (09:01)
[2024-07-20] MEDS: Clotrimazole 1% 15 GM TUBE TP (09:02)
[2024-07-20] MEDS: Losartan 50 MG TAB 100 MG PO (09:02)
[2024-07-20] MEDS: Cetirizine 10 MG TAB 5 MG PO (09:02)
[2024-07-20] MEDS: Furosemide 20 MG TAB PO (09:02)
[2024-07-20] MEDS: Normal Saline Flush 10 ML SYR IVP (09:03)
[2024-07-20] MEDS: Tamsulosin 0.4 MG CAPCR PO (09:03)
--- NOTE | 2024-07-20 11:31 | IN_ITS ---
PT Notes Visit Reasons: acute renal insufficiency, urinary retention Inpatient Physical Therapy Evaluation Date: [07/20/2024] Referring Doctor: Scar Ma PT Orders: PT CONSULT: Precautions: [standard] Patient Profile/Admitting Diagnosis: [Acute on chronic kidney disease] Chaim is an 89-year-old male presenting to ED 07/18/2024 with complaints of altered kidney function. He has myelodysplastic syndrome, CKD, type II DM, chronic pain, A- fib. He lives alone at baseline with his son and [id number] and adjoining apartment. Patient has Linton in place. PMHX: []PFSH All Active Problems DVT prophylaxis (Acute) Urinary outflow obstruction (Acute) Acute on chronic renal failure (Acute) Nail dystrophy (Acute) Edema (Acute) Low grade myelodysplastic syndrome lesions (Acute) followed by oncologyAnemia (Chronic) managed with erythropoietin X2ektre. Pharyngoesophageal dysphagia (Acute) Chronic rhinitis (Acute) B12 deficiency (Acute) CKD (chronic kidney disease) (Chronic) STAGE IVDiabetes mellitus (Chronic) GERD (gastroesophageal reflux disease) (Chronic) HTN (hypertension) (Chronic) Hypercholesterolemia (Acute) Atrial fibrillation (Chronic) NO anti-coagulant given patient's thrombocytopenia status. 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 Patient states that he is independent in his apartment he utilizes an old cane and furniture as he moves about the apartment he spends most of his time sitting in his lazy boy and has everything set up such that he does not have to move around my apartment much. He reports that it is too difficult to utilize a RW within his apartment. I did ask him as he states that he has a RW to pull that out for longer distances or especially if he is feeling unsteady. Current Functional Limitations: Patient reports none that he is somewhat unsteady at baseline and he manages this with utilizing of cane and furniture walking as needed. He states that when he is at the grocery store he uses the motorized cart and [place] is close to the entrance as possible with using cane to get into the store. Equipment Owned/DME: Wooden cane advised to get rubber tip to the bottom, he thinks he has a RW at home. Subjective: Objective: General Observation: Patient is sitting up in bed in no acute discomfort Mental Status: A& O x 4 patient feels quite confident that he can manage with his current status and states that this is his baseline and he feels comfortable with his current status. Pain: Does not report any pain Vital Signs: Monitored by nursing staff ROM: Right Upper Extremity: WFL flexion 120 Left Upper Extremity: WFL flexion 120 Right Lower Extremity: WFL knee 5?115 DF 0 Left Lower Extremity: WFL knee 5?115 DF 0 Strength: Right Upper Extremity: Grossly tested 3/5 of shoulder elevation, all others 4/5 Left Upper Extremity: Grossly tested 3/5 of shoulder elevation, all others 4/5 Right Lower Extremity: Grossly tested 4/5 Left Lower Extremity: Grossly tested 4/5 Sensation: Denies any distal numbness and tingling Bed Mobility/Transfers: Independent with bed mobility he does move slowly and is cautious of Linton Sit to stand independent with VC for hand placement Stand to sit independent with VC for hand placement but then after performing a couple of repetitions of both sit to stand and stand to sit he independently uses correct hand placement. Gait: We have patient ambulate first with RW he is SBA with this he moves slowly and take short stride lengths he performs 80 feet and is able to maneuver knee denies any SOB. We then have him utilize a SPC he moves approximately at the same pace and has similar gait and denies any SOB. He has no incidence of LOB during all ambulation 2 x 80 feet. Balance: Static Sitting: Normal Dynamic Sitting: Normal Static Standing: Fair Dynamic Standing: Fair Special Tests: Mobility Limitations Standardized Measure [facility]-PAC 6 clicks Basic Mobility Inpatient Short Form: Raw Score: 23 standardized Score: 6.22 CMS Score: 11.2 well Informed Consent/Education: Patient instructed in purpose of PT consult and plan of care. Assessment: Patient is a 89 year old male referred to physical therapy services with the diagnosis of acute on chronic renal failure A-fib, anemia. Patient presents with clinical signs and symptoms consistent with acute on chronic renal failure, as demonstrated by the following impairment level findings: Chooses to ambulate with a cane and reports ambulating at home with furniture reports SOB and unsteadiness but states that he does not have to move very much. Altered ambulation, mild deficits of strength, decreased endurance, decreased balance. Impairments are contributing to the following functional limitations: AMPAC score. Patient is assessed as a Low 36666 complexity based on the following: History: As outlined above Examination: As outlined above Presentation: Stable Decision Making: Low Goals: Goals X1 week 1. Supine-Sit independent 2. Sit-Supine independent 3. Sit-Stand independent 4. Stand-Sit independent 5. Bed-Chair independent 6. Chair-Bed independent 7. Gait ambulates with least assistive device with good pacing and no LOB x 100 feet 8. Stairs independent 6 steps with rail and cane 9. Independent with home exercise program 10. Balance improved to good Plan of Care/Treatment Plan: We will keep on skilled PT services to improve gait pacing, balance and strength for independent return home until medically stable to return home. 1-2x/day, 7 days/week x 1 week. Plan of care has been reviewed with the SHOVEL LOADER OPERATOR providing the service under Physical Therapy direction. Initiate Physical Therapy intervention for strengthening, bed mobility, transfers, gait, stairs, balance training, use of assistive device. DISCHARGE RECOMMENDATIONS: [x] Home with no services [] TREATMENT CODE/TIME: 87372
--- NOTE | 2024-07-20 12:37 | DSE_ITS ---
Date of service: 07/20/24 Time of Service: 12:37 DS: Diagnosis Discharge Diagnosis (1) Acute on chronic renal failure: Status: Acute (2) Urinary outflow obstruction: Status: Acute (3) Atrial fibrillation: Status: Chronic (4) HTN (hypertension): Status: Chronic (5) Diabetes mellitus: Status: Chronic (6) Low grade myelodysplastic syndrome lesions: Status: Acute (7) GERD (gastroesophageal reflux disease): Status: Chronic (8) DVT prophylaxis: Status: Acute Discharge Plan Disposition Patient Disposition: Home Condition: Good Discharge Details Reason For Visit: acute renal insufficiency, urinary retention Admit Date/Time: 07/19/24 00:01 Admit Provider: Lamberto Suero Attending Provider: Lamberto Suero Primary Care Provider: Sandra Park V Hospital Course Hospital Course: Patient initially presented with concerns and symptoms that were ultimately determined to be secondary to obstructive uropathy resulting in JAIRO. Patient had elevated creatinine that improved after placement of Godwin catheter. His home antihypertensive regimen including his losartan was continued and continue to have improvement of his creatinine back to his baseline. He has a Godwin catheter placed and will have follow-up with urology for removal. Home Meds and New Rx's Prescriptions: New tamsulosin [Flomax] 0.4 mg capsule 0.4 mg PO DAILY Qty: 90 0RF Continued Retacrit 40,000 unit/mL solution 60,000 unit subcut .[id number] cetirizine [All Day Allergy (cetirizine)] 1 mg/mL solution 10 mg PO DAILY docusate sodium [Colace] 100 mg capsule 100 mg PO BID Rx Instructions: hold for loose stool polyethylene glycol 3350 [Miralax] 17 gram/dose powder 17 g PO DAILY PRN betamethasone dipropionate 0.05 % cream 1 applic topical BID PRN clotrimazole 1 % cream 1 applic topical BID cyanocobalamin (vitamin B-12) 1,000 mcg/mL solution 1,000 mcg IM QMONTH insulin degludec [Tresiba FlexTouch U-100] 100 unit/mL (3 mL) insulin pen 17 unit subcut HS furosemide 20 mg tablet 20 mg PO DAILY pioglitazone [Actos] 30 mg tablet 30 mg PO DAILY famotidine 20 mg tablet 20 mg PO DAILY glipizide 10 MG tablet 10 mg PO DAILY losartan 100 MG tablet 100 mg PO DAILY Januvia 50 MG tablet 50 mg PO DAILY 90 Days Qty: 90 3RF oxycodone 5 mg tablet 5 mg PO Q4H PRN (Reason: pain) Qty: 9 0RF metoprolol succinate 50 mg tablet extended release 24 hr 50 mg PO DAILY simvastatin 20 mg tablet 20 mg PO HS Patient Comments: TAKE 1 TABLET BY MOUTH ONCE DAILY AT NIGHT Discharge Instructions Referrals: Freddie Ny MD [ [facility] STAFF PHYSICIAN] - (obstructive uropathy, godwin in place at discharge) Activity:: Activity as Tolerated Equipment/Supplies:: No Equipment Needed Diet:: As Tolerated Discharge Orders Discharge Orders: Discharge Order (Routine); Ordered 07/20/24 Ordered By: Scar Ma DS: Summary Time Spent with Patient providing and/or coordinating discharge services: Greater than 30 minutes Status at Discharge Functional status at discharge: independent ambulation Overall status at discharge: patient is back to baseline Mental Status: mental status grossly normal Speech and Movement: speech and movement normal Mood: congruent mood Affect: normal affect Quality:SDOH Health Related Social Needs: Health related social needs housing instability, house d, with risk of homelessness (Z59.811) Exam Narrative Exam Narrative: Well-appearing older gentleman laying in bed in no acute distress, ANO x 4, heart irregularly irregular with rates in the 60s, lungs good auscultation bilaterally, abdomen soft, nontender, nondistended, Godwin catheter in place Psych Mental Status: mental status grossly normal Speech and Movement: speech and movement normal Mood: congruent mood Affect: normal affect DS: Data Vitals/I&O Vitals and I&O: Vital Signs Temperature 97.7 F 07/20/24 07:34 Temperature Source Temporal Artery Scan 07/20/24 07:34 Pulse 64 07/20/24 08:59 Pulse Rhythm Regular 07/19/24 01:53 Pulse 61 07/18/24 19:50 Respiratory Rate 17 07/20/24 07:34 Respiratory Effort Normal 07/19/24 01:53 Respiratory Depth Normal 07/19/24 01:53 Respiratory Pattern Normal 07/19/24 01:53 Blood Pressure 153/71 H 07/20/24 07:34 Blood Pressure Mean 136 07/19/24 01:02 Blood Pressure Position Sitting 07/18/24 18:14 Pulse Oximetry 94 07/20/24 07:34 Oxygen Delivery Method Room Air 07/20/24 07:34 Oxygen Flow Rate 0 07/20/24 07:34 Pain Level 2 07/19/24 22:13 Intake & Output 07/19/24 07/20/24 07/20/24 17:59 05:59 17:59 Intake Total 450 / 450 220 / 220 Output Total 550 / 550 550 / 1100 400 / 400 Balance -550 / -550 -100 / -650 -180 / -180 Intake: IV Oral 440 / 440 220 / 220 Output: Urine 550 / 550 550 / 1100 400 / 400 Other: Urine Color Yellow Straw Urine Appearance Clear Clear Clear Stool Size Moderate Stool Characteristics Hard PFSH All Active Problems DVT prophylaxis (Acute) Urinary outflow obstruction (Acute) Acute on chronic renal failure (Acute) Nail dystrophy (Acute) Edema (Acute) GERD (gastroesophageal reflux disease) (Chronic) B12 deficiency (Acute) Hypercholesterolemia (Acute) HTN (hypertension) (Chronic) 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 Pharyngoesophageal dysphagia (Acute) Chronic rhinitis (Acute) Atrial fibrillation (Chronic) NO anti-coagulant given patient's thrombocytopenia status. 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, partial colectomy Surgical History S/P hernia repair Social History (Updated 07/19/24 @ 00:56 by Lamberto Suero) Smoking/Tobacco Use Status: Never Smoking risk assessment performed?: Yes Alcohol Intake: never Drug use: Never Housing: house Current gender identity: male Do you feel safe in your relationship?: Yes Additional Social history: lives alone in his own home in [place] Time Spent with Patient Time Spent with Patient: <45 minutes Time was spent: preparing to see the patient(eg.review tests), obtaining and/or reviewing separately otained hiistory, ordering medications,tests, procedures, referring, communicating with other health child care associate, indepentently interpreting results, counseling the patient and care coordination
--- NOTE | 2024-07-20 17:00 | CMDISCH_ITS ---
Date of service: 07/20/24 Time of Service: 14:00 LACE Index Scoring Tool Questions: Length of Stay (in days): 1 Was the patient admitted via the E.D.?: Yes Comorbidities: Diabetes w/o Complication, Any Tumor and Liver or Renal Disease E.D. Visits: 2 Answers: Total Score: 11 Risk of Readmission: High Risk Care Management Discharge Plan Reason for Hospitalization: urinary outflow obstruction Discharge Plan: Chaim was discharged home with a godwin catheter today. He has instructions to call his PCP for a f/u appt, and Dr. Ny's office will call him tomorrow to set up an appointment for a void trial. Chaim has no new servi shaina, he did not feel he needed HH to help with the catheter. Chaim drove himself home, as he had driven himself here. Patient/Family Education Needs: Review of discharge instructions, activity, limitations, godwin care, and discuss ask me 3. SDOH Health Related Social Needs: Health related social needs housing instability, house d, with risk of homelessness (Z59.121)
== END 2024-07-20 13:57 | disposition home or self-care (01) | DRG 699 ==
LOC: ER 07-19 00:21 → MS 07-19 07:06
PROVIDERS: Family Medicine; Admitting Provider Family Medicine; Emergency Provider Physician Assistant; PCP Family Medicine; Visit Provider Family Medicine
DX: N13.9 Obstructive and reflux uropathy, unspecified (principal); N13.39 Other hydronephrosis; N17.9 Acute kidney failure, unspecified; N18.4 Chronic kidney disease, stage 4 (severe); I48.91 Unspecified atrial fibrillation; K21.9 Gastro-esophageal reflux disease without esophagitis; E11.22 Type 2 diabetes mellitus with diabetic chronic kidney disease; I12.9 Hypertensive chronic kidney disease with stage 1 through stage 4 chronic kidney disease, or unspecified chronic kidney disease; Z79.891 Long term (current) use of opiate analgesic; G89.29 Other chronic pain; D46.A Refractory cytopenia with multilineage dysplasia; R13.14 Dysphagia, pharyngoesophageal phase; E53.8 Deficiency of other specified B group vitamins; R60.0 Localized edema; E78.00 Pure hypercholesterolemia, unspecified; Z85.038 Personal history of other malignant neoplasm of large intestine; Z90.49 Acquired absence of other specified parts of digestive tract; Z79.4 Long term (current) use of insulin; Z79.84 Long term (current) use of oral hypoglycemic drugs
CPT/HCPCS: 00123; 36415; 51702; 51798; 80048; 80053; 82805; 96360; 97162; 99291; 74176; 81003; 81015; 83036; 85025; 99223; 99239; J1815

== ENCOUNTER → 2024-07-22 08:54 | Outpatient (BNVA) | payer MEDICARE, SELFPAY | PROVIDERS: PCP Family Medicine; Referring Provider Family Medicine; Visit Provider Nurse Practitioner Gerontology | DX: R33.8 Other retention of urine (principal) | CPT/HCPCS: 51798; 99215 ==

== ENCOUNTER → 2024-07-30 12:42 | Outpatient (BNVA) | payer MEDICARE, SELFPAY | PROVIDERS: PCP Family Medicine; Referring Provider Family Medicine; Visit Provider Nurse Practitioner Gerontology | DX: R33.8 Other retention of urine (principal) | CPT/HCPCS: 51798; 99213 ==

== ENCOUNTER 2024-08-06 07:52 | Outpatient (CLI) | payer MEDICARE, SELFPAY ==
[2024-08-06 07:24] LABS: Abs Immature Grans 0.07 10^3/uL (0.0-0.06); Absolute Neutrophil Count 0.95 10^3/uL (1.2-6.7); HCT 27.5 % (40.0-50.0); HGB 8.7 g/dL (13.5-17.5); MCH 34.4 pg (27.0-33.0); MCHC 31.6 % (32.0-36.0); MCV 109 fL (80-95); MPV 12.2 fL (8.0-11.0); Platelet Count 100 10^3/uL (130-400); RBC 2.53 10^6/uL (4.36-5.78); RDW 18.1 % (11.8-14.1); RDW-SD 71.9 fL
[2024-08-06 07:32] LABS: Anion Gap 7.1 mmol/L (3-11); BUN 34 mg/dL (7-18); CO2 26.9 mmol/L (21.0-32.0); Calcium 8.8 mg/dL (8.5-10.1); Chloride 103 mmol/L (98-107); Estimated GFR 31.71 (mL/min/1.73m2); Glucose 290 mg/dL (74-106); Potassium 4.7 mmol/L (3.5-5.1); Sodium 137 mmol/L (136-145)
[2024-08-06 07:48] LABS: Diff Comment Manual Differential
[2024-08-06 07:49] LABS: Absolute Eosinophil Count 0.03 10^3/uL (0.0-0.7); Absolute Lymphocyte Count 0.62 10^3/uL (1.2-3.4); Absolute Monocyte Count 0.12 10^3/uL (0.1-0.8); Anisocytosis 1+; Atypical Lymphocytes % 0 %; Bands % 0 %
[2024-08-06 08:07] LABS: WBC 1.72 10^3/uL (4.4-10.8)
== END 2024-08-06 07:53 | disposition home or self-care (01) ==
LOC: LBO 07:52
PROVIDERS: PCP Family Medicine; Visit Provider Nurse Practitioner Family
DX: D46.9 Myelodysplastic syndrome, unspecified (principal); E11.9 Type 2 diabetes mellitus without complications
CPT/HCPCS: 36415; 80048; 85025

== ENCOUNTER 2024-08-15 09:32 | Outpatient (CLI) | payer MEDICARE, SELFPAY ==
[2024-08-15 09:31] LABS: HCT 32.2 % (40.0-50.0); HGB 10.3 g/dL (13.5-17.5); MCH 33.8 pg (27.0-33.0); MCV 106 fL (80-95); MPV 11.3 fL (8.0-11.0); Platelet Count 105 10^3/uL (130-400); RBC 3.05 10^6/uL (4.36-5.78); RDW 18.2 % (11.8-14.1); RDW-SD 68.6 fL
[2024-08-15 09:49] LABS: Absolute Eosinophil Count 0.02 10^3/uL (0.0-0.7); Absolute Lymphocyte Count 0.55 10^3/uL (1.2-3.4); Absolute Monocyte Count 0.12 10^3/uL (0.1-0.8); Absolute Neutrophil Count 1.02 10^3/uL (1.2-6.7); Atypical Lymphocytes % 1 %; Bands % 6 %; Diff Comment Manual Differential; Macrocytosis 2+; Metamyelocytes % 2; Myelocytes % 1
[2024-08-15 09:52] LABS: WBC 1.76 10^3/uL (4.4-10.8)
== END 2024-08-15 09:33 | disposition home or self-care (01) ==
LOC: LBO 09:32
PROVIDERS: PCP Family Medicine; Visit Provider Internal Medicine Hematology & Oncology
DX: D46.9 Myelodysplastic syndrome, unspecified (principal)
CPT/HCPCS: 36415; 80053; 86850; 86900; 86901; 85025

== ENCOUNTER 2024-08-27 02:55 | Outpatient (RCR) | payer MEDICARE, SELFPAY ==
[2024-08-06] MEDS: Normal Saline Flush 10 ML SYR IVP (09:56)
[2024-08-06 10:51] VITALS: BP 182/80; PULSE 61; RESP 18; TEMP 36.3; O2SAT 98
[2024-08-06 11:06] VITALS: BP 190/81; PULSE 62; RESP 18; TEMP 36.6; O2SAT 95
[2024-08-06 11:36] VITALS: BP 184/92; PULSE 65; RESP 18; TEMP 36.6; O2SAT 97
[2024-08-06 12:36] VITALS: BP 181/91; PULSE 67; RESP 18; TEMP 36.3; O2SAT 97
[2024-08-27] MEDS: Normal Saline Flush 5 ML SYR IVP (07:43)
[2024-08-27 07:46] LABS: HCT 32.3 % (40.0-50.0); HGB 10.4 g/dL (13.5-17.5); MCHC 32.2 % (32.0-36.0); MCV 106 fL (80-95); MPV 12.5 fL (8.0-11.0); RBC 3.06 10^6/uL (4.36-5.78); RDW 19.2 % (11.8-14.1); RDW-SD 73.1 fL; WBC 2.31 10^3/uL (4.4-10.8)
[2024-08-27 08:20] LABS: Absolute Neutrophil Count 0.79 10^3/uL (1.2-6.7); Bands % 2 %; Diff Comment Manual Differential; Platelet Count 95 10^3/uL (130-400)
[2024-08-27 08:21] LABS: Absolute Lymphocyte Count 1.25 10^3/uL (1.2-3.4); Absolute Monocyte Count 0.21 10^3/uL (0.1-0.8); Atypical Lymphocytes % 2 %; Myelocytes % 1; Promyelocytes % 1
[2024-08-27 08:22] LABS: Macrocytosis 1+
[2024-08-27 08:23] LABS: Poikilocytes 1+; Polychromasia Present
[2024-08-27 08:24] LABS: Metamyelocytes % 1
[2024-08-27 08:25] LABS: Ovalocytes 2+
== END 2024-08-29 23:59 | disposition home or self-care (01) ==
LOC: INF 02:55
PROVIDERS: Nurse Practitioner Family; PCP Family Medicine; Visit Provider Internal Medicine Hematology & Oncology
DX: D46.9 Myelodysplastic syndrome, unspecified (principal); N18.9 Chronic kidney disease, unspecified; D63.1 Anemia in chronic kidney disease
CPT/HCPCS: 36415; 36430; 86850; 86900; 86901; 86920; 85025; P9016

== ENCOUNTER → 2024-09-04 12:38 | Outpatient (BNVA) | payer MEDICARE, SELFPAY | PROVIDERS: PCP Family Medicine; Visit Provider Nurse Practitioner Gerontology | DX: N40.1 Benign prostatic hyperplasia with lower urinary tract symptoms (principal); R35.1 Nocturia; R33.8 Other retention of urine | CPT/HCPCS: 51798; 99213 ==

== ENCOUNTER 2024-09-17 03:55 | Outpatient (CLI) | payer MEDICARE, SELFPAY ==
[2024-09-17 07:29] LABS: Abs Immature Grans 0.03 10^3/uL (0.0-0.06); Absolute Basophil Count 0.01 10^3/uL (0.0-0.2); Absolute Eosinophil Count 0.01 10^3/uL (0.0-0.7); Absolute Lymphocyte Count 0.68 10^3/uL (1.2-3.4); Absolute Neutrophil Count 0.66 10^3/uL (1.2-6.7); Basophils % 0.7 %; Eosinophils % 0.7 %; HCT 30.4 % (40.0-50.0); HGB 9.7 g/dL (13.5-17.5); Lymphocytes % 45.6 %; MCH 33.9 pg (27.0-33.0); MCHC 31.9 % (32.0-36.0); MCV 106 fL (80-95); MPV 12.2 fL (8.0-11.0); Monocytes % 6.7 %; Neutrophils % 44.3 %; RBC 2.86 10^6/uL (4.36-5.78); RDW-SD 77.5 fL
[2024-09-17 07:40] LABS: Diff Comment Diff Reviewed; Macrocytosis 2+; Platelet Count 82 10^3/uL (130-400)
[2024-09-17 07:41] LABS: Poikilocytes 2+
[2024-09-17 08:06] LABS: WBC 1.49 10^3/uL (4.4-10.8)
== END 2024-09-17 03:56 | disposition home or self-care (01) ==
LOC: LBO 03:56
PROVIDERS: PCP Family Medicine; Visit Provider Nurse Practitioner Family
DX: D46.9 Myelodysplastic syndrome, unspecified (principal)
CPT/HCPCS: 36415; 85025

== ENCOUNTER 2024-09-18 00:56 | Outpatient (CLI) | payer MEDICARE, SELFPAY ==
--- NOTE | 2024-09-18 | DI.NM_ITS ---
APPROVED REPORT Exam: Pharmacologic Patient Location: Out-Patient Room/Bed: Stress Nurse: Martha Hayward RN Ordering Provider:KAREN MARCIAL, Contact Number: [phone] BMI: 27.61 Baseline Rhythm: Sinus Bradycardia Medical History Medical History: colon ca, edema, GERD, HLD, HTN, CKD, DM2, afib, anemia, recurrent falls, adjustment disorder, pulmonary HTN, venous insufficiency Cardiac Medications: retacrit, famotidine, furosemide, glipizide, tresiba, losartan, metoprolol succi luis felipe, oxycodone, pioglitazone, simvastatin, januvia, flomax Allergies: gabapentin, sulfa, tramadol, aspirin, metformin, glucophage Cardiac Risk Factors: family hx, diabetes, asthma, HTN, HLD, PVD Previous Cardiac Procedures: none Pretest Chest Pain Characteristics: No chest pain Exercise History: Sedentary Physical Disabilities: Legs Lung Sounds: Clear to auscultation Heart Sounds: Regular Stress Test Details Test: Pharmacologic stress testing performed using 0.4 mg of regadenoson per 5 mL given IV over 10 s econds. Reason for pharmacologic stress test: physical limitation. Nuclear Acquisition: Rest Tc-99m/Stress Tc-99m 1 day Rest Isotope: Tc-99m Sestamibi. Dose: 10.0 Date: 09/18/2024 Injection Time: 0835 Stress Isotope: Tc-99m Sestamibi. Dose: 30.0 Date: 09/18/2024 Injection Time: 1025 HR Resting HR Supine: 45 bpm Max Heart Rate (APMHR): 133 bpm Target HR (85% APMHR): 113 bpm Max HR Achieved: 71 bpm % of APMHR: 53 Recovery HR: 67 bpm BP Resting BP Supine: 176/88 mmHg Max BP: 180/90 mmHg Recovery BP: 132/68 mmHg ECG Resting ECG: Sinus Bradycardia Ectopy: biphasic T wave Comment: Lead III Stress ECG: Sinus Rhythm ST Change: Nondiagnostic low heart rate, biphasic T wave Lead(s): III, V5, V6, V4, II Arrhythmia: None Recovery ECG: Sinus Rhythm Recovery ST Change: Nondiagnostic low heart rate, biphasic T wave Lead(s): III Recovery Arrhythmia: None Clinical Angina Score: None Rate Pressure Product: 31072 Stress ECG Conclusion 1. Resting electrocardiogram showed nonspecific ST-T abnormalities 2. Patient underwent testing using pharmacologic stress with regadenoson. 3. Peak heart rate achieved was 53% of maximal predicted for age 4. The electrocardiographic portion of the test was nondiagnostic 5. See MPI report Stress Test Summary STAGE HR BP SpO2 Symptoms NOTES Supine 45 176/88 95 1 min post Lexiscan injection 61 180/90 89 3 min post Lexiscan injection 67 124/68 96 6 min post Lexiscan injection 67 132/68 98 MPI Conclusion Myocardial perfusion is normal. There is no ischemia or evidence of prior infarction Ejection fraction is 62% with normal wall motion
[2024-09-18] MEDS: Regadenoson 0.4 MG/5 ML SYR IVP (10:25)
== END 2024-09-18 01:16 ==
LOC: DI 00:56
PROVIDERS: PCP Family Medicine; Visit Provider Internal Medicine Cardiovascular Disease
DX: R06.00 Dyspnea, unspecified (principal)
CPT/HCPCS: 78452; 93016; 93018; 93017; J2785

== ENCOUNTER 2024-10-29 01:19 | Outpatient (RCR) | payer MEDICARE, SELFPAY ==
[2024-10-08 07:49] LABS: Abs Immature Grans 0.05 10^3/uL (0.0-0.06); Absolute Basophil Count 0.03 10^3/uL (0.0-0.2); Absolute Eosinophil Count 0.02 10^3/uL (0.0-0.7); Absolute Lymphocyte Count 0.97 10^3/uL (1.2-3.4); Absolute Monocyte Count 0.12 10^3/uL (0.1-0.8); Absolute Neutrophil Count 0.74 10^3/uL (1.2-6.7); Basophils % 1.6 %; HCT 30.2 % (40.0-50.0); HGB 9.8 g/dL (13.5-17.5); Immature Grans % 2.6 %; Lymphocytes % 50.3 %; MCH 35.4 pg (27.0-33.0); MCHC 32.5 % (32.0-36.0); MCV 109 fL (80-95); Monocytes % 6.2 %; Neutrophils % 38.3 %; RBC 2.77 10^6/uL (4.36-5.78); RDW 19.5 % (11.8-14.1); RDW-SD 77.9 fL
[2024-10-08 07:58] LABS: Diff Comment Diff Reviewed; Macrocytosis 2+; Platelet Count 90 10^3/uL (130-400)
[2024-10-08 08:03] LABS: WBC 1.93 10^3/uL (4.4-10.8)
[2024-10-08 08:18] LABS: Ferritin 332 ng/mL (26-388)
[2024-10-08] MEDS: Normal Saline Flush 5 ML SYR IVP (08:24)
[2024-10-29 07:24] LABS: HCT 31.3 % (40.0-50.0); HGB 10.1 g/dL (13.5-17.5); MCH 35.8 pg (27.0-33.0); MCHC 32.3 % (32.0-36.0); MCV 111 fL (80-95); Nucleated RBC 0.9 % (0.0-0.3); RBC 2.82 10^6/uL (4.36-5.78); RDW 19.6 % (11.8-14.1); RDW-SD 79.5 fL; WBC 2.15 10^3/uL (4.4-10.8)
[2024-10-29 07:37] LABS: Absolute Basophil Count 0.06 10^3/uL (0.0-0.2); Absolute Monocyte Count 0.09 10^3/uL (0.1-0.8); Absolute Neutrophil Count 0.88 10^3/uL (1.2-6.7); Atypical Lymphocytes % 4 %; Bands % 2 %; Diff Comment Manual Differential; Macrocytosis 2+; Metamyelocytes % 1; Platelet Count 99 10^3/uL (130-400)
== END 2024-10-29 23:59 | disposition home or self-care (01) ==
LOC: INF 01:19
PROVIDERS: Nurse Practitioner Family; PCP Family Medicine; Visit Provider Internal Medicine Hematology & Oncology
DX: D64.9 Anemia, unspecified (principal); N18.9 Chronic kidney disease, unspecified; D63.1 Anemia in chronic kidney disease
CPT/HCPCS: 36415; 86850; 86900; 86901; 82728; 85025

== ENCOUNTER 2024-11-19 02:24 | Outpatient (RCR) | payer MEDICARE, SELFPAY ==
[2024-11-19 07:46] LABS: Abs Immature Grans 0.03 10^3/uL (0.0-0.06); HCT 28.2 % (40.0-50.0); HGB 9.3 g/dL (13.5-17.5); MCH 36.3 pg (27.0-33.0); MCV 110 fL (80-95); Platelet Count 79 10^3/uL (130-400); RBC 2.56 10^6/uL (4.36-5.78); RDW-SD 75.2 fL
[2024-11-19 08:00] LABS: Absolute Eosinophil Count 0.03 10^3/uL (0.0-0.7); Absolute Lymphocyte Count 1.05 10^3/uL (1.2-3.4); Absolute Monocyte Count 0.02 10^3/uL (0.1-0.8); Atypical Lymphocytes % 6 %; Bands % 1 %; Diff Comment Manual Differential; Macrocytosis 2+; Metamyelocytes % 1; Poikilocytes 1+
[2024-11-19 08:05] LABS: Absolute Neutrophil Count 0.41 10^3/uL (1.2-6.7); WBC 1.52 10^3/uL (4.4-10.8)
== END 2024-11-29 23:59 | disposition home or self-care (01) ==
LOC: INF 02:24
PROVIDERS: Nurse Practitioner Family; PCP Family Medicine; Visit Provider Internal Medicine Hematology & Oncology
DX: D64.9 Anemia, unspecified (principal); N18.9 Chronic kidney disease, unspecified; D63.1 Anemia in chronic kidney disease
CPT/HCPCS: 36415; 86850; 86900; 86901; 85025

== ENCOUNTER → 2024-12-04 14:45 | Outpatient (BNVA) | payer MEDICARE, SELFPAY | PROVIDERS: PCP Family Medicine; Visit Provider Nurse Practitioner Gerontology | DX: R33.8 Other retention of urine (principal); R39.9 Unspecified symptoms and signs involving the genitourinary system | CPT/HCPCS: 99213; 51798 ==

== ENCOUNTER 2024-12-11 01:34 | Outpatient (RCR) | payer MEDICARE, SELFPAY ==
[2024-12-10 07:15] LABS: Absolute Basophil Count 0.02 10^3/uL (0.0-0.2); HCT 26.1 % (40.0-50.0); HGB 8.6 g/dL (13.5-17.5); MCH 36.6 pg (27.0-33.0); MCV 111 fL (80-95); MPV 11.8 fL (8.0-11.0); RBC 2.35 10^6/uL (4.36-5.78); RDW-SD 81.6 fL
[2024-12-10 07:40] LABS: Absolute Lymphocyte Count 0.63 10^3/uL (1.2-3.4); Absolute Neutrophil Count 0.79 10^3/uL (1.2-6.7); Bands % 3 %
[2024-12-10 07:41] LABS: Absolute Monocyte Count 0.06 10^3/uL (0.1-0.8); Diff Comment Manual Differential; Macrocytosis 2+; Myelocytes % 1; Other Cells % 4
[2024-12-10 07:45] LABS: Ferritin 332 ng/mL (26-388)
[2024-12-10 08:07] LABS: Platelet Count 83 10^3/uL (130-400)
[2024-12-10 08:13] LABS: WBC 1.57 10^3/uL (4.4-10.8)
[2024-12-11 08:12] VITALS: BP 140/68; PULSE 67; RESP 20; TEMP 36; O2SAT 93
[2024-12-11] MEDS: Normal Saline Flush 10 ML SYR IVP (08:26)
[2024-12-11 08:27] VITALS: BP 132/61; PULSE 63; RESP 20; TEMP 36.6; O2SAT 90
[2024-12-11 08:48] VITALS: BP 154/84; PULSE 68; RESP 20; TEMP 36.7; O2SAT 93
[2024-12-11 09:20] VITALS: BP 159/72; PULSE 64; RESP 20; TEMP 36.6; O2SAT 94
[2024-12-11 10:15] VITALS: BP 163/85; PULSE 67; RESP 20; TEMP 36.5; O2SAT 93
== END 2024-12-29 23:59 | disposition home or self-care (01) ==
LOC: INF 01:34
PROVIDERS: Nurse Practitioner Family; PCP Family Medicine; Visit Provider Internal Medicine Hematology & Oncology
DX: N18.9 Chronic kidney disease, unspecified (principal); D48.9 Neoplasm of uncertain behavior, unspecified; D64.9 Anemia, unspecified
CPT/HCPCS: 36415; 36430; 86850; 86900; 86901; 86920; 82728; 85025; P9016

== ENCOUNTER 2025-01-22 01:47 | Outpatient (RCR) | payer MEDICARE, SELFPAY ==
[2025-01-01 07:19] LABS: Abs Immature Grans 0.07 10^3/uL (0.0-0.06); HCT 30.3 % (40.0-50.0); HGB 9.9 g/dL (13.5-17.5); Immature Grans % 3.7 %; MCH 35.6 pg (27.0-33.0); MCHC 32.7 % (32.0-36.0); MCV 109 fL (80-95); MPV 11.9 fL (8.0-11.0); RBC 2.78 10^6/uL (4.36-5.78); RDW 19.9 % (11.8-14.1); RDW-SD 80.0 fL
[2025-01-01 07:54] LABS: Platelet Count 94 10^3/uL (130-400)
[2025-01-01 07:55] LABS: Anisocytosis 2+; Macrocytosis 2+
[2025-01-01 08:04] LABS: WBC 1.87 10^3/uL (4.4-10.8)
[2025-01-21 07:20] LABS: Abs Immature Grans 0.08 10^3/uL (0.0-0.06); HCT 28.4 % (40.0-50.0); HGB 8.9 g/dL (13.5-17.5); Immature Grans % 5.1 %; MCH 34.6 pg (27.0-33.0); MCHC 31.3 % (32.0-36.0); MCV 111 fL (80-95); MPV 11.9 fL (8.0-11.0); RBC 2.57 10^6/uL (4.36-5.78); RDW 20.8 % (11.8-14.1); RDW-SD 82.8 fL
[2025-01-21 07:44] LABS: Platelet Count 98 10^3/uL (130-400)
[2025-01-21 07:45] LABS: Anisocytosis 2+; Hypochromasia 2+; Macrocytosis 2+
[2025-01-21 14:16] LABS: WBC 1.57 10^3/uL (4.4-10.8)
[2025-01-22 07:42] VITALS: BP 132/73; PULSE 75; RESP 20; TEMP 36.4; O2SAT 96
[2025-01-22] MEDS: Normal Saline Flush 10 ML SYR IVP (07:55)
[2025-01-22 07:57] VITALS: BP 131/68; PULSE 64; RESP 18; TEMP 36.4; O2SAT 97
[2025-01-22 08:15] VITALS: BP 128/74; PULSE 63; RESP 18; TEMP 36.4; O2SAT 93
[2025-01-22 08:44] VITALS: BP 147/80; PULSE 64; RESP 18; TEMP 36.4; O2SAT 93
[2025-01-22 09:37] VITALS: BP 153/90; PULSE 65; RESP 19; TEMP 36.4; O2SAT 98
== END 2025-01-29 23:59 | disposition home or self-care (01) ==
LOC: INF 01:47
PROVIDERS: Nurse Practitioner Family; PCP Family Medicine; Visit Provider Internal Medicine Hematology & Oncology
DX: D46.9 Myelodysplastic syndrome, unspecified (principal)
CPT/HCPCS: 36415; 36430; 86850; 86900; 86901; 86920; 85025; P9016

== ENCOUNTER 2025-02-11 03:31 | Outpatient (RCR) | payer MEDICARE, SELFPAY ==
[2025-02-11 07:46] LABS: Abs Immature Grans 0.02 10^3/uL (0.0-0.06); HCT 30.0 % (40.0-50.0); HGB 9.6 g/dL (13.5-17.5); MCH 35.0 pg (27.0-33.0); MCHC 32.0 % (32.0-36.0); MCV 110 fL (80-95); MPV 12.5 fL (8.0-11.0); RBC 2.74 10^6/uL (4.36-5.78); RDW 21.0 % (11.8-14.1); RDW-SD 84.2 fL
[2025-02-11 08:15] LABS: Platelet Count 105 10^3/uL (130-400)
[2025-02-11 08:16] LABS: Anisocytosis 2+; Macrocytosis 2+
[2025-02-11 08:20] LABS: WBC 1.75 10^3/uL (4.4-10.8)
== END 2025-03-01 23:59 | disposition home or self-care (01) ==
LOC: INF 03:31
PROVIDERS: Nurse Practitioner Family; PCP Family Medicine; Visit Provider Internal Medicine Hematology & Oncology
DX: D46.9 Myelodysplastic syndrome, unspecified (principal)
CPT/HCPCS: 36415; 86850; 86900; 86901; 85025

== ENCOUNTER 2025-03-25 07:00 | Outpatient (RCR) | payer MEDICARE, SELFPAY ==
[2025-03-04] VITALS (9 sets, daily range): BP systolic 158–186; BP diastolic 71–86; PULSE 58–68; RESP 18–19; TEMP 36–36.6; O2SAT 94–98
[2025-03-04 07:51] LABS: Abs Immature Grans 0.10 10^3/uL (0.0-0.06); HCT 25.3 % (40.0-50.0); HGB 8.4 g/dL (13.5-17.5); MCH 36.8 pg (27.0-33.0); MCHC 33.2 % (32.0-36.0); MCV 111 fL (80-95); MPV 11.8 fL (8.0-11.0); RBC 2.28 10^6/uL (4.36-5.78); RDW 20.5 % (11.8-14.1); RDW-SD 81.1 fL
[2025-03-04 08:17] LABS: Immature Grans % 0.0 %; Platelet Count 93 10^3/uL (130-400)
[2025-03-04 08:19] LABS: Anisocytosis 2+; Macrocytosis 1+
[2025-03-04 08:25] LABS: WBC 1.62 10^3/uL (4.4-10.8)
[2025-03-04] MEDS: Normal Saline Flush 10 ML SYR IVP (14:45)
[2025-03-25 07:49] LABS: Abs Immature Grans 0.03 10^3/uL (0.0-0.06); HCT 28.8 % (40.0-50.0); HGB 9.5 g/dL (13.5-17.5); MCH 35.7 pg (27.0-33.0); MCHC 33.0 % (32.0-36.0); MCV 108 fL (80-95); MPV 12.1 fL (8.0-11.0); RBC 2.66 10^6/uL (4.36-5.78); RDW 20.3 % (11.8-14.1); RDW-SD 78.9 fL
[2025-03-25 08:24] LABS: Anisocytosis 2+; Macrocytosis 2+
[2025-03-25 08:25] LABS: Platelet Count 100 10^3/uL (130-400)
[2025-03-25 08:27] LABS: WBC 1.16 10^3/uL (4.4-10.8)
== END 2025-03-31 23:59 | disposition home or self-care (01) ==
LOC: INF 07:00
PROVIDERS: Nurse Practitioner Family; PCP Family Medicine; Visit Provider Internal Medicine Hematology & Oncology
DX: D46.9 Myelodysplastic syndrome, unspecified (principal)
CPT/HCPCS: 36415; 36430; 86850; 86900; 86901; 86920; 85025; P9016

== ENCOUNTER 2025-04-15 01:53 | Outpatient (RCR) | payer MEDICARE, SELFPAY ==
[2025-04-15 07:27] LABS: Abs Immature Grans 0.07 10^3/uL (0.0-0.06); HCT 27.0 % (40.0-50.0); HGB 8.9 g/dL (13.5-17.5); MCH 36.3 pg (27.0-33.0); MCHC 33.0 % (32.0-36.0); MCV 110 fL (80-95); MPV 12.8 fL (8.0-11.0); RBC 2.45 10^6/uL (4.36-5.78); RDW 21.2 % (11.8-14.1); RDW-SD 83.6 fL
[2025-04-15 08:00] LABS: Platelet Count 78 10^3/uL (130-400)
[2025-04-15 08:01] LABS: Anisocytosis 2+; Hypochromasia 2+; Macrocytosis 2+; Poikilocytes 2+; Polychromasia Present
[2025-04-15 08:15] LABS: WBC 1.66 10^3/uL (4.4-10.8)
[2025-04-15] MEDS: Normal Saline Flush 10 ML SYR IVP (09:45)
[2025-04-15 09:47] VITALS: BP 146/82; PULSE 60; RESP 18; TEMP 36.3; O2SAT 96
[2025-04-15 10:05] VITALS: BP 180/78; PULSE 64; RESP 18; TEMP 36.5; O2SAT 94
[2025-04-15 10:20] VITALS: BP 189/90; PULSE 63; RESP 18; TEMP 36.4; O2SAT 94
[2025-04-15 10:50] VITALS: BP 180/77; PULSE 64; RESP 18; TEMP 36.4; O2SAT 94
[2025-04-15 11:45] VITALS: BP 188/90; PULSE 57; RESP 18; TEMP 36.3; O2SAT 98
== END 2025-05-01 23:59 | disposition home or self-care (01) ==
LOC: INF 01:53
PROVIDERS: Nurse Practitioner Family; PCP Family Medicine; Visit Provider Internal Medicine Hematology & Oncology
DX: D46.9 Myelodysplastic syndrome, unspecified (principal)
CPT/HCPCS: 36415; 36430; 86850; 86900; 86901; 86920; 85025; P9016

== ENCOUNTER 2025-05-27 09:00 | Outpatient (RCR) | payer MEDICARE, SELFPAY ==
[2025-05-06 07:29] LABS: HCT 27.9 % (40.0-50.0); HGB 8.9 g/dL (13.5-17.5); MCH 34.9 pg (27.0-33.0); MCHC 31.9 % (32.0-36.0); MCV 109 fL (80-95); MPV 12.2 fL (8.0-11.0); RBC 2.55 10^6/uL (4.36-5.78); RDW 21.0 % (11.8-14.1); RDW-SD 82.9 fL
[2025-05-06 07:44] LABS: Abs Immature Grans 0.00 10^3/uL (0.0-0.06); Anisocytosis 2+; Immature Grans % 0.0 %; Macrocytosis 2+; Platelet Count 81 10^3/uL (130-400); Poikilocytes 1+
[2025-05-06 08:05] LABS: WBC 1.52 10^3/uL (4.4-10.8)
[2025-05-07 07:44] VITALS: BP 181/82; PULSE 74; RESP 18; TEMP 36.3; O2SAT 96
[2025-05-07 08:06] VITALS: BP 188/94; PULSE 61; RESP 19; TEMP 36.4; O2SAT 95
[2025-05-07 08:22] VITALS: BP 184/81; PULSE 62; RESP 19; TEMP 36.3; O2SAT 92
[2025-05-07 08:29] VITALS: BP 211/85; PULSE 61; RESP 19; TEMP 36.4; O2SAT 93
[2025-05-07 09:50] VITALS: BP 216/94; PULSE 60; RESP 18; TEMP 36.6; O2SAT 96
[2025-05-07] MEDS: Normal Saline Flush 10 ML SYR IVP (14:27)
[2025-05-27] VITALS (10 sets, daily range): BP systolic 151–192; BP diastolic 74–97; PULSE 71–77; RESP 18; TEMP 36–37.1; O2SAT 94–98
[2025-05-27 07:29] LABS: Abs Immature Grans 0.08 10^3/uL (0.0-0.06); HCT 25.4 % (40.0-50.0); HGB 8.3 g/dL (13.5-17.5); Immature Grans % 4.8 %; MCH 35.2 pg (27.0-33.0); MCHC 32.7 % (32.0-36.0); MCV 108 fL (80-95); MPV 11.9 fL (8.0-11.0); RBC 2.36 10^6/uL (4.36-5.78); RDW 20.6 % (11.8-14.1); RDW-SD 76.4 fL
[2025-05-27 07:43] LABS: Anisocytosis 2+; Macrocytosis 2+; Platelet Count 98 10^3/uL (130-400); Poikilocytes 2+
[2025-05-27 08:03] LABS: WBC 1.67 10^3/uL (4.4-10.8)
[2025-05-27] MEDS: Normal Saline Flush 10 ML SYR IVP (11:00)
== END 2025-05-31 23:59 | disposition home or self-care (01) ==
LOC: INF 09:00
PROVIDERS: Nurse Practitioner Family; PCP Family Medicine; Visit Provider Internal Medicine Hematology & Oncology
DX: D46.9 Myelodysplastic syndrome, unspecified (principal)
CPT/HCPCS: 36415; 36430; 86850; 86900; 86901; 86920; 85025; P9016

== ENCOUNTER → 2025-06-11 14:45 | Outpatient (BNVA) | payer MEDICARE, SELFPAY | PROVIDERS: PCP Family Medicine; Visit Provider Nurse Practitioner Gerontology | DX: R33.8 Other retention of urine (principal) | CPT/HCPCS: 99213; 51798 ==

== ENCOUNTER 2025-06-17 00:33 | Outpatient (RCR) | payer MEDICARE, SELFPAY ==
[2025-06-17 07:30] LABS: Abs Immature Grans 0.04 10^3/uL (0.0-0.06); HCT 33.3 % (40.0-50.0); HGB 10.9 g/dL (13.5-17.5); Immature Grans % 2.6 %; MCH 35.4 pg (27.0-33.0); MCHC 32.7 % (32.0-36.0); MCV 108 fL (80-95); MPV 12.4 fL (8.0-11.0); RBC 3.08 10^6/uL (4.36-5.78); RDW 21.2 % (11.8-14.1); RDW-SD 82.7 fL
[2025-06-17 08:07] LABS: Anisocytosis 2+; Macrocytosis 2+; Polychromasia Present
[2025-06-17 08:08] LABS: Platelet Count 92 10^3/uL (130-400)
[2025-06-17 08:10] LABS: WBC 1.53 10^3/uL (4.4-10.8)
== END 2025-07-01 23:59 | disposition home or self-care (01) ==
LOC: INF 00:33
PROVIDERS: Nurse Practitioner Family; PCP Family Medicine; Visit Provider Internal Medicine Hematology & Oncology
DX: D46.9 Myelodysplastic syndrome, unspecified (principal)
CPT/HCPCS: 36415; 86850; 86900; 86901; 85025